=== PATIENT | female | born 1970 | race Caucasian/White ===

== ENCOUNTER → 2017-08-12 | Outpatient (CLI) | payer OTHER ==
--- NOTE | 2017-08-12 18:16 | REP ---
HISTORY: Bronchitis. COMPARISON: 12/22/2015 FINDINGS: The superior mediastinal structures are midline. The cardiac silhouette is unremarkable in size, shape and position. The diaphragmatic surfaces of the lungs are regular and the costophrenic angles are clear. The pulmonary [place] are clear. The imaged osseous structures are intact. IMPRESSION: There is no acute cardiopulmonary disease. Signed by Theodore Lr DO 08/15/2017 04:41 P
== END ==
LOC: M WUC 13:32
PROVIDERS: ATTEND Physician Assistant
DX: J20.9 Acute bronchitis, unspecified (principal)

== ENCOUNTER → 2018-09-29 | Outpatient (CLI) | payer OTHER | LOC: M WUC 12:40 | DX: J45.21 Mild intermittent asthma with (acute) exacerbation (principal) | CPT/HCPCS: 71046 ==

== ENCOUNTER → 2018-12-01 | Outpatient (REF) | payer OTHER ==
[2018-12-01 19:39] LABS: CHLAMYDIA DNA AMPLIFICATION NEGATIVE (NEGATIVE); GC DNA AMPLIFICATION NEGATIVE (NEGATIVE)
[2018-12-05 15:26] LABS: HPV HYBRID CAPTURE II Negative (Negative)
== END ==
LOC: M SFHCWAGY 15:42
PROVIDERS: ATTEND Nurse Practitioner Family
DX: Z12.4 Encounter for screening for malignant neoplasm of cervix (principal); Z11.3 Encounter for screening for infections with a predominantly sexual mode of transmission
CPT/HCPCS: 87491; 87591; 87624; G0123

== ENCOUNTER → 2019-03-06 | Outpatient (CLI) | payer OTHER ==
--- NOTE | 2019-03-06 16:57 | REPMRS ---
Patient History The patient states she had a clinical breast exam in 11/2018. Patient had first child at age 36. No known family history of cancer. Taking hormonal contraceptives for 11 years. 3D TOMOSYNTHESIS WAS PERFORMED. Digital Woman Screen Mammo: March 06, 2019 - Exam #: [id number] Bilateral CC and MLO view(s) were taken. Technologist: Julia Cummings, Technologist Prior study comparison: February 15, 2018, digital woman screen mammo performed at [facility]. 2017, bilateral digital mammo screening bilat, performed at [facility]. FINDINGS: There are scattered fibroglandular densities. There has been no change in the appearance of the mammogram from the prior studies. There is a mild amount of residual fibroglandular tissue which is fairly symmetric. There is no interval development of dominant mass, architectural distortion, or clustered microcalcification suggestive of malignancy. Assessment: BI-RADS/ACR category 1 mammogram. Negative Mammogram. Recommendation Routine screening mammogram in 1 year (for women over age 40). This mammogram was interpreted with the aid of an FDA-approved computer-aided dectection system. Electronically Signed By: Trino Dominguez MD 03/06/19 [id number]
== END ==
LOC: M WHC 15:35
PROVIDERS: ATTEND Nurse Practitioner Family
DX: Z12.31 Encounter for screening mammogram for malignant neoplasm of breast (principal); Z79.3 Long term (current) use of hormonal contraceptives

== ENCOUNTER → 2019-09-20 | Outpatient (REF) | payer OTHER | LOC: M LAB REF 12:20 | PROVIDERS: ATTEND Family Medicine | DX: R35.0 Frequency of micturition (principal) ==

== ENCOUNTER → 2019-11-12 | Outpatient (REF) | payer OTHER ==
[2019-11-12 18:08] LABS: HEMATOCRIT 42.8 % (36.0-47.0)
[2019-11-12 18:28] LABS: PERCENT SATURATION 29.8 % (13.2-45.0); PHOSPHORUS LEVEL 2.3 MG/DL (2.5-4.9)
== END ==
LOC: M LAB REF 16:55
PROVIDERS: ATTEND Family Medicine
DX: K91.2 Postsurgical malabsorption, not elsewhere classified (principal); Z98.84 Bariatric surgery status; E55.9 Vitamin D deficiency, unspecified

== ENCOUNTER → 2020-03-07 | Outpatient (CLI) | payer OTHER ==
--- NOTE | 2020-03-08 08:48 | REP ---
BILATERAL MAMMOGRAM WITH 3D TOMOSYNTHESIS: No family history of breast cancer. Tyrer-Cuzick lifetime risk of breast cancer 13.8% Volpara score is B. COMPARISON: 03/06/2019 as well as other prior exams. Mild scattered fibroglandular tissue is again seen bilaterally. There is no new mass. However, there are a few tiny calcifications behind the right nipple, approximately 2-3 cm from the nipple. Recommend magnification views to further evaluate. IMPRESSION: ACR 0 incomplete. Tiny calcifications a few centimeters behind the right nipple. These appear to be about 12-o'clock position. Recommend magnification views to further evaluate. This mammogram was interpreted with the aid of an FDA-approved computer-aided detection system. A. Negative x-ray reports should not delay biopsy if a dominant or clinically suspicious mass is present. B. Four to eight percent of cancers are not identified by x-ray. C. Adenosis and dense breasts may obscure an underlying neoplasm. The patient states she/he had a clinical breast exam in February 2020. The patient letter being requested is M0.
== END ==
LOC: M WHC 15:11
PROVIDERS: ATTEND Nurse Practitioner Family
DX: Z12.31 Encounter for screening mammogram for malignant neoplasm of breast (principal); R92.1 Mammographic calcification found on diagnostic imaging of breast

== ENCOUNTER → 2020-03-10 | Outpatient (CLI) | payer OTHER ==
--- NOTE | 2020-03-10 23:11 | REP ---
DIAGNOSTIC MAMMOGRAM RIGHT BREAST: Magnification views of right breast performed and correlated with the recent mammogram of 03/07/2020 and compared to other prior studies. There are tiny somewhat pleomorphic microcalcifications clustered in the 12-o'clock region of the right breast. These have been present on a prior study of 2017, but there are an increased number of calcifications. I would recommend stereotactic biopsy for further evaluation. IMPRESSION: Clustered pleomorphic microcalcifications at the 12-o'clock position of the right breast. Recommend stereotactic biopsy. ACR 4, suspicious. BIRADS 4: BI-RADS/ACR category 4 mammogram. Suspicious Abnormality - biopsy should be considered. The patient letter being requested is M4.
== END ==
LOC: M WHC 13:58
PROVIDERS: ATTEND Nurse Practitioner Family
DX: R92.0 Mammographic microcalcification found on diagnostic imaging of breast (principal)

== ENCOUNTER → 2020-03-17 | Outpatient (CLI) | payer OTHER ==
[~2020-03-17] MED LIST: BIOT1TAB PO; CALC1TAB9 PO; CITA20TA6 PO; CLON0.5T17 PO; CVS10CAP8 PO; INTRTAB PO; MIRE1IUD IU; MULTCAP PO; SYNT150T PO; SYNT175T2 PO; VALT500T PO; VENTAER INH; VITAD400CA FT
== END ==
LOC: M PLALAB 10:21
PROVIDERS: ATTEND Surgery
DX: Z13.79 Encounter for other screening for genetic and chromosomal anomalies (principal)

== ENCOUNTER → 2020-03-18 | Outpatient (CLI) | payer OTHER ==
--- NOTE | 2020-03-18 13:37 | REP ---
FOCUSED RIGHT BREAST SONOGRAPHY: HISTORY: Right breast mass, 12:30-o'clock position, 5.5 cm from the nipple and 12-o'clock position, 3.5 cm from the nipple. COMPARISON MAMMOGRAPHY: March 07, 2020 SONOGRAPHIC FINDINGS: The right breast is scanned at 12-o'clock position, 12:30-o'clock position , and in the right axillary region. At the 12-o'clock position, 3 cm from the nipple, there is a hypoechoic area casting acoustic shadowing. This measures 0.9 x 0.8 x 0.6 cm. Histologic sampling is recommended. At 12:30-o'clock position, normal heterogeneous fibroglandular background echotexture is seen sonographically. In the right axilla, sonography demonstrates two normal-appearing lymph nodes with hyperechoic fatty hilar architecture and normal-appearing peripheral cortical mantle. These measure 1.7 x 1.4 x 0.6 cm and 1.7 x 1.3 x 0.7 cm, respectively. No evidence of axillary adenopathy seen. IMPRESSION: There is a sonographically suspicious focus at 12-o'clock position measuring 0.9 x 0.8 x 0.6 cm. Ultrasound-guided needle biopsy and marker clip placement with post marker clip placement mammography recommended.
== END ==
LOC: M WHC 11:23
PROVIDERS: ATTEND Surgery
DX: N63.10 Unspecified lump in the right breast, unspecified quadrant (principal); R59.0 Localized enlarged lymph nodes

== ENCOUNTER → 2020-03-19 | Outpatient (CLI) | payer OTHER ==
[2020-03-19 09:28] VITALS: BP 122/70
--- NOTE | 2020-03-19 10:39 | REP ---
RADIOGRAPHY RIGHT BREAST: HISTORY: Right breast microcalcifications. Comparison mammography March 10, 2020 and March 07, 2020. FINDINGS: Microcalcifications are visible from the target cluster in two of the removed specimens. IMPRESSION: Microcalcifications are present on specimen radiography.
--- NOTE | 2020-03-19 10:41 | REP ---
STEREOTACTIC NEEDLE BIOPSY. HISTORY: Microcalcific grouping right breast. FINDINGS: Stereotactic guidance is provided to Dr. Narvaez who performed stereotactic needle biopsy procedure.
--- NOTE | 2020-03-19 10:50 | REP ---
DIGITAL DIAGNOSTIC UNILATERAL RIGHT BREAST MAMMOGRAPHY WITH CAD: Two views. HISTORY: Right breast calcifications. Post stereotactic needle biopsy. Marker clip placement views. Comparison mammography March 10, 2020. FINDINGS: The marker clip is in good position at the site where prior mammography showed the micro calcific grouping. The microcalcifications have been removed except for one remaining visible microcalcification adjacent to the clip. IMPRESSION: Marker clip in good position. This mammogram was interpreted with the aid of an FDA-approved computer-aided detection system.
--- NOTE | 2020-03-23 16:20 | ROOPDOC ---
[facility] Report Of Operation Report of Operation DATE OF PROCEDURE: 03/19/20 PREPROCEDURE DIAGNOSES: Right breast suspicious calcifications POSTPROCEDURE DIAGNOSES: Right breast suspicious calcifications. PROCEDURE: Right breast stereotactic biopsy with clip placement. SURGEON: Eliot Perry TOP LIFT COMPRESSER: ANESTHESIA: Local anesthetic was used. ESTIMATED BLOOD LOSS: Approximately 1 mL. COMPLICATIONS: None. REMARKS: Clip is seen in appropriate position on postbiopsy mammogram. Suspicious calcifications are seen in the specimen. DESCRIPTION OF PROCEDURE: Lidocaine 1% LOT [id number] Expiration 04/2023 Sodium Bicarbonate 8.4% LOT [id number] Expiration 04/2021 Hydromark clip LOT [id number] Expiration 08/2021 T1 titanium shaped 1 (closed Spring) Bx device: Stereotactic Mammotome Revolve Dual Vacuum- assisted Biopsy System 10 G LOT [id number] Expiration 10/2022 REF [id number] Informed consent was obtained in the preop area. The most common risk and possible complications including bleeding, hematoma, bruising, infection, injury to surrounding structures were explained to the patient and she expressed understanding. Patient was taken to the procedure room and placed prone on the [facility] Prone Breast Biopsy table with the right breast hanging through the table aperture. Right breast was placed into Cranio-Caudal compression and Orchestra Musician marnie images were taken. Suspicious calcifications were identified on the marnie images and target was set. CC approach from the top was chosen for this procedure. At this time, since we were able to confirm visibility of the suspicious calcifications and patient tolerated prone positioning allowing to proceed with the biopsy, appropriate time out was done stating patients name, date of , and the procedure to be performed. The right breast in CC compression was prepped in the usual fashion. Plain Lidocaine 1% and 8.4% sodium bicarbonate 10:1 mix was used to anesthetize the skin, the biopsy site and tissues along the anticipated biopsy tract. Small skin incision was made with blade number 11. Mammotome 10 G stereotactic breast biopsy device was inserted through the incision and advanced to the previously set coordinates marking the target lesion. Pre-fire imaging was taken to assure appropriate positioning. At this time, Mammotome 10 G breast biopsy device was fired and vacuum assisted biopsies were collected. The biopsy samples were investigated with [employer] Imaging system and calcifications were observed. Biopsy samples were then placed in the formaldehyde, marked with patients name and right breast biopsy site, and sent to pathology for evaluation. Hydromark clip was placed into the Mammotome biopsy device channel and deployed. Post-deployment imaging was done to assure appropriate clip deployment. Clip was noted in the right breast. At this point, paddle CC compression of the right breast was released and manual pressure was held to decrease harmonic effect and to assure hemostasis. No bleeding was noted upon removal of the pressure. Patient was slowly repositioned and placed into sitting position, and then assisted off the table. Post-biopsy mammogram of the right breast was obtained and showed clip in expected position. Postprocedural dressing was placed. Patient tolerated procedure well and was taken to the recovery unit in stable condition. Discharge instructions were discussed with the patient and she expressed understanding. ELIOT PERRY DO March 23, 2020 16:01
== END ==
LOC: M WHCPRO 07:53
PROVIDERS: ATTEND Surgery
DX: N60.11 Diffuse cystic mastopathy of right breast (principal)

== ENCOUNTER → 2020-03-26 | Outpatient (CLI) | payer OTHER ==
--- NOTE | 2020-03-26 11:13 | REP ---
FOCUSED RIGHT BREAST SONOGRAPHY: HISTORY: Right breast mass. Sonographic guidance. FINDINGS: Sonographic guidance is provided to Dr. Narvaez who performed ultrasound-guided needle biopsy procedure right breast with HydroMARK clip placement.
[2020-03-26 11:52] VITALS: BP 118/70
--- NOTE | 2020-03-26 14:04 | REP ---
DIGITAL DIAGNOSTIC UNILATERAL RIGHT BREAST MAMMOGRAPHY: Two views. HISTORY: Marker clip placement views. The patient is status post ultrasound-guided needle biopsy procedure. Comparison mammography March 19, 2020. FINDINGS: CC and true mediolateral views of the right breast demonstrate a second needle biopsy marker clip in place superior to the plane of the nipple and lateral to the plane of the nipple. No corresponding mammographic lesion. There are now two needle biopsy marker clips in the right breast anteriorly and superiorly. There is no evidence of hematoma. IMPRESSION: Marker clip placement views.
--- NOTE | 2020-04-01 11:44 | ROOPDOC ---
[facility] Report Of Operation Report of Operation DATE OF PROCEDURE: 03/26/20 PREPROCEDURE DIAGNOSES: Right breast mass. POSTPROCEDURE DIAGNOSES: Right breast mass. PROCEDURE: Right breast ultrasound-guided biopsy with clip placement. SURGEON: Eliot Perry GELATIN DYNAMITE PACKING OPERATOR: ANESTHESIA: Local anesthetic was used. ESTIMATED BLOOD LOSS: Approximately 1 mL. COMPLICATIONS: None. REMARKS: Postbiopsy clip seen on mammogram. DESCRIPTION OF PROCEDURE: Lidocaine 1% LOT [id number] Expiration 04/2023 Sodium Bicarbonate 8.4% LOT [id number] Expiration 04/2021 Hydromark clip LOT [id number] Expiration 11/2022 SHAPE 4 Bx device: BARD [id number] x10 cm LOT HUEP 3 1 0 2 Expiration 12/2022 Informed consent was obtained. The most common risk and possible complications including bleeding, hematoma, bruising, infection, injury to surrounding stru ctures were explained to the patient and she expressed understanding. Patient was placed on the bed in the supine position. Appropriate time out was done stating patients name, date of , and the procedure to be performed. The right breast was prepped and draped in the usual fashion. The ultrasound was used to confirm the location of the lesion in the right breast at 12:00 3 centimeters from the nipple. Plain Lidocaine 1% and 8.4% sodium bicarbonate 10:1 mix was used to anesthetize the skin, the biopsy site and tissues along the anticipated biopsy tract. Small skin incision was made with blade number 11. BARD Marquee 14G cannula with introducer ([id number]) was inserted through the incision and advanced under the ultrasound guidance to position immediately adjacent to the lesion. Next, the introducer was removed and BARD Marquee 14G biopsy device was places in the cannula. Pre-biopsy imaging, and post-biopsy imaging were captured. Five good core biopsies were taken at various levels of the lesion. Specimen was placed in formaldehyde, labeled with appropriate biopsy site and patients name, and sent to pathology for evaluation. Next, the biopsy device was withdrawn and a clip introducer was inserted into the biopsy site via the cannula. The Hydromark clip was deployed under sonographic guidance. Post-clip placement image was captured. Manual pressure over the biopsy cavity and tract was held after the clip introducer was withdrawn. No bleeding was noted upon removal of the pressure. Post-biopsy mammogram of the right breast was obtained and showed clip in expected position. Postprocedural dressing was placed. Patient tolerated procedure well. Discharge instructions were discussed with the patient and she expressed understanding. ELIOT PERRY DO April 01, 2020 11:38
== END ==
LOC: M WHCPRO 08:52
PROVIDERS: ATTEND Surgery
DX: D24.1 Benign neoplasm of right breast (principal)

== ENCOUNTER → 2020-04-17 | Outpatient (REF) | payer OTHER ==
[~2020-04-17] MED LIST changes: +MECL-86 PO
[2020-04-17 17:42] LABS: HEMATOCRIT 40.2 % (36.0-47.0)
[2020-04-17 18:16] LABS: PHOSPHORUS LEVEL 3.4 MG/DL (2.5-4.9)
== END ==
LOC: M LAB REF 16:50
PROVIDERS: ATTEND Family Medicine
DX: K91.2 Postsurgical malabsorption, not elsewhere classified (principal); Z98.84 Bariatric surgery status; Z86.39 Personal history of other endocrine, nutritional and metabolic disease

== ENCOUNTER 2020-04-18 07:52 | Emergency (ER) | payer OTHER ==
[~2020-04-18] VITALS: Ht 165.1 cm; Wt 94.1 kg
[~2020-04-18 07:52] MED LIST changes: -MECL-86 PO
[2020-04-18] MEDS ORDERED: NS 1,000 ML IV ONE (08:15)
[2020-04-18 08:30] LABS: BASO # 0.1 10^3/uL (0.0-0.2); HEMATOCRIT 44.1 % (36.0-47.0); HEMOGLOBIN 15.2 g/dl (12.0-15.5); LYMPH # 1.6 10^3/uL (1.5-5.0); LYMPH % 20.2 % (24.0-44.0); MEAN CORPUSCULAR HEMOGLOBIN 32.3 pg (27.0-33.0); MEAN CORPUSCULAR HGB CONC 34.5 g/dl (32.0-36.5); MEAN CORPUSCULAR VOLUME 93.6 fl (80.0-96.0); MONO # 0.7 10^3/uL (0.0-0.8); MONO % 8.7 % (0.0-5.0); NEUTROPHILS # 5.6 10^3/uL (1.5-8.5); NEUTROPHILS % 69.7 % (36.0-66.0); PLATELET COUNT, AUTOMATED 318 10^3/uL (150-450); RED BLOOD COUNT 4.71 10^6/uL (4.00-5.40); WHITE BLOOD COUNT 8.1 10^3/uL (4.0-10.0)
[2020-04-18 08:42] LABS: INR 0.97; PROTHROMBIN TIME 12.6 SECONDS (11.8-14.0)
[2020-04-18 09:07] LABS: BLOOD UREA NITROGEN 8 MG/DL (7-18); CALCIUM LEVEL 9.1 MG/DL (8.5-10.1); CARBON DIOXIDE LEVEL 28 MEQ/L (21-32); CHLORIDE LEVEL 105 MEQ/L (98-107); CK-MB VALUE MASS 1.3 NG/ML (<3.6); CPK CREATINE PHOSPHOKINASE 45 U/L (26-192); CREATININE FOR GFR 0.64 MG/DL (0.55-1.30); ETHYL ALCOHOL (ETHANOL) < 0.003 % (0.000-0.010); GLOMERULAR FILTRATION RATE > 60.0 (>58); GLUCOSE, FASTING 106 MG/DL (70-100); MB/CK RELATIVE INDEX 2.89 (< OR =4); POTASSIUM SERUM 3.5 MEQ/L (3.5-5.1); SODIUM LEVEL 141 MEQ/L (136-145); TROPONIN I < 0.02 NG/ML (< 0.10)
[2020-04-18 09:42] LABS: AMPHETAMINES LEVEL URINE NEGATIVE (NEGATIVE); BARBITURATES URINE NEGATIVE (NEGATIVE); BENZODIAZEPINES URINE NEGATIVE (NEGATIVE); CANNABINOIDS URINE NEGATIVE (NEGATIVE); COCAINE METABOLITE URINE NEGATIVE (NEGATIVE); METHADONE URINE NEGATIVE (NEGATIVE); OPIATES URINE NEGATIVE (NEGATIVE); PHENCYCLIDINE URINE NEGATIVE (NEGATIVE)
--- NOTE | 2020-04-18 09:52 | REP ---
CHEST: Single view. There is no evidence of acute infiltrate. No pleural effusion is seen. The heart is normal in size. The mediastinal silhouette is unremarkable. The visualized osseous structures are intact. IMPRESSION: No acute pulmonary disease. Electronically Signed by Trino Dominguez MD 04/21/2020 09:34 P
[2020-04-18] MEDS ORDERED: MECL-86 PO (10:04)
[2020-04-18 10:10] VITALS: BP 117/57
--- NOTE | 2020-04-18 21:07 | ECGEPIP ---
[facility] - ED Test Date: 2020-04-18 Pat Name: JOYCE KELLEY Department: Room: - Gender: Female Surgical Coordinator: adrian : 1970 Requested By: KACIE REAL Order Number: [id number] Reading MD: Kristin Saavedra Measurements Intervals [place] Rate: 98 P: 65 IA: 179 QRS: -34 QRSD: 90 T: 60 QT: 350 QTc: 447 Interpretive Statements SINUS RHYTHM MARKED LEFT AXIS DEVIATION INCREASED RATE 07/25/16 Electronically Signed on 04-18-2020 21:06:37 EDT by Kristin Saavedra
== END 2020-04-18 10:22 | disposition home or self-care (01) ==
LOC: M ED 07:52
DX: R00.2 Palpitations (principal); R42 Dizziness and giddiness; J45.909 Unspecified asthma, uncomplicated; Z79.51 Long term (current) use of inhaled steroids; Z79.899 Other long term (current) drug therapy; Z88.0 Allergy status to penicillin; Z98.84 Bariatric surgery status
CPT/HCPCS: 71045; 80048; 80307; 81001; 82550; 82553; 83735; 84443; 84484; 85025; 85610; 87086; 93005; 93041; 94760; 96360; 96361; 99285; G0480

== ENCOUNTER → 2020-09-18 | Outpatient (CLI) | payer OTHER ==
[~2020-09-18] MED LIST changes: +MECL-86 PO
--- NOTE | 2020-09-18 09:22 | REP ---
INDICATION: OSTEO LEFT HIP, PREOP LABS 1ST FILE RM COMPARISON: 04/18/2020 and 09/29/2018. TECHNIQUE: PA/Lateral FINDINGS: Lungs: Clear, no infiltrate. Heart: Normal in size. Mediastinum: Mediastinal silhouette unremarkable. Pleural angles: Unremarkable.. Bones and soft tissues: There are mild degenerative changes of the spine without compression deformity. IMPRESSION: No acute pulmonary disease. <Electronically signed by Trino Dominguez > 09/18/20 0919
[2020-09-18 09:40] LABS: HEMATOCRIT 43.8 % (36.0-47.0); HEMOGLOBIN 14.2 g/dl (12.0-15.5); MEAN CORPUSCULAR HEMOGLOBIN 30.5 pg (27.0-33.0); MEAN CORPUSCULAR HGB CONC 32.4 g/dl (32.0-36.5); PLATELET COUNT, AUTOMATED 302 10^3/uL (150-450); RED BLOOD COUNT 4.66 10^6/uL (4.00-5.40)
[2020-09-18 09:48] LABS: INR 1.01; PROTHROMBIN TIME 13.5 SECONDS (12.5-14.3)
[2020-09-18 10:06] LABS: ERYTHROCYTE SEDIMENTATION RATE 7 mm/hr (0-20)
--- NOTE | 2020-09-19 01:51 | ECGEPIP ---
[facility] Test Date: 2020-09-18 Pat Name: JOYCE KELLEY Department: Room: - Gender: Female Chief Engineer Research: LUCRECIA : 1970 Requested By: Jeronimo Hernandez Order Number: [id number] Reading MD: Carlo Henriquez Measurements Intervals [place] Rate: 58 P: 21 AR: 170 QRS: -30 QRSD: 82 T: 48 QT: 400 QTc: 393 Interpretive Statements SINUS BRADYCARDIA BORDERLINE LEFT AXIS DEVIATION Similar to tracing done 04-18-20 Electronically Signed on 09-19-2020 1:51:25 EST by Carlo Henriquez
== END ==
LOC: M LAB 08:21
PROVIDERS: ATTEND Orthopaedic Surgery
DX: Z01.818 Encounter for other preprocedural examination (principal); M16.12 Unilateral primary osteoarthritis, left hip; R00.1 Bradycardia, unspecified

== ENCOUNTER → 2020-09-26 | Outpatient (CLI) | payer OTHER ==
[~2020-09-26] MED LIST changes: +BENA25CA4 PO; +MUPI2OI; -VITAD400CA FT; +VITAD400CA PO
== END ==
LOC: M LABSMTC 10:01
PROVIDERS: ATTEND Anesthesiology
DX: Z01.812 Encounter for preprocedural laboratory examination (principal); Z20.828 Contact with and (suspected) exposure to other viral communicable diseases

== ENCOUNTER 2020-10-01 06:13 | Inpatient (IN) | payer OTHER ==
--- NOTE | 2020-09-30 13:30 | HPE ---
DATE OF ANTICIPATED ADMISSION: 10/01/2020 DICTATED FOR: Jeronimo Cohen M.D. CHIEF COMPLAINT: Left hip pain. HISTORY OF PRESENT ILLNESS: Marie is a pleasant, 50-year-old female with progressively worsening left hip pain and stiffness. She has failed to improve with conservative treatment. She has elected for surgery for her continued symptoms. She has pain with weightbearing activities and her activities of daily living. X-rays of her hip are notable for advanced osteoarthritis of the left hip joint. She has consented for a left total hip arthroplasty by Dr. David Cohen. Medical optimization was performed by Dr. Francesco Brush. ALLERGIES: PENICILLIN. CURRENT MEDICATIONS: - Synthroid 150-175 mcg a day - citalopram 40 mg a day - clonazepam - Ventolin inhaler - melatonin - Benadryl - B12 - biotin - calcium citrate - multivitamin - Mirena IUD - Valtrex. PAST MEDICAL HISTORY: Includes: 1. Hypothyroidism 2. Anxiety and depression PAST SURGICAL HISTORY: Includes: 1. Tonsillectomy 2. section 3. Cataracts 4. 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 Does not smoke; rarely drinks alcohol. FAMILY HISTORY: Noncontributory. REVIEW OF SYSTEMS: This patient denies chest pains, heart palpitations, cough, wheezing, difficulty breathing, and shortness of breath. She denies abdominal pain, nausea, vomiting, diarrhea, or constipation. She denies recent upper respiratory infection or urinary tract infection symptoms. She does complain of persistent pain in the left hip. PHYSICAL EXAMINATION: GENERAL: She is well-nourished, well-developed in no acute distress, alert female patient who walks with a moderate limp favoring her left lower extremity. She is not using assistive devices. VITAL SIGNS: She is 5 foot 5 inches tall, weighs 183.8 pounds. Temperature of 97.3, blood pressure 118/78, pulse 62, respirations 16. NECK: Supple without adenopathy or jugular venous distention. LUNGS: Clear to auscultation without rales or wheeze. HEART: Regular rate and rhythm. ABDOMEN: Bowel sounds were present. EXTREMITIES: Examination of the hip revealed intact skin. She had decreased range of motion with internal and external rotation due to pain and stiffness. The limb is neurovascularly intact. LABORATORY DATA: EKG showed sinus bradycardia at 56 beats per minute. Prothrombin time was 13.5, INR 1.01. CBC was within normal limits with a sed rate of 7. Chest x-ray was not available. IMPRESSION: Symptomatic osteoarthritis of the left hip joint. PLAN: Consented for a left total hip arthroplasty by Dr. Jeronimo Cohen. TABBY
[2020-10-01] VITALS (8 sets, daily range): BP systolic 101–123; BP diastolic 57–73
[~2020-10-01] VITALS: Ht 167.6 cm; Wt 85.3 kg
[~2020-10-01 06:13] MED LIST changes: +ACETAMINOPHEN 500 MG TAB PO ONE; +LR 1,000 ML IV ONE; -MUPI2OI; +ceFAZolin SOD 2 GM in IV 1 EA IV ONE
[2020-10-01] MEDS ORDERED: MUPI2OI (06:52)
[2020-10-01] MEDS ORDERED: propofoL 500 MG/50 ML VIAL As Ordered ONE (07:03)
[2020-10-01] MEDS ORDERED: MIDAZOLAM INJ 2MG/2ML VIAL (J2250 PER 1MG) As Ordered ONE ×2 (07:06→08:19)
[2020-10-01] MEDS ORDERED: fentaNYL 100 MCG/2 ML INJECTION (J3010) As Ordered ONE (07:08)
[2020-10-01] MEDS ORDERED: BUPIVACAINE HCL 0.25% 10ML VIAL As Ordered ONE (07:10)
[2020-10-01] MEDS ORDERED: CLINDAMYCIN INJ 900MG/6ML VIAL As Ordered ONE (07:10)
[2020-10-01] MEDS ORDERED: EPINEPHrine INJ 1 MG/ML 1ML AMP As Ordered ONE (07:10)
[2020-10-01] MEDS ORDERED: TRANEXAMIC ACID 100 MG/ML 10ML VIAL As Ordered ONE (07:10)
[2020-10-01] MEDS ORDERED: BUPIVACAINE LIPOSOME/PF 1.3% 20ML VIAL (13.3MG/ML)(EXPAREL)(C9290 PER1MG) As Ordered ONE (07:11)
[2020-10-01] MEDS ORDERED: dexameTHASONE 4 MG/ML 1ML VIAL (J1100 PER 1MG) As Ordered ONE (07:11)
[2020-10-01] MEDS ORDERED: ePHEDrine SULFATE 25 MG/5 ML(5MG/ML) SYRINGE As Ordered ONE (07:56)
[2020-10-01] MEDS ORDERED: METOCLOPRAMIDE INJ 10MG/2ML VIAL (J2765 PER 1) As Ordered ONE (08:04)
[2020-10-01] MEDS ORDERED: ONDANSETRON 4MG/2ML VIAL As Ordered ONE (08:04)
[2020-10-01] MEDS ORDERED: PHENYLephrine HCL 500 MCG/5 ML (100MCG/ML) SYRINGE (J2370) As Ordered ONE (08:09)
[2020-10-01] MEDS ORDERED: KETAMINE HCL 200 MG/20 ML VIAL As Ordered ONE (08:43)
[2020-10-01] MEDS ORDERED: ONDANSETRON 4MG/2ML VIAL IV PRN ×2 (10:00→10:15)
[2020-10-01] MEDS ORDERED: oxyCODONE 5MG TAB PO PRN (10:00)
[2020-10-01] MEDS ORDERED: LR 1,000 ML IV SCH ×2 (10:00→10:15)
[2020-10-01] MEDS ORDERED: HYDROMORPHONE HCL 0.5 MG/ 0.5 ML SYRINGE (J1170 PER 1) IV PRN (10:00)
[2020-10-01] MEDS ORDERED: fentaNYL 100 MCG/2 ML INJECTION (J3010) IV PRN (10:00)
--- NOTE | 2020-10-01 10:13 | REP ---
INDICATION: POST OP IN PACU. COMPARISON: None. TECHNIQUE: Three intraoperative views left hip performed in a portable fashion. FINDINGS: Total left hip prosthesis is in good position. The osseous structures are intact and well aligned. Metallic skin desi are seen laterally. IMPRESSION: Hip prosthesis in good position. <Electronically signed by Trino Dominguez > 10/01/20 1007
[2020-10-01] MEDS ORDERED: MORPHINE 4 MG/ML 1ML VIAL/SYRINGE (J2270) IV PRN (10:15)
[2020-10-01] MEDS ORDERED: ACETAMINOPHEN TAB 650MG DOSE (2X325MG) PO PRN (10:15)
[2020-10-01] MEDS ORDERED: PERCOCET 5MG/325MG TAB PO PRN ×2 (10:15)
[2020-10-01] MEDS ORDERED: MORPHINE 2 MG/ML 1ML VIAL (J2270) IV PRN (10:15)
[2020-10-01] MEDS ORDERED: ALBUTEROL 90 MCG/ACT 8GM HFA INHALER INH PRN (11:30)
--- NOTE | 2020-10-01 11:54 | HPEPDOC ---
General Date of Admission Oct 01, 2020 at 06:13 Date of Service: Oct 01, 2020 Chief Complaint The patient is a 50-year-old female admitted with a reason for visit of Left Hip Arthritis-Osteo. History of Present Illness Consultation Report. Consultation requested By Orthopedics Consultation for the management of medical comorbidities. HPI. This is a 50 year old women with h/o morbid obesity s/p gastric bypass surgery, hypothyroid, anxiety, depression with advanced left hip osteoarthritis admitted for elective left total hip replacement. I am seeing the patient after her surgery. She complains of sharp aching pain at the left hip joint about 4/10 with out any radiation at present but worsening as the anesthesia is wearing off. Home Medications Scheduled Biotin (Biotin) 10 Mg Tablet, 1 TAB PO DAILY, (Reported) Calcium Citrate (Calcitrate) 200 Mg Tablet, 1 TAB PO DAILY, (Reported) Citalopram Hydrobromide (Citalopram HBr) 20 Mg Tablet, 40 MG PO DAILY, (Reported) Diphenhydramine HCl (Benadryl) 25 Mg Capsule, 50 MG PO QHS, (Reported) Levothyroxine Sodium (Synthroid) 150 Mcg Tablet, 1 TAB PO Q2D, (Reported) Levothyroxine Sodium (Synthroid) 175 Mcg Tablet, 1 TAB PO Q2D, (Reported) Melatonin (Melatonin) 10 Mg Capsule, 1 CAP PO QPM for sleep, (Reported) Multivitamin (Multivitamins) 1 Each Capsule, 1 CAP PO DAILY, (Reported) Vit B12/Intrinsic Fact/Folate (Intrinsi D59-Mgiypr Tablet) 1 Each Tablet, 1 TAB PO DAILY, (Reported) Vitamin D (Vitamin D3) 10 Mcg Tablet, 50 MCG PO DAILY, (Reported) Scheduled PRN Albuterol Sulfate (Ventolin Hfa) 18 Gm Hfa.aer.ad, 2 PUFF INH Q4-6HP PRN for wheezing, (Reported) Clonazepam (Clonazepam) 0.5 Mg Tab.rapdis, 1 TAB PO DAILY PRN for ANXIETY/AGITATION, (Reported) Valacyclovir HCl (Valtrex) 500 Mg Tablet, 1 TAB PO DAILY PRN for SEE PROTOCOL, (Reported) Miscellaneous Medications Levonorgestrel (Mirena) 1 Each Iud, 20 MCG IU, (Reported) Mupirocin (Mupirocin) 2 % Oint...g., (Reported) Allergies Coded Allergies: Penicillins (Verified Adverse Reaction, Mild, sleepy, difficult to wake, 09/24/20) Past Medical History Medical History Hypothyroidism, Anxiety and depression, HSV 1 oral H/o Morbid obesity s/p gastric bypass in 10/2019 Asthma FX. RIGHT FOOT AND RIGHT TOE GERD POSITIVE CLOTTING FACTOR Surgical History Tonsillectomy section Bilateral Cataract surgery Gastric bypass 2018 Family History FATHER: , LEUKEMIA MOTHER: , PULMONARY EMBOLISM WITH VENA CAVA FILTER. FROM A BRAIN TUMOR PATERNAL GRAND MOTHER: MD MATERNAL GRANDFATHER STROKE Social History * Smoker: non-smoker Alcohol: rarely Drugs: denies A-FIB/CHADSVASC A-FIB History Current/History of A-Fib/PAF?: No Review of Systems Constitutional: Denies: Chills, Fever, Night Sweats Eyes: Denies: Pain, Vision change ENT: Denies: Head Aches, Ear Pain, Dysphagia Skin: Denies: Rash, Lesions, Breakdown Pulmonary: Denies: Dyspnea, Cough Cardiovascular: Denies: Chest Pain, Palpitations, Orthopnea, Paroxysmal Noc. Dyspnea, Lt Headedness Gastrointestinal: Denies: Nausea, Vomiting, Abdominal Pain, Diarrhea Genitourinary: Denies: Dysuria, Frequency, Incontinence, Retention Hematologic: Denies: Bruising, Bleeding Excessively Musculoskeletal: Reports: Joint Pain (left hip) Neurological: Denies: Weakness, Numbness, Change in speech, Confusion Physical Examination General Exam: Positive: Alert, Cooperative, No Acute Distress Eye Exam: Positive: PERRLA, Conjunctiva & lids normal, EOMI; Negative: Sclera icteric ENT Exam: Positive: Atraumatic, Mucous membr. moist/pink, Pharynx Normal Neck Exam: Positive: Supple; Negative: JVD, thyromegaly Chest Exam: Positive: Clear to auscultation, Normal air movement Heart Exam: Positive: Rate Normal, Regular Rhythm, Normal S1, Normal S2; Negative: Murmurs, Rubs Telemetry: Positive: No significant arrhythmia Abdomen Exam: Positive: Normal bowel sounds, Soft; Negative: Tenderness, Hepatospenomegaly Extremity Exam: Positive: Tenderness (left hip with surgical bandage. ); Negative: Clubbing, Cyanosis, Edema Skin Exam: Positive: Nl turgor and temperature; Negative: Breakdown, Lesion Neuro Exam: Positive: Normal Gait, Normal Speech, Cranial Nerves 3-12 NL, Reflexes 2+ Psych Exam: Positive: Mental status NL, Mood NL, Oriented x 3 Vital Signs Vital Signs Date Time Temp Pulse Resp B/P (MAP) Pulse Ox O2 Delivery O2 Flow Rate FiO2 10/01/20 10:15 97 81 18 115/60 (78) 98 Room Air 10/01/20 09:34 3 Assessment/Plan This is a 50 year old women with h/o morbid obesity s/p gastric bypass surgery, hypothyroid, anxiety, depression with advanced left hip osteoarthritis admitted for elective left total hip replacement. S/P Left Total Hip Replacement Pain control and DVT prophylaxis as per ortho PT/OT Hypothyroid continue Synthroid Asthma albuterol prn Anxiety and depression citalopram Morbid obesity s/p gastric bypass surgery lost 120 lbs this year will restart supplements on discharge. Plan / VTE VTE Prophylaxis Ordered?: Yes MARYCHUY NG MD Oct 01, 2020 11:37
[2020-10-01] MEDS: CitaloPRAM (CeleXA) 20 MG TAB PO SCH (13:17)
--- NOTE | 2020-10-01 14:26 | RO ---
DATE OF OPERATION: 10/01/2020 PREOPERATIVE DIAGNOSIS: Left hip degenerative arthritis. POSTOPERATIVE DIAGNOSIS: Left hip degenerative arthritis. PROCEDURE: Left total hip arthroplasty using a size 5 [place] uncemented stem with a 1.5 size femoral neck with a 36 mm ceramic head with a 52 mm Warren cup with a 36 mm ceramic liner. Prosthesis was made by [employer]. SURGEON: Jeronimo Cohen M.D. WOOD HEEL FITTER MACHINE: ROYAL Menjivar ANESTHESIA: Spinal. COMPLICATIONS: None. SPECIMENS: Femoral head. ESTIMATED BLOOD LOSS: 200 mL. PROCEDURE: Antibiotics were given intravenously preoperatively and a successful spinal anesthetic was induced. She was placed in the lateral decubitus position, the left hip upper most with the Balm hip positioner utilized, down leg well padded, especially peroneal nerve, and axillary roll was utilized. Left hip area was then carefully prepped and draped in the usual sterile fashion and after appropriate time out, a longitudinal incision was made for a direct lateral approach to the hip. Bovie cautery was used to coagulate the crossing vessels down to the tensor fascia. Hemostasis cured with a Bovie. Tensor fascia divided and we split the gluteus medius at the anterior one-third and posterior two-third junction, carefully then dissected distally and anteriorly off the proximal femur as we externally rotated the hip and then eventually dislocated the hip and placed her leg in the leg bag anteriorly. The piriformis fossa was identified, starter reamer placed followed by the canal finding reamer, then the lateralizing reamer, and then we reamed up to a size 5. Femoral neck osteotomy was then performed using the template as a guide, and then we began broaching the proximal femur up to a size 5. She had excellent fit and fill with a 5 broach. I felt this was likely the appropriate size femoral stem. We then turned our attention to the acetabulum. The acetabulum was exposed. There were large ring osteophytes especially anteriorly and inferiorly noted. Labral excision was performed 360 degrees and then we began sequentially reaming, starting at a 46 mm reamer. I deepened the cup to the teardrop and then advanced and expanded in 1 mm increments up to size 51. The 52 trial actually fit very nicely. I used the extramedullary alignment jig to make sure that the version and abduction seemed appropriate. I placed a trial polyethylene liner within the trial metal cup and then irrigated out the femoral canal, place a #5 broach with a 1.5 x 36 ball and reduced the hip to check our cup position. She had excellent stability of the flexion, internal rotation and extension and external rotation. There was no impingement noted of the neck onto the shell. Thus I felt the cup was in the appropriate position. Prior to removing the trial shell, I did remove the anterior and the inferior osteophyte using a 0.5 inch curved osteotome and Rongeurs. I then removed all the trial components at this point and then we copiously irrigated out the acetabulum. The real cup was then placed using extramedullary alignment jig once again to place it back into the same position we trialed and then the central hole eliminator placed, and then we copiously irrigated the cup and made sure it was nice and clean, then placed the ceramic liner being sure it fit symmetrically and impacted it into position. We then exposed the proximal femur once again, copiously irrigated out the femoral canal as I did several times throughout the operation, placed the real #5 [place] stem. It seated appropriately. Then we placed the trial 1.5 x 36 ball and reduced the hip once again and placed it through a trial reduction. She was very stable with flexion, internal rotation, and extension and external rotation and there was minimal soft tissue telescoping. Thus I felt the 1.5 neck was an appropriate neck length. We then dried the trunnion and placed the real ceramic head and then reduced the hip after irrigating it once again. Tranxemic acid was used in the depths of the wound to help control bleeding and then we began anatomically closing the first of the gluteus minimus layer with interrupted #1 PDS sutures, then gluteus medius layer with interrupted #1 PDS sutures. Then we closed tensor fascia with a combination of #1 PDS suture and a running #1 Stratafix, irrigating between layers and then we closed the deep subdermal tissues with interrupted 2-0 PDS suture and the skin was closed with desi, covered by an OptiFoam and dry sterile bulky dressing. She was then turned supine and transferred to the recovery room in stable condition. There were no intraoperative complications. Delilah Mariela Rodriguez was critical to the success of this difficult procedure by helping with appropriate soft tissue manipulation, helped to reduce and dislocate the hip several times throughout the operation, helped to prepare the patient for surgery, helped to close the wound amongst many other tasks to allow me to perform the operation smoothly, efficiently, and safely. TABBY
[2020-10-01] MEDS: ceFAZolin SOD 2 GM in IV 1 EA IV SCH ×2 (16:15→23:46)
[2020-10-01] MEDS: ASPIRIN 81 MG ENTERIC TAB PO SCH (20:16)
[2020-10-01] MEDS ORDERED: diphenhydrAMINE 25MG CAP PO SCH (21:00)
[2020-10-02 02:00] VITALS: BP 109/59
[2020-10-02] MEDS ORDERED: LEVOTHYROXINE 150MCG TABLET (0.15MG) PO SCH (06:00)
[2020-10-02 06:08] VITALS: BP 108/60
[2020-10-02 06:11] LABS: HEMATOCRIT 33.3 % (36.0-47.0); HEMOGLOBIN 11.1 g/dl (12.0-15.5); MEAN CORPUSCULAR HEMOGLOBIN 31.3 pg (27.0-33.0); MEAN CORPUSCULAR HGB CONC 33.3 g/dl (32.0-36.5); MEAN CORPUSCULAR VOLUME 93.8 fl (80.0-96.0); PLATELET COUNT, AUTOMATED 227 10^3/uL (150-450); RED BLOOD COUNT 3.55 10^6/uL (4.00-5.40); WHITE BLOOD COUNT 9.3 10^3/uL (4.0-10.0)
[2020-10-02] MEDS ORDERED: PERC5TAB12 PO (06:18)
[2020-10-02] MEDS ORDERED: ECOT81TA5 PO (06:18)
[2020-10-02 06:35] LABS: ALBUMIN 2.8 GM/DL (3.2-5.2); ALT/SGPT 16 U/L (12-78); BILIRUBIN,TOTAL 0.6 MG/DL (0.2-1.0); BLOOD UREA NITROGEN 7 MG/DL (7-18); CALCIUM LEVEL 8.1 MG/DL (8.5-10.1); CARBON DIOXIDE LEVEL 28 MEQ/L (21-32); CHLORIDE LEVEL 108 MEQ/L (98-107); CREATININE FOR GFR 0.54 MG/DL (0.55-1.30); GLOMERULAR FILTRATION RATE > 60.0 (>58); GLUCOSE, FASTING 102 MG/DL (70-100); SODIUM LEVEL 140 MEQ/L (136-145); TOTAL PROTEIN 5.9 GM/DL (6.4-8.2)
[2020-10-02] MEDS: ASPIRIN 81 MG ENTERIC TAB PO SCH (08:08)
[2020-10-02] MEDS: CitaloPRAM (CeleXA) 20 MG TAB PO SCH (08:08)
[2020-10-02] MEDS: ceFAZolin SOD 2 GM in IV 1 EA IV SCH (08:08)
[2020-10-02] MEDS ORDERED: NS 1,000 ML IV ONE (08:30)
[2020-10-02] MEDS ORDERED: MIRALAX *UNIT DOSE* 17GM PACKET PO SCH (09:00)
[2020-10-02] MEDS ORDERED: MOM 30ML SUSPENSION UDC PO SCH (09:00)
[2020-10-02] MEDS ORDERED: VITAMIN D (CHOLECALCIFEROL) 400 INTERNATIONAL UNITS TAB PO SCH (09:00)
[2020-10-02 10:00] VITALS: BP 104/64
== END 2020-10-02 14:15 | disposition home health service (06) | DRG 470 ==
LOC: M OR 06:13 → M MS5PR 10:51
PROVIDERS: ADMIT Orthopaedic Surgery; ATTEND Orthopaedic Surgery
PROC: 0SRB0JA Replacement of Left Hip Joint with Synthetic Substitute, Uncemented, Open Approach (ICD-10-PCS; principal; 2020-10-01 07:30)
DX: M16.12 Unilateral primary osteoarthritis, left hip (principal); Z79.899 Other long term (current) drug therapy; E03.9 Hypothyroidism, unspecified; F41.9 Anxiety disorder, unspecified; F32.9 Major depressive disorder, single episode, unspecified; Z88.0 Allergy status to penicillin; J45.909 Unspecified asthma, uncomplicated; K21.9 Gastro-esophageal reflux disease without esophagitis

== ENCOUNTER → 2020-12-08 | Outpatient (CLI) | payer OTHER ==
[~2020-12-08] MED LIST changes: -ACETAMINOPHEN 500 MG TAB PO ONE; +CITA40TA6 PO; +CLON0.5T2 PO; +ECOT81TA5 PO; -LR 1,000 ML IV ONE; +MUPI2OI; +PERC5TAB12 PO; +VITA200010 PO; +VITMTA PO; -ceFAZolin SOD 2 GM in IV 1 EA IV ONE
[2020-12-08 13:10] LABS: BASO # 0.1 10^3/uL (0.0-0.2); BASO % 0.8 % (0.0-1.0); HEMATOCRIT 41.7 % (36.0-47.0); HEMOGLOBIN 13.8 g/dl (12.0-15.5); LYMPH # 2.2 10^3/uL (1.5-5.0); LYMPH % 26.4 % (24.0-44.0); MEAN CORPUSCULAR HEMOGLOBIN 31.3 pg (27.0-33.0); MEAN CORPUSCULAR HGB CONC 33.1 g/dl (32.0-36.5); MEAN CORPUSCULAR VOLUME 94.6 fl (80.0-96.0); MONO # 0.9 10^3/uL (0.0-0.8); NEUTROPHILS # 5.1 10^3/uL (1.5-8.5); NEUTROPHILS % 61.6 % (36.0-66.0); PLATELET COUNT, AUTOMATED 291 10^3/uL (150-450); RED BLOOD COUNT 4.41 10^6/uL (4.00-5.40); WHITE BLOOD COUNT 8.4 10^3/uL (4.0-10.0)
[2020-12-08 13:36] LABS: ALBUMIN 3.5 GM/DL (3.2-5.2); ALT/SGPT 18 U/L (12-78); BILIRUBIN,TOTAL 0.2 MG/DL (0.2-1.0); BLOOD UREA NITROGEN 13 MG/DL (7-18); CALCIUM LEVEL 8.9 MG/DL (8.5-10.1); CARBON DIOXIDE LEVEL 32 MEQ/L (21-32); CHLORIDE LEVEL 103 MEQ/L (98-107); CREATININE FOR GFR 0.61 MG/DL (0.55-1.30); ERYTHROCYTE SEDIMENTATION RATE 13 mm/hr (0-20); GLOMERULAR FILTRATION RATE > 60.0 (>58); GLUCOSE, FASTING 84 MG/DL (70-100); POTASSIUM SERUM 4.3 MEQ/L (3.5-5.1); SODIUM LEVEL 138 MEQ/L (136-145); TOTAL PROTEIN 6.8 GM/DL (6.4-8.2)
--- NOTE | 2020-12-08 18:50 | REP ---
INDICATION: UNILAT PRIMARY OSTEOARTHRITIS, RIGHT HIP, LAB 1ST EKG 2ND XR. COMPARISON: Comparison chest x-ray September 18, 2020. TECHNIQUE: Two views.. FINDINGS: The lungs are well inflated and free of infiltrate. The pleural angles are sharp. The heart size is normal. Pulmonary vasculature is not increased. No significant bony abnormality is seen. IMPRESSION: Negative chest x-ray. <Electronically signed by Cecilio Martinez > 12/08/20 0709
--- NOTE | 2020-12-09 16:11 | ECGEPIP ---
[facility] Test Date: 2020-12-08 Pat Name: JOYCE KELLEY Department: Room: - Gender: Female Ferris Wheel Attendant: ANUJ : 1970 Requested By: Jeronimo Hernandez Order Number: [id number] Reading MD: Jimmie Oneill Measurements Intervals [place] Rate: 60 P: 24 WI: 153 QRS: -28 QRSD: 90 T: 30 QT: 404 QTc: 405 Interpretive Statements Normal sinus rhythm at 60 bpm. Left axis deviation Low voltages with slow precordial R wave progression and persistent S waves V5 a and V6; body habitus versus pulmonary disease No significant change from 09/18/20 Electronically Signed on 12-09-2020 16:11:10 EST by Jimmie Oneill
== END ==
LOC: M LAB 12:26
PROVIDERS: ATTEND Orthopaedic Surgery
DX: M16.11 Unilateral primary osteoarthritis, right hip (principal)

== ENCOUNTER → 2020-12-10 | Outpatient (CLI) | payer OTHER | LOC: M LABSMTC 12:52 | PROVIDERS: ATTEND Anesthesiology | DX: Z01.812 Encounter for preprocedural laboratory examination (principal); Z20.822 Contact with and (suspected) exposure to COVID-19 ==

== ENCOUNTER → 2020-12-11 | Outpatient (CLI) | payer OTHER ==
--- NOTE | 2020-12-11 16:12 | HPE ---
PRE-OP HISTORY AND PHYSICAL DATE OF ANTICIPATED ADMISSION: 12/15/2020 ADMITTING PHYSICIAN: David Cohen M.D. CHIEF COMPLAINT: Right hip pain. HISTORY OF PRESENT ILLNESS: Marie is a pleasant 50-year-old female with progressively worsening right hip pain and stiffness. She has failed to improve with conservative treatment. She has elected for surgery for her continued symptoms. She has pain with weightbearing activities and her activities of daily living. X-rays of her hip are notable for advanced osteoarthritis of the right hip joint. She has consented for a right total hip arthroplasty by Dr. David Cohen. Medical optimization was performed by Dr. Brush. ALLERGIES: Penicillin. CURRENT MEDICATIONS: 1. Citalopram 40 mg a day. 2. Synthroid 150 mcg a day. 3. Clonazepam 25 mg twice a day. 4. Mirena IUD. PAST MEDICAL HISTORY: Includes hypothyroidism and anxiety. PAST SURGICAL HISTORY: Includes cataracts, and tonsillectomy. SOCIAL HISTORY: This patient is still working. Does not smoke and rarely drinks alcohol. FAMILY HISTORY: Noncontributory. REVIEW OF SYSTEMS: This patient denies chest pain, heart palpitations, cough, wheezing, difficulty breathing and shortness of breath. She denies abdominal pain, nausea, vomiting, diarrhea or constipation. She denies recent upper respiratory infection or urinary tract infection symptoms. She does complain of persistent pain in her right hip. PHYSICAL EXAMINATION: GENERAL: She is well-nourished, well developed, in no acute distress, alert female. She ambulates with a moderate limp, favoring her right lower extremity. She is not using assistive devices. VITAL SIGNS: She is 65-3/4 inches tall, weighs 188.4 pounds, temperature 97.3, blood pressure 118/76, pulse 68 and respirations 14. NECK: Supple without adenopathy or jugular venous distention. LUNGS: Clear to auscultation, without rales or wheeze. HEART: Regular rate and rhythm. ABDOMEN: Bowel sounds were present. EXTREMITIES: Examination of the hip revealed intact skin. She had decreased range of motion due to pain and stiffness. The limb was neurovascularly intact. IMAGING STUDIES: Chest x-ray showed no acute cardiopulmonary disease processes. The EKG is still pending review. LABORATORY DATA: CBC was within normal limits. Sed rate 13. Glucose 84, BUN 13, creatinine 0.61, sodium 138, potassium 4.3. IMPRESSION: Symptomatic osteoarthritis of the right hip joint. PLAN: Consented for a right total hip arthroplasty by Dr. David Cohen pending EKG results.
[2020-12-11 16:32] LABS: INR 0.93; PROTHROMBIN TIME 12.7 SECONDS (12.5-14.3)
== END ==
LOC: M LAB 15:32
PROVIDERS: ATTEND Physician Assistant
DX: Z01.818 Encounter for other preprocedural examination (principal)

== ENCOUNTER 2020-12-15 06:13 | Inpatient (IN) | payer OTHER ==
[~2020-12-15] VITALS: Ht 167.6 cm; Wt 85.2 kg
[2020-12-15] VITALS (16 sets, daily range): BP systolic 85–126; BP diastolic 49–80; O2SAT 99
[~2020-12-15 06:13] MED LIST changes: -CITA40TA6 PO; -CLON0.5T2 PO; -VITA200010 PO
--- OUTSIDE RECORDS SUMMARY | 2020-12-15 06:18 | CCD | Continuity of Care Document ---
Author Author Marie ZAZUETA M.D. Organization Unknown Address [address] [facility] [address] [place] [address] Phone [phone] Care Team Providers Care Supervisor Microwave Name Role Phone Francesco Zazueta MD AUTM [phone] Problems Active Problems Provider Date Backache Onset: 01/01/2011 Hypertriglyceridemia Onset: 06/30/2009 Hypothyroidism Onset: Asthma Onset: Allergic rhinitis Onset: Anxiety Onset: Osteoarthritis Onset: Herpes simplex type 1 infection Onset: 0 Social History Type Date Description Comments Sex Unknown Tobacco Use Start: Unknown End: Unknown Quit ETOH Use Rarely consumes alcohol Tobacco Use Start: Unknown End: Unknown Patient is a former smoker 1 ppw x 10 yrs, quit 2002 Allergies, Adverse Reactions, Alerts Active Allergies Reaction Severity Comments Date Penicillins Mild lethargic 01/24/2012 Medications Active Medications SIG Qnty Indications Ordering Provide r Date Vitamin D 1000Unit Tablets 1/2 tab by mouth every day 30tabs Francesco Zazueta M.D. 09/25/2020 Multi Complete Capsules 1 by mouth every day Francesco Zazueta M.D. 03/26/2020 Calcitrate 950mg Tablets 1/2 by mouth twice a day Francesco Zazueta M.D. 03/26/2020 Vitamin B-12 1000mcg/15ML Liquid daily Francesco Zazueta M.D. 03/26/2020 Levothyroxine Sodium 150mcg Tablet s 1 by mouth every every day except sat and sun. 90tabs Francesco Zazueta M.D. 03/26/2020 Levothyroxine Sodium 175mcg Tablet s 1 by mouth taken 5 times a week (other 2 days at 150mg). 90tabs Francesco Zazueta M.D. 03/12/2019 Ventolin HFA 108(90Base) mcg/Act A erosol 2 puffs four times a day as needed 1units Francesco Zazueta M.D. 04/22/2017 Cpap Francesco Zazueta M.D. 09/14 Clonazepam 0.5mg Tablets 1 by mouth twice a day as needed 60tabs Francesco Zazueta M.D. 03/29/2016 Celexa 40mg Tablets 1 tablet by mouth daily 90tabs Francesco Zazueta M.D. 12/12/2014 Valtrex 500mg Tablets one pill twice daily x 3 days as needed for cold sores, 60tabs Francesco bryant M.D. Mirena 20mcg/24HR IUD placed 02/2016 Unknown Immunization Adminstration,1 Vaccine/Tox oid Injection Unknown Medications Administered in Office Medication SIG Qnty Indications Ordering Provider Date Therapeutic Injection Injection Unknown 02/17/2018 Immunizations CPT Code Status Date Vaccine Lot # [id number] Given 08/15/2017 Influenza Vaccin e Quadrivalent Preser/Antibiotic Free Im Use [id number] Given 02/04/2014 Adacel- Tetanus Diphtheria P ertussis (Age64 & Under) [id number] Given 09/04/2013 Influenza Virus Vaccine [id number] Given 10/18/2012 Influenza Virus Vaccine [id number] Given 09/28/2011 Influenza Virus Vaccine [id number] Given 10/22/2010 Influenza Virus Vaccine [id number] Refused 12/16/2008 Adacel- Tetanus Diphtheria P ertussis (Age64 & Under) Vital Signs Date Vital Result Comment 12/08/2020 11:19am BP Systolic 102 mmHg BP Diastolic 70 mmHg Heart Rate 78 /min Height 65 inches 5'5" Weight 195.00 lb O2 % BldC Oximetry 98 % BMI (Body Mass Index) 32.4 kg/m2 09/25/2020 11:07am BP Systolic 118 mmHg BP Diastolic 74 mmHg Heart Rate 70 /min Height 65 inches 5'5" Weight 188.00 lb BMI (Body Mass Index) 31.3 kg/m2 Results Test Acquired Date Facility Test Result H/L Range Note Comprehensive Metabolic Profil 12/08/[address] [address] [phone] Glucose, Fasting 84 mg/dL Normal 70-100 Blood Urea Nitrogen 13 mg/dL Normal 7-18 Creatinine For GFR 0.61 mg/dL Normal 0.55-1.30 Glomerular Filtration Rate > 60.0 Normal >58 1 Sodium Level 138 mEq/L Normal 136-145 Potassium Serum 4.3 mEq/L Normal 3.5-5.1 Chloride Level 103 mEq/L Normal 98-107 Carbon Dioxide Level 32 mEq/L Normal 21-32 Anion Gap 3 mEq/L Low 8-16 Calcium Level 8.9 mg/dL Normal 8.5-10.1 Ast/Sgot 13 U/L Normal 7-37 Alt/SGPT 18 U/L Normal 12-78 Alkaline Phosphatase 109 U/L Normal 45-117 Bilirubin,Total 0.2 mg/dL Normal 0.2-1.0 Total Protein 6.8 GM/DL Normal 6.4-8.2 Albumin 3.5 GM/DL Normal 3.2-5.2 Albumin/Globulin Ratio 1.1 Low 1.2-2.2 CBC With Differential 12/08/[address] [address] [phone] White Blood Count 8.4 10 Normal 4.0-10.0 Red Blood Count 4.41 10 Normal 4.00-5.40 Hemoglobin 13.8 g/dL Normal 12.0-15.5 Hematocrit 41.7 % Normal 36.0-47.0 Mean Corpuscular Volume 94.6 fl Normal 80.0-96.0 Mean Corpuscular Hemoglobin 31.3 pg Normal 27.0-33.0 Mean Corpuscular HGB Conc 33.1 g/dL Normal 32.0-36.5 Red Cell Distribution Width 11.8 % Normal 11.5-14.5 Platelet Count, Automated 291 10 Normal 150-450 Neutrophils % 61.6 % Normal 36.0-66.0 Lymph % 26.4 % Normal 24.0-44.0 Woods % 11.0 % High 0.0-5.0 Eos % 0.0 % Normal 0.0-3.0 Baso % 0.8 % Normal 0.0-1.0 Immature Granulocyte % 0.2 % Normal 0-3.0 Nucleated Red Blood Cell % 0.0 % Normal 0-0 Neutrophils # 5.1 10 Normal 1.5-8.5 Lymph # 2.2 10 Normal 1.5-5.0 Woods # 0.9 10 High 0.0-0.8 Eos # 0.0 10 Normal 0.0-0.5 Baso # 0.1 10 Normal 0.0-0.2 Laboratory test finding 12/08/2020 [facility] [address] [place] [address] [phone] Erythrocyte Sedimentation Rate 13 mm/hr Normal 0 -20 Prothrombin Time/Inr 09/18/2020 [facility] [address] [place] [address] [phone] Prothrombin Time 13.5 seconds Normal 12.5-14.3 Inr 1.01 Normal 2 Complete Blood Count 09/18/2020 [facility] [address] [place] [address] [phone] White Blood Count 6.0 10 Normal 4.0-10.0 Red Blood Count 4.66 10 Normal 4.00-5.40 Hemoglobin 14.2 g/dL Normal 12.0-15.5 Hematocrit 43.8 % Normal 36.0-47.0 Mean Corpuscular Volume 94.0 fl Normal 80.0-96.0 Mean Corpuscular Hemoglobin 30.5 pg Normal 27.0-33.0 Mean Corpuscular HGB Conc 32.4 g/dL Normal 32.0-36.5 Red Cell Distribution Width 12.3 % Normal 11.5-14.5 Platelet Count, Automated 302 10 Normal 150-450 Nucleated Red Blood Cell % 0.0 % Normal 0-0 Laboratory test finding 09/18/[address] [address] [phone] Erythrocyte Sedimentation Rate 7 mm/hr Normal 0 -20 1 Units are mL/min/1.73 m2 Chronic Kidney Disease Staging per NKF: Stage I & II GFR >=60 Normal to Mildly Decreased Stage III GFR 30-59 Moderately Decreased Stage IV GFR 15-29 Severely Decreased Stage V GFR <15 Very Little GFR Left ESRD GFR <15 on MAIL DISTRIBUTION SCHEME EXAMINER 2 THERAPUTIC HUMAN INR VALUES INDICATIONS NORMAL RANGES PROPHYLAXIS/TREATMENT OF: VENOUS THROMBOSIS 2.0-3.0 PULMONARY EMBOLISM 2.0-3.0 PREVENTION OF SYSTEMIC EMBOLISM FROM: TISSUE HEART VALVES 2.0-3.0 ACUTE MYOCARDIAL INFARCTION 2.0-3.0 VALVULAR HEART DISEASE 2.0-3.0 ATRIAL FIBRILLATION 2.0-3.0 MECHANICAL VALVES(HIGH RISK) 2.5-3.5 RECURRENT MYOCARDIAL INFARCTION 2.5-3.5 Procedures Date Code Description Status 02/12/2019 [id number] Mammogram Completed 02/03/2017 [id number] Mammogram Completed Medical Devices Description No Information Available Encounters Type Date Location Provider Dx Diagnosis 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 12/08/2020 M25.551 Pain in right hip Francesco Zazueta M.D. 12/08/2020 Z96.642 Presence of left artificial hip joint Francesco Zazueta M.D. 12/08/2020 M16.0 Bilateral primary osteoarthritis of hip Francesco Zazeuta M.D. 12/08/2020 G47.33 Obstructive sleep apnea (adult) (pediatric) Francesco Zazueta M.D. 12/08/2020 E03.9 Hypothyroidism, unspecified Gretel Zazueta M.D. 12/08/2020 E78.5 Hyperlipidemia, unspecified Gretel Zazueta M.D. 12/08/2020 F41.9 Anxiety disorder, unspecified Nazario Zazueta M.D. 12/08/2020 J45.20 Mild intermittent asthma, uncomp licated Francesco Zazueta M.D. 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 12/08/2020 Z98.84 Bariatric surgery status Francesco Zazueta M.D. 12/08/2020 Z97.5 Presence of (intrauterine) contr aceptive device Francesco Zazueta M.D. 09/25/2020 Z01.818 Encounter for other preprocedura l examination Francesco Zazueta M.D. 09/25/2020 M25.552 Pain in left hip Francesco Zazueta M.D. 09/25/2020 M16.0 Bilateral primary osteoarthritis of hip Francesco Zazueta M.D. 09/25/2020 G47.33 Obstructive sleep apnea (adult) (pediatric) Francesco Zazueta M.D. 09/25/2020 E03.9 Hypothyroidism, unspecified Gretel Zazueta M.D. 09/25/2020 G47.00 Insomnia, unspecified Francesco cormier M.D. 09/25/2020 E78.5 Hyperlipidemia, unspecified Gretel Zazueta M.D. 09/25/2020 F41.9 Anxiety disorder, unspecified Nazario Zazueta M.D. 09/25/2020 J45.20 Mild intermittent asthma, uncomp licated Francesco Zazueta M.D. 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 09/25/2020 Z98.84 Bariatric surgery status Francesco Zazueta M.D. 09/25/2020 Z13.89 Encounter for screening for othe r disorder Francesco Zazueta M.D. 09/25/2020 Z97.5 Presence of (intrauterine) contr aceptive device Francesco Zazueta M.D. Plan of Treatment Future Appointment(s):* 01/30/2021 2:30 pm - Francesco Zazueta M.D. at [facility] 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
--- OUTSIDE RECORDS SUMMARY | 2020-12-15 06:18 | CCD | Continuity of Care Document ---
Author Author Marie ZAZUETA M.D. Organization Unknown Address [address] [facility] [address] [place] [address] Phone [phone] Care Team Providers Care Automobile Accessories Installer Name Role Phone Francesco Zazueta MD [facility] [phone] Problems Active Problems Provider Date Backache Onset: [...] CPT Code Status Date Vaccine Lot # [id number] Given 08/15/2017 Influenza Vaccin e Quadrivalent Preser/Antibiotic Free Im Use [id number] Given 02/04/2014 Adacel- Tetanus Diphtheria P ertussis (Age64 & Under) 22757 Given 09/04/2013 Influenza Virus Vaccine 06581 Given 10/18/2012 Influenza Virus Vaccine 08111 Given 09/28/2011 Influenza Virus Vaccine 42012 Given 10/22/2010 Influenza Virus Vaccine [id number] Refused 12/16/2008 Adacel- Tetanus Diphtheria P ertussis (Age64 & Under) Vital Signs Date Vital Result Comment 09/25/2020 11:07am BP Systolic 118 mmHg BP Diastolic 74 mmHg Heart Rate 70 /min Height 65 inches 5'5" Weight 188.00 lb BMI (Body Mass Index) 31.3 kg/m2 03/26/2020 8:05am BP Systolic 126 mmHg BP Diastolic 80 mmHg Heart Rate 70 /min Height 65 inches 5'5" Weight 210.00 lb BMI (Body Mass Index) 34.9 kg/m2 Results Test Acquired Date Facility Test Result H/L Range Note Prothrombin Time/Inr 09/18/2020 [facility] enter [address] [place] [address] [phone] Prothrombin Time 13.5 seconds Normal 12.5-14.3 Inr 1.01 Normal 1 Complete Blood Count 09/18/2020 [facility] enter [address] [place] [id number] [phone] White Blood Count 6.0 10 Normal 4.0-10.0 [...] % Normal 0-0 Laboratory test finding 09/18/2020 [facility] [address] [place] [address] [phone] Erythrocyte Sedimentation Rate 7 mm/hr Normal 0 -20 Laboratory test finding 04/17/2020 [facility] General Accounting Clerk: [place] [address] [phone] Vitamin D 25-Hydroxy 37.1 24.0 - 80.0 2 Total Iron Binding Capacit 04/17/2020 [facility] [address] [place] [address] [phone] Iron (Fe) 74 g/dL Normal 50-170 Total Iron Binding Capacity 264 g/dL Normal 250-450 Percent Saturation 28.0 % Normal 13.2-45.0 Laboratory test finding 04/17/2020 [facility] [address] [place] [address] [phone] Vitamin B12 Level 1174 pg/mL High 247-911 3 Ferritin 86 NG/ML Normal 8-252 Phosphorus Level 3.4 mg/dL Normal 2.5-4.9 RBC Folate 04/17/2020 [facility] nter [address] [place] [address] [phone] Hematocrit 40.2 % Normal 36.0-47.0 RBC Folate 517 NG/ML Normal 280-791 Complete Blood Count 04/17/2020 [facility] General Accounting Clerk: Dr Saleem [place], [place] [id number] [phone] WBC 9.7 x10*3/UL 4.1 - 10.9 RBC 4.35 x10*6/UL 4.20 - 6.30 Hemoglobin 13.5 g/dL 12.0 - 18.0 Hematocrit 39.5 % 37.0 - 51.0 MCV 90.8 fL 80.0 - 97.0 MCH 31.2 pg 26.0 - 32.0 MCHC 34.3 g/dL 31.0 - 38.0 RDW 12.7 % 11.6 - 13.7 PLT 330 x10*3/UL 140 - 440 MPV 9.2 FL 7.8 - 11.0 Lymph % 21.1 % 10.0 - 58.5 Mid % 7.9 % 1.7 - 9.3 Neut % 71.0 % 37.0 - 92.0 Lymph # 2.0 x10*3/UL 0.6 - 4.1 Mid # 0.8 x10*3/UL High 0.1 - 0.6 Neut # 6.9 x10*3/UL 2.0 - 7.8 A1c 04/17/2020 [facility] General Accounting Clerk: [place] [address] [phone] Hba1c 5.1 g/dL 4.8 - 5.6 4 Est Avg Glucose 100 mg/dL 60 - 110 Laboratory test finding 04/17/2020 [facility] General Accounting Clerk: [place] [address] [phone] Magnesium 1.9 mg/dL 1.8 - 2.4 Comprehensive Chem Profile 04/17/2020 [facility] General Accounting Clerk: [place] [address] [phone] Glucose 90 mg/dL 74 - 99 5 BUN 14 mg/dL 7 - 18 Creatinine 0.7 mg/dL 0.6 - 1.3 Sodium 140 mEq/L 136 - 145 Potassium 4.0 mEq/L 3.5 - 5.1 Chloride 105 mEq/L 98 - 107 Carbon Dioxide 28 mEq/L 21 - 32 Calcium 8.5 mg/dL 8.5 - 10.1 Alk. Phosphatase 110 mg/dL 46 - 116 Total Bilirubin 0.3 mg/dL 0.2 - 1.0 Ast (Sgot) 15 U/L 15 - 37 Alt (SGPT) 19 U/L 12 - 78 Albumin 3.5 g/dL 3.4 - 5.0 Total Protein 7.1 g/dL 6.4 - 8.2 A/G Ratio 0.97 CALC Low 1.00 - 1.90 GFR >= 60 mL/min >60 GFR >= 60 mL/min >60 6 1 THERAPUTIC HUMAN INR VALUES INDICATIONS NORMAL RANGES PROPHYLAXIS/TREATMENT OF: VENOUS THROMBOSIS 2.0-3.0 PULMONARY EMBOLISM 2.0-3.0 PREVENTION OF SYSTEMIC EMBOLISM FROM: TISSUE HEART VALVES 2.0-3.0 ACUTE MYOCARDIAL INFARCTION 2.0-3.0 VALVULAR HEART DISEASE 2.0-3.0 ATRIAL FIBRILLATION 2.0-3.0 MECHANICAL VALVES(HIGH RISK) 2.5-3.5 RECURRENT MYOCARDIAL INFARCTION 2.5-3.5 2 This test was performed [employer] Vitamin D immunoassay kit. Values obtained with different assay methods should not be used interchangeably. 3 VITAMIN B12 NORMAL RANGE NORMAL 247 - 911 PG/ML INDETERMINATE 211 - 246 PG/ML DEFICIENT LESS THAN 211 PG/ML 4 Lab Result Notes: Pre-Diabetes 5.7 - 6.4 % Diabetes = or > 6.5% 5 100-125 mg/dL PRE-DIABET ES/FASTING >126 mg/dL DIABETES/FASTING 6 CHRONIC KIDNEY DISEASE STAGI NG PER NKF STAGE I & II GFR >= 60 NORMAL TO MILDLY DECREASED STAGE III GFR 30-59 MODERATELY DECREASED STAGE IV GFR 15-29 SEVERELY DECREASED STAGE V GFR <15 VERY LITTLE GFR LEFT ESRD GFR <15 ON SUPPORT STAFF Procedures Date Code Description Status 02/12/2019 [id number] Mammogram Completed 02/03/2017 [id number] Mammogram Completed Medical Devices Description No Information Available Encounters Type Date Location Provider Dx Diagnosis Office Visit 09/25/2020 11:00a [facility] Francesco Zazueta M.D. Z01.818 Encounter for other preprocedural examin [...] ontraceptive device Assessments Date Code Description Provider 09/25/2020 Z01.818 Encounter for other preprocedura l [...] Z97.5 Presence of (intrauterine) contr aceptive device Francseco Zazueta M.D. 04/17/2020 K91.2 Postsurgical malabsorption, not elsewhere classified Francesco Zazueta M.D. 04/17/2020 K91.2 Postsurgical malabsorption, not elsewhere classified Lab Schedule 04/17/2020 Z98.84 Bariatric surgery status Francesco Zazueta M.D. 04/17/2020 Z98.84 Bariatric surgery status Lab [facility] 04/17/2020 Z86.39 Personal history of other endocrine, nutritional and metabolic disease Francesco Zazueta M.D. 04/17/2020 Z86.39 Personal history of other endocrine, nutritional and metabolic disease Lab Schedule 04/17/2020 E55.9 Vitamin D deficiency, unspecifie d Francesco Zazueta M.D. 04/17/2020 E55.9 Vitamin D deficiency, unspecifie d Lab Schedule Plan of Treatment Future Appointment(s):* 01/30/2021 2:30 pm - Francesco Zazueta M.D. at [facility] 09/20/2019 - Francesco Zazueta M.D.* E03.9 [...]
--- OUTSIDE RECORDS SUMMARY | 2020-12-15 06:18 | CCD | Continuity of Care Document ---
Author Organization Unknown Address Unknown Phone Unavailable Care Team Providers Care Access Services Representative Name Role Phone Francesco Brush MD [facility] [phone] Problems Active Problems Provider Date Backache Onset: [...] tab by mouth every day 30tabs Francesco Brush M.D. 09/25/2020 Multi Complete Capsules 1 by mouth every day Francesco Brush M.D. 03/26/2020 Calcitrate 950mg Tablets 1/2 by mouth twice a day Francesco Brush M.D. 03/26/2020 Vitamin B-12 1000mcg/15ML Liquid daily Francesco Brush M.D. 03/26/2020 Levothyroxine Sodium 150mcg Tablet s 1 by mouth every every day except sat and sun. 90taerasmo Brush M.D. 03/26/2020 Levothyroxine Sodium 175mcg Tablet s 1 by mouth taken 5 times a week (other 2 days at 150mg). 90taerasmo Brush M.D. 03/12/2019 Ventolin HFA 108(90Base) mcg/Act A erosol 2 puffs four times a day as needed 1units Francesco Brush M.D. 04/22/2017 Cpap Francesco Bruhs M.D. 09/14 Clonazepam 0.5mg Tablets 1 by mouth twice a day as needed 60tabs Francesco Brush M.D. 03/29/2016 Celexa 40mg Tablets 1 tablet by mouth daily 90tabs Francesco Brush M.D. 12/12/2014 Valtrex 500mg Tablets one pill twice daily x 3 days as needed for cold sores, 60tabs Francesco bryant M.D. Mirena 20mcg/24HR IUD placed 02/2016 Unknown Immunization Adminstration,1 Vaccine/Tox oid Injection Unknown Medications Administered in Office Medication SIG Qnty Indications Ordering Provider Date Therapeutic Injection Injection Unknown 02/17/2018 Immunizations CPT Code Status Date Vaccine Lot # 26048 Given 08/15/2017 Influenza Vaccin e Quadrivalent Preser/Antibiotic Free Im Use [id number] 72452 Given 02/04/2014 Adacel- Tetanus Diphtheria P ertussis (Age64 & Under) 18232 Given 09/04/2013 Influenza Virus Vaccine 41522 Given 10/18/2012 Influenza Virus Vaccine 78200 Given 09/28/2011 Influenza Virus Vaccine 44997 Given 10/22/2010 Influenza Virus Vaccine 13196 Refused 12/16/2008 Adacel- Tetanus Diphtheria P ertussis [...] H/L Range Note Comprehensive Metabolic Profil 12/08/[address] [address] [phone] Glucose, Fasting 84 mg/dL Normal 70-100 Blood [...] 1.1 Low 1.2-2.2 CBC With Differential 12/08/2020 [place] [id number] [phone] White Blood Count 8.4 10 Normal 4.0-10.0 [...] 36.0-66.0 Lymph % 26.4 % Normal 24.0-44.0 Villalba % 11.0 % High 0.0-5.0 Eos % 0.0 % Normal 0.0-3.0 Baso % 0.8 % Normal 0.0-1.0 Immature Granulocyte % 0.2 % Normal 0-3.0 Nucleated Red Blood Cell % 0.0 % Normal 0-0 Neutrophils # 5.1 10 Normal 1.5-8.5 Lymph # 2.2 10 Normal 1.5-5.0 Villalba # 0.9 10 High 0.0-0.8 Eos # 0.0 10 Normal 0.0-0.5 Baso # 0.1 10 Normal 0.0-0.2 Laboratory test finding 12/08/2020 [facility] [address] [place] [address] [phone] Erythrocyte Sedimentation Rate 13 mm/hr Normal 0 -20 Prothrombin Time/Inr 09/18/2020 [facility] enter [address] [place] [address] [phone] Prothrombin Time 13.5 seconds Normal 12.5-14.3 Inr 1.01 Normal 2 Complete Blood Count 09/18/[address] [address] [phone] White Blood Count 6.0 10 Normal 4.0-10.0 [...] % Normal 0-0 Laboratory test finding 09/18/2020 [place] [place] [place] [address] [phone] Erythrocyte Sedimentation Rate 7 mm/hr Normal 0 -20 1 Units are mL/min/1.73 m2 Chronic Kidney Disease Staging per NKF: Stage I & II GFR >=60 Normal to Mildly Decreased Stage III GFR 30-59 Moderately Decreased Stage IV GFR 15-29 Severely Decreased Stage V GFR <15 Very Little GFR Left ESRD GFR <15 on INTERNAL COMBUSTION ENGINE ASSEMBLER 2 THERAPUTIC HUMAN INR VALUES INDICATIONS NORMAL RANGES PROPHYLAXIS/TREATMENT OF: VENOUS THROMBOSIS 2.0-3.0 PULMONARY EMBOLISM 2.0-3.0 PREVENTION OF SYSTEMIC EMBOLISM FROM: TISSUE HEART VALVES 2.0-3.0 ACUTE MYOCARDIAL INFARCTION 2.0-3.0 VALVULAR HEART DISEASE 2.0-3.0 ATRIAL FIBRILLATION 2.0-3.0 MECHANICAL VALVES(HIGH RISK) 2.5-3.5 RECURRENT MYOCARDIAL INFARCTION 2.5-3.5 Procedures Date Code Description Status 02/12/2019 [id number] Mammogram Completed 02/03/2017 [id number] Mammogram Completed Medical Devices Description No Information Available Encounters Type Date Location Provider Dx Diagnosis Office Visit 09/25/2020 11:00a [facility] Francesco Brush M.D. Z01.818 Encounter for other preprocedural examin [...] Encounter for other preprocedura l examination Francesco Brush M.D. 12/08/2020 M25.551 Pain in right hip Francesco Brush M.D. 12/08/2020 Z96.642 Presence of left artificial hip joint Francesco Brush M.D. 12/08/2020 M16.0 Bilateral primary osteoarthritis of hip Francesco Brush M.D. 12/08/2020 G47.33 Obstructive sleep apnea (adult) (pediatric) Francesco Brush M.D. 12/08/2020 E03.9 Hypothyroidism, unspecified Gretel Brush M.D. 12/08/2020 E78.5 Hyperlipidemia, unspecified Gretel Brush M.D. 12/08/2020 F41.9 Anxiety disorder, unspecified Nazario Brush M.D. 12/08/2020 J45.20 Mild intermittent asthma, uncomp licated Francesco Brush M.D. 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 12/08/2020 Z98.84 Bariatric surgery status Francesco Brush M.D. 12/08/2020 Z97.5 Presence of (intrauterine) contr aceptive device Francesco Brush M.D. 09/25/2020 Z01.818 Encounter for other preprocedura l examination Francesco Brush M.D. 09/25/2020 M25.552 Pain in left hip Francesco Brush M.D. 09/25/2020 M16.0 Bilateral primary osteoarthritis of hip Francesco Brush M.D. 09/25/2020 G47.33 Obstructive sleep apnea (adult) (pediatric) Francesco Brush M.D. 09/25/2020 E03.9 Hypothyroidism, unspecified Gretel Brush M.D. 09/25/2020 G47.00 Insomnia, unspecified Francesco cormier M.D. 09/25/2020 E78.5 Hyperlipidemia, unspecified Gretel Brush M.D. 09/25/2020 F41.9 Anxiety disorder, unspecified Nazario Brush M.D. 09/25/2020 J45.20 Mild intermittent asthma, uncomp licated Francesco Brush M.D. 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 09/25/2020 Z98.84 Bariatric surgery status Francesco Brush M.D. 09/25/2020 Z13.89 Encounter for screening for othe r disorder Francesco Brush M.D. 09/25/2020 Z97.5 Presence of (intrauterine) contr aceptive device Francesco Brush M.D. Plan of Treatment Future Appointment(s):* 01/30/2021 2:30 pm - Frances[facility] M[facility] at [facility] 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
--- OUTSIDE RECORDS SUMMARY | 2020-12-15 06:19 | CCD ---
Author Author [facility] Organization [facility] Address Unknown Phone Unavailable Care Team Providers Care Lead Infrastructure Architect Name Role Phone Hi, Renzo Husain MD Unavailable Unavailable Hi, Renzo Husain MD Unavailable Unavailable Hi, Renzo Husain MD Unavailable Unavailable Hi, Renzo Husain MD Unavailable Unavailable Hi, Renzo Husain MD Unavailable Unavailable Hi, Renzo Husain MD Unavailable Unavailable Hi, Renzo Husain MD Unavailable Unavailable Hi, Renzo Husain MD Unavailable Unavailable Hi, Renzo Husain MD Unavailable Unavailable Hi, Renzo Husain MD Unavailable Unavailable Hi, Renzo Husain MD Unavailable Unavailable Hi, Renzo Husain MD Unavailable Unavailable Hi, Renzo Husain MD Unavailable Unavailable Hi, Renzo Husain MD Unavailable Unavailable Hi, Renzo Husain MD Unavailable Unavailable Hi, Renzo Husain MD Unavailable Unavailable Hi, Renzo Husain MD Unavailable Unavailable Hi, Renzo Husain MD Unavailable Unavailable Hi, Renzo Husain MD Unavailable Unavailable Hi, Renzo Husain MD Unavailable Unavailable Hi, Renzo Husain MD Unavailable Unavailable Hi, Rnezo Husain MD Unavailable Unavailable Hi, Renzo Husain MD Unavailable Unavailable Hi, Renzo Husain MD Unavailable Unavailable Hi, Renzo Husain MD Unavailable Unavailable Hi, Renzo Husain MD Unavailable Unavailable Hi, Renzo Husain MD Unavailable Unavailable Hi, Renzo Husain MD Unavailable Unavailable Hi, Renzo Husain MD Unavailable Unavailable Hi, Renzo Husain MD Unavailable Unavailable Hi, Renzo Husain MD Unavailable Unavailable Hi, A Mirella THOMPSON Unavailable Unavailable Hi, A Mirella THOMPSON Unavailable Unavailable Hi, Renzo Huasin MD Unavailable Unavailable Hi, Renzo Husain MD Unavailable Unavailable Hi, Renzo Husain MD Unavailable Unavailable Hi, A Mirella THOMPSON Unavailable Unavailable Hi, A Mirella THOMPSON Unavailable Unavailable Hi, A Mirella THOMPSON Unavailable Unavailable Hi, A Mirella THOMPSON Unavailable Unavailable Hi, A Mirella THOMPSON Unavailable Unavailable Hi, A Mirella THOMPSON Unavailable Unavailable Hi, Renzo Husain MD Unavailable Unavailable Hi, Renzo Husain MD Unavailable Unavailable Hi, A Mirella THOMPSON Unavailable Unavailable Hi, A Mirella THOMPSON Unavailable Unavailable Hi, A Mirella THOMPSON Unavailable Unavailable Hi, A Mirella THOMPSON Unavailable Unavailable Hi, Renzo Husain MD Unavailable Unavailable Hi, Renzo Husain MD Unavailable Unavailable Hi, Renzo Husain MD Unavailable Unavailable Hi, Renzo Husain MD Unavailable Unavailable Hi, Renzo Husain MD Unavailable Unavailable Hi, Renzo Husain MD Unavailable Unavailable Hi, A Mirella THOMPSON Unavailable Unavailable Hi, Renzo Husain MD Unavailable Unavailable Hi, Renzo Husain MD Unavailable Unavailable Hi, Renzo Husain MD Unavailable Unavailable Hi, Renzo Husain MD Unavailable Unavailable Hi, Renzo Husain MD Unavailable Unavailable Hi, Renzo Husain MD Unavailable Unavailable Hi, Renzo Husain MD Unavailable Unavailable Hi, Renzo Husain MD Unavailable Unavailable Hi, Renzo Husain MD Unavailable Unavailable Hi, Renzo Husain MD Unavailable Unavailable Hi, Renzo Husain MD Unavailable Unavailable Hi, Renzo Husain MD Unavailable Unavailable Hi, Renzo Husain MD Unavailable Unavailable Hi, Renzo Husain MD Unavailable Unavailable Hi, Renzo Husain MD Unavailable Unavailable Hi, Renzo Husain MD Unavailable Unavailable Hi, Renzo Husain MD Unavailable Unavailable Hi, Renzo Husain MD Unavailable Unavailable Hi, Renzo Husain MD Unavailable Unavailable Hi, Renzo Husain MD Unavailable Unavailable Hi, Renzo Husain MD Unavailable Unavailable Hi, Renzo Husain MD Unavailable Unavailable Hi, Renzo Husain MD Unavailable Unavailable Hi, Renzo Husain MD Unavailable Unavailable Hi, Renzo Husain MD Unavailable Unavailable Hi, Renzo Husain MD Unavailable Unavailable Hi, Renzo Husain MD Unavailable Unavailable Hi, Renzo Husain MD Unavailable Unavailable Hi, Renzo Husain MD Unavailable Unavailable Hi, Renzo Husain MD Unavailable Unavailable Hi, Renzo Husain MD Unavailable Unavailable Hi, Renzo Husain MD Unavailable Unavailable Hi, Renzo Husain MD Unavailable Unavailable Hi, Renzo Husain MD Unavailable Unavailable Hi, Renzo Husain MD Unavailable Unavailable Hi, Renzo Husain MD Unavailable Unavailable Hi, Renzo Husain MD Unavailable Unavailable Hi, Renzo Husain MD Unavailable Unavailable Hi, Renzo Husain MD Unavailable Unavailable Hi, Renzo Husain MD Unavailable Unavailable Hi, Renzo Husain MD Unavailable Unavailable Hi, Renzo Husain MD Unavailable Unavailable Hi, Renzo Husain MD Unavailable Unavailable Hi, Renzo Husain MD Unavailable Unavailable Hi, Renzo Husain MD Unavailable Unavailable Hi, Renzo Husain MD Unavailable Unavailable Hi, Renzo Husain MD Unavailable Unavailable Ih, Renzo Husain MD Unavailable Unavailable Hi, Renzo Husain MD Unavailable Unavailable Vaneenenaam, Luzma Hernandez MD Unavailable Unavailable Vaneenenaam, Luzma Hernandez MD Unavailable Unavailable Vaneenenaam, Luzma Hernandez MD Unavailable Unavailable Vaneensaroj, Luzma Hernandez MD Unavailable Unavailable Vaneenenaam, Luzma Hernandez MD Unavailable Unavailable Vaneenenaam, Luzma Hernandez MD Unavailable Unavailable Vaneenenaam, Luzma Hernandez MD Unavailable Unavailable Vaneenenaam, Luzma Hernandez MD Unavailable Unavailable Vaneenenaam, Luzma Hernandez MD Unavailable Unavailable Vaneencoyam, Luzma Hernandez MD Unavailable Unavailable Vaneencoyam, Luzma Hernandez MD Unavailable Unavailable Vaneencoyam, Luzma Hernanedz MD Unavailable Unavailable Vaneenenaam, Luzma Hernandez MD Unavailable Unavailable Vaneenenaam, Luzma Hernandez MD Unavailable Unavailable Vaneencoyam, Luzma Hernandez MD Unavailable Unavailable Vaneencoyam, Luzma Hernandez MD Unavailable Unavailable Vaneencoyam, Luzma Hernandez MD Unavailable Unavailable Vaneencoyam, Luzma Hernandez MD Unavailable Unavailable Vaneencoyam, Luzma Hernandez MD Unavailable Unavailable Vaneenenaam, Luzma Hernandez MD Unavailable Unavailable Vaneencoyam, Luzma Hernandez MD Unavailable Unavailable Vaneencoyam, Luzma Hernandez MD Unavailable Unavailable Vanras, Luzma Hernandez MD Unavailable Unavailable Vanharoonam, Luzma Hernandez MD Unavailable Unavailable Vaneencoyam, Luzma Hernandez MD Unavailable Unavailable Vaneencoyam, Luzma Hernandez MD Unavailable Unavailable Vaneenenaam, Luzma Hernandez MD Unavailable Unavailable Vaneencoyam, Luzma Hernandez MD Unavailable Unavailable Vanras, Luzma Hernandez MD Unavailable Unavailable Vanras, Luzma Hernandez MD Unavailable Unavailable Vaneencoyam, Luzma Hernandez MD Unavailable Unavailable Vaneencoyam, Luzma Hernandez MD Unavailable Unavailable Vaneenenaam, Luzma Hernandez MD Unavailable Unavailable Vaneenenaam, Luzma Hernandez MD Unavailable Unavailable Vaneenenaam, D Peter MD Unavailable Unavailable Luzma Cota MD Unavailable Unavailable Luzma Cota MD Unavailable Unavailable Luzma Cota MD Unavailable Unavailable Luzma Cota MD Unavailable Unavailable Luzma Cota MD Unavailable Unavailable Luzma Cota MD Unavailable Unavailable Luzma Cota MD Unavailable Unavailable Ariadne Brush MD Unavailable Unavailable Ariadne Brush MD Unavailable Unavailable Ariadne Brush MD Unavailable Unavailable Ariadne Brush MD Unavailable Unavailable Ariadne Brush MD Unavailable Unavailable Ariadne Brush MD Unavailable Unavailable Ariadne Brush MD Unavailable Unavailable Ariadne Brush MD Unavailable Unavailable Ariadne Brush MD Unavailable Unavailable Ariadne Brush MD Unavailable Unavailable Ariadne Brush MD Unavailable Unavailable Ariadne Brush MD Unavailable Unavailable Ariadne Brush MD Unavailable Unavailable Ariadne Brush MD Unavailable Unavailable Ariadne Brush MD Unavailable Unavailable Ariadne Brush MD Unavailable Unavailable Ariadne Brush MD Unavailable Unavailable Ariadne Brush MD Unavailable Unavailable Ariadne Brush MD Unavailable Unavailable Ariadne Brush MD Unavailable Unavailable Ariadne Brush MD Unavailable Unavailable Ariadne Brush MD Unavailable Unavailable Ariadne Brush MD Unavailable Unavailable Ariadne Brush MD Unavailable Unavailable Ariadne Brush MD Unavailable Unavailable Ariadne Brush MD Unavailable Unavailable Ariadne Brush MD Unavailable Unavailable Ariadne Brush MD Unavailable Unavailable Ariadne Brush MD Unavailable Unavailable Ariadne Brush MD Unavailable Unavailable Ariadne Brush MD Unavailable Unavailable Ariadne Brush MD Unavailable Unavailable Ariadne Brush MD Unavailable Unavailable Ariadne Brush MD Unavailable Unavailable Ariadne Brush MD Unavailable Unavailable Ariadne Brush MD Unavailable Unavailable Ariadne Brush MD Unavailable Unavailable Ariadne Brush MD Unavailable Unavailable Ariadne Brush MD Unavailable Unavailable Ariadne Brush MD Unavailable Unavailable Ariadne Brush MD Unavailable Unavailable Ariadne Brush MD Unavailable Unavailable Ariadne Brush MD Unavailable Unavailable Ariadne Brush MD Unavailable Unavailable Ariadne Brush MD Unavailable Unavailable Ariadne Brush MD Unavailable Unavailable Ariadne Brush MD Unavailable Unavailable Ariadne Brush MD Unavailable Unavailable Ariadne Brush MD Unavailable Unavailable Ariadne Brush MD Unavailable Unavailable Ariadne Brush MD Unavailable Unavailable Ariadne Brush MD Unavailable Unavailable Ariadne Brush MD Unavailable Unavailable Ariadne Brush MD Unavailable Unavailable Ariadne Brush MD Unavailable Unavailable Ariadne Brush MD Unavailable Unavailable Ariadne Brush MD Unavailable Unavailable Ariadne Brush MD Unavailable Unavailable Ariadne Brush MD Unavailable Unavailable Ariadne Brush MD Unavailable Unavailable Ariadne Brush MD Unavailable Unavailable Ariadne Brush MD Unavailable Unavailable Ariadne Brush MD Unavailable Unavailable Ariadne Brush MD Unavailable Unavailable Ariadne Brush MD Unavailable Unavailable Ariadne Brush MD Unavailable Unavailable Ariadne Brush MD Unavailable Unavailable Ariadne Brush MD Unavailable Unavailable Ariadne Brush MD Unavailable Unavailable Ariadne Brush MD Unavailable Unavailable Ariadne Brush MD Unavailable Unavailable Ariadne Brush MD Unavailable Unavailable Ariadne Brush MD Unavailable Unavailable Ivand, Reet Unavailable Unavailable Ivand, Reet Unavailable Unavailable Jay CORONA MD Unavailable Unavailable aJy CORONA MD Unavailable Unavailable Jay CORONA MD Unavailable Unavailable Jay CORONA MD Unavailable Unavailable Jay CORONA MD Unavailable Unavailable Jay CORONA MD Unavailable Unavailable Jay CORONA MD Unavailable Unavailable Jay CORONA MD Unavailable Unavailable Jay CORONA MD Unavailable Unavailable Jay CORONA MD Unavailable Unavailable Jay CORONA MD Unavailable Unavailable Jay CORONA MD Unavailable Unavailable Jay CORONA MD Unavailable Unavailable Jay CORONA MD Unavailable Unavailable Jay CORONA MD Unavailable Unavailable Jay CORONA MD Unavailable Unavailable Jay CORONA MD Unavailable Unavailable Jay CORONA MD Unavailable Unavailable Jay CORONA MD Unavailable Unavailable Jay CORONA MD Unavailable Unavailable Jay CORONA MD Unavailable Unavailable Jay CORONA MD Unavailable Unavailable Jay CORONA MD Unavailable Unavailable Jay CORONA MD Unavailable Unavailable Jay CORONA MD Unavailable Unavailable Jay CORONA MD Unavailable Unavailable Jay CORONA MD Unavailable Unavailable Jay CORONA MD Unavailable Unavailable Jay CORONA MD Unavailable Unavailable Jay CORONA MD Unavailable Unavailable Jay CORONA MD Unavailable Unavailable Jay CORONA MD Unavailable Unavailable Jay CORONA MD Unavailable Unavailable Jay CORONA MD Unavailable Unavailable Jay CORONA MD Unavailable Unavailable Jay CORONA MD Unavailable Unavailable Jay CORONA MD Unavailable Unavailable Jay CORONA MD Unavailable Unavailable Jay CORONA MD Unavailable Unavailable CORONA, E ANGELA MD Unavailable Unavailable CORONA, E ANGELA MD Unavailable Unavailable CORONA, E ANGELA MD Unavailable Unavailable OCRONA, E ANGEAL MD Unavailable Unavailable CORONA, E ANGELA MD Unavailable Unavailable CORONA, E ANGELA MD Unavailable Unavailable CORONA, E ANGELA MD Unavailable Unavailable CORONA, E ANGELA MD Unavailable Unavailable CORONA, E ANGELA MD Unavailable Unavailable CORONA, E ANGELA MD Unavailable Unavailable CORONA, E ANGELA MD Unavailable Unavailable CORONA, E ANGELA MD Unavailable Unavailable CORONA, E ANGELA MD Unavailable Unavailable CORONA, E ANGELA MD Unavailable Unavailable CORONA, E ANGELA MD Unavailable Unavailable CORONA, E ANGELA MD Unavailable Unavailable CORONA, E ANGELA MD Unavailable Unavailable CORONA, E ANGELA MD Unavailable Unavailable Re-disclosure Warning The records that you are about to access may contain information from federally-assisted alcohol or drug abuse programs. If such information is present, then the following federally mandated warning applies: This information has been disclosed to you from records protected by federal confidentiality rules (42 CFR part 2). The federal rules prohibit you from making any further disclosure of this information unless further disclosure is expressly permitted by the written consent of the person to whom it pertains or as otherwise permitted by 42 CFR part 2. A general authorization for the release of medical or other information is NOT sufficient for this purpose. The Federal rules restrict any use of the information to criminally investigate or prosecute any alcohol or drug abuse patient.The records that you are about to access may contain highly sensitive health information, the redisclosure of which is protected by Article 27-F of the [facility] Public Health law. If you continue you may have access to information: Regarding HIV / AIDS; Provided by facilities licensed or operated by the [facility] Office of Mental Health; or Provided by the [facility] Office for People With Developmental Disabilities. If such information is present, then the following [facility] mandated warning applies: This information has been disclosed to you from confidential records which are protected by state law. State law prohibits you from making any further disclosure of this information without the specific written consent of the person to whom it pertains, or as otherwise permitted by law. Any unauthorized further disclosure in violation of state law may result in a fine or custodial sentence or both. A general authorization for the release of medical or other information is NOT sufficient authorization for further disc losure. Allergies and Adverse Reactions Type Description Substance Reaction Status Data Source(s ) Penicillin (For Allergies Use Only) Penicillin (For Allergie s Use Only) Penicillin (For Allergies Use Only) COMA LIKE STATE, DIFF. TO WAKE UP [facility] Family History Family Member Name Family Member Gender Family Member Status Date o f Status Description Data Source(s) Unknown Unknown Problem [facility] ([facility]) mother Unknown Male Problem [facility] Encounters Encounter Providers Location Date Indications Data Source(s ) Outpatient Attender: Francesco Stein 12/08 10:00:00 AM EST MED[facility] ([facility] ) Outpatient Attender: Francesco Stein 09/25 10:00:00 AM EST [facility] ([facility] ) Outpatient Attender: ANGELA CORONA MD Main Office 09/08/2020 11:15:00 AM EDT [facility] ([facility]) Outpatient Attender: ANGELA CORONA MD Main Office 06/13/2020 02:30:00 PM EDT [facility] ([facility]) [facility] [address] [place] [address] 04/04/2020 12:00:00 AM EDT eCW1 ([facility]) [facility] [address] [place] [phone] 03/28/2020 12:00:00 AM EDT eCW1 ([facility]) [facility] [address] [place] [phone] 03/27/2020 12:00:00 AM EDT eCW1 ([facility]) [facility] [address] [place] [phone] 03/27/2020 12:00:00 AM EDT eCW1 ([facility]) Outpatient Attender: Francesco Stein 03/26 08:00:00 AM EDT MEDENT ([facility] ) [facility] [address] [place] [phone] 03/26/2020 12:00:00 AM EDT eCW1 ([facility]) [facility] [address] [place] [address] 03/24/2020 12:00:00 AM EDT eCW1 ([facility]) [facility] [address] [place] [address] 03/20/2020 12:00:00 AM EDT eCW1 ([facility]) [facility] [address] [place] [phone] 03/19/2020 12:00:00 AM EDT eCW1 ([facility]) [facility] [address] [place] [phone] 03/17/2020 12:00:00 AM EDT eCW1 ([facility]) [facility] [address] [place] [address] 03/10/2020 12:00:00 AM EDT eCW1 ([facility]) [facility] [address] [place] [address] 03/07/2020 12:00:00 AM EDT eCW1 ([facility]) [facility] [address] [place] [phone] 12/03/2019 12:00:00 AM EST eCW1 ([facility]) Outpatient Referrer: Luzma Cota MD 11/28/2019 09: 10:00 AM EST [facility] Outpatient Referrer: Luzma Cota MD 11/28/2019 09: 06:00 AM EST [facility] 10/19/2019 06:16:42 AM [facility] INPATIENT Attender: Mirella Do MDAdmitter: Mirella hernandez MD [id number] 10/19/2019 06:16:00 AM EST - 10/20/2019 11:12:00 AM [facility] Patient discharged. SURG ADMIT Attender: Arabella Miller [id number] 10/18/2019 10:39:01 AM [facility] Medications Medication Brand Name Start Date Product Form Dose Route Admi nistrative Instructions Pharmacy Instructions Status Indications Reaction Description Data Source(s) Cholecalciferol 1000 UNT Oral Tablet Vitamin D 09/25/2020 12:00:00 A M EST ORAL active MEDENT ([facility]) Clonazepam 0.5 MG Oral Tablet Clonazepam 06/12/2020 12:00:00 AM EDT active [facility] ([facility]) Diphenhydramine Hydrochloride 25 MG Oral Capsule [Benadryl] Benadryl Allergy 06/12/2020 12:00:00 AM EDT active [facility] ([facility]) Levothyroxine Sodium 0.15 MG Oral Tablet Levothyroxine Sodiu m 06/12/2020 12:00:00 AM EDT active EDENT ([facility]) Citalopram 40 MG Oral Tablet Citalopram Hydrobromide 06/12/2020 12:00:00 AM EDT active [facility] ( [facility]) 200 ACTUAT Albuterol 0.09 MG/ACTUAT Metered Dose Inhal er [Ventolin] Ventolin HFA 06/12/2020 12:00:00 AM EDT active [facility] ([facility]) Melatonin Melatonin 06/12/2020 12:00:00 AM EDT act dru MEDENT ([facility]) Calcium Citrate 1500 MG / Cholecalciferol 250 UNT Oral Tablet Calcium Citrate + D 06/12/2020 12:00:00 AM EDT active [facility] ([facility]) Multi Vitamin Daily 06/12/2020 12:00:00 AM EDT active [facility] ([facility]) Biotin 5 MG Oral Capsule Biotin 06/12/2020 12:00:00 AM EDT active [facility] ([facility]) Vitamin B 12 0.1 MG Oral Tablet Vitamin B12 06/12/2020 12:00:00 AM EDT active [facility] ([facility]) Levothyroxine Sodium 0.15 MG Oral Tablet Levothyroxine Sodiu m 03/26/2020 12:00:00 AM EDT ORAL active M EDENT ([facility]) Calcium Citrate 950 MG Oral Tablet Calcitrate 03/26/2020 12:00:00 AM EDT ORAL active [facility]ENT ([facility]) Multi Complete 03/26/2020 12:00:00 AM EDT ORAL act dru MEDENT ([facility]) Vitamin B 12 0.0667 MG/ML Oral Solution Vitamin B-12 03/26/20 12:00:00 AM EDT active MEDENT ( [facility]) Acetaminophen 325 MG Oral Tablet acetaminophen (TYLENO L) tablet 975 mg acetaminophen (TYLENOL) tablet 975 mg 10/20/2019 08:00:00 AM EST 97 5 mg oral active 975 mg, oral, E very 6 hours scheduled, First dose on 10/20/19 at 0800, Phase II/On Unit
start 6 hours after final intravenous acetaminophen dose
[facility] Medication administered onsite levothyroxine (SYNTHROID, UNITHROID) tablet 175 mcg 10/20/2019 07:30:00 AM EST 175 ug oral active hypothyroidism 1 75 mcg, oral, Every morning before breakfast, First dose on 10/20/19 at 0730, Phase II/On Unit
Indications: hypothyroidism [facility] hypothyroidism Medication administered onsite Citalopram 40 MG Oral Tablet citalopram (CeleXA) table t 40 mg citalopram (CeleXA) tablet 40 mg 10/20/2019 07:00:00 AM EST 40 mg oral active 40 mg, oral, Every morning, First dose on 10/20/19 at 0700, Phase II/On Unit [facility] Medication administered onsite Calcium Chloride 0.0014 MEQ/ML / Potassi um Chloride 0.004 MEQ/ML / Sodium Chloride 0.103 MEQ/ML / Sodium Lactate 0.028 MEQ/ML Injectable Solution lactated Ringer's bolus 1,000 mL lactated Ringer's bolus 1,000 mL 10/20/2019 06:00:00 A M EST 1000 mL intravenous completed 1, 000 mL, intravenous, Once, 10/20/19 at 0600, 1 dose, Phase II/On Unit
BOLUS- Post-Op Day #1
[facility] Medication administered onsite 1 ML heparin sodium, porcine 5000 UNT/ML Injection heparin (porcine) injection 5,000 Units heparin (porcine) injection 5,000 Units 10/19/2019 04:30:00 PM EST 5000 U subcutaneous active 5,000 Units , subcutaneous, Every 8 hours, First dose on Tue10/19/19 at 1630, Phase II/On Unit
Adjust start time as needed
[facility] Medication administered onsite gabapentin 300 MG Oral Capsule gabapentin (NEURONTIN) capsule 300 mg gabapentin (NEURONTIN) capsule 300 mg 10/19/2019 04:00:00 PM EST 300 mg oral active 300 mg, oral, 3 times daily, First dose on Tue10/19/19 at 1600, 21 doses, Phase II/On Unit [facility] Medication administered onsite 3 ML Insulin, Aspart, Human 100 UNT/ML P en Injector insulin aspart (NovoLOG) inj pen 0-14 Units insulin aspart (NovoLOG) inj pen 0-14 Units 10/19/2019 04:00:00 PM EST subcutaneous aborted 0-1 4 Units, subcutaneous, Every 4 hours scheduled, First dose on Tue10/19/19 at 1600, Phase II/On Unit
Blood Sugar DoseLess than 140 No [id number] 8 [id number] 10 [id number] 12 [id number] 14 UnitsCall Provider if Blood Sugar is greater than 350.
[facility] Medication administered onsite Calcium Chloride 0.001 MEQ/ML / Glucose 50 MG/ML / Potassium Chloride 0.004 MEQ/ML / Sodium Chloride 0.103 MEQ/ML / Sodium Lactate 0.028 MEQ/ML Injectable Solution dextrose 5 % and lactated Ringer's infusion dextrose 5 % and lactated Ringer's infusion 10/19/2019 02:00:00 PM EST 150 mL/h intravenous active 150 mL/hr, intravenous, at 1 50 mL/hr, Continuous, Starting Tue10/19/19 at 1400, Phase II/On Unit
Discontinue when patient taking adequate PO fluids. If patient had urinary catheter discontinued, wait until after first voiding.
[facility] Medication administered onsite pantoprazole (PROTONIX) EC tablet 40 mg 10/19/2019 02:00:0 0 PM EST 40 mg oral active [Order 1 Start ] Name: pantoprazole (PROTONIX) EC tablet 40 mg Signed Summary: 40 mg, oral, Daily, First dose on Tue10/19/19 at 1400, Phase II/On Unit
Do not crush, chew, or split.
[Order 1 End] [Order 2 Start] Name: pantoprazole (PROTONIX) injection 40 mg Signed Summary: 40 mg, intravenous, Administer over 2 Minutes, Daily, First dose on Tue10/19/19 at 1400, Phase II/On Unit
Give IV if patient is unable to take orally.
[Order 2 End] [facility] Medication administered onsite Metoprolol Tartrate 25 MG Oral Tablet me toprolol tartrate (LOPRESSOR) tablet 25 mg metoprolol tartrate (LOPRESSOR) tablet 25 mg 10/19/2019 02:00:00 PM EST 25 mg oral active 25 mg, ora l, Every 12 hours, First dose on Tue10/19/19 at 1400, Phase II/On Unit
Hold for systolic BP less than 100 ; Give first dose on arrival to floor.
[facility] [facility] Medication administered onsite Simethicone 80 MG Chewable Tablet simethicone (MYLICON ) chewable tablet 80 mg simethicone (MYLICON) chewable tablet 80 mg 10/19/2019 02:00:00 PM EST 80 mg oral active 80 mg, oral, E very 6 hours scheduled, First dose on Tue10/19/19 at 1400, Phase II/On Unit [facility] Medication administered onsite Prochlorperazine 10 MG Oral Tablet prochlorperazine (C OMPAZINE) tablet 10 mg prochlorperazine (COMPAZINE) tablet 10 mg 10/19/2019 01:23:04 PM EST 10 mg oral active 10 mg, oral, E very 6 hours PRN, nausea, Starting Tue10/19/19 at 1323, Phase II/On Unit [facility] Medication administered onsite ondansetron (ZOFRAN-ODT) dispersible tablet 4 mg 10/19 01:23:04 PM EST 4 mg oral active [Order 1 S tart] Name: ondansetron (ZOFRAN-ODT) dispersible tablet 4 mg Signed Summary: 4 mg, oral, Every 6 hours PRN, nausea, vomiting, Starting Tue10/19/19 at 1323, Phase II/On Unit [Order 1 End] [Order 2 Start] Name: ondansetron (ZOFRAN) injection 4 mg Signed Summary: 4 mg, intravenous, Every 6 hours PRN, nausea, vomiting, Starting Tue10/19/19 at 1323, Phase II/On Unit
Give IV if patient is unable to take orally.
[Order 2 End] [facility] Medication administered onsite metoclopramide HCl (REGLAN) tablet 10 mg 10/19/2019 01:23: 04 PM EST 10 mg oral active [Order 1 Start ] Name: metoclopramide HCl (REGLAN) tablet 10 mg Signed Summary: 10 mg, oral, Every 6 hours PRN, nausea, Starting Tue10/19/19 at 1323, Phase II/On Unit [Order 1 End] [Order 2 Start] Name: metoclopramide (REGLAN) injection 10 mg Signed Summary: 10 mg, intravenous, Every 6 hours PRN, nausea, Starting Tue10/19/19 at 1323, Phase II/On Unit
Give IV if patient is unable to take orally.
[Order 2 End] [facility] Medication administered onsite 1 ML Ketorolac Tromethamine 30 MG/ML Inj ection ketorolac (TORADOL) injection 30 mg ketorolac (TORADOL) injection 30 mg 10/19/2019 01:23:03 PM EST 30 mg intravenous active 30 mg, intrav enous, Every 8 hours PRN, severe pain, moderate to severe pain, Starting Tue10/19/19 at 1323, Phase II/On Unit [facility] Medication administered onsite Clonidine Hydrochloride 0.1 MG Oral Tablet cloNIDine ( CATAPRES) tablet 0.1 mg cloNIDine (CATAPRES) tablet 0.1 mg 10/19/2019 01:23:03 PM EST 0.1 mg oral active 0.1 mg, oral, Every 6 hours PRN, high blood pressure, for systolic BP greater than 140 and/or diastolic BP greater than 90, Starting Tue10/19/19 at 1323, Phase II/On Unit [facility] Medication administered onsite Clonazepam 1 MG Oral Tablet clonazePAM (KlonoPIN) tabl et 0.5 mg clonazePAM (KlonoPIN) tablet 0.5 mg 10/19/2019 01:23:03 PM EST 0.5 mg oral active 0.5 mg, oral, 2 times daily PRN, anxiety , Starting Tue10/19/19 at 1323, Phase II/On Unit
[facility] - follow Safe Handling Precautions when administering ; Refer to Pharmacy Resources on hospital intranet page for additional info.
[facility] Medication administered onsite Albuterol 0.83 MG/ML Inhalant Solution a lbuterol 2.5 mg/3 mL (0.083%) nebulizer solution 2.5 mg albuterol 2.5 mg/3 mL (0.083%) nebulizer solution 2.5 mg 10/19/2019 01:23:03 PM EST 2.5 mg nebulization active 2.5 mg, nebulization, Every 6 hours PRN, wheezing, shortness of breath, Starting Tue10/19/19 at 1323, Phase II/On Unit [facility] Medication administered onsite 0.4 ML Enoxaparin sodium 100 MG/ML Prefi lled Syringe enoxaparin (LOVENOX) syringe 40 mg enoxaparin (LOVENOX) syringe 40 mg 10/19/2019 01:23:03 PM EST 40 mg subcutaneous completed 40 mg, subcutaneous, During hospitalization, Starting Tue10/19/19 at 1323, 1 dose, Phase II/On Unit
Give Once, ON DISCHARGE.
[facility] Medication administered onsite Calcium Chloride 0.0014 MEQ/ML / Potassi um Chloride 0.004 MEQ/ML / Sodium Chloride 0.103 MEQ/ML / Sodium Lactate 0.028 MEQ/ML Injectable Solution lactated Ringer's infusion lactated Ringer's infusion 10/19/2019 12:00:00 PM EST 100 mL/h intravenous aborted 100 mL/h r, intravenous, at 100 mL/hr, Continuous, Starting Tue10/19/19 at 1200, Recovery (only) [facility] Medication administered onsite Hydralazine Hydrochloride 20 MG/ML Injec table Solution hydrALAZINE (APRESOLINE) injection 5 mg hydrALAZINE (APRESOLINE) injection 5 mg 10/19/2019 11: 56:10 AM EST 5 mg intravenous aborted 5 mg , intravenous, Every 20 min PRN, Systolic BP >140 and/or Diastolic BP >90, Starting Tue10/19/19 at 1156, Recovery (only)
To be given in PACU Only.
[facility] Medication administered onsite Labetalol hydrochloride 5 MG/ML Injectab le Solution labetalol (NORMODYNE,TRANDATE) injection 10 mg labetalol (NORMODYNE,TRANDATE) injection 10 mg 10/19/2019 11:56:10 AM EST 10 mg intravenous aborte d 10 mg, intravenous, Every 5 min PRN, high blood pressure, Systolic BP >140, Starting Tue10/19/19 at 1156, Recovery (only)
To be given in PACU Only.
[facility] Medication administered onsite fentaNYL (SUBLIMAZE) injection 25 mcg [id number] 10/19/2019 11:40 :19 AM EST 25 ug intravenous aborted 25 mcg, intravenous, Every 5 min PRN, severe pain, Starting Tue10/19/19 at 1140, 8 doses, Recovery (only) [facility] Medication administered onsite Alprazolam 0.25 MG Oral Tablet ALPRAZolam (XANAX) tabl et 0.25 mg ALPRAZolam (XANAX) tablet 0.25 mg 10/19/2019 08:00:00 AM EST 0.25 mg oral completed 0.25 mg, oral, Once, 05/02 at 0800, 1 dose, Preprocedure
call manager to surgery
[facility] Medication administered onsite Calcium Chloride 0.0014 MEQ/ML / Potassi um Chloride 0.004 MEQ/ML / Sodium Chloride 0.103 MEQ/ML / Sodium Lactate 0.028 MEQ/ML Injectable Solution lactated Ringer's bolus 500 mL lactated Ringer's bolus 500 mL 10/19/2019 08:00:00 AM EST 500 mL intravenous completed 500 mL, in travenous, at 500 mL/hr, Administer over 1 Hours, Once, Tue10/19/19 at 0800, 1 dose, Preprocedure [facility] Medication administered onsite Acetaminophen 500 MG Oral Tablet acetaminophen (TYLENO L) tablet 1,000 mg acetaminophen (TYLENOL) tablet 1,000 mg 10/19/2019 08:00:00 AM EST 1000 mg oral completed 1,000 mg, oral , Once, Tue10/19/19 at 0800, 1 dose, Preprocedure
call manager to surgery
[facility] Medication administered onsite Calcium Chloride 0.0014 MEQ/ML / Potassi um Chloride 0.004 MEQ/ML / Sodium Chloride 0.103 MEQ/ML / Sodium Lactate 0.028 MEQ/ML Injectable Solution lactated Ringer's infusion lactated Ringer's infusion 10/19/2019 08:00:00 AM EST 100 mL/h intravenous active 100 mL/h r, intravenous, at 100 mL/hr, Continuous, Starting Tue10/19/19 at 0800 [facility] Medication administered onsite Calcium Chloride 0.0014 MEQ/ML / Potassi um Chloride 0.004 MEQ/ML / Sodium Chloride 0.103 MEQ/ML / Sodium Lactate 0.028 MEQ/ML Injectable Solution lactated Ringer's infusion lactated Ringer's infusion 10/19/2019 08:00:00 AM EST 100 mL/h intravenous active 100 mL/h r, intravenous, at 100 mL/hr, Continuous, Starting Tue10/19/19 at 0800 [facility] Medication administered onsite Famotidine 20 MG Oral Tablet famotidine (PEPCID) table t 20 mg famotidine (PEPCID) tablet 20 mg 10/19/2019 08:00:00 AM EST 20 mg oral completed 20 mg, oral, Once, Tue10/19/19 at 0800, 1 dose, Preprocedure
Administer with sip of water on arrival/personal lines advisor.
[facility] Medication administered onsite 1 ML heparin sodium, porcine 5000 UNT/ML Injection heparin (porcine) injection 5,000 Units heparin (porcine) injection 5,000 Units 10/19/2019 08:00:00 AM EST 5000 U subcutaneous completed 5,000 Uni ts, subcutaneous, Once, Tue10/19/19 at 0800, 1 dose, Preprocedure
call manager to surgery
[facility] Medication administered onsite gabapentin 300 MG Oral Capsule gabapentin (NEURONTIN) capsule 300 mg gabapentin (NEURONTIN) capsule 300 mg 10/19/2019 08:00:00 AM EST 300 mg oral completed 300 mg, oral, Once, Tue10/19/19 at 0800, 1 dose, Preprocedure
call manager to surgery
[facility] Medication administered onsite Tetrahydrocannabinol 2.5 MG Oral Capsule dronabinol (M ARINOL) capsule 5 mg dronabinol (MARINOL) capsule 5 mg 10/19/2019 08:00:00 AM EST 5 mg oral completed 5 mg, oral, Once, Fr i 10/19/19 at 0800, 1 dose, Preprocedure
call manager to surgery
[facility] Medication administered onsite Dexamethasone 4 MG Oral Tablet dexAMETHasone (DECADRON ) tablet 4 mg dexAMETHasone (DECADRON) tablet 4 mg 10/19/2019 08:00:00 AM EST 4 mg oral completed 4 mg, oral, Once, Fr i 10/19/19 at 0800, 1 dose, Preprocedure
call manager to surgery
[facility] Medication administered onsite Albuterol 0.83 MG/ML Inhalant Solution a lbuterol 2.5 mg/3 mL (0.083%) nebulizer solution 2.5 mg albuterol 2.5 mg/3 mL (0.083%) nebulizer solution 2.5 mg 10/19/2019 08:00:00 AM EST 2.5 mg nebulization active 2.5 mg, nebulization, Once, 10/19/19 at 0800, 1 dose, Preprocedure
To be started in holding area
[facility] Medication administered onsite Prochlorperazine 10 MG Oral Tablet prochlorperazine (C OMPAZINE) tablet 10 mg prochlorperazine (COMPAZINE) tablet 10 mg 10/19/2019 08:00:00 AM EST 10 mg oral completed 10 mg, oral, O nce, 10/19/19 at 0800, 1 dose, Preprocedure
call manager to surgery
[facility] Medication administered onsite celecoxib 200 MG Oral Capsule celecoxib (CeleBREX) cap roberto 200 mg celecoxib (CeleBREX) capsule 200 mg 10/19/2019 08:00:00 AM EST 200 mg oral completed 200 mg, oral, Once, Tue10/19/19 at 0800, 1 dose, Preprocedure
call manager to surgery
[facility] Medication administered onsite Clonidine Hydrochloride 0.1 MG Oral Tablet cloNIDine ( CATAPRES) tablet 0.1 mg cloNIDine (CATAPRES) tablet 0.1 mg 10/19/2019 08:00:00 AM EST 0.1 mg oral completed 0.1 mg, oral, Once, Tue10/19/19 at 0800, 1 dose, Preprocedure
call manager to surgery
[facility] Medication administered onsite Vitamin B 12 1 MG Oral Tablet cyanocobalamin (VITAMIN B-12) 1,000 mcg tablet cyanocobalamin (VITAMIN B-12) 1,000 mcg tablet 10/19/2019 12:00:00 AM EST 1000 ug oral active Take 1 tab let (1,000 mcg total) by mouth 1 (one) time each day. [facility] 0.4 ML Enoxaparin sodium 100 MG/ML Prefi lled Syringe enoxaparin (LOVENOX) 40 mg/0.4 mL syringe enoxaparin (LOVENOX) 40 mg/0.4 mL syringe 10/19/2019 1 2:00:00 AM EST 40 mg subcutaneous active Inj ect 0.4 mL (40 mg total) under the skin 1 (one) time each day for 20 days. [facility] Omeprazole 40 MG Delayed Release Oral Ca psule omeprazole (PriLOSEC) [address] capsule omeprazole (PriLOSEC) [address] capsule 10/19/2019 12:00:00 AM ES T 40 mg oral active Take 1 cap roberto (40 mg total) by mouth 1 (one) time each day. Do not crush or chew. [facility] multivitamin tablet,chewable [id number] 10/19/2019 12:00:00 AM EST 2 {tbl} oral active Chew 2 tablets 1 (one) time each day. [facility] Magnesium Hydroxide 80 MG/ML Oral Suspen gurmeet magnesium hydroxide (MILK OF MAGNESIA) 400 mg/5 mL suspension magnesium hydroxide (MILK OF MAGNESIA) 4 00 mg/5 mL suspension 10/19/2019 12:00:00 AM EST 15 mL oral acti ve Take 15 mL by mouth 1 (one) time each day if needed for constipation (Every hour for the maximum for 4 times a day.). [facility] 0.4 ML Enoxaparin sodium 100 MG/ML Prefi lled Syringe enoxaparin (LOVENOX) 40 mg/0.4 mL syringe enoxaparin (LOVENOX) 40 mg/0.4 mL syringe 10/19/2019 1 2:00:00 AM EST 40 mg subcutaneous aborted Inj ect 0.4 mL (40 mg total) under the skin 1 (one) time each day for 10 days. [facility] Simethicone 80 MG Chewable Tablet simethicone (MYLICON ) 80 mg chewable tablet simethicone (MYLICON) 80 mg chewable tablet 10/19/2019 12:00:00 AM EST 80 mg oral active Chew 1 tablet (80 mg total) every 6 (six) hours if needed for flatulence. [facility] Ondansetron 4 MG Oral Tablet ondansetron (ZOFRAN) 4 mg tablet ondansetron (ZOFRAN) 4 mg tablet 10/19/2019 12:00:00 AM EST 4 mg oral active Take 1 tablet (4 mg total) by mouth every 6 (six) hours if needed for nausea or vomiting. [facility] Acetaminophen 325 MG Oral Tablet acetaminophen (TYLENO L) 325 mg tablet acetaminophen (TYLENOL) 325 mg tablet 10/19/2019 12:00:00 AM EST 65 0 mg oral active Take 2 tablets (650 mg total) by mouth every 6 (six) hours if needed for mild pain, headaches or fever. [facility] Insurance Providers Payer name Policy type / Coverage type Policy ID Covered democrat ID Covered democrat's relationship to chinchilla Policy Chinchilla Plan Information [facility] SP [facility] O [id number] [facility] [id number] [facility] [id number] Self [id number] [facility] [id number] Self [id number] [facility] [id number] Lifetime Benefit ([employer]) Commercial [id number] Self [id number] Umr ([facility]) Commercial [id number] Self [id number] ANSI-Commercial [id number] LIFETIME BENEFIT SOLUTIONS [id number] SP [id number] Lifetime Benefit Solution Commercial [id number] Self [id number] Lifetime Benefit Solution Commercial [id number] Self [id number] LIFETIME BENEFIT SOLUTIO O [id number] O [id number] Lifetime Benefit ([employer]) Commercial [id number] Self [id number] Lifetime Benefit Solution Commercial [id number] Self [id number] Lifetime Benefit ([employer]) Commercial Self LIFETIME BENEFIT SOLUTIO O [id number] S [id number] Lifetime Benefit Solutions/EBS [employer] F [id number] SELF [id number] LIFETIME BENEFIT SOLUTIONS [id number] SP [id number] [employer] MEDICAL CLAIMS [id number] SP [id number] Lifetime Benefit Solutions/EBS [employer] F [id number] ALEX F [id number] LIFETIME BENEFIT SOLUTIO O [id number] S [id number] LIFETIME BENEFIT SOLUTIO O [id number] S [id number] Lifetime Benefit Solution Commercial Self [employer] P [id number] S [id number] Problems, Conditions, and Diagnoses Code Display Name Description Problem Type Effective Dates Data Source(s) 223485148 Preoperative cardiovascular examination Preoperative cardiovascular examination Problem 09/08/2020 12:00:00 AM EDT [facility] ([facility]) [id number] Cardiomyopathy Cardiomyopathy Problem 09/08/2020 12:00: 00 AM EDT [facility] ([facility]) [id number] Obstructive sleep apnea syndrome Obstructive sle ep apnea syndrome Problem 06/13/2020 12:00:00 AM EDT [facility]) [id number] Paroxysmal tachycardia Paroxysmal tachycardia Problem 06/13/2020 12:00:00 AM EDT [facility] ([facility]) [id number] Body mass index 30+ - obesity Body mass index 30+ - ob esity Problem 06/13/2020 12:00:00 AM EDT [facility] ([facility]) [id number] Electrocardiogram abnormal Electrocardiogram abnormal Problem 06/13/2020 12:00:00 AM EDT [facility] ([facility]) [id number] Dizziness and giddiness Dizziness and giddiness Proble m 06/13/2020 12:00:00 AM EDT [facility] ([facility]) [id number] Palpitations Palpitations Problem 06/13/2020 12:00:00 A M EDT [facility] ([facility]) Z68.43 Body mass index (BMI) 50-59.9 , adult Laureano dy mass index (BMI) 50.0-59.9, adult Diagnosis 10/19/2019 06:16:53 AM [facility] E66.01 Morbid (severe) obesity due to excess ca lories Morbid (severe) obesity due to excess calories Diagnosis 10/19/2019 06:16:53 AM [facility] Surgeries/Procedures Procedure Description Date Indications Data Source(s) ECG ROUTINE ECG W/LEAST 12 LDS W/I&R 09/08/2020 12:00: 00 AM EDT [facility] ([facility]) XTRNL PT ACTIVATED ECG RECORD MONITOR 30 DAYS 07/28/20 20 12:00:00 AM EDT [facility] ([facility]) XTRNL PT ACTIVTD ECG DWNLD 30 DAYS PHYS R&I 07/28/2020 12:00:00 AM EDT [facility] ([facility]) ECHO TTHRC R-T 2D W/WOM-MODE COMPL SPEC&COLR DOP 07/25 12:00:00 AM EDT [facility] ([facility]) ECG ROUTINE ECG W/LEAST 12 LDS W/I&R 06/13/2020 12:00: 00 AM EDT [facility] ([facility]) BX BREAST 1ST LESION US IMAG 03/26/2020 12:00:00 AM ED T [facility] BX BREAST 1ST LESION STRTCTC 03/19/2020 12:00:00 AM ED T [facility] ([facility]) POCT GLUCOSE METER UNSOLICITED RESULTS POCT GLUCOSE METER U NSOLICITED RESULTS Routine 10/20/2019 3:56 AM EST 10/20/2019 08:56:00 AM [facility] POCT GLUCOSE METER UNSOLICITED RESULTS POCT GLUCOSE METER U NSOLICITED RESULTS Routine 10/19/2019 11:39 PM EST 10/20/2019 04:39:00 AM [facility] POCT GLUCOSE METER UNSOLICITED RESULTS POCT GLUCOSE METER U NSOLICITED RESULTS Routine 10/19/2019 8:02 PM EST 10/20/2019 01:02:00 AM EST [facility] POCT GLUCOSE METER UNSOLICITED RESULTS POCT GLUCOSE METER U NSOLICITED RESULTS Routine 10/19/2019 4:40 PM EST 10/19/2019 09:40:00 PM EST [facility] POCT GLUCOSE METER UNSOLICITED RESULTS POCT GLUCOSE METER U NSOLICITED RESULTS Routine 10/19/2019 12:51 PM EST 10/19/2019 05:51:00 PM EST [facility] BIPAP/CPAP BIPAP/CPAP Routine 10/19/2019 11:56 AM EST 10/19/2019 04:56:18 PM EST [facility] BIPAP/CPAP BIPAP/CPAP Routine 10/19/2019 11:56 AM EST 10/19/2019 04:56:18 PM [facility] BIPAP/CPAP BIPAP/CPAP Routine 10/19/2019 11:56 AM EST 10/19/2019 04:56:18 PM [facility] INCENTIVE SPIROMETRY RT INCENTIVE SPIROMETRY RT Routine 10/19/2019 11:56 AM EST 10/19/2019 04:56:18 PM EST [facility] POCT GLUCOSE METER UNSOLICITED RESULTS POCT GLUCOSE METER U NSOLICITED RESULTS Routine 10/19/2019 11:53 AM EST 10/19/2019 04:53:00 PM [facility] LAPS GSTR RSTCV PX W/BYP DELILAH-EN-Y LIMB <150 CM BYPAS S GASTRIC / DELILAH-EN-Y LAPAROSCOPIC 10/19/2019 10:10 AM EST Morbid (severe) obesity due to excess calories (CMS/HCC) Body mass index (BMI) of 50-59.9 in adult (CMS/HCC) Fatty liver Abdominal adhesions 10/19/2019 03:10:00 PM EST - 10/19/2019 05:02:00 PM EST Abdominal adhesionsFatty liverBody mass index (BMI) of 50-59.9 in adult (CMS/HCC)Morbid (severe) obesity due to excess calories (CMS/HCC) [facility] Abdominal adhesions Fatty liver Body mass index (BMI) of 50-59.9 in adul t (CMS/HCC) Morbid (severe) obesity due to excess ca lories (CMS/HCC) POCT GLUCOSE METER UNSOLICITED RESULTS POCT GLUCOSE METER U NSOLICITED RESULTS Routine 10/19/2019 8:10 AM EST 10/19/2019 01:10:00 PM EST [facility] URINE TEST VISUAL COLOR CMPRSN METHS , URINE STAT 10/19/2019 6:19 AM EST 10/19/2019 11:19:00 AM EST [facility] Results ID Date Data Source [id number] 12/10/2020 12:00:00 PM EST [facility] Name Value Range Interpretation Code Description Data Georgette rce(s) Supporting Document(s) SARS coronavirus 2 RNA Not Detected [facility] [place] This lab was ordered by [facility] and reported by [facility]. ID Date Data Source [id number] 12/08/2020 12:40:00 PM EST [facility] ([facility]) Name Value Range Interpretation Code Description Data Georgette rce(s) Supporting Document(s) Erythrocyte sedimentation rate by Westergren method 13 mm/hr 0-20 [facility] ([facility]) ID Date Data Source [id number] 12/08/2020 12:40:00 PM EST [facility] ([facility]) Name Value Range Interpretation Code Description Data Georgette rce(s) Supporting Document(s) Red Blood Count 4.41 10 4.00-5.40 [facility] ([facility]) White Blood Count 8.4 10 4.0-10.0 [facility] ([facility]) Hematocrit 41.7 % 36.0-47.0 [facility] Hemoglobin 13.8 g/dL 12.0-15.5 [facility] ([facility]) Mean Corpuscular Hemoglobin 31.3 pg 27.0-33.0 [facility] ([facility]) Mean Corpuscular Volume 94.6 fl 80.0-96.0 [facility] ([facility]) Mean Corpuscular HGB Conc 33.1 g/dL 32.0-36.5 [facility] ([facility]) Platelet Count, Automated 291 10 150-450 [facility] ([facility]) Red Cell Distribution Width 11.8 % 11.5-14.5 [facility] ([facility]) Neutrophils % 61.6 % 36.0-66.0 [facility] ([facility]) Lymph % 26.4 % 24.0-44.0 [facility] Mccormick % 11.0 % 0.0-5.0 [facility] Eos % 0.0 % 0.0-3.0 [facility] ([facility]) Nucleated Red Blood Cell % 0.0 % 0-0 [facility] ([facility]) Baso % 0.8 % 0.0-1.0 [facility] ([facility]) Immature Granulocyte % 0.2 % 0-3.0 [facility] ([facility]) Neutrophils # 5.1 10 1.5-8.5 [facility] ([facility]) Lymph # 2.2 10 1.5-5.0 [facility] ([facility]) Mccormick # 0.9 10 0.0-0.8 [facility] ([facility]) Baso # 0.1 10 0.0-0.2 [facility] ([facility]) Eos # 0.0 10 0.0-0.5 [facility] ([facility]) ID Date Data Source [id number] 12/08/2020 12:40:00 PM EST [facility] ([facility]) Name Value Range Interpretation Code Description Data Georgette rce(s) Supporting Document(s) Glucose, Fasting 84 mg/dL 70-100 [facility] ([facility]) Blood Urea Nitrogen 13 mg/dL 7-18 [facility] Creatinine For GFR 0.61 mg/dL 0.55-1.30 [facility] ([facility]) Sodium Level 138 meq/L 136-145 [facility] ([facility]) Glomerular Filtration Rate Laboratory test result [facility] <content>Units are mL/min/1.73 m2</content>
<content></content>
<content>Chronic Kidney Disease Staging per NKF:</content>
<content></content>
<content>Stage I & II GFR >=60 Normal to Mildly Decreased</content>
<content>Stage III GFR 30-59 Moderately Decreased</content>
<content>Stage IV GFR 15-29 Severely Decreased</content>
<content>Stage V GFR <15 Very Little GFR Left</content>
<content>ESRD GFR <15 on [employer]</content>
<content></content> Potassium Serum 4.3 meq/L 3.5-5.1 [facility] ([facility]) Chloride Level 103 meq/L 98-107 [facility] ([facility]) Anion Gap 3 meq/L 8-16 [facility] ([facility]) Carbon Dioxide Level 32 meq/L 21-32 [facility] ([facility]) Calcium Level 8.9 mg/dL 8.5-10.1 [facility] ([facility]) Alt/SGPT 18 U/L 12-78 [facility] ([facility]) Ast/Sgot 13 U/L 7-37 [facility] ([facility]) Bilirubin,Total 0.2 mg/dL 0.2-1.0 [facility] ([facility]) Alkaline Phosphatase 109 U/L 45-117 [facility] ([facility]) Total Protein 6.8 GM/DL 6.4-8.2 [facility] ([facility]) Albumin 3.5 GM/DL 3.2-5.2 [facility] ([facility]) Albumin/Globulin Ratio 1.1 1.2-2.2 [facility] ([facility]) ID Date Data Source [id number] 09/26/2020 09:35:00 AM EST [facility] Name Value Range Interpretation Code Description Data Georgette rce(s) Supporting Document(s) SARS coronavirus 2 RNA [facility] This lab was ordered by [facility] and reported by [facility]. ID Date Data Source [id number] 09/18/2020 08:43:00 AM EST [facility] ([facility]) Name Value Range Interpretation Code Description Data Georgette rce(s) Supporting Document(s) Erythrocyte sedimentation rate by Westergren method 7 mm/hr 0-20 [facility] ([facility]) ID Date Data Source [id number] 09/18/2020 08:43:00 AM EST [facility] ([facility]) Name Value Range Interpretation Code Description Data Georgette rce(s) Supporting Document(s) Hemoglobin 14.2 g/dL 12.0-15.5 MEDENT ([facility]) Red Blood Count 4.66 10 4.00-5.40 MED[facility] ([facility]) White Blood Count 6.0 10 4.0-10.0 MED[facility] ([facility]) Hematocrit 43.8 % 36.0-47.0 [facility] ([facility]) Mean Corpuscular Volume 94.0 fl 80.0-96.0 [facility] ([facility]) Mean Corpuscular Hemoglobin 30.5 pg 27.0-33.0 ME DENT ([facility]) Red Cell Distribution Width 12.3 % 11.5-14.5 [place] DENT ([facility]) Platelet Count, Automated 302 10 150-450 MEDE NT ([facility]) Mean Corpuscular HGB Conc 32.4 g/dL 32.0-36.5 MEDE NT ([facility]) Nucleated Red Blood Cell % 0.0 % 0-0 MED ENT ([facility]) ID Date Data Source [id number] 09/18/2020 08:43:00 AM EST MEDENT ([facility]) Name Value Range Interpretation Code Description Data [facility] rce(s) Supporting Document(s) Inr 1.01 MEDENT ([facility]) THERAPUTIC HUMAN INR VALUES INDICATIONS NORMAL RANGES PROPHYLAXIS/TREATMENT OF: VENOUS THROMBOSIS 2.0-3.0 PULMONARY EMBOLISM 2.0-3.0 PREVENTION OF SYSTEMIC EMBOLISM FROM: TISSUE HEART VALVES 2.0-3.0 ACUTE MYOCARDIAL INFARCTION 2.0-3.0 VALVULAR HEART DISEASE 2.0-3.0 ATRIAL FIBRILLATION 2.0-3.0 MECHANICAL VALVES(HIGH RISK) 2.5-3.5 RECURRENT MYOCARDIAL INFARCTION 2.5-3.5 Prothrombin Time 13.5 s 12.5-14.3 MED[facility] ([facility]) ID Date Data Source [id number] 04/18/2020 03:19:00 PM EDT MED[facility] ([facility]) Name Value Range Interpretation Code Description Data Georgette rce(s) Supporting Document(s) White Blood Count 8.1 4.0-10.0 [facility] ([facility]) Red Blood Count 4.71 4.00-5.40 [facility] ([facility]) Platelets 318 172-450 MED[facility] ([facility]) Hemoglobin 15.2 [facility] ([facility]) Hematocrit 44.1 [facility] ([facility]) ID Date Data Source [id number] 04/18/2020 03:19:00 PM EDT [facility] Name Value Range Interpretation Code Description Data Georgette rce(s) Supporting Document(s) Magnesium Level 2.0 1.8-2.4 MED[facility] ([facility]) Troponin Laboratory test result [facility] ([facility]) Thyroid Stimulating Hormone 3.080 ME DENT ([facility]) ID Date Data Source [id number] 04/18/2020 03:19:00 PM EDT [facility] ([facility]) Name Value Range Interpretation Code Description Data Georgette rce(s) Supporting Document(s) Creatine kinase [Enzymatic activity/volume] in Serum or Plasma 45 [facility] ([facility]) CPK-MB 1.3 [facility] ([facility]) ID Date Data Source [id number] 04/18/2020 03:19:00 PM EDT [facility] ([facility]) Name Value Range Interpretation Code Description Data Georgette rce(s) Supporting Document(s) Blood Urea Nitrogen 8 7-18 [facility] ([facility]) Glucose 106 83-110 [facility] ([facility]) Sodium 141 136-145 MED[facility] ([facility]) Creatinine 0.64 0.6-1.0 [facility] ([facility]) Chloride 105 98-107 MED[facility] ([facility]) Carbon Dioxide 28 21-32 MED[facility] ([facility]) Potassium 3.5 3.5-5.1 MED[facility] ([facility]) Calcium 9.1 8.2-9.6 MED[facility] ([facility]) Glomerular filtration rate/1.73 sq M.pre dicted [Volume Rate/Area] in Serum or Plasma by Creatinine-based formula (MDRD) 0.64 [facility] ([facility]) ID Date Data Source [id number] 04/17/2020 02:27:00 PM EDT MED[facility] ([facility]) Name Value Range Interpretation Code Description Data Georgette rce(s) Supporting Document(s) Calcidiol [Mass/volume] in Serum or Plasma 37.1 24.0-80.0 MED[facility] ([facility]) This test was performed using [employer] I P Vitamin D immunoassay kit. Values obtained with different assay methods should not be used interchangeably. ID Date Data Source [id number] 04/17/2020 02:26:00 PM EDT MED[facility] ([facility]) Name Value Range Interpretation Code Description Data Georgette rce(s) Supporting Document(s) RBC Folate 517 ng/mL 280-791 MED[facility] ([facility]) Hematocrit 40.2 % 36.0-47.0 [facility] ([facility]) ID Date Data Source [id number] 04/17/2020 02:26:00 PM EDT MED[facility] ([facility]) Name Value Range Interpretation Code Description Data Georgette rce(s) Supporting Document(s) Cobalamin (Vitamin B12) [Mass/volume] in Serum or Plasma 1174 pg/mL 2 47-911 [facility] ([facility]) VITAMIN B12 NORMAL RANGE NORMAL 247 - 911 PG/ML INDETERMINATE 211 - 246 PG/ML DEFICIENT LESS THAN 211 PG/ML Phosphate [Moles/volume] in Serum or Plasma 3.4 mg/dL 2.5-4.9 [facility] ([facility]) Ferritin [Mass/volume] in Serum or Plasma 86 ng/mL 8-252 [facility] ([facility]) ID Date Data Source [id number] 04/17/2020 02:26:00 PM EDT [facility] ([facility]) Name Value Range Interpretation Code Description Data Georgette rce(s) Supporting Document(s) Iron (Fe) 74 ug/dL 50-170 [facility]) Total Iron Binding Capacity 264 ug/dL 250-450 ME DENT ([facility]) Percent Saturation 28.0 % 13.2-45.0 [facility] ([facility]) ID Date Data Source [id number] 04/17/2020 02:25:00 PM EDT [facility] ([facility]) Name Value Range Interpretation Code Description Data Georgette rce(s) Supporting Document(s) Sodium [Moles/volume] in Serum or Plasma 140 meq/L 136-145 [facility] ([facility]) Glucose [Mass/volume] in Serum or Plasma 90 mg/dL 74-99 [facility] ([facility]) 100-125 mg/dL PRE-DIABETES/FASTING >126 mg/dL DIABETES/FASTING Creatinine 0.7 mg/dL 0.6-1.3 [facility] ([facility]) Urea nitrogen [Mass/volume] in Serum or Plasma 14 mg/dL 7-18 [facility] ([facility]) Chloride [Moles/volume] in Serum or Plasma 105 meq/L 98-107 [facility] ([facility]) Potassium [Moles/volume] in Serum or Plasma 4.0 meq/L 3.5-5.1 [facility] ([facility]) Carbon dioxide, total [Moles/volume] in Serum or Plasma 28 meq/L 21 -32 [facility] ([facility]) Calcium [Mass/volume] in Serum or Plasma 8.5 mg/dL 8.5-10.1 [facility] ([facility]) Alkaline phosphatase isoenzyme [Units/volume] in Serum or Pl asma 110 mg/dL 46-116 [facility] ([facility]) Aspartate aminotransferase [Enzymatic activity/volume] in Serum or Plasma 15 U/L 15-37 [facility] ([facility] ) Total Bilirubin 0.3 mg/dL 0.2-1.0 [facility] ([facility]) Albumin [Mass/volume] in Serum or Plasma 3.5 g/dL 3.4-5.0 [facility] Alanine aminotransferase [Enzymatic activity/volume] in Seru m or Plasma 19 U/L 12-78 [facility] Proteinase 3 Ab [Units/volume] in Serum 7.1 g/dL 6.4-8.2 [facility] Glomerular filtration rate/1.73 sq M pre dicted among blacks [Volume Rate/Area] in Serum or Plasma by Creatinine-based formula (MDRD) Laboratory test result MEDENT ([facility]) <content>CHRONIC KIDNEY DISEASE STAGING PER NKF</content>
<content></content>
<content>STAGE I & II GFR >= 60 NORMAL TO MILDLY DECREASED</content>
<content>STAGE III GFR 30-59 MODERATELY DECREASED</content>
<content>STAGE IV GFR 15-29 SEVERELY DECREASED</content>
<content>STAGE V GFR <15 VERY LITTLE GFR LEFT</content>
<content>ESRD GFR <15 [employer]</content>
<content></content> Glomerular filtration rate/1.73 sq M pre dicted among non-blacks [Volume Rate/Area] in Serum or Plasma by Creatinine-based formula (MDRD) Laboratory test result [facility] ([facility] ) A/G Ratio 0.97 CALC 1.00-1.90 [facility] ([facility]) ID Date Data Source [id number] 04/17/2020 02:25:00 PM EDT [facility] Name Value Range Interpretation Code Description Data Georgette rce(s) Supporting Document(s) Magnesium 1.9 mg/dL 1.8-2.4 [facility] ([facility]) ID Date Data Source [id number] 04/17/2020 02:25:00 PM EDT [facility] Name Value Range Interpretation Code Description Data Georgette rce(s) Supporting Document(s) Hemoglobin A1c/Hemoglobin.total in Blood 5.1 g/dL 4.8-5.6 [facility] Lab Result Notes: Pre-Diabetes 5.7 - 6.4 % Diabetes = or > 6.5% Glucose mean value [Mass/volume] in Blood Estimated fr om glycated hemoglobin 100 mg/dL 60-110 [facility] ([facility] ) ID Date Data Source [id number] 04/17/2020 02:25:00 PM EDT MED[facility] ([facility]) Name Value Range Interpretation Code Description Data Georgette rce(s) Supporting Document(s) Leukocytes [#/volume] in Blood by Automated count 9.7 x10*3/UL 4.1-10 .9 [facility] ([facility]) Erythrocytes [#/volume] in Blood by Automated count 4.35 x10*6/UL 4.2 0-6.30 [facility] ([facility]) MCV 90.8 fL 80.0-97.0 [facility] ([facility]) Hematocrit [Volume Fraction] of Blood by Automated count 39.5 % 3 7.0-51.0 [facility] ([facility]) Hemoglobin [Mass/volume] in Blood 13.5 g/dL 12.0-18.0 [facility] ([facility]) Platelets [#/volume] in Blood by Automated count 330 x10*3/UL 140-440 [facility] ([facility]) MCH 31.2 pg 26.0-32.0 [facility] ([facility]) Erythrocyte distribution width [Ratio] by Automated count 12.7 % 11.6-13.7 [facility] ([facility]) MCHC 34.3 g/dL 31.0-38.0 [facility] ([facility]) Lymph % 21.1 % 10.0-58.5 [facility] MPV 9.2 FL 7.8-11.0 [facility] Mid % 7.9 % 1.7-9.3 [facility] Neut % 71.0 % 37.0-92.0 [facility] ([facility]) Mid # 0.8 x10*3/UL 0.1-0.6 [facility] ([facility]) Lymph # 2.0 x10*3/UL 0.6-4.1 [facility] ([facility]) Neut # 6.9 x10*3/UL 2.0-7.8 [facility] ([facility]) ID Date Data Source [id number] 03/25/2020 04:07:00 PM EDT [facility] ([facility]) Name Value Range Interpretation Code Description Data Georgette rce(s) Supporting Document(s) White Blood Count 7.8 4.3-10.9 [facility] ([facility]) Red Blood Count 4.68 4.70-6.20 [facility] ([facility]) Platelets 285 130-400 [facility] ([facility]) Hemoglobin 14.5 13.0-17.0 [facility] ([facility]) Hematocrit 41.9 39.0-50.0 [facility] ([facility]) ID Date Data Source [id number] 03/25/2020 04:07:00 PM EDT [facility] ([facility]) Name Value Range Interpretation Code Description Data Georgette rce(s) Supporting Document(s) Sodium 142 [facility] ([facility]) Calcium [Mass/volume] in Serum or Plasma 8.9 [facility] ([facility]) Chloride [Moles/volume] in Serum or Plasma 105 [facility] ([facility]) Carbon dioxide, total [Moles/volume] in Serum or Plasma 27 [facility] ([facility]) Potassium [Moles/volume] in Serum or Plasma 4.1 [facility] ([facility]) Glucose 92 70-100 [facility] ([facility]) Blood Urea Nitrogen 9 5-21 [facility] ([facility]) Creatinine 0.7 0.6-1.5 [facility] ([facility]) Glomerular filtration rate/1.73 sq M.pre dicted [Volume Rate/Area] in Serum or Plasma by Creatinine-based formula (MDRD) Laboratory test result [facility] ([facility]) ID Date Data Source [id number] 03/25/2020 04:07:00 PM EDT [facility] ([facility]) Name Value Range Interpretation Code Description Data Georgette rce(s) Supporting Document(s) Triglycerides 108 [facility] ([facility]) HDL 47 40-60 [facility] ([facility]) Cholesterol 176 120-200 [facility] ([facility]) Cholesterol in LDL [Mass/volume] in Serum or Plasma by calculation 10 7 [facility] ([facility]) Chol/HDL Ratio Laboratory test result [facility] ([facility]) ID Date Data Source [id number] 03/25/2020 04:07:00 PM EDT [facility] ([facility]) Name Value Range Interpretation Code Description Data Georgette rce(s) Supporting Document(s) Thyroid Stimulating Hormone 2.5 ME DENT ([facility]) ID Date Data Source [id number] 03/25/2020 08:46:00 AM EDT MED[facility] ([facility]) Name Value Range Interpretation Code Description Data Georgette rce(s) Supporting Document(s) Thyrotropin [Units/volume] in Serum or Plasma by Detec tion limit <= 0.05 mIU/L 2.50 uIU/mL 0.36-3.74 [facility] ([facility] ) Thyroxine (T4) free [Mass/volume] in Serum or Plasma 1.07 ng/dL 0.76- 1.46 [facility] ([facility]) ID Date Data Source [id number] 03/25/2020 08:46:00 AM EDT [facility] Name Value Range Interpretation Code Description Data Georgette rce(s) Supporting Document(s) Cholesterol [Mass/volume] in Serum or Plasma 176 mg/dL 131-200 [facility] ([facility]) Cholesterol in HDL [Mass/volume] in Serum or Plasma 47 mg/dL 35-60 [facility] ([facility]) Triglyceride [Mass/volume] in Serum or Plasma 108 mg/dL 30-150 [facility] ([facility]) Cholesterol in LDL [Mass/volume] in Serum or Plasma by calcu lation 107 CALC 50-159 [facility] ([facility]) ID Date Data Source [id number] 03/25/2020 08:46:00 AM EDT [facility] ([facility]) Name Value Range Interpretation Code Description Data Georgette rce(s) Supporting Document(s) Glucose [Mass/volume] in Serum or Plasma 92 mg/dL 74-99 [facility] ([facility]) 100-125 mg/dL PRE-DIABETES/FASTING >126 mg/dL DIABETES/FASTING Creatinine 0.7 mg/dL 0.6-1.3 [facility] ([facility]) Urea nitrogen [Mass/volume] in Serum or Plasma 9 mg/dL 7-18 [facility] ([facility]) Potassium [Moles/volume] in Serum or Plasma 4.1 meq/L 3.5-5.1 [facility] ([facility]) Sodium [Moles/volume] in Serum or Plasma 142 meq/L 136-145 [facility] ([facility]) Chloride [Moles/volume] in Serum or Plasma 105 meq/L 98-107 [facility] ([facility]) Calcium [Mass/volume] in Serum or Plasma 8.9 mg/dL 8.5-10.1 [facility] ([facility]) Carbon dioxide, total [Moles/volume] in Serum or Plasma 27 meq/L 21 -32 [facility] ([facility]) Alkaline phosphatase isoenzyme [Units/volume] in Serum or Pl asma 108 mg/dL 46-116 [facility] ([facility]) Aspartate aminotransferase [Enzymatic activity/volume] in Serum or Plasma 17 U/L 15-37 [facility] ([facility] ) Total Bilirubin 0.6 mg/dL 0.2-1.0 [facility] ([facility]) Albumin [Mass/volume] in Serum or Plasma 3.6 g/dL 3.4-5.0 [facility] ([facility]) Alanine aminotransferase [Enzymatic activity/volume] in Seru m or Plasma 19 U/L 12-78 [facility] ([facility]) Proteinase 3 Ab [Units/volume] in Serum 6.8 g/dL 6.4-8.2 [facility] ([facility]) A/G Ratio 1.13 CALC 1.00-1.90 [facility]) Glomerular filtration rate/1.73 sq M pre dicted among blacks [Volume Rate/Area] in Serum or Plasma by Creatinine-based formula (MDRD) Laboratory test result [facility] ([facility]) <content>CHRONIC KIDNEY DISEASE STAGING PER NKF</content>
<content></content>
<content>STAGE I & II GFR >= 60 NORMAL TO MILDLY DECREASED</content>
<content>STAGE III GFR 30-59 MODERATELY DECREASED</content>
<content>STAGE IV GFR 15-29 SEVERELY DECREASED</content>
<content>STAGE V GFR <15 VERY LITTLE GFR LEFT</content>
<content>ESRD GFR <15 ON [employer]</content>
<content></content> Glomerular filtration rate/1.73 sq M pre dicted among non-blacks [Volume Rate/Area] in Serum or Plasma by Creatinine-based formula (MDRD) Laboratory test result [facility] ID Date Data Source [id number] 03/25/2020 08:46:00 AM EDT [facility] Name Value Range Interpretation Code Description Data Georgette rce(s) Supporting Document(s) Hemoglobin [Mass/volume] in Blood 14.5 g/dL 12.0-18.0 [facility] ([facility]) Leukocytes [#/volume] in Blood by Automated count 7.8 x10*3/UL 4.1-10 .9 [facility] Erythrocytes [#/volume] in Blood by Automated count 4.68 x10*6/UL 4.2 0-6.30 [facility] ([facility]) MCV 89.5 fL 80.0-97.0 [facility]) MCH 31.0 pg 26.0-32.0 [facility] ([facility]) Hematocrit [Volume Fraction] of Blood by Automated count 41.9 % 3 7.0-51.0 [facility] ([facility]) MCHC 34.6 g/dL 31.0-38.0 [facility] ([facility]) Platelets [#/volume] in Blood by Automated count 285 x10*3/UL 140-440 [facility] Erythrocyte distribution width [Ratio] by Automated count 12.9 % 11.6-13.7 [facility] ([facility]) Mid % 7.2 % 1.7-9.3 [facility] ([facility] Lymph % 21.6 % 10.0-58.5 [facility] ([facility]) MPV 9.4 FL 7.8-11.0 [facility] Mid # 0.7 x10*3/UL 0.1-0.6 [facility] ([facility]) Lymph # 1.6 x10*3/UL 0.6-4.1 [facility] ([facility]) Neut % 71.2 % 37.0-92.0 [facility] ([facility]) Neut # 5.5 x10*3/UL 2.0-7.8 [facility] ([facility]) ID Date Data Source [id number] 12/27/2019 10:52:00 AM EST [facility] ([facility]) Name Value Range Interpretation Code Description Data Georgette rce(s) Supporting Document(s) Creatinine 0.6 mg/dL 0.6-1.3 [facility] ([facility]) Glucose [Mass/volume] in Serum or Plasma 90 mg/dL 74-99 [facility] ([facility]) 100-125 mg/dL PRE-DIABETES/FASTING >126 mg/dL DIABETES/FASTING Urea nitrogen [Mass/volume] in Serum or Plasma 9 mg/dL 7-18 [facility] ([facility]) Sodium [Moles/volume] in Serum or Plasma 141 meq/L 136-145 [facility] ([facility]) Chloride [Moles/volume] in Serum or Plasma 104 meq/L 98-107 [facility] ([facility]) Potassium [Moles/volume] in Serum or Plasma 4.1 meq/L 3.5-5.1 [facility] ([facility]) Carbon dioxide, total [Moles/volume] in Serum or Plasma 26 meq/L 21 -32 [facility] ([facility]) Glomerular filtration rate/1.73 sq M pre dicted among non-blacks [Volume Rate/Area] in Serum or Plasma by Creatinine-based formula (MDRD) Laboratory test result [facility] ([facility] ) Calcium [Mass/volume] in Serum or Plasma 9.0 mg/dL 8.5-10.1 [facility] ([facility]) Glomerular filtration rate/1.73 sq M pre dicted among blacks [Volume Rate/Area] in Serum or Plasma by Creatinine-based formula (MDRD) Laboratory test result [facility] ([facility]) <content>CHRONIC KIDNEY DISEASE STAGING PER NKF</content>
<content></content>
<content>STAGE I & II GFR >= 60 NORMAL TO MILDLY DECREASED</content>
<content>STAGE III GFR 30-59 MODERATELY DECREASED</content>
<content>STAGE IV GFR 15-29 SEVERELY DECREASED</content>
<content>STAGE V GFR <15 VERY LITTLE GFR LEFT</content>
<content>ESRD GFR <15 ON [employer]</content>
<content></content> ID Date Data Source [id number] 12/27/2019 12:00:00 AM EST [facility] Carlo Cota MD Patient Name: JOYCE KELLEY [facility] Date of : [facility] Date of Exam: 12/27/2019INDIGO Pearson [id number]#: Fax: [phone] EXAM: ARTHROCENTESIS OF LEFT LARGE JOINT W/O USCLINICAL INFORMATION: Bilateral hip osteoarthritis.The procedure was performed by [facility], under the directsupervision of Dr. Dominguez.The benefits and risks including but not limited to pain, infection,bleeding and anaphylaxis were explained to the patient as well as thepotential therapeutic benefits of the procedure and the possibility of anunsuccessful procedure, and an informed consent was obtained. Directlyprior to the start of the procedure, a formal time-out was completed.The left femoral neck joint space was localized using fluoroscopicguidance. The skin was prepped and draped in a sterile fashion.Approximately 5 cc of 1% Lidocaine 10 mg/ml was used as a local anesthetic. Using fluoroscopic guidance, a #22 gauge spinal needle was inserted andadvanced into the left femoral neck joint space. Approximately 1 cc ofOmnipaque 300 mg/ml was injected to verify placement. A 6 cc solutioncontaining 5 cc of 1% Lidocaine 10 mg/ml and 1 cc of Kenalog 40 mg/ml wasinjected into the joint space. The needle was then removed.The patient tolerated the procedure well and there were no immediatecomplications.Fluoroscopic images are performed with last image hold technology. Theseimages require no additional radiation to acquire.Fluoroscopy time was 13 seconds at 3 pulses/second. This is equal to 3.25seconds continuous fluoroscopy time which is a 75% reduction in radiation.Dictated by [facility], with Dr. Dominguez.Trino Dominguez, [email or web address]/[email or web address] you for referring JOYCE KELLEY to our office. Electronically Signed - TRINO DOMINGUEZ MD 12/27/19 15:08 Name Value Range Interpretation Code Description Data Georgette rce(s) Supporting Document(s) ID Date Data Source [id number] 12/27/2019 12:00:00 AM EST [facility] Carlo Cota MD Patient Name: JOYCE KELLEY [facility] Date of : [facility] Date of Exam: 12/27/2019INDIGO Pearson [id number]#: Fax: [phone] EXAM: ARTHROCENTESIS OF LEFT LARGE JOINT W/O USCLINICAL INFORMATION: Bilateral hip osteoarthritis.The procedure was performed by ALEXANDER Shultz, under the directsupervision of Dr. Dominguez.The benefits and risks including but not limited to pain, infection,bleeding and anaphylaxis were explained to the patient as well as thepotential therapeutic benefits of the procedure and the possibility of anunsuccessful procedure, and an informed consent was obtained. Directlyprior to the start of the procedure, a formal time-out was completed.The left femoral neck joint space was localized using fluoroscopicguidance. The skin was prepped and draped in a sterile fashion.Approximately 5 cc of 1% Lidocaine 10 mg/ml was used as a local anesthetic. Using fluoroscopic guidance, a #22 gauge spinal needle was inserted andadvanced into the left femoral neck joint space. Approximately 1 cc ofOmnipaque 300 mg/ml was injected to verify placement. A 6 cc solutioncontaining 5 cc of 1% Lidocaine 10 mg/ml and 1 cc of Kenalog 40 mg/ml wasinjected into the joint space. The needle was then removed.The patient tolerated the procedure well and there were no immediatecomplications.Fluoroscopic images are performed with last image hold technology. Theseimages require no additional radiation to acquire.Fluoroscopy time was 13 seconds at 3 pulses/second. This is equal to 3.25seconds continuous fluoroscopy time which is a 75% reduction in radiation.Dictated by ALEXANDER Shultz, with Dr. Dominguez.Trino Dominguez, [facility]/Felicia you for referring JOYCE KELLEY to our office. Electronically Signed - TRINO DOMINGUEZ MD 12/27/19 15:08 Name Value Range Interpretation Code Description Data Georgette rce(s) Supporting Document(s) ID Date Data Source [id number] 12/27/2019 12:00:00 AM EST [facility] Carlo Cota MD Patient Name: JOYCE KELLEY [facility] Date of : [facility]: [facility] [id number] Fax: [phone] EXAM: ARTHROCENTESIS OF RIGHT LARGE JOINT W/O USCLINICAL INFORMATION: Bilateral hip osteoarthritis.The procedure was performed by ALEXANDER Shultz, under the directsupervision of Dr. Dominguez.The benefits and risks including but not limited to pain, infection,bleeding and anaphylaxis were explained to the patient as well as thepotential therapeutic benefits of the procedure and the possibility of anunsuccessful procedure, and an informed consent was obtained. Directlyprior to the start of the procedure, a formal time-out was completed.The right femoral neck joint space was localized using fluoroscopicguidance. The skin was prepped and draped in a sterile fashion.Approximately 5 cc of 1% Lidocaine 10 mg/ml was used as a local anesthetic. Using fluoroscopic guidance, a #22 gauge spinal needle was inserted andadvanced into the right femoral neck joint space. Approximately 1 cc ofOmnipaque 300 mg/ml was injected to verify placement. A 6 cc solutioncontaining 5 cc of 1% Lidocaine 10 mg/ml and 1 cc of Kenalog 40 mg/ml wasinjected into the joint space. The needle was then removed.The patient tolerated the procedure well and there were no immediatecomplications.Fluoroscopic images are performed with last image hold technology. Theseimages require no additional radiation to acquire.Fluoroscopy time was 11 seconds at 3 pulses/second. This is equal to 2.75seconds continuous fluoroscopy time which is a 75% reduction in radiation.Dictated by ALEXANDER Shultz, with Dr. Dominguez.Trino Dominguez, [facility]/Felicia you for referring JOYCE KELLEY to our office. Electronically Signed - TRINO DOMINGUEZ MD 12/27/19 15:08 Name Value Range Interpretation Code Description Data Georgette rce(s) Supporting Document(s) ID Date Data Source [id number] 12/27/2019 12:00:00 AM [facility] Carlo Cota MD Patient Name: JOYCE KELLEY [facility] Date of : [facility] Date of Exam: 12/27/2019INDIGO Pearson [id number]#: Fax: [phone] EXAM: ARTHROCENTESIS OF RIGHT LARGE JOINT W/O USCLINICAL INFORMATION: Bilateral hip osteoarthritis.The procedure was performed by ALEXANDER Shultz, under the directsupervision of Dr. Dominguez.The benefits and risks including but not limited to pain, infection,bleeding and anaphylaxis were explained to the patient as well as thepotential therapeutic benefits of the procedure and the possibility of anunsuccessful procedure, and an informed consent was obtained. Directlyprior to the start of the procedure, a formal time-out was completed.The right femoral neck joint space was localized using fluoroscopicguidance. The skin was prepped and draped in a sterile fashion.Approximately 5 cc of 1% Lidocaine 10 mg/ml was used as a local anesthetic. Using fluoroscopic guidance, a #22 gauge spinal needle was inserted andadvanced into the right femoral neck joint space. Approximately 1 cc ofOmnipaque 300 mg/ml was injected to verify placement. A 6 cc solutioncontaining 5 cc of 1% Lidocaine 10 mg/ml and 1 cc of Kenalog 40 mg/ml wasinjected into the joint space. The needle was then removed.The patient tolerated the procedure well and there were no immediatecomplications.Fluoroscopic images are performed with last image hold technology. Theseimages require no additional radiation to acquire.Fluoroscopy time was 11 seconds at 3 pulses/second. This is equal to 2.75seconds continuous fluoroscopy time which is a 75% reduction in radiation.Dictated by Mercy Sargent, [facility], with Dr. Dominguez.Trino Dominguez, [facility]/milagroscTfrances you for referring JOYCE KELLEY to our office. Electronically Signed - TRINO DOMINGUEZ MD 12/27/19 15:08 Name Value Range Interpretation Code Description Data Georgette rce(s) Supporting Document(s) ID Date Data Source [id number] 11/12/2019 02:46:00 PM EST [facility] ([facility]) Name Value Range Interpretation Code Description Data Georgette rce(s) Supporting Document(s) Thiamine [Mass/volume] in Blood 129.7 nmol/L 66.5-200.0 [facility] ([facility]) Performed at: [address] [id number] Drawing Checker: Humble Graves MD, Phone: [phone] Cobalamin (Vitamin B12) [Mass/volume] in Serum or Plasma 1299 pg/mL 2 47-911 [facility] ([facility]) VITAMIN B12 NORMAL RANGE NORMAL 247 - 911 PG/ML INDETERMINATE 211 - 246 PG/ML DEFICIENT LESS THAN 211 PG/ML ID Date Data Source [id number] 11/12/2019 02:46:00 PM EST [facility] ([facility]) Name Value Range Interpretation Code Description Data Georgette rce(s) Supporting Document(s) Hematocrit 42.8 % 36.0-47.0 [facility] ([facility]) RBC Folate 559 ng/mL 280-791 [facility] ([facility]) ID Date Data Source [id number] 11/12/2019 02:46:00 PM EST [facility] ([facility]) Name Value Range Interpretation Code Description Data Georgette rce(s) Supporting Document(s) Phosphate [Moles/volume] in Serum or Plasma 2.3 mg/dL 2.5-4.9 [facility] ([facility]) ID Date Data Source [id number] 11/12/2019 02:46:00 PM EST [facility] ([facility]) Name Value Range Interpretation Code Description Data Georgette rce(s) Supporting Document(s) Iron (Fe) 75 ug/dL 50-170 [facility] Total Iron Binding Capacity 252 ug/dL 250-450 [facility] ([facility]) Percent Saturation 29.8 % 13.2-45.0 [facility] ([facility]) ID Date Data Source [id number] 11/12/2019 02:46:00 PM EST [facility] ([facility]) Name Value Range Interpretation Code Description Data Georgette rce(s) Supporting Document(s) Ferritin [Mass/volume] in Serum or Plasma 107 ng/mL 8-252 [facility] ([facility]) ID Date Data Source [id number] 11/12/2019 02:44:00 PM EST [facility] ([facility]) Name Value Range Interpretation Code Description Data Georgette rce(s) Supporting Document(s) Calcidiol [Mass/volume] in Serum or Plasma 27.4 24.0-80.0 [facility] ([facility]) This test was performed using FastPack I P Vitamin D immunoassay kit. Values obtained with different assay methods should not be used interchangeably. ID Date Data Source [id number] 11/12/2019 02:44:00 PM EST [facility] ([facility]) Name Value Range Interpretation Code Description Data Georgette rce(s) Supporting Document(s) Urea nitrogen [Mass/volume] in Serum or Plasma 5 mg/dL 7-18 [facility] ([facility]) Glucose [Mass/volume] in Serum or Plasma 89 mg/dL 74-99 [facility] ([facility]) 100-125 mg/dL PRE-DIABETES/FASTING >126 mg/dL DIABETES/FASTING Creatinine 0.7 mg/dL 0.6-1.3 [facility] Sodium [Moles/volume] in Serum or Plasma 140 meq/L 136-145 [facility] ([facility]) Chloride [Moles/volume] in Serum or Plasma 100 meq/L 98-107 [facility] ([facility]) Potassium [Moles/volume] in Serum or Plasma 3.0 meq/L 3.5-5.1 [facility] ([facility]) Calcium [Mass/volume] in Serum or Plasma 9.1 mg/dL 8.5-10.1 [facility] ([facility]) Alkaline phosphatase isoenzyme [Units/volume] in Serum or Pl asma 87 mg/dL 46-116 [facility] ([facility]) Carbon dioxide, total [Moles/volume] in Serum or Plasma 27 meq/L 21 -32 [facility] Total Bilirubin 0.6 mg/dL 0.2-1.0 [facility] Aspartate aminotransferase [Enzymatic activity/volume] in Serum or Plasma 25 U/L 15-37 [facility] ([facility] ) Proteinase 3 Ab [Units/volume] in Serum 7.4 g/dL 6.4-8.2 [facility] ([facility]) Alanine aminotransferase [Enzymatic activity/volume] in Seru m or Plasma 40 U/L 12-78 [facility] ([facility]) Albumin [Mass/volume] in Serum or Plasma 3.5 g/dL 3.4-5.0 [facility] ([facility]) A/G Ratio 0.90 CALC 1.00-1.90 [facility] ([facility]) Glomerular filtration rate/1.73 sq M pre dicted among blacks [Volume Rate/Area] in Serum or Plasma by Creatinine-based formula (MDRD) Laboratory test result [facility] <content>CHRONIC KIDNEY DISEASE STAGING PER NK[facility]</content>
<content></content>
<content>STAGE I & II GFR >= 60 NORMAL TO MILDLY DECREASED</content>
<content>STAGE III GFR 30-59 MODERATELY DECREASED</content>
<content>STAGE IV GFR 15-29 SEVERELY DECREASED</content>
<content>STAGE V GFR <15 VERY LITTLE GFR LEFT</content>
<content>ESRD GFR <15 [employer]</content>
<content></content> Glomerular filtration rate/1.73 sq M pre dicted among non-blacks [Volume Rate/Area] in Serum or Plasma by Creatinine-based formula (MDRD) Laboratory test result [facility] ID Date Data Source [id number] 11/12/2019 02:44:00 PM EST [facility] ([facility]) Name Value Range Interpretation Code Description Data Georgette rce(s) Supporting Document(s) Magnesium 1.7 mg/dL 1.8-2.4 [facility] ([facility]) ID Date Data Source [id number] 11/12/2019 02:44:00 PM EST [facility] Name Value Range Interpretation Code Description Data Georgette rce(s) Supporting Document(s) Glucose mean value [Mass/volume] in Blood Estimated fr om glycated hemoglobin 94 mg/dL 60-110 [facility] Hemoglobin A1c/Hemoglobin.total in Blood 4.9 g/dL 4.8-5.6 [facility] Lab Result Notes: Pre-Diabetes 5.7 - 6.4 % Diabetes = or > 6.5% ID Date Data Source [id number] 11/12/2019 02:44:00 PM EST [facility] Name Value Range Interpretation Code Description Data Georgette rce(s) Supporting Document(s) Leukocytes [#/volume] in Blood by Automated count 6.2 x10*3/UL 4.1-10 .9 [facility] ([facility]) Erythrocytes [#/volume] in Blood by Automated count 4.91 x10*6/UL 4.2 0-6.30 [facility] ([facility]) Hemoglobin [Mass/volume] in Blood 15.0 g/dL 12.0-18.0 [facility] ([facility]) Hematocrit [Volume Fraction] of Blood by Automated count 43.7 % 3 7.0-51.0 [facility] ([facility]) MCH 30.6 pg 26.0-32.0 [facility]) MCV 88.9 fL 80.0-97.0 [facility]) MCHC 34.4 g/dL 31.0-38.0 [facility]) Platelets [#/volume] in Blood by Automated count 276 x10*3/UL 140-440 [facility] ([facility]) Erythrocyte distribution width [Ratio] by Automated count 13.4 % 11.6-13.7 [facility] ([facility]) MPV 9.9 FL 7.8-11.0 [facility]) Lymph % 23.3 % 10.0-58.5 [facility]) Mid % 6.5 % 1.7-9.3 [facility]) Neut % 70.2 % 37.0-92.0 [facility]) Lymph # 1.4 x10*3/UL 0.6-4.1 [facility] ([facility]) Mid # 0.5 x10*3/UL 0.1-0.6 [facility] ([facility]) Neut # 4.3 x10*3/UL 2.0-7.8 [facility] ([facility]) ID Date Data Source [id number] 10/20/2019 02:40:55 PM EST [facility] Name Value Range Interpretation Code Description Data Georgette rce(s) Supporting Document(s) Progress Notes [facility] OJTXCx9jAbZPGdDc39/JDEezJEOlj1NwRXvuFBd7YHetTGGzL8IhHIZ8zA7gSYI8QSsKNiLjEAzgBxS2 lbm [file] FPEmBmQsPV1HVs5HDiA6XSP9kHJnCj9MNOjpTSrRCcQsUO8PJJh= ID Date Data Source [id number] 10/20/2019 02:40:50 PM EST [facility] Name Value Range Interpretation Code Description Data Georgette rce(s) Supporting Document(s) Progress Notes [facility] TKVVBl6xSsDRQfYk78/PBAdgYSFhz3WrNTsnPZv4TOrmKFDhC0KcJXF6kF1tSOT6RKlXVeRdPUweJlN4 lbm [file] AgICAgICAgICAgICAgICAgICAgICAgICAgICAgICAgICAgICAgICAgICAgICAgICAgICAgICAgICAgIC AgICAgICAgICAgICAgDQogICAgICAgICAgICAgICAg ICAgICAgICAgICAgICAgICAgICAgICAgICAgICAgICAgICAgICAgICAgICAgICAgICAgICAgICAgICAg ICAgICAgICAgICAgICAgICAgICAgICAgDQogICAgICAgICAgICAgICAgICAgICAgICAgICAgICAgICAg ICAgICAgICAgICAgICAgICAgICAgICAgICAgICAgIC AgICAgICAgICAgICAgICAgICAgICAgICAgICAgICAgICAgDQogICAgICAgICAgICAgICAgICAgICAgIC AgICAgICAgICAgICAgICAgICAgICAgICAgICAgICAgICAgICAgICAgICAgICAgICAgICAgICAgICAgIC AgICAgICAgICAgICAgICAgDQogICAgICAgICAgICAg ICAgICAgICAgICAgICAgICAgICAgICAgICAgICAgICAgICAgICAgICAgICAgICAgICAgICAgICAgICAg ICAgICAgICAgICAgICAgICAgICAgICAgICAgDQogICAgICAgICAgICAgICAgICAgICAgICAgICAgICAg ICAgICAgICAgICAgICAgICAgICAgICAgICAgICAgIC AgICAgICAgICAgICAgICAgICAgICAgICAgICAgICAgICAgICAgDQogICAgICAgICAgICAgICAgICAgIC AgICAgICAgICAgICAgICAgICAgICAgICAgICAgICAgICAgICAgICAgICAgICAgICAgICAgICAgICAgIC AgICAgICAgICAgICAgICAgICAgDQogICAgICAgICAg ICAgICAgICAgICAgICAgICAgICAgICAgICAgICAgICAgICAgICAgICAgICAgICAgICAgICAgICAgICAg ICAgICAgICAgICAgICAgICAgICAgICAgICAgICAgDQogICAgICAgICAgICAgICAgICAgICAgICAgICAg ICAgICAgICAgICAgICAgICAgICAgICAgICAgICAgIC AgICAgICAgICAgICAgICAgICAgICAgICAgICAgICAgICAgICAgICAgDQogICAgICAgICAgICAgICAgIC AgICAgICAgICAgICAgICAgICAgICAgICAgICAgICAgICAgICAgICAgICAgICAgICAgICAgICAgICAgIC ArVVCwZTCpTUXrOLAoRNHyPGVdOYGtUDp1N5abXQPy TEDoDI2sFAj3Gi1+EWaEViKwKKX2xmHyhN2OEU3sb2GvGPqvIRYbv3QwDWl2XT1UYAEjQNmzDH2YXMvn fd5ZGUEzHKLwmWWEx1axNcQeXMT0FYOuHcxyEI4FVNHpI0tgucDwYUOgUJJKANduJWSZID8CRdItQ8Fs cO52GHRITi5+HFfmryCaSycEVfJwRFXri6MaCLg5WB 3CXPStDccro3KkPuVuQATIMWpuSF8FLZC9QWDiJUQxKa8IDEHiN328qbNdCJ6JKb1KIpFlEP7fvn3MSa DaMBDfTqdUQlo2GQjlEK9DtIYnIIjJki3exyMchlEBs6AbzaGywJXCNEduavCqVLMJqVTaw0OpNHhqWS GpALKdRXYdSe2hSNV5ECOuJkYfWUNBMW0DTURfYNEl wBGlYEYoIZONZE4UFLldAEF4RgvowxUeyIRgVPdlMF2TNHKuzaQjTsOwNRWKDNw+Gh4BTO9cm4GsHCev HtRnNG3pvx8WDRvPUjPeX3C4dISeF5Y1HJohRb9TUUVqFMHjNxtrNRYHCOtaVB2PIO0klqN1WC4QkGIw YGOnLXZjmXJxFJk9J18kxDEyCDzmLR5EKIM+Nila+Pg 3DMZCpDMXpZZLrKaInAXRCNiEaK2BgU4RAi6HdK0BfAL11vMvvntKiCAtmLS3NOE1rBEBqECXTEN0VwT XufN0buuBhQFInARUPKqHpH02vpZWiWQMfJYX3LKUeVf6MWXOsT3BmcwYyoVozkjQaQUZeFMCYHU8MHE jextDyvTAujTdcCK58lJfeCC7YYc7SGuEsES5pad1E eXZtNz8UKDJnFb9OKZDpHKAeFHTcSHB6CIGpOvFwDOucYOUmGBQeZEQ3SZUuVOYyOT4QChObKNZmTUxp LRKhHKWwATTgzx0QBJOpBJIlJAybINPxADCgZHQaTRjbTKRjOTMjQSR7QAZlLQVuVD4RUnAkRDPiBGY9 NiZkBXTkWMGyhg0IEKNlNTEhZsE5HJScPILcTGJuAY noXFVfGMK7TtB8CCDjJOQfIF6OPmTjWBNaYFL6RtStIRLmLGWfru1COVAwXOMgMSG6TBKhJENwCTMwHZ fcQVZsYFI7JjxqVDBqQFSjIT9YPoAtUEHwYKF0TcArJGTvGEOhoh3EJIKjGYEsGqkuHxRnHHFoKLNdMD jtVPXyPBK9HYDaWCNbVUUnSK5KGiXpXBPoYXzyDXFz FCPgRIZcvq8CLVToZVKgXBY1VWUpILUqNQOhLWjiFJKeDXE8VtckWVHsVTDvFL6SStSgXCRtTWr1JlVi HQQvCIXoqn9SMFAvOQXdTSLkBOCpTMKyIDReZRevXDJrVVU3NtTzAPFsFNFiNX3BJtTmTJWbYPj1QRAt GHNbSONjtk6APOWySCHvWIv7LHOiSFEfWOInELesSK QkXNRbRRa7EKJsADPwTN2KNgZtFPQjDWTvZlOuIHFgYODfgz9WGGXgYFStYyJjVjLkMPTpJNFkYBviJG McRAM4FEIlHPHlENNtRP1TXpCmCPWlLCY6RLLpYIBoRGWrhc6EPWGqIDYcMxf5YAUqZPZtUIPuZHlfLX CyELV0ERHaFNTeXZYqMD7FZnGcQVDaCIf0WDEnXABc DJYqug4MHCKbOWFcWZhzCZWvWZPgNVUuBTndEYXqWYD8PGb9QPMfZNOgLF5JYfFfSNQaIFalAPywLKUx IOZtsz6GvNAeyLuoaj7MRGfTKy6KxImoTMPcCRrtMe9otFXfMfJsYACFAg7NqbMzIKWvDSRUBLdfXULx TZKmHwTbHZFoUiP1CXDxHDVtGcJ2WbEyX1OeXRQiAB D6PdV1TUJfMOPnAUL7FYI3EyM0CpZtQkCcBNZnWAK9AqUpBkm+BL7bVSq+Yl6Sg2TdujS2kvHwNHdoTH R4Rp5AWRANX0DUIc== ID Date Data Source [id number] 10/20/2019 02:40:40 PM EST [facility] Name Value Range Interpretation Code Description Data Georgette rce(s) Supporting Document(s) Discharge Summary [facility] FQEVFa2gBzODIlUf49/YXDuhXHXqq8SeKSypOVs2KMagNVPtK0RcZJS7rA9hYFN3BTsDHlRxBFfoEuV1 lbm [file] 6uZwe/ROUNDING AND BACKING MACHINE [file] AgICAgICAgICAgICAgICAgICAgICAgICAgICAgICAgICAgICAgICAgICAgICAgICAgICAgICAgICAgIA 0KICAgICAgICAgICAgICAgICAgICAgICAgICAgICAg ICAgICAgICAgICAgICAgICAgICAgICAgICAgICAgICAgICAgICAgICAgICAgICAgICAgICAgICAgICAg UTEfYQIoCFHcIW4XCVKqSWYvPFOsFLCbFYOsKSIzBUIpIEWvSZGlIQWoXHNjRCTpWHUrLRLkXKJaTEUq ICAgICAgICAgICAgICAgICAgICAgICAgICAgICAgIC CxKQYiWEOfQXAnPLAxDSSnSESaIR7TAVLiMRLzYUZqQYAdJXJdGDRvXNZbXSDrRIVeHIAiUZNfHHSqFE AgICAgICAgICAgICAgICAgICAgICAgICAgICAgICAgICAgICAgICAgICAgICAgICAgICAgICAgICAgIC XiWH3VPNQcNTVpVMXwWPWyLUJoXBWiDBCqEYYpLDRi ICAgICAgICAgICAgICAgICAgICAgICAgICAgICAgICAgICAgICAgICAgICAgICAgICAgICAgICAgICAg SKJpSJRgNMHlIDQkVA2XCWHnQLBpYELzZKPkLRJaJROrQYVwIPDwOWEhYTTeTOYuITTxHKNhFMZtOYDe ICAgICAgICAgICAgICAgICAgICAgICAgICAgICAgIC OtECTwSOQkGABvYDKwXHVaOMCjYQKmKK0BRTGvYJKbFLQyJVYlUATvIEWcQUQiYTDnSGVyYOVwZSDuYZ AgICAgICAgICAgICAgICAgICAgICAgICAgICAgICAgICAgICAgICAgICAgICAgICAgICAgICAgICAgIC BeZOQqOR8QGLTeOVIrUHQxUIJxHQLbQTRlSTPoPKRr ICAgICAgICAgICAgICAgICAgICAgICAgICAgICAgICAgICAgICAgICAgICAgICAgICAgICAgICAgICAg OLOgITBgKTJnVIXqOKVhGN1VQJMdFDWaEYDvKMHfCKFkHLRgCCMeZGQtOOJvKKWzMNLhGPEvRHUyETHn ICAgICAgICAgICAgICAgICAgICAgICAgICAgICAgIC RsRJYwHNXhRQKyIOHzNCPhWORfPFKiDVPjGA3OTUPjADMjEJQqFUSsYMVrBSJiHLLgADInDOTgUCEaZM AgICAgICAgICAgICAgICAgICAgICAgICAgICAgICAgICAgICAgICAgICAgICAgICAgICAgICAgICAgIC ZyVPKgSIEbCH4JES28sHHec3Z9ZQHaVD7xrym/Pg0K PHbbclHtcGQuZA4BPpHtNZ2zuw9KEaWfMD1pbq3WDCqAUmYxS5G4zZZrNXGxHKPPOwCfM02fBYpmUd66 IKnaKKSxMrLlZEh7Ch5FChTiS0yrFQQpEuD5TUEeIpG8JYRyUaY4BEDuTcXcIDMuOFTuKHDjEQQFUMP3 IQErIjSuBIpoKR0Us5GehZR0KWg+Mb7WTP2gg0LtBE f8FrErKA7lqv3JSXpFLrItE5GincO6YQC3WEJfAx7WWTKzYLLqsBP2PFNlXGSDSdCoW3TgfR68QPMYBn 4+GQkcdpAnKwkGOeR8VEPrm4TgRLo8AC6LHZEvNQv7vVJbVVgvV0ocontsIXX7nL9aoqmrJvokRW3pAF clUB0zH34hYGmyXl4NVBC6HBCwPfjdGpHrRQYzNAfw UITBEMrPIuWdF6Qql8QzOiK6FXIsSaPoMGijTOQjTnF4UE95qCetWV2YHWNvELLxIX56QYGrFDYoWg5B Zp7BRwFmNY7rcz3ZTEAlUQIjVukVFtk1NFocPP5UjLLtM0ZvfJYzd8hRMnErO0PMIJQmVFGjXp3OJTFc PfGuGKKyQHikJS1rUHYxKJRIxBzaroZ2OC8WES9waj ImBQ6TOzGfWa6dVg0KWtEdA8DvU0EySVQiRXXIZQtbMM5GYBskKQ0oLE9Dr5ORaBGtmB0vlf7JTDOcYQ UqUavxbt6GCbhfT9P1nUkwIFOeWNEiGHPADVstWO8NLBSvZPP9QOJ8XnHyQGYQCbXqG74zAJ1NX5Asc8 5xEkY3BCEaRuHkFBvtPS89qHyvcnWxlEJbxJlqAZ5L Cj4+AQuyskQrPebRXelhESSCPoGkDNPTDhNtFOSlLPPqASVeImM4AqOfOx2JZXWlDITgTFVrFpWmXRSe JJWlERniEVSkQMRtMCQiIQUtETNlYZ0FIpMoIVRxTIV9PGFdGPLfXTUvhe0IWMGmSAYtWKE7XkGsTBTv DSNbCNwbUHLeLSXjUyXkTJThKNVeCI1WEhQvSLDeHL L9GQfoTUZdPWUjod9VJNCtOBNzKQO7OZKeHWWiOVOmJSfmGAEkQDP8YMF0ZUErYLYjYA6SHwJlEKCbLM f4FLPjGIQwRYNxxk8XHDAhYKVhXNAtBSCxRQEkUPPtRPpbJWBfCCVwEVY2AUNjPYCtWA2GOgKiKTDoCX T4KtKuOCVkLGJdth6GAXSrTZOpOkp2TKFxSHJyRVTt KCnjXTRrDDPrYDe4YCLyBTKkWM8JZvGdCWMrOVRoLZIeNBErMZJecn7GUIWjEKBzLVMyHVQgSUNyGMTh IDlwILRdOYP6OCg5YHKcQZZeWO2FHgUlKGEkJFAvQNIrJPLmYXRqbs6BETTbIJHiPNU3VYQjSRHiXZTi DMfzDJAdLOD5EDB1ALVhDPPjKD5IIwUeRUPlXKA7Wc QaEBQzSWJnwy1NKBWlYKHoEnzaIOPzCHRyTYGuYIayIXBhZUD5YUI5HRHrGMXrWL6VJgKvDXMjYHyqKn RnCYPlLDVazx8ZLAEiSRHoEUJ1MMWuHKQaSZSyZBjvFANcCRW4NpOhDKJsLHOqCF7SRwEcNFKxRTw5Sj YaIPXeRNGlda9ZMXVoOTHsKYUrOIVrXUEtHSSzUJpf XQXlBMCeHDF5SMVjBSUcHP5KRbJvYZBzAnKzJWenHRJkTUBdob2VCFMkZEKnMrC2GyLlYULkGBYbQBfl HRRjMLHsZpZ6WIKwHHHeFO7OQvIaFUHnJhJ6TBZiFKYmGKRewr5IWVJtIUKeLXn2LWEmSSEeWNVcQGzz JJYfKYJ4FIo8XLMbCJNeDE9RFxRhYIPzQuKbRbLaEC MpSAWknt7THUTfYUO3KRImJuGbROVfNHFdKPmiWXZnLIJuYjRkTPZeJPFgNB9LQxYeVRElZAR3OVCxPD JdLYQsdv8MMLOdPUF2PTx2VyQvLIYqYXOfDRooUMUeTOZwSTZ8XQNuTWVkYH8MWvVbMWLmNZJ8JSUnGJ KsXFPoys1XCALrFXB1Ayt2TWYgCYWbKMSdYZpwVGRw RRLmNPW5IULtFKUpFW9MVfKlPFPwNTIpDLyiTHBgCDCkls5HaSVbgMakrp6MWRuZSe0SiWoeDUC2QLpe Ec8ulBN4DDJjNDFIXy4NjkJyKDRmSVAFVGziSJImZUPbGiWhTDGkEYOzSKMzOgreSKHaNGKfCuU3ZbTv GHE3XfV2QXRfDES6IOYxXHOjJLY9XhQ9KGZ7B7X7FW diNGVkZjk+DV8fWFi+Ak0Ao8PtnjX4epWrXCp1JwT7Sg7ESXDJP1YWMr== ID Date Data Source [id number] 10/20/2019 10:37:25 AM EST [facility] Name Value Range Interpretation Code Description Data Georgette rce(s) Supporting Document(s) Nursing Note [facility] OXUMBc4gUcJTZnYl43/JMLkqJUNld1SjKYhvXSl2IMkyLZFyC2MsOMG3wB4tBNT6SAxVUiIgNNrhHqI7 lbm ZoTxjRIwHlCNHlQxwPPnQyNFzxJiwyvDRtFY4EiSD2WSJqT90mMTQzECRyN3QmIWC9ATy+Wy6YFONonY TvNF5MVdvP6Qyif2pHNZ9dad+tD7b4XIf8zt0Bq6FEN4UyDGvyC7DXB7ALw9ffSeb730jHclF3Bc3Ltj ygQ/zKq9Sl37M9xAqVxOI770RfNvHsZYL3z/ExtUad 87uDO7SDMtWRDFd+pEWwwQRZkFYbio+kqesh38ikrzlB+NGeVtH0IhXfMewE5BfqyAeXQ+qoS/2ZNrV+ nmXoGfoedU6VTSDllP6NsRqen9M+8CW7nMlXM6g3eIq1sqtlWGIlDzmUlhDIYY9WsWXBs+jm9iY4cCjw Utc4cFEPYHMkxtdP689tLlYMZi1ZOuMA3syjbAP34v 3kGslwGj0HSv7WeMd2TRmqP/7uY+LwoHbDYOyKBRk5GViJL74EXFmMKJioxDv1UDJHy+GXfM6dd0PzGZ GQWYwscPjjZeNJxbXY0Q2g1tUmhl9ao2z6UtFRLzofCyLewUkkH6FxSTME8E2BTpHFruEs7lHIPcGkCh 3Oa0jrg2B85ml0deDqAn3jMh/7zj89g98y05+p48PN [file] KJDfFvE1RyWqTK2SNo2MIfP1EDT8cLUtZc7EJwY2WABCMpVwCH4FTKl= ID Date Data Source [id number] 10/20/2019 09:51:12 AM EST [facility] System Name Value Range Interpretation Code Description Data Georgette rce(s) Supporting Document(s) Progress Notes [facility] YDPVVr9bSqRXMnEn99/QLKlsNAMyn2AjFHxgWPn9FAoyBYBsN5FtVJP5rS8xYDV5ZZoWLgQiLIysHqA6 lbm [file] Cg== ID Date Data Source [id number] 10/20/2019 08:53:43 AM EST [facility] Name Value Range Interpretation Code Description Data Georgette rce(s) Supporting Document(s) Care Plan [facility] YMPOPn3zWhPCMlAk91/OMIgmPYSvh8SjWZqcZMz9FZddQBZsE1DuIZH2cB0rMUY3XGbTWoBnNNwqApO7 lbm [file] Z0EDYsGLYiI2K5U6A+AP1nGGe+Xr1Fp6BjngW2alAwQHgpWkfpVA5ESWNMN6FGZs== ID Date Data Source [id number] 10/20/2019 07:04:39 AM EST [facility] Name Value Range Interpretation Code Description Data Georgette rce(s) Supporting Document(s) Nursing Note [facility] JXCLXu2iNiOBVgLh36/MTBjdNDXxg6HePLccMEt2ICdgMRTmK3GcZGC6yQ5aBQO1ILhWXaSfFKdjKqP5 lbm [file] UxOTZiMWNkMDEzZWM+IS6oLGw+Mk6Gd9PljhK3smQkSKtrRDmuWN5RCBDNT2ONQo== ID Date Data Source [id number] 10/20/2019 03:56:00 AM EST [facility] Name Value Range Interpretation Code Description Data Georgette rce(s) Supporting Document(s) POCT- GLUCOSE 101 mg/dl 70-100 Above high normal [facility] ID Date Data Source [id number] 10/19/2019 11:39:00 PM EST [facility] Name Value Range Interpretation Code Description Data Georgette rce(s) Supporting Document(s) POCT- GLUCOSE 117 mg/dl 70-100 Above high normal [facility] ID Date Data Source [id number] 10/19/2019 08:02:00 PM EST [facility] Name Value Range Interpretation Code Description Data Georgette rce(s) Supporting Document(s) POCT- GLUCOSE 141 mg/dl 70-100 Above high normal [facility] ID Date Data Source [id number] 10/19/2019 07:32:01 PM EST [facility] Name Value Range Interpretation Code Description Data Georgette rce(s) Supporting Document(s) Nursing Note [facility] AVOBTw0sDiRUZmEi42/KQHnuFORxg0RvTGlpIXs8CVrfHQMcA0VxZMM0qM2mCUG2JVyFTvAeWEqaDuA6 lbm [file] Q+LM8dIHj+Uz2Kh5XnguV2xwDdCVibMSZpJA1SMCUEL0EYQf== ID Date Data Source [id number] 10/19/2019 05:12:52 PM EST [facility] Name Value Range Interpretation Code Description Data Georgette rce(s) Supporting Document(s) Nursing Note [facility] DDAGYa7fYqPRPxGy85/FLDjmRVXoz0VmDWytZZi2EVosWBRgX0GzDZY9jP1dEUU2UMoSVeUsZWlcQbB2 lbm [file] 7uFVJFMp8+YVbhbZKbhUxlTHHKVpWjOLVlDTxlNNYYPk4U ID Date Data Source [id number] 10/19/2019 04:40:00 PM EST [facility] Name Value Range Interpretation Code Description Data Georgette rce(s) Supporting Document(s) POCT- GLUCOSE 124 mg/dl 70-100 Above high normal [facility] ID Date Data Source [id number] 10/19/2019 03:01:52 PM EST [facility] Name Value Range Interpretation Code Description Data Georgette rce(s) Supporting Document(s) Nursing Note [facility] IVIPTv0gRqMTOuOi94/CZTopSIMld7RhLEanREw1EDcdBBUhP7HmAOK3tV3eMZH5EByIBhWxCHlnPdN4 m [file] 7D3jhp2G+z7CgpIs2CSd10RSRTLzKh68nt93B4+roofer applicator [file] EMBqQUI9OvO1CIdePXU+QU0rVCx+Zi3Ly7KvpkF0ymIwHSupUYo6Fj9MUWXHP3SZLu== ID Date Data Source [id number] 10/19/2019 01:27:30 PM EST [facility] Name Value Range Interpretation Code Description Data Georgette rce(s) Supporting Document(s) Nursing Note [facility] LJPSJr0jFlIPIxPg92/LLPtoOSEww3RvAYkpCGr1YYszRGWoP1ObCHJ6vP8lMHS9WDlCBtWkUMaqOoR0 lbm [file] V6ERSjGuHeBhqlWHS+QS2yBUx+Fv1Gf1YwmaF2fmTjPZchDZA6Gr6NZRHBI1NCUh== ID Date Data Source [id number] 10/19/2019 01:09:25 PM EST [facility] Name Value Range Interpretation Code Description Data Georgette rce(s) Supporting Document(s) Perioperative Nursing Note [facility] TRCRWy0rFkRAOwKv88/KBZkxIDZrb2CzMBsyFOr1JKgxFFDyG2UdYJR6gT7zVPB0WLzLMuGcYTvvQjN4 lbm [file] AgICAgICAgICAgICAgICAgICAgICAgICAgICAgICAgICAgICAgICAgICAgICAgICAgICAgICAgICAgIC AgICAgICAgICAgICAgICAgICANCiAgICAgICAgICAgICAgICAgICAgICAgICAgICAgICAgICAgICAgIC AgICAgICAgICAgICAgICAgICAgICAgICAgICAgICAg ICAgICAgICAgICAgICAgICAgICAgICAgICAgICANCiAgICAgICAgICAgICAgICAgICAgICAgICAgICAg ICAgICAgICAgICAgICAgICAgICAgICAgICAgICAgICAgICAgICAgICAgICAgICAgICAgICAgICAgICAg ICAgICAgICAgICANCiAgICAgICAgICAgICAgICAgIC AgICAgICAgICAgICAgICAgICAgICAgICAgICAgICAgICAgICAgICAgICAgICAgICAgICAgICAgICAgIC AgICAgICAgICAgICAgICAgICAgICANCiAgICAgICAgICAgICAgICAgICAgICAgICAgICAgICAgICAgIC AgICAgICAgICAgICAgICAgICAgICAgICAgICAgICAg ICAgICAgICAgICAgICAgICAgICAgICAgICAgICAgICANCiAgICAgICAgICAgICAgICAgICAgICAgICAg ICAgICAgICAgICAgICAgICAgICAgICAgICAgICAgICAgICAgICAgICAgICAgICAgICAgICAgICAgICAg ICAgICAgICAgICAgICANCiAgICAgICAgICAgICAgIC AgICAgICAgICAgICAgICAgICAgICAgICAgICAgICAgICAgICAgICAgICAgICAgICAgICAgICAgICAgIC AgICAgICAgICAgICAgICAgICAgICAgICANCiAgICAgICAgICAgICAgICAgICAgICAgICAgICAgICAgIC AgICAgICAgICAgICAgICAgICAgICAgICAgICAgICAg ICAgICAgICAgICAgICAgICAgICAgICAgICAgICAgICAgICANCiAgICAgICAgICAgICAgICAgICAgICAg ICAgICAgICAgICAgICAgICAgICAgICAgICAgICAgICAgICAgICAgICAgICAgICAgICAgICAgICAgICAg ICAgICAgICAgICAgICAgICANCiAgICAgICAgICAgIC AgICAgICAgICAgICAgICAgICAgICAgICAgICAgICAgICAgICAgICAgICAgICAgICAgICAgICAgICAgIC AgICAgICAgICAgICAgICAgICAgICAgICAgICANCjw/pRMvV2ducVIxjmU4U7lcRz1DCa9WSO3nk0SoTX PaNLylvyXhDttHTxDmEOXfSjmOPiq6SHflIM4RyGXj L8LjX7XeVZzvQU3VQVWxUYZxbAGrHOHrZYFuLfU2RYBfPTivGH9MtGSxIAvcUFIdCUZcLX4MGMWsD669 txGbCQ5LWv8KFgHfAH0nvc1QFqSoFXWtIhpJVhd9NVonYY6NhDTqxOQpQxTdXXPEVzRbH8mhi4VjJwKt KXTZJHbpRK8Pw0PiuQSxVBj+Ha6IAQ5xg5OyEAvnAa TnAB8cfo8ESLiOHvMrQ7VrwIqwIVSbiuppuBUgEEWqwfUdStVpg2seReQMd9SaSJM8YYYvrxCtMMWPWL D8LHXOBvPyrEGlAi45NqXpZRpjZCW8VVthLA0mMNxtGX1GHKY0PCcjKGRiUQGnL1qAZrAeUPutXBWqyN aoGD7KZwYaB1VpdpXymASrPcGyTQLTQj9+DQplbmRv MhwBLfC1BDDgz5FpACq1YC4NFIRbHJtfKG2UCYIanZ3vODjrMX9EAzSpRENuEHKQGvCiU48piRVlEIn6 H1NhOlIsXZUqKzpiPBZcYOovWcEtRLFaNnBaAWaxGG2+ID4+SAdpHN2DSQczjpTuZNUdVl5VGEYhTMHm PP5nPZWzWTGvA2M3uMxnLRRDOzXxT0fckeqwFF3eSD OdV515bXcrdxAxTFPzXACoAy1BHQUjLBC7WBLpeCCxRzAeSHWHDXwfMX8WzFIpHKC4cX8aVSegCEFbAX RyE2tVDbWpfMlfNM29eIulkrNtxBAsPGh+Rk7HBA4ge8HtZKq3dtAqUIyjBYY6BJjeLUMgYDYbEJTmLR K6VDH8WLUOMnYpNKJnBFHlSDpoDCQvICFndr5CSBZg NBIgZPP5SfDfFOBrZSEsRVaxLLIxBZZcTdojWPQkBKZqRV9LEsIbWOKyIWTnJIglUDKwWUBcsc5VHVGk NWXlCIA2EQRnZVEjZSDjBRqnVADfPEEqKnjbNEFhBWUkWY7CZcHvFGKeRIDmZLQjMZKmNCHqhg2KCVMf XHJsIhC7UdXlBHKgDWCvOMcgKNZvJPKsHaW8TYOlMC NlIR0IIiLtBEDvSEL0IAQzLCUbIHFjkd4JHLAvYKDdXjt6DhPwWUNsKMBwPAavWBMwUWFgVIL9UDUsEV PaHA6CBqQfTRFoKNHlSEPwUGEmMZXugg1TPBNbZNPeQtPyMUQwJQOfKQUaUFjuQBEvMSH1IOC6TVBhON GlHI2NYvTdOAOcVHriPwowGWCsTQQqlo8HBMMpFIBb TyUtXFIrAOQcJHArAAfgCOUiXVC5REC3USDnFJBvVO6FBgErACVnHDwpBSMqELYiQQRfkn9OHQLgQMCa JFDnNLRkRURyWNWmHDuwIIZySDI5BURlTDGsKVPgQQ4XIeZvTUWeJmGuFgdlUETvKOMnpr1SOASoMCEb GMW4ETJsGFIeEAVyPAtkJWMmQGZgCoS7IHHsRTFoEH 0SMyNcEQgtZELUCjp5REemY0b8UIRmMB3LD8Mcf3CkNsJfZOZXHBhvSC9hvdTwTXYrOv4YH8mVNgsyHK AnMiQ8K8FuXGRwMEPjOuWxIGctLBQ9MXu2KyXhRf6mTUN9D6DnNjI9BSZxLFYeJMLzEgQqBMJ0RREjPY nmWMKeBpCiEV9EZk6GAeQ0ZUD7qNJpCc6FBiI4DCZUVpArKX2MFRk= ID Date Data Source [id number] 10/19/2019 12:51:00 PM EST [facility] Name Value Range Interpretation Code Description Data Georgette rce(s) Supporting Document(s) POCT- GLUCOSE 140 mg/dl 70-100 Above high normal [facility] ID Date Data Source [id number] 10/19/2019 12:17:27 PM EST [facility] Name Value Range Interpretation Code Description Data Georgette rce(s) Supporting Document(s) Anesthesia Postprocedure Evaluation [facility] ROUNSf5fGfGUJcXz48/UCOqvAANic0MhWTbzYJs1JRhjCGIdW0OzXFO2sU3hQVJ8JNuHPkWtKAmmXcM8 lbm [file] AgICAgICAgICAgICAgICAgICAgICAgICAgICAgICAg ICAgICAgICAgICAgICANCiAgICAgICAgICAgICAgICAgICAgICAgICAgICAgICAgICAgICAgICAgICAg ICAgICAgICAgICAgICAgICAgICAgICAgICAgICAgICAgICAgICAgICAgICAgICAgICAgICAgICANCiAg ICAgICAgICAgICAgICAgICAgICAgICAgICAgICAgIC AgICAgICAgICAgICAgICAgICAgICAgICAgICAgICAgICAgICAgICAgICAgICAgICAgICAgICAgICAgIC AgICAgICANCiAgICAgICAgICAgICAgICAgICAgICAgICAgICAgICAgICAgICAgICAgICAgICAgICAgIC AgICAgICAgICAgICAgICAgICAgICAgICAgICAgICAg ICAgICAgICAgICAgICAgICANCiAgICAgICAgICAgICAgICAgICAgICAgICAgICAgICAgICAgICAgICAg ICAgICAgICAgICAgICAgICAgICAgICAgICAgICAgICAgICAgICAgICAgICAgICAgICAgICAgICAgICAN CiAgICAgICAgICAgICAgICAgICAgICAgICAgICAgIC AgICAgICAgICAgICAgICAgICAgICAgICAgICAgICAgICAgICAgICAgICAgICAgICAgICAgICAgICAgIC AgICAgICAgICANCiAgICAgICAgICAgICAgICAgICAgICAgICAgICAgICAgICAgICAgICAgICAgICAgIC AgICAgICAgICAgICAgICAgICAgICAgICAgICAgICAg ICAgICAgICAgICAgICAgICAgICANCiAgICAgICAgICAgICAgICAgICAgICAgICAgICAgICAgICAgICAg ICAgICAgICAgICAgICAgICAgICAgICAgICAgICAgICAgICAgICAgICAgICAgICAgICAgICAgICAgICAg ICANCiAgICAgICAgICAgICAgICAgICAgICAgICAgIC AgICAgICAgICAgICAgICAgICAgICAgICAgICAgICAgICAgICAgICAgICAgICAgICAgICAgICAgICAgIC AgICAgICAgICAgICANCiAgICAgICAgICAgICAgICAgICAgICAgICAgICAgICAgICAgICAgICAgICAgIC AgICAgICAgICAgICAgICAgICAgICAgICAgICAgICAg ICAgICAgICAgICAgICAgICAgICAgICANCjw/tUPjT4zmvFMlneM2R1wlTf7ORj9IDO4be7MfSKAaZZhi wrSeJpdCObBvNQEyUooPDwp2XLxoEP1SgDOgB6MpN1WnVEvcGP1DYOEiJYNwdCUxKARfGDXoCbP0UDLp VBrkOJ4AbXXbOKlaUZCtYYOoPwAiDCIzGY8JZSDqC9 98ylFuLc1VJa7BUzTlUM4xqq0OFokrNYIvFhzTHcf7UKorWT7AjRKxtNQeBIKzHHQLWwCoH7dmy4ZwYq tdJHDOLNhxQS0Gx4GzdDFdMDl+Om5BAP8ql9YgMYaxVUWyBL3iou5DRBfZMlTmD6YikJktWQVyUYI3jO FpkMFbVC3ohLWnb2FvSLAjOXLVekOjcVA6uR2tWKG3 SS7ejZHncEYLGHKno8hdcA9vjSkxDSKjIRGuLHGmNi3xUSK1BOMxEwY0ZDHRQF2DSWXuUXZhnPPxAOQc QTXDYK0AQLzxVRS8JirlquUkuVFwSFrpQI9XLBIqrbDhDisrUVUYNCm+Ts0RZH6ye3FbHWgoYKKcWW7x az0OHYfNKiHhT0L0rKXvA6P5PXkqZt0HOUScWEJbPg OxZBZKYDedGN4EAU8zvoA9QY5LiCNvKAWcVGNtfTIrUQo7H01nhWScIEajSW3NSNO+Nila+De1GOQLnKW JfNPAyUkHvEDCMGuOsX7YjO7NUn5YhR4CdGV74bAbmdeQmORoeUV2AUQ6hYHKeIZREVQ7SzXZcsU6zqp MdLfZzVNORVwYiZ00zwRVbHKLvNMJ8YSAiLt3ONQPr Z3UxgnQfkOynxkZwIVCeVLGOOW0OMWipxjItcFUvmHjvOW27pMuoGG6YXh5XEzUdNE4apt9IwDMnXz8Z WAFiEN9ROYTcINRmCXFzUCF3RFAvEjLcIApbKARoVRWaZSB8YAHgEWXvUC2CUbGgUOEmArIhHLPtLWJe KVUztd0RHOQbEPEhSOWcRLBzIXXtRVWiCPaxMIVxFB ReUHD2JSUhSEYmYC1RRiTlIALoVOR1DKVbMRUjCYSbeg1PVZPvCMBbCnu2TXQwPCHuOMMlNVqhEHMxUP YkQHomAOUuFAMiOZ5VCzQuUQKmIEB5BvPaWISmDWUgvn9HUTJfLQJhBIGuHjLvQQSfRLMbGXbxPEHzGP R0VKHkXRPqONQsBS1DGmLwHYOzKXVqXSdhODYfSCHc hd0JSVKnKAFwDHu2GGXxZBQmANEwHUqsJROaXVM5RDs9DJExMUHpNU1FOgDrDWAxKJQfCPmtIOUcISSt yf4ATDCbJQAiLPryOOQpRSTkLIWqRPlsCAKnBFC4ZKE6MIQaAPDnWP5EZtFnVKAxRLzxOnZsMXBgAHIr rk4BGMSuWTLjKCI0JqVaNOGjWHYnXLlvUMGzMZF2Az O5BXElUAMqSO5HMhBeZEKnLxF7BeNlFQWtCWZeoj8EAJSqFEUiGOs5OuXjXUGaACOlLIvhTBUqVZByBL R3MTNyQAAvAL8CMoYeSVTpWtX0PuFdLOGnSVXonf5QPOBhHGQnZvV3UmRiSWLyDSCgCFwuNBJkJMDfLm PmXRTaFRIuYM0HGmYdXYGcDaN0QgGkFUImXXLdfk3S TUYlUELlKESuJNXeSLAjZDGtZJzdALNoQAN2CWx2OCBnOSCdLU0NMiNvZJJdRoWuTGNmGDGaMRJqao1W aZKouRkecy9ZIIePDf6AuEoiUTHaXUhsGz4zzIGbOTJrUFEGUr7ZpvReCALtZSCIYQflSIAoXFRbGeUw NdN2IDLxG0ZrGaIdIzHoM0KwKAYzJNRsQIJrSgU2Np HfFTVwOQP1PNCcFAZ5CDSgGJV1RQChLxHaRSOmHeS+UQ3jWPi+Rr5En9ZbqrO5shVoUYgpSKY6Np0DJO DBY7EZFf== ID Date Data Source [id number] 10/19/2019 12:16:17 PM EST [facility] Name Value Range Interpretation Code Description Data Georgette rce(s) Supporting Document(s) Anesthesia Procedure Notes [facility] ERLUMv6wXsEFXdMe68/PRSzoPUCyy8CzKKxrHFg5TKxiWXKsC4HsBAD4rJ6pXQA4LJoAHuIvPBhzKfR1 lbm [file] ICAgICAgICAgICAgICAgICAgICAgICAgICAgICAgICAgICAgICAgICAgICAgICAgICAgICAgICAgICAg ICAgICAgICAgICAgICAgICAgICAgICAgICANCiAgICAgICAgICAgICAgICAgICAgICAgICAgICAgICAg ICAgICAgICAgICAgICAgICAgICAgICAgICAgICAgIC AgICAgICAgICAgICAgICAgICAgICAgICAgICAgICAgICAgICANCiAgICAgICAgICAgICAgICAgICAgIC AgICAgICAgICAgICAgICAgICAgICAgICAgICAgICAgICAgICAgICAgICAgICAgICAgICAgICAgICAgIC AgICAgICAgICAgICAgICAgICANCiAgICAgICAgICAg ICAgICAgICAgICAgICAgICAgICAgICAgICAgICAgICAgICAgICAgICAgICAgICAgICAgICAgICAgICAg ICAgICAgICAgICAgICAgICAgICAgICAgICAgICANCiAgICAgICAgICAgICAgICAgICAgICAgICAgICAg ICAgICAgICAgICAgICAgICAgICAgICAgICAgICAgIC AgICAgICAgICAgICAgICAgICAgICAgICAgICAgICAgICAgICAgICANCiAgICAgICAgICAgICAgICAgIC AgICAgICAgICAgICAgICAgICAgICAgICAgICAgICAgICAgICAgICAgICAgICAgICAgICAgICAgICAgIC AgICAgICAgICAgICAgICAgICAgICANCiAgICAgICAg ICAgICAgICAgICAgICAgICAgICAgICAgICAgICAgICAgICAgICAgICAgICAgICAgICAgICAgICAgICAg ICAgICAgICAgICAgICAgICAgICAgICAgICAgICAgICANCiAgICAgICAgICAgICAgICAgICAgICAgICAg ICAgICAgICAgICAgICAgICAgICAgICAgICAgICAgIC AgICAgICAgICAgICAgICAgICAgICAgICAgICAgICAgICAgICAgICAgICANCiAgICAgICAgICAgICAgIC AgICAgICAgICAgICAgICAgICAgICAgICAgICAgICAgICAgICAgICAgICAgICAgICAgICAgICAgICAgIC AgICAgICAgICAgICAgICAgICAgICAgICANCiAgICAg ICAgICAgICAgICAgICAgICAgICAgICAgICAgICAgICAgICAgICAgICAgICAgICAgICAgICAgICAgICAg ICAgICAgICAgICAgICAgICAgICAgICAgICAgICAgICAgICANCjw/cATwV0rrbMNxqbY4E5itMc0HVa3B DB4ny5VvMITvNQxcagPhGjuWWqTwIHMkAqvVFih6XO wfXN0AqOSoT0BoC8LaOHdaKT6NUUCgIFBmsQWoZOErAKUbTeO9THDiMSyjCT4VaSQxTQbuDYEgVDQpKy FsZFDhRT5SHIQqV315mtEpJg4HKe3MJqNdDO9jsw9CNwpvDHKkUohPSto5EKuzFS6OcIKapDBuMPWbBF XQIqVtG1hik7EjStunZAHFIMopEK7Uo8EzsGEmGCl+ Ex8PYR7dq4HwFPxnRYBxHC0aza7VRRpJTcNuK0NwqVrgXOQiZLF9hTDzaVNuKHVqZ9IvmBCvYR8txGBn VNN5NY0vcOBbhYEZGKXnw4rucD3luFliOVNfAVFxQQOkXv3zUVE3QEOsTaW5JOLEVL8ECHOsZHDjsLGa IFEeNRRSFF0RDNydCKD9OlvicsRvxLIeWQmeHA9NWC JlbnQgMjcgMCBSDQo+Sa6GYP9hv7QhLNehNPEfBF3cxp3KXHhUDqGkD6G8oSJpK1J4GUjwLx7ISABvCA LxXnTkQMITRXrsRW4IWF4ckdK4TJ7ZnWQoUUEoHFCddDRxJOk8Q39syLIqGTeaPW1XLYS+Nila+Pg0KIC CcOQNyCHOdItNmLGHCXaCiV8CwW0FZz9SfP4EoAU81 bGycbbIiHCxeJH1FAM4rIUBbTNPPEC8XrNUayW2klmWlAoBsUXCLFwUeL03dcXDuLQLtGBY2DQFyFx6Z BSGaP9NeaoMqnQoirqDoGWHqLUQEVP3ATRmydjHieAYugEgaIH74eAjsYL3OFd2TUnAkLP6ogo4XtDQw At5OKUUjBC6KHQHqWTRwIQPlHXE6AZZoUpWtXKykPF YtWITwVCF8RWPpNCVaJJ1XXkDzDIYcCcHiNtQiFBRfHUIagy9QOJMrIIBnMsx5UzBaSDQaYYNoTMrbHM BjJEXmJOS0ESEeWMMuAP1LXwNwLXAsBUV8XjJkUDDmIQIwsb1ZGUWtKDBiWcdxUTWoGVOvWHOkMNcmKH GoAFGzFtN6UHXoRHNsII6OXuFbMDHtUDD6VKRmUAEd RXHnhv9WNQAsEFUuPUIcKQRlEAMpYEFnYBxbUPTcESD4QvDgDGLcTTTcFL1DLwLsIZAuZNL1ENfyVLZm IZYkkv2QSXWaCHOrQCn1LVJnPKCcUGYlYNhdFVGqNFG0SDV6WPQsTOXvXI0ALiHbUZIiYKDpJmoeWWTc QIEnzt3XCNLbLFWlBSR8EaAgFAVeFLNsCFzsEFWrJA O7XksfYCHgXKDqGF3IUvOiWVVaCHpdNTHyMSXxPURnxo3POWRcDHOjWIM3EcZtEDWvHCYrNTjeABTqDZ U7Owf6PRJfREBgIY7FYpCvUVYkTqXvYbOuLPNsHUTunu2AWLJiNNIjCKIcIeGkCLCsACZpQBsqVZYzXL LvEmRgSWLgXHYxEP7ALeAmBJIpWbD2TRBwMCNbXCKv pd4KOMUpLYNeDEzpBpKqRGNqUNIkMVmmHNTwCWRmHBCtWONkWUZhPG2EJuMgQLPxJmY4KeQtDTWjNOVl vl0LGAIzXKHyQyd3TdWjUQXnHLZrQXfwFQWcCCJnDFH2GVRtNPNiBB5RKvXcCGFiEsYkDTHjSLRqRXIv xx4TlXDbjNjwhk9NAVgJTa3TaNjaGTClTOssHr7tkC IvTRCnAVAWNj3NgvQcWOKpLXHMNYlcWSXvQCUvPtviKNhpNGX5LvI1T8PcG0EtFRY7XfUnCKmqCVXsNt H9KfWwMWXmJWMoBFdtIRV4K3ZsECVnIBTnYAY7DBM9TaX+AA9uRRf+Jj0My8YtguZ4vdOpYJurMBX0Xa 1MRJMCK1TQVe== ID Date Data Source [id number] 10/19/2019 11:53:00 AM EST [facility] Name Value Range Interpretation Code Description Data Georgette rce(s) Supporting Document(s) POCT- GLUCOSE 140 mg/dl 70-100 Above high normal [facility] ID Date Data Source [id number] 10/19/2019 11:49:47 AM [facility] Name Value Range Interpretation Code Description Data Georgette rce(s) Supporting Document(s) Op Note [facility] YYJQYa0aPrPSTeTb75/OGDhaJXMaq7SzDBfzVLf6IQgxTUVkK5XcNIQ2lW1iJYD9YXqMKkNoQFmqQhA7 lbm [file] KSCK3SHBSaMI2If529HAn5MH1IFAAhLiHdCBCQMhVq DRFePV6OVLTtIEUdLAYFPtQcMHAkLE5CTrYwSSFqDNKSNlWeTXOrWM8KEkHyUGUiVSBCEyWcDVIiGR7F NCAyNCAwIFI+Yt0WZYYlIL7BC4MoQLS9DVs6BK2+MVhtUESbP5B0bMbGkXO6PQL3BZ0IYxOAYxVtPNw0 V0E4mZBgE6Q9gIqBoFA7WB0UHX6BHVSdPH8+PiAvU1 LAHJsKYFF2MV6BbCCdWW9PmQERP9VugEUkWy1jJHSroZjlcKx+CuZxY5GEKGHARAL3DQ1EqLUvWW3AtL TKW7KbxDPaTn5lWQztNqSkDU7qLW5+ZS6CIDRKKiDULiOeDCiuLKjcYBKaWHy6V9P5NGJcS4FHJ0X6W5 t0t9iscw3+FY1TYKFvZA9VLcPDVFbKSNY9ER9VsZNg XT2CfJOZR3YkbTByXh6sIDbtoBKvoq9+ZH8TLUSuBTI+Sc0QNKN+Yv0KBX4xz8FgMSpyEtDdLP8whx0R FYplGKOrM3BuPCDyVNzpJ5ProOanRV9GCShnOHtnJH6LXHAzLYG6SM5+FGnjbEDtIA1DMhm/gXEfQ7zd gUEfZAoogu3a84n/EuJpNQ4vVfUYUN4gA9FipDw0pc GYty6RK0ctTzryJl4+PQqfPEk6IechfO1zlQKleWv4wDC9jw2wLs3tYBolDEjsvM8ggiP1lR7vMGIkHk S1ecZ0dCB3ST5oXi2MHYVpEJfcLIA0EnKQDSqleQ2yXgTmFn3mxFA4jInmM8r8xj20Fb2bjiroFHg3QY 7aGc8jVj2kMJYoc3gpsBA4BU9kZhf+NDgeGFBmWJ9f GHI1BmAPBj1EZNB4M1q2sX3weTG6ZU0LGmXcDCCmJLBaVPZyCLSfRPIrXPJpGOEuJYGvRDRjSZYzISNy ICAgICAgICAgICAgICAgICAgICAgICAgICAgICAgICAgICAgICAgICAgICAgICAgICAgICAgICAgICAg ICAgICANCiAgICAgICAgICAgICAgICAgICAgICAgIC AgICAgICAgICAgICAgICAgICAgICAgICAgICAgICAgICAgICAgICAgICAgICAgICAgICAgICAgICAgIC AgICAgICAgICAgICAgICANCiAgICAgICAgICAgICAgICAgICAgICAgICAgICAgICAgICAgICAgICAgIC AgICAgICAgICAgICAgICAgICAgICAgICAgICAgICAg ICAgICAgICAgICAgICAgICAgICAgICAgICANCiAgICAgICAgICAgICAgICAgICAgICAgICAgICAgICAg ICAgICAgICAgICAgICAgICAgICAgICAgICAgICAgICAgICAgICAgICAgICAgICAgICAgICAgICAgICAg ICAgICAgICANCiAgICAgICAgICAgICAgICAgICAgIC AgICAgICAgICAgICAgICAgICAgICAgICAgICAgICAgICAgICAgICAgICAgICAgICAgICAgICAgICAgIC AgICAgICAgICAgICAgICAgICANCiAgICAgICAgICAgICAgICAgICAgICAgICAgICAgICAgICAgICAgIC AgICAgICAgICAgICAgICAgICAgICAgICAgICAgICAg ICAgICAgICAgICAgICAgICAgICAgICAgICAgICANCiAgICAgICAgICAgICAgICAgICAgICAgICAgICAg ICAgICAgICAgICAgICAgICAgICAgICAgICAgICAgICAgICAgICAgICAgICAgICAgICAgICAgICAgICAg ICAgICAgICAgICANCiAgICAgICAgICAgICAgICAgIC AgICAgICAgICAgICAgICAgICAgICAgICAgICAgICAgICAgICAgICAgICAgICAgICAgICAgICAgICAgIC AgICAgICAgICAgICAgICAgICAgICANCiAgICAgICAgICAgICAgICAgICAgICAgICAgICAgICAgICAgIC AgICAgICAgICAgICAgICAgICAgICAgICAgICAgICAg ICAgICAgICAgICAgICAgICAgICAgICAgICAgICAgICANCiAgICAgICAgICAgICAgICAgICAgICAgICAg ICAgICAgICAgICAgICAgICAgICAgICAgICAgICAgICAgICAgICAgICAgICAgICAgICAgICAgICAgICAg ICAgICAgICAgICAgICANCjw/dGHzC6escEDbvdV0T3 mtRa2ZFc0YLK6fm9XbTNAhTDmelmOoNlwUXyBwKBLwVtdKFoe1DRjyQP9LbHUcH2XwW8TjLNcdLN5SLI KhQBVlnYOyHGAmYAZaVnM7INXwVTgyHP5NiCGsNAmePUFkNMWzPnQeKJCoTXImWPSgFV5NBFHaA702jh UpZd3ENk3BDyYuOV1jta1GImurIUSuPspIRem4GTgt AO1MxAGfcYKaJJRxPXNYWyGoL1oel0JzLbztBPBBDBinQB8Go2MhiWHsEEd+Am0XQB4uw8NcVGawVWUy CZ8qps8TRCpHRfAtW8YjqXvgCW3eED5bjLSlYfrgC8xnwPpeyOUXZBnbCQQgxpidJOPvJRDoBGZnZj4d GDI4FHSrNqBpGHRZLA1LVNUhWCQwzCCuQJWzNSJMVE 6XUAjfNIZ4AqaqnaRgyERjGWgeIB8RHZBzckHkImbfSGQBWXl+Yn1RTV4to8RcICfcFRZfAG8vsz7WBK zPTkCbD5Z2dOAuE5X8ZBqxQn7ULFDzHESbVsUqMXQLKLkbGC5LMP1mffX2JC3FlHDcHTHiUEAedDKsUE d2L61eyALlKBlsWF4BHBI+Nila+Yt5HKEKlIBVdNNEh CnYdZQQLZlGsJ7QfZ6RDi9FeD9JkKX35yIadsuEkXCxuGQ1UQM4bSMHvWJYRMS7XaBWtlR2ehpPzRyCf CTWSCnWsJ60ilDPbRDZiZFZ0HARgQl6NTKEmY1SryrUjzNgqukVzPBJhHNQMEY8FYJzverUrmSWrcZzk XM89cWdkEY3CZb5UPyAcIO6lbt3SlCOiSu3BJUDiFM 9UAUHmJUXeLKOgUCK9SVKiJsCdJMqoLYNtAWGwFLY6DRLmYFBxVQ0DPrNwMGCxSNG9UfHsINJnEMIdlx 5KSSYiGQRnCgSsTgLwJDGlQGHfVHomBAUpBRQcYYZ8JYKmJOObAF6VKpCfYZNvSZE3GHwhZMIwJTDkqn 5DTGJgFJLzFxAnWaFwIOToSNKsWIynRBZcNDR2EWP5 UNNhJCObXW4CYyUzVRXhVLajYeVuQXYpXNLxnu4ESLPdRQRbHuCmGXOwOBDzLLGkNUkbWAQxOMZ6AjK1 MKSdIYSaVE9YQfDsURSmNKp4PmIsQDLpGLVnmz7PSJIyVYBsXNw0XmYhPDEvVXYmQKyfKSTtURE9ZQZ5 XDAcAXHqZC0ENiCfFINjYSDdOQXvXCJdBRIugs1JQB JfDNTySPPxPXCrEBJiAXEqETckGETaILMoJlr5BURiUUDwOJ7KPnUrEGSxXBSrOYChVCJfNIBsle4TJX FnBPMxHPF6XFJwJBEwJWIqDXqrNIRiPCTtLwYiNOJoAXWaJE8ETzRjLWLiVCG3RJpcRXYlJFYxlj4MRR QnWHTaJdfwOWJsJPIcBPHaLNvbHSVcYZFpEUy8ZDUn ETGcUI4QPnCtDECzGCFfYXLbRBDdHNBexf2MUDShTFAjBRO8QbNdYONmCCEhUQplWGYxFUE6DDD5VZPj PEQaLG5OUjSfYXBiAPK9UIheXFYdKGEhpz3UGONnKQClCqU9BhDlDXShFBFoEVvaIMPcDVF1FIO2VUHy QFTwOF7QPzRqMSVbLKR2IjPpNJZpQZZcww6EfVMxvN iwaa5BJEsPJm0AgRogUEDjBIrcTc4ylDInFXJxICMDNu5KexMsMRPeOGWAVKqpZWYxTNsxQAOoRkP5OO hpNhZ4OuU1IUEiOsE1QWB2LHZkXIQ2NbB8BIS9EsD0HARnPLO7EMYpLZT9ZuCwFgwkMBG2KZR4Ftg+IF 0gDQo+Fr9Zl3MaliS5roKdNKevEzxpJu4HEPKMO7OCJb== ID Date Data Source [id number] 10/28/2019 01:59:[address] [facility] [address] [place] [address] PATHOLOGY CLIA# [id number] Surgical Pathology ReportPATIENT: JOYCE KELLEY CASE NUMBER: [id number] #: * * * Date Collected:10/19/2019Account #: [id number] Date Received:10/22/2019DOB: 1970 Age: 49 y.o. Date Reported:10/28/2019Sex: F Location: [place] [id number] Attending Physician:MIRELLA DO Clinical Information: MORBID OBESITYSpecimen: LIVER WEDGE BIOPSY FINAL DIAGNOSISLIVER WEDGE BIOPSY: BENIGN LIVER TISSUE WITH NO SIGNIFICANT HISTOPATHOLOGIC CHANGES. MINIMAL FATTY CHANGE (5%).NO EVIDENCE OF SIGNIFICANT INFLAMMATION, BRIDGING FIBROSIS OR CIRRHOSIS.SEE COMMENT. CommentThe sections show normal lobular architecture with normal appearingportal areas and central veins. Minimal fatty change is focally noted which is macro-vesicular. No ballooningdegeneration is seen. Special stains (reticulin and trichrome) corroborate the above findings. An iron staindoes not reveal significant increase in iron staining in the hepatocytes. Correlation with clinical findings recommended. GrossThe specimen is labeled as liver biopsy consists of a wedge of livertissue that measures 1.4 x 1.3 x 1.2 cm. Serial sections show smith solid cut surface. Specimen is seriallysectioned and entirely submitted in two blocks. ELIN/barbara Electronically SignedBy: Carolina Fregoso, MDCPT: [id number] PathologistI ATTEST THAT THE ABOVE DIAGNOSIS IS BASED UPON MY PERSONAL MICROSCOPICEXAMINATION OF THE SLIDES (AND/OR OTHER MATERIAL), AND THAT I HAVE REVIEWED AND APPROVED THIS REPORT.PERFORMED AT: [facility] [address] [place] [address] [id number] MOORE Page 1 of 1 Name Value Range Interpretation Code Description Data Georgette rce(s) Supporting Document(s) ID Date Data Source [id number] 10/19/2019 08:58:40 AM EST [facility] Name Value Range Interpretation Code Description Data Georgette rce(s) Supporting Document(s) Perioperative Nursing Note [facility] RFBWKs4qAtELGvQd53/ZCFszJQLjd6OzODvkELq3UAcmIKUhW5FjNQD9eN8yUKK3NYaTOwOuNJosPnP9 lbm [file] ICAgICAgICAgICAgICAgICAgICAgICAgICAgICAgICAgICAgICAgICAgICAgICAgICAgICAgICAgICAg ICAgICAgICAgICAgICAgICAgICAgICAgICAgICAgIC AgICAgICANCiAgICAgICAgICAgICAgICAgICAgICAgICAgICAgICAgICAgICAgICAgICAgICAgICAgIC AgICAgICAgICAgICAgICAgICAgICAgICAgICAgICAgICAgICAgICAgICAgICAgICANCiAgICAgICAgIC AgICAgICAgICAgICAgICAgICAgICAgICAgICAgICAg ICAgICAgICAgICAgICAgICAgICAgICAgICAgICAgICAgICAgICAgICAgICAgICAgICAgICAgICAgICAN CiAgICAgICAgICAgICAgICAgICAgICAgICAgICAgICAgICAgICAgICAgICAgICAgICAgICAgICAgICAg ICAgICAgICAgICAgICAgICAgICAgICAgICAgICAgIC AgICAgICAgICANCiAgICAgICAgICAgICAgICAgICAgICAgICAgICAgICAgICAgICAgICAgICAgICAgIC AgICAgICAgICAgICAgICAgICAgICAgICAgICAgICAgICAgICAgICAgICAgICAgICAgICANCiAgICAgIC AgICAgICAgICAgICAgICAgICAgICAgICAgICAgICAg ICAgICAgICAgICAgICAgICAgICAgICAgICAgICAgICAgICAgICAgICAgICAgICAgICAgICAgICAgICAg ICANCiAgICAgICAgICAgICAgICAgICAgICAgICAgICAgICAgICAgICAgICAgICAgICAgICAgICAgICAg ICAgICAgICAgICAgICAgICAgICAgICAgICAgICAgIC AgICAgICAgICAgICANCiAgICAgICAgICAgICAgICAgICAgICAgICAgICAgICAgICAgICAgICAgICAgIC AgICAgICAgICAgICAgICAgICAgICAgICAgICAgICAgICAgICAgICAgICAgICAgICAgICAgICANCiAgIC AgICAgICAgICAgICAgICAgICAgICAgICAgICAgICAg ICAgICAgICAgICAgICAgICAgICAgICAgICAgICAgICAgICAgICAgICAgICAgICAgICAgICAgICAgICAg ICAgICANCiAgICAgICAgICAgICAgICAgICAgICAgICAgICAgICAgICAgICAgICAgICAgICAgICAgICAg ICAgICAgICAgICAgICAgICAgICAgICAgICAgICAgIC AgICAgICAgICAgICAgICANCjw/pJGoB1ycbBLhhuB9S5haSj9SRx5ULH9sd1EkVZCdUYjoufAbJadJMj SmLOBlUioFBrr6OMydHZ2KpZPcD4HmU6FmGCthBE8ANWJtIJKsvCHjOYGyVGJmIrB5OITiEStmAZ3IjM TaCGjmEUFzNLPeDT9ODEZeD352vuQsKW9AMb3AXtPi YX7rqg8VQtCuEANaNoaBMmc6GFvxWN7VzDWpjUJvJpOuCZMYUaLgP7zri6XcXwItWQTLDStwYC1Qn6Ag dCAxDQo+Ql8WSV4xb0JlLChlGxUoKJ6dhy3PEAzPTzBxI3YgsQwxFKBtfeiuaIXdRFZsneVcRrFve6aq KdYHr2WmDIX8BMqemp7pYdIyNP4cO6PsolhrKq6qBQ LtIUWgNr7cYII8XEP2VsK5FIUSPC2TJOIuEFDpzQWkOEOvAMYFLM5MWVikUTX6BocaikYvbYFhOIxsCV 9QYXJlbnQgMjIgMCBSDQo+Js1HIN8aq8NdEBmhFOFyTL3edk8QVBmBMwChK9D2rBVkI9H0HJypUq7MOP WzYICzClUyXRYLIYvqBI2CDQ3laqG1BY0LmDQlMLTs DLZguLHuZFm6B49wdVNtYHvtTU6SCZX+Nila+Px0RLIWoLUKiJSWxOpRjQMRZHiCrN1CiT7CEk4QdY8Sm HF27nNudomIyHErlSA0VIH7tLVBvBIIQDM6PsNTtjW6powTuQpUqHJJWMeDyP46gyVOtMZPrTRNnRLXp Nt9JONDsQ6OomoOygLyjznCoPQZqFKMUVD1LMLekzz JspIBpoAqfYN02sLiuYF1KZw0ONzTqNG0wby7KjYGgXf4GRTOhPJ9QMHQgYZNjSDAyOVA8DEYcDmHyLB fdXXRdMVFvKTF0MNEpDXQxAJ3XNbRxDIUdRPy9VaTeJOMeMVLhli4AXVZcHXSdAICmYWUmQELnETOqCE hxSIVcOWFbRGA0ZEXuBKSyVI9TZjLvVAJaYKXyMZee SLEgGHEsjh0SUBDsESKdQXTaWVPjPYWjJQUwVYcbMONhVMUwHXM4SDDqESNwFJ9SMiOvFMFyTYGfWfOe DPGbEYXehd2XFUItLNQdGuZ1IPPtZNVwUHAlOAtlTPFoMURoINU7BBGrBACnDI4OAkWeVCWtEPT7PHUx UZVcXCHecd7DOWIiNBGjWgo8TcHcEXPxETRxVFifRF CaBVT7ZuTqNABtYBHuSE7WVoEdLROvQZL2KVqvVQQzLWPywa9MCSKvGRSqBam4BaHlDKLtUDNrSCigLM QxNED2OQU7MKIhVLYvMK5ZKbCtFEEsBSdvKDMoQXNeNTRdlr6VAIEvLTWvYGX2XRVxOBIaGSSqMWnoTD XnKRH9DgbdLRCfEFVlGX0QUtGuXMTeATy4CIYvXIDo CHEazs8WXSNbXMUuVDb7VFHhOSPeDLAoYVcvOGBmQHSgTsK3OHGvKYZyBI0AVbHqSWQoCsBoYfciMMZc RHRdgw6PPMYvVOEaMZT6EQIaJPBmAAEqWBy4ynBumQNpZPf3IG2UQ2JgopTqMqKKGx1Nq150BZH3NLJu Vt4HN8qrXh7yOHHqFLQWIu7QWYn7POO4VXduEMzzMY frKtMcHaE7GhVaVGr7BhYeWIWjQAJ+FVk8UPueI1NwRCD9VYL9PNZkCUyrU0ZmJrvbEYC2OTO5MJ7hXW ANCj4+QXemvKSauTgrFYBLUvZpQoz5NGshDTORIn8J ID Date Data Source [id number] 10/19/2019 08:38:31 AM EST [facility] Name Value Range Interpretation Code Description Data Georgette rce(s) Supporting Document(s) Anesthesia Preprocedure Evaluation [facility] LBQRTb3dLgMRWwCi32/HQDqkHVSst3QeQPtfORt6FPljFOLbG6ZfNNY0gM0iQQQ8MOiNEwOmQLaeMpQ6 lbm [file] AgICAgICAgICAgICAgICAgICAgICAgICAgICAgICAg FNCtLYVaJTAdOBVfSMMtJMAzPBXfYALiJCAkHEUsBJXlFIWgDY7RMNPxDDCpQOVpYBYaINQbCJXaRLNc ICAgICAgICAgICAgICAgICAgICAgICAgICAgICAgICAgICAgICAgICAgICAgICAgICAgICAgICAgICAg VVMxOFXhUEAwFWGdMDWvEQHvJG2GVCZlICKwHOIwKE AgICAgICAgICAgICAgICAgICAgICAgICAgICAgICAgICAgICAgICAgICAgICAgICAgICAgICAgICAgIC TvWCByMLIdIUImTCDfIZDtZYIuDGIwIBAyPHYeSJ4LIRLkNYDbUFOcOCYjRZPqWDDgPONpFGXqAGIcYH AgICAgICAgICAgICAgICAgICAgICAgICAgICAgICAg KWHkIYWrELKcLJKtOIIfVKWdHEWzAOTbJCFiCZVmFSRvAXVyKSPhCQ4POYQvKIPvTBJrNHUjQXYfHRJf ICAgICAgICAgICAgICAgICAgICAgICAgICAgICAgICAgICAgICAgICAgICAgICAgICAgICAgICAgICAg QHOzHFVjEVKnJWFeWIKlOUAcSDDrMP0WFTWlKUPsIV AgICAgICAgICAgICAgICAgICAgICAgICAgICAgICAgICAgICAgICAgICAgICAgICAgICAgICAgICAgIC JcSXZdMFFiCBRwHNQoCOPuCRZpKLOgQPDuUABrPRWvSK7CWVSqVEPyHAWiIBXyEXQdPFJqBDPkMSDdMN AgICAgICAgICAgICAgICAgICAgICAgICAgICAgICAg EIJeTHQsOAQpXEZgCPHbCNKjMTHwKXQxHTWsUZDwNJDcJBRdQZElOQVnSM4JZGBiETBpRRCnKBOxPNZl ICAgICAgICAgICAgICAgICAgICAgICAgICAgICAgICAgICAgICAgICAgICAgICAgICAgICAgICAgICAg MVUoSSUjKWYjIJCeQCGcTEUoKYHpSKPoJE1MRLUqSC AgICAgICAgICAgICAgICAgICAgICAgICAgICAgICAgICAgICAgICAgICAgICAgICAgICAgICAgICAgIC ReHPEaYDQmZDHtMYUfQQCcUMLpFPCqGRRpBYZbIWIqSBTfWR9VKZKoXSXrBNXtAVFgVKQsEMXoICGkQL AgICAgICAgICAgICAgICAgICAgICAgICAgICAgICAg ZLPaGWDxCNXrZOGqGCUkCUWfJUJjUWWmMNIsBGWoTEBaHPGqWYKpRYMbTMHiUX7CKK40rUStb4K7ZVWv GW7ykup/Ia2JGJdgdoSgeTJlMQ1SOvIfIP0dgq0DLsEaQV5wch7AYJkKIvLlP8D2vGVqBLXzIXTTFrFb L33hGQwcMq28YTanLKNzNiTbCDc2Sv3QDqOfC3iyGX IdYtO1CLFnUsE6OUNsTnKyAZqaHB5Wv3EkpMNfDTl+Qg3BAT4xl8NeBCdcImJlOL6itw7MEFeOAmXvY7 BeqyN8CPA8IKZjBg9AXNLyQQXnpCVuFNAbVIKMDvCgD7VwsS77GDRNJy4+OLraakDgLkoIJwG3KLUzd4 ViVPs2QV3UQLZkFKy0cPApTW2lm9UzBXYdHPAIeoUl hl5gZEG4taSyECVyiSYkoVhvbwPtkQFYzR3vQOPpTUR5gYkhxoMZdQUnsjlwKMQzUJKnSVOqML1yLRC4 GEDkHsI4GNLBKU0HYQLiFBLwxYNoCNGpYAAAJU1CVWouNOW9KqiztaHmbKOrTIatLA9TVEYbnrVmGexp MCBSDQo+Sm0WCX5ts8IoSChrIEPnJA5fyo3JCZzNSm ZcW1X3lPFtF7L0RPdcQm1JUZJsLSZoRtSiRJNXQPdrCO8WAY3btgC3PM3FbLUsNKFaKONztNIlTKd4P4 0fgEMnNCagUF8OWSA+Nila+Sm6RSYIgTGFwHTYgQySvFFSSCfQcA3KpJ1VWy8SlO6IsYW37fDyrjqYyQJ ezZZ2MZW6xPCEjLOCPCI3AiMYxiF4mqeDrBoWkSAQP HdYxT58bxQCwAPDoTUC6PKRmQz3SLSSbM0UbhbPqkMgwzfUnZXIfUCIRIJ8NMIvrniVlxXDveZqeFF80 jEofXB6DRc0JOwGnSL6ird3YpKPbBh7QWLLuUV6CDADbLKCbIJNgGUQ4BQLzHoLaXOhzSYSaIEErYGC2 FXIuAXMxXH5ICsWfNSXcAyVlVxMlCKCyIZOntn0FHJ GkEXNwRTTtAfSuRDZyFWYrXJmsVGMePSYyBWV0YZXrXLMoHA9IYuHyPEGhLAIuXOhlNSHbINNvng5VZH CoMXPbBqWuKYQxCBAxQCSrYYyzGWFfRFHbQWstLKSgVZIkYF1DCaLnCBEqNWE8CShiOODvAEOodb1ZHB SwGIThEQU5NQCdHRCsFTHiFPzyPEHsOQV0ASN0MUVd RWPtIP0IPtGwFAVvAYNsFAXhBJRxMOEftt1SBQLwPUZwWeKeEgHoWHIzJYWsWOosQGGjYEO0CVf9VYTb ZSLrRW7VWfXtOSMlUZRsWXNsURDhAEHivp6UAJKkZOTpCLtkGKRhJZZbADVtVVesNFKeTWC9MRQ6VIWn FZSpNM7OHxRhIDUwHGsjXVSaVVHhKNSvhr3JOYRgYW OrFYM7EgAsCPRzPLDjOYjzGRYdEEF2AuYxPSOqJRGgRF1TEkIbJUGyIsU3RWXnREPaVWSvvo4VRSQaFT SeRRo8QWGtXYFfORMaVGhpAXZzUUMuAQUkFRVfXQHqOT6PUhFbWKYsGxF7CGRyNVVuGWGtmq0DTGUfAL WhYaF2LzSyMCIzZPXtAYlaLKTiAMClSxN7IYWzKDXt IJ4BHpVgKJBdKyF9JQriQOLsKWReyy5MNPRjHOEfSUSbCGOvKUBrRQUuJNdkMLAwYTN2ZbBcEJMeCDIj WS4MLoArWPMzFuUkPzcgCPOqANKvgg1QjPYjaGajxj0RMRbKGv7XkSyfJCAjXZtqMs6hhRWiVVRcFQYP Ye3UpvDxYFGlLRATGRxrHPAiMQV0IqU4CbRxRRU6QB jiEHBnLqRjY4X2LismVSItEbJ7KaT3WnizSeU4XEXpFuKaC0S1ToEwH9OyPFEbFTE8MbDxUAk+IF0gDQ o+Qe9Tb3KoqgE3kgGdHDdsDKPyXB3ETOLUQ3JQLf== ID Date Data Source [id number] 10/19/2019 08:10:00 AM EST [facility] Name Value Range Interpretation Code Description Data Georgette rce(s) Supporting Document(s) POCT- GLUCOSE 82 mg/dl 70-100 [facility] ID Date Data Source [id number] 10/19/2019 07:54:00 AM EST [facility] Name Value Range Interpretation Code Description Data Georgette rce(s) Supporting Document(s) , URINE NEGATIVE NEGATIVE [facility] Procedure Social History Code Duration Value Status Description Data Source(s ) Smoking 06/13/2020 12:00:00 AM EDT Patient is a former smoker completed Patient is a former smoker [facility] ([facility]) Smoking 10/19/2019 12:00:00 AM EST Former smoker completed Former smoker [facility] Vital Signs ID Date Data Source UNK Name Value Range Interpretation Code Description Data Source(s) Body mass index (BMI) [Ratio] 32.4 kg/m2 32.4 k g/m2 [facility] ([facility]) Oxygen saturation in Arterial blood by Pulse oximetry 98 % 98 % [facility] ([facility]) Body weight 195.00 [lb_av] 195.00 [lb_av] [facility] [place] Body height 65 [in_i] 65 [in_i] [facility] ([facility]) 5'5" Heart rate 78 /min 78 /min [facility] ([facility]) Diastolic blood pressure 70 mm[Hg] 70 mm[Hg] [facility] ([facility]) Systolic blood pressure 102 mm[Hg] 102 mm[Hg] [facility] Body mass index (BMI) [Ratio] 31.3 kg/m2 31.3 k g/m2 [facility] ([facility]) Body weight 188.00 [lb_av] 188.00 [lb_av] [facility] [place] Body height 65 [in_i] 65 [in_i] [facility] ([facility]) 5'5" Heart rate 70 /min 70 /min [facility] ([facility]) Diastolic blood pressure 74 mm[Hg] 74 mm[Hg] [facility] ([facility]) Systolic blood pressure 118 mm[Hg] 118 mm[Hg] [facility] ([facility]) Diastolic blood pressure--supine 76 mm[Hg] 76 mm[Hg] [facility] ([facility]) Systolic blood pressure--supine 112 mm[Hg] 112 mm[Hg] [facility] ([facility]) Diastolic blood pressure--sitting 72 mm[Hg] 72 mm[Hg] [facility] ([facility]) Systolic blood pressure--sitting 108 mm[Hg] 108 mm[Hg] [facility] ([facility]) Heart rate 64 /min 64 /min [facility] Body mass index (BMI) [Ratio] 31.1 kg/m2 31.1 k g/m2 [facility] ([facility]) Body height 65 [in_i] 65 [in_i] [facility] ([facility] 5'5" Body weight 187.00 [lb_av] 187.00 [lb_av] [facility] ([facility]) Diastolic blood pressure--supine 75 mm[Hg] 75 mm[Hg] [facility] ([facility]) Systolic blood pressure--supine 113 mm[Hg] 113 mm[Hg] [facility] ([facility]) Diastolic blood pressure--sitting 76 mm[Hg] 76 mm[Hg] [facility] ([facility]) large cuff, Ra; 114/78 LA Systolic blood pressure--sitting 113 mm[Hg] 113 mm[Hg] [facility] ([facility]) large cuff, Ra; 114/78 LA Respiratory rate 18 /min 18 /min [facility] ( [facility]) Heart rate 68 /min 68 /min [facility] regular Body mass index (BMI) [Ratio] 35.3 kg/m2 35.3 k g/m2 [facility] ([facility]) Body height 65 [in_i] 65 [in_i] [facility] 5'5" Body weight 212.00 [lb_av] 212.00 [lb_av] [facility] ([facility]) Body mass index (BMI) [Ratio] 34.9 kg/m2 34.9 k g/m2 [facility] ([facility]) Body weight 210.00 [lb_av] 210.00 [lb_av] [facility] ([facility]) Body height 65 [in_i] 65 [in_i] [facility] ([facility]) 5'5" Heart rate 70 /min 70 /min [facility] ([facility]) Diastolic blood pressure 80 mm[Hg] 80 mm[Hg] [facility] ([facility]) Systolic blood pressure 126 mm[Hg] 126 mm[Hg] M [facility] ([facility]) Diastolic blood pressure 84 mm[Hg] 84 mm[Hg] [facility] ([facility]) Systolic blood pressure 138 mm[Hg] 138 mm[Hg] e CW1 ([facility]) Body temperature 97.3 [degF] 97.3 [degF] [facility] ( [facility]) Respiratory rate 18 /min 18 /min eCW1 ([facility]) Heart rate 97 /min 97 /min eCW1 ([facility]) Body mass index (BMI) [Ratio] 35.27 kg/m2 35.27 kg/m2 [facility] ([facility]) Body height 65 [in_us] 65 [in_us] eCW1 ([facility]) Body weight Measured 212 [lb_av] 212 [lb_av] eC W1 ([facility]) Diastolic blood pressure 86 mm[Hg] 86 mm[Hg] eCW1 ([facility]) Systolic blood pressure 138 mm[Hg] 138 mm[Hg] e CW1 ([facility]) Body mass index (BMI) [Ratio] 35.37 kg/m2 35.37 kg/m2 eCW1 ([facility]) Body height 65 [in_us] 65 [in_us] eCW1 ([facility]) Body weight Measured 212.6 [lb_av] 212.6 [lb_av ] eCW1 ([facility]) Diastolic blood pressure 72 mm[Hg] 72 mm[Hg] eCW1 ([facility]) Systolic blood pressure 122 mm[Hg] 122 mm[Hg] e CW1 ([facility]) Body mass index (BMI) [Ratio] 36.27 kg/m2 36.27 kg/m2 eCW1 ([facility]) Body height 65 [in_us] 65 [in_us] eCW1 ([facility]) Body weight Measured 218 [lb_av] 218 [lb_av] eC W1 ([facility]) Respiratory rate 16 /min 16 /min [facility] Body temperature 36.06 Danielle 36.06 Danielle [facility] Heart rate 74 /min 74 /min [facility] Diastolic blood pressure 72 mm[Hg] 72 mm[Hg] [facility] Systolic blood pressure 122 mm[Hg] 122 mm[Hg] M [facility] Oxygen saturation in Arterial blood by Pulse oximetry 94 % 94 % [facility] Body mass index (BMI) [Ratio] 50.31 kg/m2 50.31 kg/m2 [facility] Body weight 128.822 kg 128.822 kg [facility] Body height 160 cm 160 cm [facility] Patient Treatment Plan of Care Planned Activity Planned Date Details Description Data Source (s) 0.4 ML Enoxaparin sodium 100 MG/ML Prefilled Syringe 019 12:00:00 AM [facility] Vitamin B 12 1 MG Oral Tablet 10/19/2019 12:00:00 AM [facility] Simethicone 80 MG Chewable Tablet 10/19/2019 12:00:00 AM [facility] Ondansetron 4 MG Oral Tablet 10/19/2019 12:00:00 AM [facility] Omeprazole 40 MG Delayed Release Oral Capsule 10/19/2019 12:00:00 A M [facility] multivitamin tablet,chewable 10/19/2019 12:00:00 AM [facility] Magnesium Hydroxide 80 MG/ML Oral Suspension 10/19/2019 12:00:00 AM [facility] 0.4 ML Enoxaparin sodium 100 MG/ML Prefilled Syringe 019 12:00:00 AM [facility] Acetaminophen 325 MG Oral Tablet 10/19/2019 12:00:00 AM [facility]
[2020-12-15] MEDS ORDERED: VANCOMYCIN 1000MG/20ML VIAL As Ordered ONE (06:52)
[2020-12-15] MEDS ORDERED: LR 1,000 ML IV ONE (07:00)
[2020-12-15] MEDS ORDERED: ACETAMINOPHEN 500 MG TAB PO ONE (07:00)
[2020-12-15] MEDS ORDERED: TRANEXAMIC ACID 100 MG/ML 10ML VIAL As Ordered ONE (07:11)
[2020-12-15] MEDS ORDERED: CLINDAMYCIN INJ 900MG/6ML VIAL As Ordered ONE (07:11)
[2020-12-15] MEDS ORDERED: MIDAZOLAM INJ 2MG/2ML VIAL (J2250 PER 1MG) As Ordered ONE ×2 (07:20→08:06)
[2020-12-15] MEDS ORDERED: propofoL 200 MG/20 ML VIAL As Ordered ONE ×3 (07:20→09:26)
[2020-12-15] MEDS ORDERED: LIDOCAINE 2% 100MG/5ML SDV (FOR ANES.) As Ordered ONE (07:20)
[2020-12-15] MEDS ORDERED: fentaNYL 100 MCG/2 ML INJECTION (J3010) As Ordered ONE (07:20)
[2020-12-15] MEDS ORDERED: VANCOMYCIN HCL 1,000 MG, VIAL MATE ADAPTER 1 EACH in D5W 250 ML IV ONE (07:30)
[2020-12-15] MEDS ORDERED: ACETAMINOPHEN 1000MG 100ML IV BTL (OFIRMEV) (J0131 PER 10MG) As Ordered ONE (08:25)
[2020-12-15] MEDS ORDERED: PHENYLephrine 500MCG 5ML (100MCG/ML) SYRINGE As Ordered ONE (08:25)
[2020-12-15] MEDS ORDERED: ONDANSETRON 4MG/2ML VIAL As Ordered ONE (08:25)
[2020-12-15] MEDS ORDERED: LACRILUBE (AKWA TEARS) OPHTH OINT 3.5 GM As Ordered ONE (08:37)
--- NOTE | 2020-12-15 10:40 | REP ---
INDICATION: POST OP IN PACU. COMPARISON: None. TECHNIQUE: AP and cross-table lateral views. FINDINGS: A right hip hemiarthroplasty is seen in place in good position. There is lateral skin desi. Periarticular soft tissue emphysema is noted. IMPRESSION: Status post right hip hemiarthroplasty. <Electronically signed by Cecilio Martinez > 12/15/20 1037
[2020-12-15] MEDS ORDERED: MORPHINE 2 MG/ML 1ML VIAL (J2270) IV PRN (10:45)
[2020-12-15] MEDS ORDERED: fentaNYL 100 MCG/2 ML INJECTION (J3010) IV PRN (10:45)
[2020-12-15] MEDS ORDERED: LR 1,000 ML IV SCH (10:45)
[2020-12-15] MEDS ORDERED: PERCOCET 5MG/325MG TAB PO PRN (10:45)
[2020-12-15] MEDS ORDERED: METOCLOPRAMIDE INJ 10MG/2ML VIAL (J2765 PER 1) IV PRN (10:45)
[2020-12-15] MEDS ORDERED: MORPHINE 4 MG/ML 1ML VIAL/SYRINGE (J2270) IV PRN (10:45)
[2020-12-15] MEDS ORDERED: ACETAMINOPHEN TAB 650MG DOSE (2X325MG) PO PRN (10:45)
[2020-12-15] MEDS ORDERED: oxyCODONE 5MG TAB PO PRN (10:45)
[2020-12-15] MEDS ORDERED: ONDANSETRON 4MG/2ML VIAL IV PRN ×2 (10:45)
--- NOTE | 2020-12-15 12:36 | RO ---
OPERATIVE NOTE DATE OF OPERATION: 12/15/2020 PREOPERATIVE DIAGNOSIS: Right hip degenerative arthritis. POSTOPERATIVE DIAGNOSIS: Right hip degenerative arthritis. PROCEDURE: Right total hip arthroplasty using size 52 Gription cup, 36 mm ceramic liner and 36 mm ball with +5 neck and #5 [place] standard offset stem, prosthesis made by [employer]. SURGEON: Jeronimo Cota MD [employer]KER LEVEL FIVE: ROYAL Menjivar ANESTHESIA: Spinal. COMPLICATIONS: None. ESTIMATED BLOOD LOSS: 200 mL. SPECIMEN: Femoral head. DESCRIPTION OF PROCEDURE: Antibiotics were given intravenously preoperatively. Successful spinal anesthetic was induced. She was placed in the lateral decubitus position, right hip uppermost, [place] hip positioner was utilized. The right hip area was carefully prepped and draped in usual sterile fashion. After appropriate time out a longitudinal lateral incision was made for direct lateral approach to the hip. Bovie cautery was used to coagulate crossing vessels down to the tensor fascia which was then divided in line with the skin incision. We split the gluteus medius anterior one-third, posterior two-third junction. We carefully divided down and divided more deeply to also divide the gluteus minimus and anterior hip capsule, carefully dissecting off the proximal femur as we externally rotated the hip and eventually dislocated it anteriorly. Piriformis fossa was identified, starter reamer was placed in the piriformis fossa followed by the canal-finding reamer and then the lateralizing reamer and then we reamed up to size 5. Femoral neck osteotomy was performed and we broached up to size 5. Calcar planer was utilized. We exposed the acetabulum. She had large circumferential osteophytes. We began reaming with 52 mm reamer after performing a labral excision 360 degrees and releasing the inferior capsule. We then advanced in1 mm increments to 51, 52 trial was placed followed by trial plastic cup and then we replaced the broach after irrigating the femur and then did trial reduction. There were some large inferior and posterior rim osteophytes which caused some anterior dislocation by levering. The extramedullary alignment jig was utilized to help guide placement of the cup. Otherwise, the cup fit well. She was very stable to flexion and internal rotation. Thus I felt that the posterior rim osteophytes needed debridement, otherwise the cup position was appropriate. I then removed the trial, copiously pulse lavaged irrigated out the canal. I did remove the osteophytes posteriorly and inferiorly with combination of curved osteotome and rongeur. The real 52 cup was then placed using the extramedullary alignment jig to estimate our version and abduction. The cup fit nicely. We irrigated, placed the central hole eliminator. We irrigated again and then placed the ceramic cup making sure it would seat flush and then used the impactor. We then exposed the proximal femur and our previous trial showed that a +5 neck gave the best soft tissue tension, 1.5 was a bit short we felt. Thus, I called for the real #5 [place] stem. After pulsatile lavage irrigating out the femoral canal the #5 stem was placed. We dried the trunnion and then placed real 36 ball x +5 neck and then reduced the hip. Again, she was brought through range of motion and found to be very stable with flexion internal rotation and extension external rotation with minimal soft tissue telescoping. We then repaired the anterior hip capsule back anatomically and irrigated between layers, closed the gluteus minimus and medius back anatomically to the trochanter with interrupted #1 PDS sutures, irrigated between layers, closed the tensor fascia with interrupted #1 PDS sutures and running #1 Stratafix. Hemostasis was secured at all times with Bovie cautery. Tranexamic acid was placed in the depths of the wound. We irrigated the deep subdermal tissues and closed them with interrupted 2-0 PDS suture, skin was closed with desi, covered by Optifoam dressing. She was then turned supine and transferred to the recovery room in stable condition. There were no intraoperative complications. Delilah Mariela Rodriguez was critical to the success of this difficult procedure by helping with appropriate soft tissue retraction, helped to dislocate and relocate the hip several times throughout the surgery to allow me to perform the operation smoothy, efficiently and safely. She also helped to close the wound, prepare the patient amongst many other tasks. cc: [facility]
[2020-12-15] MEDS: LR 1,000 ML IV SCH ×2 (13:46→16:02)
[2020-12-15] MEDS ORDERED: clonazePAM 0.5 MG TAB PO SCH (14:30)
[2020-12-15] MEDS ORDERED: ALBUTEROL 90 MCG/ACT 8GM HFA INHALER INH PRN (14:30)
--- NOTE | 2020-12-15 14:30 | HPEPDOC ---
[facility] Medical History & Physical Date of Admission Dec 15, 2020 Date of Service: Dec 15, 2020 Attending Physician: Dalia Caraballo MD History and Physical MEDICINE CONSULT HISTORY OF PRESENT ILLNESS: Patient is a 50-year-old female with past medical history of osteoarthritis of bilateral hips, anxiety, insomnia, ROSEMARIE uses CPAP occasionally, hypothyroidism, obesity and is post gastric bypass surgery who had elective right total hip replacement on 12/15/2020. According to notes the patient has failed conservative treatment as outpatient. Her right hip pain has affected her activities of daily living and weightbearing activities. On 12/15/2020 patient underwent elective right total hip replacement without any issues intraoperatively or postoperatively. Vital signs were stable. During her exam post-op, patient she had no acute complaints. Right hip XR showed right hip hemiarthroplasty is seen in good position. Pain was controlled. Medicine was consulted to follow while inpatient. REVIEW OF SYSTEMS: CONSTITUTIONAL: Denies lack of energy, unexplained weight gain or weight loss, loss of appetite, fever, night sweats EYES: Denies eye drainage, eye pain, visual changes, dry/irritated eye EARS, NOSE, MOUTH, THROAT: Denies difficulty hearing, ringing in ears, mouth sores, loose teeth, sore throat, facial numbness or pain NECK: Denies swollen glands CARDIOVASCULAR: Denies irregular heartbeat, racing heart, chest pains, swelling of feet or legs, pain in legs with walking RESPIRATORY: Denies shortness of breath, night sweats, wheezing, sputum prod uction, oxygen at home, coughing up blood, cough lasting > 1 month GASTROINTESTINAL: Denies abdominal pain, constipation, bloody stool, diarrhea, heartburn, nausea, vomiting GENITOURINARY: Denies painful urination, bloody urine, frequent urination, urgency, leaking urine, impotence MUSCULOSKELETAL: Denies leg swelling INTEGUMENTARY: Denies rash, itching, new skin lesion, change in existing skin lesion, hair loss or increase, breast changes. NEUROLOGICAL: Denies headaches, dizziness, numbness or tingling PSYCHIATRIC: Denies depression, anxiety, recurrent bad thoughts, mood swings, hallucinations PAST MEDICAL HISTORY: OA anxiety insomnia ROSEMARIE uses CPAP occasionally hypothyroidism, obesity and is post gastric bypass surgery HLD Hx of herpes simples Type I Asthma PAST SURGICAL HISTORY: Right hip arthroplasty 12/15/20 FAMILY HISTORY: father- due to aneurysm mother- due to uterine cancer SOCIAL HISTORY: Former smokerj 1 PPW x 10 years, quit 2001, rarely uses alcohol, denies drug use. Employed. Follows with Dr. Oneill, cardiology. PCP-Dr. Brush. full code. ALLERGIES: Please see below. HOME MEDICATIONS: Please see below. PHYSICAL EXAMINATION: VS: stable CONSTITUTIONAL: No acute distress, resting comfortably, AAO x 3 EYES: PERRLA, EOM intact HENT, MOUTH: Normocephalic, atraumatic, moist mucous membranes, NECK: SUPPLE, no JVD, no lymphadenopathy, no carotid bruit CV: Regular rate and rhythm, S1S2 normal, no murmurs/rubs/gallops RESPIRATORY: Clear to auscultation bilaterally, no rales/rhonchi/wheezes GI: BS positive in 4 quadrants, soft, nontender, nondistended, no rebound or guarding, no organomegaly : Deferred MUSCULOSKELETAL: ROM not tested in right hip, all other joints were wnl ROM. No cyanosis, clubbing, swelling, joint deformity, extremity edema INTEGUMENTARY: incisions of right hip covered in guaze, no extending erythema, pain or swelling noticed on right hip. Intact, no rashes, no lesions NEUROLOGIC: Cranial Nerves II-XII are intact, no focal deficits PSYCHIATRIC: Mood and affect are normal LABORATORY DATA: Please see below IMAGING: Right hip XR: right hip hemiarthroplasty is seen in good position ASSESSMENT: 50-year-old female with past medical history of osteoarthritis of bilateral hips, anxiety, insomnia, ROSEMARIE uses CPAP occasionally, hypothyroidism, obesity and is post gastric bypass surgery who had elective right total hip replacement on 12/15/2020. Medicine consulted to follow when inpatient PLAN: Right hip OA s/p right total hip replacement, POD 0 -XR post-op above -C/w pain control, PT/OT, resume all home medications -Ortho primary Hypothyroidism -When pharmacy confirms correct home dose, restart Anxiety/Depression -Stable -C/w home meds Insomnia -C/w home meds ROSEMARIE -patient she does not always use bipap -Can use home if needed Asthma -Stable. -Albuterol PRN DVT px -Per surgery DISPOSITION: Thank you kindly for this consult. will continue to follow while she is admitted. Vital Signs Vital Signs Date Time Temp Pulse Resp B/P (MAP) Pulse Ox O2 Delivery O2 Flow Rate FiO2 12/15/20 13:45 16 Room Air 12/15/20 12:30 98.4 75 92/64 (73) 100 Home Medications Scheduled Biotin (Biotin) 10 Mg Tablet, 1 TAB PO DAILY Calcium Citrate (Calcitrate) 200 Mg Tablet, 1 TAB PO DAILY Citalopram Hydrobromide (Citalopram HBr) 20 Mg Tablet, 40 MG PO DAILY Diphenhydramine HCl (Benadryl) 25 Mg Capsule, 50 MG PO QHS Levothyroxine Sodium (Synthroid) 150 Mcg Tablet, 1 TAB PO Q2D Levothyroxine Sodium (Synthroid) 175 Mcg Tablet, 1 TAB PO Q2D Melatonin (Melatonin) 10 Mg Capsule, 1 CAP PO QPM for sleep Multivitamins (Thera M Plus Tablet) 1 Each Tablet, 1 TAB PO DAILY Vitamin D (Vitamin D3) 10 Mcg Tablet, 50 MCG PO DAILY Scheduled PRN Albuterol Sulfate (Ventolin Hfa) 18 Gm Hfa.aer.ad, 2 PUFF INH Q4-6HP PRN for wheezing Clonazepam (Clonazepam) 0.5 Mg Tab.rapdis, 1 TAB PO DAILY PRN for A NXIETY/AGITATION Valacyclovir HCl (Valtrex) 500 Mg Tablet, 1 TAB PO DAILY PRN for SEE PROTOCOL Miscellaneous Medications Levonorgestrel (Mirena) 1 Each Iud, 20 MCG IU Allergies Coded Allergies: Penicillins (Verified Adverse Reaction, Mild, sleepy, difficult to wake, 12/15/20) A-FIB/CHADSVASC A-FIB History Current/History of A-Fib/PAF?: No Current PO Anticoag Therapy: No Age/Risk Factor Scoring CHADSVASC: CHADSVASC Response (Comments) Value Age Risk Factor Age < 65 years old 0 Gender Risk Factor Female 1 Hx of CHF No 0 Hx of HTN No 0 Hx of Stroke/TIA/or VTE No 0 Hx of Diabetes No 0 Hx of Vascular Disease No 0 Total 1 Treatment Other anticoagulant ordered: ASA bid Dalia Caraballo MD Dec 15, 2020 14:30
[2020-12-15] MEDS ORDERED: VITA200010 PO (14:39)
[2020-12-15] MEDS ORDERED: CITA40TA6 PO (14:39)
[2020-12-15] MEDS ORDERED: CLON0.5T2 PO (14:39)
[2020-12-15] MEDS: MORPHINE 2 MG/ML 1ML VIAL (J2270) IV PRN ×2 (16:02→18:18)
[2020-12-15] MEDS ORDERED: NS 1,000 ML IV ONE (17:00)
[2020-12-15] MEDS: VANCOMYCIN HCL 1,000 MG, VIAL MATE ADAPTER 1 EACH in D5W 250 ML IV SCH (18:11)
[2020-12-15] MEDS: ASPIRIN 81 MG ENTERIC TAB PO SCH (20:18)
[2020-12-15] MEDS: PERCOCET 5MG/325MG TAB PO PRN (20:19)
[2020-12-15] MEDS: diphenhydrAMINE 25MG CAP PO SCH ×2 (21:00→22:49)
[2020-12-16 02:00] VITALS: BP 110/62
[2020-12-16] MEDS: PERCOCET 5MG/325MG TAB PO PRN ×2 (04:36→11:46)
[2020-12-16 06:00] VITALS: BP 131/76
[2020-12-16 06:08] LABS: HEMATOCRIT 29.7 % (36.0-47.0); HEMOGLOBIN 10.2 g/dl (12.0-15.5); MEAN CORPUSCULAR HEMOGLOBIN 31.7 pg (27.0-33.0); MEAN CORPUSCULAR HGB CONC 34.3 g/dl (32.0-36.5); MEAN CORPUSCULAR VOLUME 92.2 fl (80.0-96.0); PLATELET COUNT, AUTOMATED 213 10^3/uL (150-450); RED BLOOD COUNT 3.22 10^6/uL (4.00-5.40); WHITE BLOOD COUNT 9.4 10^3/uL (4.0-10.0)
[2020-12-16 06:36] LABS: ALBUMIN 2.7 GM/DL (3.2-5.2); ALT/SGPT 20 U/L (12-78); BILIRUBIN,TOTAL 0.6 MG/DL (0.2-1.0); BLOOD UREA NITROGEN 8 MG/DL (7-18); CALCIUM LEVEL 8.2 MG/DL (8.5-10.1); CARBON DIOXIDE LEVEL 27 MEQ/L (21-32); CHLORIDE LEVEL 100 MEQ/L (98-107); CREATININE FOR GFR 0.39 MG/DL (0.55-1.30); GLOMERULAR FILTRATION RATE > 60.0 (>58); GLUCOSE, FASTING 109 MG/DL (70-100); POTASSIUM SERUM 3.8 MEQ/L (3.5-5.1); SODIUM LEVEL 134 MEQ/L (136-145); TOTAL PROTEIN 5.2 GM/DL (6.4-8.2)
[2020-12-16] MEDS ORDERED: ECOT81TA5 PO (06:39)
[2020-12-16] MEDS ORDERED: PERC5TAB12 PO (06:39)
[2020-12-16] MEDS: VANCOMYCIN HCL 1,000 MG, VIAL MATE ADAPTER 1 EACH in D5W 250 ML IV SCH (06:47)
[2020-12-16] MEDS: LR 1,000 ML IV SCH (06:48)
[2020-12-16] MEDS ORDERED: MIRALAX *UNIT DOSE* 17GM PACKET PO SCH (09:00)
[2020-12-16] MEDS ORDERED: CitaloPRAM (CeleXA) 20 MG TAB PO SCH (09:00)
[2020-12-16] MEDS ORDERED: MOM 30ML SUSPENSION UDC PO SCH (09:00)
--- NOTE | 2020-12-16 09:18 | IPN ---
PROGRESS NOTE DATE: 12/16/2020 SUBJECTIVE: Marie is seen on 5 [facility]. She is postop day #1. She had a vasovagal episode yesterday, she apparently has had these in the past. She denies any chest pain, shortness of breath or dizziness at this time. Pain control was only moderately successful. PHYSICAL EXAMINATION: VITAL SIGNS: Afebrile. Vital signs are stable. blood pressure is 131/76. GENERAL: Alert and conversant, in no distress. LUNGS: Clear. HEART: Heart is regular. ABDOMEN: Soft, nontender, no peripheral edema. EXTREMITIES: Normal strength in the arms and legs. LABORATORY DATA: CBC is unremarkable, hemoglobin is 10.2, sodium 134, potassium 3.8, BUN 8, creatinine 0.4, glucose is 109. IMPRESSION: 1. Status post right total hip arthroplasty postop day #1. The patient had a vasovagal episode yesterday. We discussed ways to try to reduce vasovagal events by lower body muscular tensing which might help. Blood pressure looks good today. 2. Hypothyroidism. Continue levothyroxine. 3. History of anxiety/depression. Continue her current home medications. 4. History of asthma. Lungs are clear. There is no sign of any problem with this currently.
[2020-12-16] MEDS: ASPIRIN 81 MG ENTERIC TAB PO SCH (09:41)
== END 2020-12-16 12:10 | disposition home or self-care (01) | DRG 470 ==
LOC: M OR 06:13 → M MS5PR 11:00
PROVIDERS: ADMIT Orthopaedic Surgery; ATTEND Orthopaedic Surgery
PROC: 0SR90JA Replacement of Right Hip Joint with Synthetic Substitute, Uncemented, Open Approach (ICD-10-PCS; principal; 2020-12-15 07:30)
DX: M16.11 Unilateral primary osteoarthritis, right hip (principal); Z87.891 Personal history of nicotine dependence; F41.9 Anxiety disorder, unspecified; F32.9 Major depressive disorder, single episode, unspecified; E03.9 Hypothyroidism, unspecified; G47.33 Obstructive sleep apnea (adult) (pediatric); J45.20 Mild intermittent asthma, uncomplicated; Z79.899 Other long term (current) drug therapy; Z88.0 Allergy status to penicillin

== ENCOUNTER 2020-12-17 16:41 | Emergency (ER) | payer OTHER ==
[~2020-12-17] VITALS: Ht 167.6 cm; Wt 84.1 kg
[~2020-12-17 16:41] MED LIST changes: +CITA40TA6 PO; +CLON0.5T2 PO; +VITA200010 PO
--- NOTE | 2020-12-17 17:48 | REP ---
INDICATION: pain after movement Nontraumatic hip pain. COMPARISON: None. TECHNIQUE: Frontal view of the pelvis with neutral and frog lateral views of the right hip. FINDINGS: Recent right hip replacement in satisfactory position and overlying postsurgical changes are noted. Pelvis intact. Prior left hip replacement appears stable. IUD identified. IMPRESSION: Normal recent right hip replacement. <Electronically signed by Tobi Davis > 12/17/20 [id number]
--- OUTSIDE RECORDS SUMMARY | 2020-12-17 17:57 | CCD ---
Author Author [facility] Organization [facility] Address Unknown Phone Unavailable Care Team Providers Care Music Education Adjunct Professor Name Role Phone Hi, Renzo Husain MD [...] Mirella THOMPSON Unavailable Unavailable Hi, A Mirella THOMPOSN Unavailable Unavailable Hi, A Mirella THOMPSON Unavailable [...] Hi, Renzo Husain MD Unavailable Unavailable Hi, Renoz Husain MD Unavailable Unavailable Hi, Renzo Husain [...] Vaneencoyam, Luzma Hernandez MD Unavailable Unavailable Vaneencoyam, uLzma Hernandez MD Unavailable Unavailable Vaneenenaam, Luzma Hernandez [...] Unavailable Unavailable Ariadne Brush MD Unavailable Unavailable Airadne Brush MD Unavailable Unavailable Ariadne Brush MD [...] is protected by Article 27-F of the [facility] [facility] [place] [facility] law. If you continue you may have access to information: Regarding HIV / AIDS; Provided by facilities licensed or operated by the [facility] Office of Mental Health; or Provided by the [facility] Office for People With Developmental Disabilities. If such information is present, then the following [facility] mandated warning applies: This information has been [...] law may result in a fine or mcc sentence or both. A general authorization for the release of medical or other information is NOT sufficient authorization for further disc losure. Allergies and Adverse Reactions Type Description Substance Reaction Status Data Source(s ) Penicillin (For Allergies Use Only) Penicillin (For Allergie s Use Only) Penicillin (For Allergies Use Only) COMA LIKE STATE, DIFF. TO WAKE UP Active eCW1 ([facility]) Family History Family Member Name Family Member Gender Family Member Status Date o f Status Description Data Source(s) Unknown Unknown Problem MED[facility] ([facility]) mother Unknown Male Problem [facility] ([facility]) Encounters Encounter Providers Location Date Indications Data Source(s ) Outpatient Attender: Francesco Stein 12/08 10:00:00 AM EST MEDENT ([facility] ) Outpatient Attender: Francesco Stein 09/25 10:00:00 AM EST MEDENT ([facility] ) Outpatient Attender: ANGELA CORONA MD Main Office 09/08/2020 11:15:00 AM EDT MED[facility] ([facility]) Outpatient Attender: ANGELA CORONA MD Main Office 06/13/2020 02:30:00 PM EDT MED[facility] ([facility]) [facility] [address] [place] [address] 04/04/2020 12:00:00 AM EDT eCW1 ([facility]) [facility] [address] [place] [phone] 03/28/2020 12:00:00 AM EDT eCW1 ([facility]) [facility] [address] [place] [phone] 03/27/2020 12:00:00 AM EDT eCW1 ([facility]) [facility] [address] [place] [phone] 03/27/2020 12:00:00 AM EDT eCW1 ([facility]) Outpatient Attender: Francesco Stein 03/26 08:00:00 AM EDT MEDENT ([facility] ) [facility] [address] [place] [phone] 03/26/2020 12:00:00 AM EDT eCW1 ([facility]) [facility] [address] [place] [address] 03/24/2020 12:00:00 AM EDT eCW1 ([facility]) [facility] [address] [place] [address] 03/20/2020 12:00:00 AM EDT eCW1 ([facility]) [facility] [address] [place] [phone] 03/19/2020 12:00:00 AM EDT eCW1 ([facility]) [facility] [address] [place] [phone] 03/17/2020 12:00:00 AM EDT eCW1 ([facility]) [facility] [address] [place] [address] 03/10/2020 12:00:00 AM EDT eCW1 ([facility]) [facility] [address] [place] [address] 03/07/2020 12:00:00 AM EDT eCW1 ([facility]) [facility] [address] [place] [phone] 12/03/2019 12:00:00 AM EST eCW1 ([facility]) Outpatient Referrer: Luzma Cota MD 11/28/2019 09: 10:00 AM EST [facility] Outpatient Referrer: Luzma Cota MD 11/28/2019 09: 06:00 AM EST [facility] 10/19/2019 06:16:42 AM [facility] INPATIENT Attender: Mirella Do MDAdmitter: Mirella hernandez MD [id number] 10/19/2019 06:16:00 AM EST - 10/20/2019 11:12:00 AM [facility] Patient discharged. SURG ADMIT Attender: Arabella Miller [id number] 10/18/2019 10:39:01 AM [facility] Medications Medication Brand Name Start Date Product Form Dose Route Admi nistrative Instructions Pharmacy Instructions Status Indications Reaction Description Data Source(s) Cholecalciferol 1000 UNT Oral Tablet Vitamin D 09/25/2020 12:00:00 A M EST ORAL active MEDENT ([facility]) Clonazepam 0.5 MG Oral Tablet Clonazepam 06/12/2020 12:00:00 AM EDT active [facility] ([facility]) Diphenhydramine Hydrochloride 25 MG Oral Capsule [Benadryl] Benadryl Allergy 06/12/2020 12:00:00 AM EDT active [facility] ([facility]) Levothyroxine Sodium 0.15 MG Oral Tablet Levothyroxine Sodiu m 06/12/2020 12:00:00 AM EDT active EDENT ([facility]) Citalopram 40 MG Oral Tablet Citalopram Hydrobromide 06/12/2020 12:00:00 AM EDT active [facility] ( [facility]) 200 ACTUAT Albuterol 0.09 MG/ACTUAT Metered Dose Inhal er [Ventolin] Ventolin HFA 06/12/2020 12:00:00 AM EDT active [facility] ([facility]) Melatonin Melatonin 06/12/2020 12:00:00 AM EDT act dru MED[facility] ([facility]) Calcium Citrate 1500 MG / Cholecalciferol 250 UNT Oral Tablet Calcium Citrate + D 06/12/2020 12:00:00 AM EDT active [facility] ([facility]) Multi Vitamin Daily 06/12/2020 12:00:00 AM EDT active [facility] ([facility]) Biotin 5 MG Oral Capsule Biotin 06/12/2020 12:00:00 AM EDT active [facility] ([facility]) Vitamin B 12 0.1 MG Oral Tablet Vitamin B12 06/12/2020 12:00:00 AM EDT active [facility] ([facility]) Levothyroxine Sodium 0.15 MG Oral Tablet Levothyroxine Sodiu m 03/26/2020 12:00:00 AM EDT ORAL active M EDENT ([facility]) Calcium Citrate 950 MG Oral Tablet Calcitrate 03/26/2020 12:00:00 AM EDT ORAL active [facility] ([facility]) Multi Complete 03/26/2020 12:00:00 AM EDT ORAL act dru MEDENT ([facility]) Vitamin B 12 0.0667 MG/ML Oral Solution Vitamin B-12 03/26/20 12:00:00 AM EDT active MEDENT ( [facility]) Acetaminophen 325 MG Oral Tablet acetaminophen (TYLENO L) tablet 975 mg acetaminophen (TYLENOL) tablet 975 mg 10/20/2019 08:00:00 AM EST 97 5 mg oral active 975 mg, oral, E very 6 hours scheduled, First dose on 10/20/19 at 0800, Phase II/On Unit
start 6 hours after final intravenous acetaminophen dose
[facility] Medication administered onsite levothyroxine (SYNTHROID, UNITHROID) tablet 175 mcg 10/20/2019 07:30:00 AM EST 175 ug oral active hypothyroidism 1 75 mcg, oral, Every morning before breakfast, First dose on 10/20/19 at 0730, Phase II/On Unit
Indications: hypothyroidism [facility] hypothyroidism Medication administered onsite Citalopram 40 MG Oral Tablet citalopram (CeleXA) table t 40 mg citalopram (CeleXA) tablet 40 mg 10/20/2019 07:00:00 AM EST 40 mg oral active 40 mg, oral, Every morning, First dose on 10/20/19 at 0700, Phase II/On Unit [facility] Medication administered onsite Calcium Chloride 0.0014 MEQ/ML / Potassi um Chloride 0.004 MEQ/ML / Sodium Chloride 0.103 MEQ/ML / Sodium Lactate 0.028 MEQ/ML Injectable Solution lactated Ringer's bolus 1,000 mL lactated Ringer's bolus 1,000 mL 10/20/2019 06:00:00 A M EST 1000 mL intravenous completed 1, 000 mL, intravenous, Once, 10/20/19 at 0600, 1 dose, Phase II/On Unit
BOLUS- Post-Op Day #[address]
[facility] Medication administered onsite 1 ML heparin sodium, porcine 5000 UNT/ML Injection heparin (porcine) injection 5,000 Units heparin (porcine) injection 5,000 Units 10/19/2019 04:30:00 PM EST 5000 U subcutaneous active 5,000 Units , subcutaneous, Every 8 hours, First dose on Tue10/19/19 at 1630, Phase II/On Unit
Adjust start time as needed
[facility] Medication administered onsite gabapentin 300 MG Oral Capsule gabapentin (NEURONTIN) capsule 300 mg gabapentin (NEURONTIN) capsule 300 mg 10/19/2019 04:00:00 PM EST 300 mg oral active 300 mg, oral, 3 times daily, First dose on Tue10/19/19 at 1600, 21 doses, Phase II/On Unit [facility] Medication administered onsite 3 ML Insulin, Aspart, Human 100 UNT/ML P en Injector insulin aspart (NovoLOG) inj pen 0-14 Units insulin aspart (NovoLOG) inj pen 0-14 Units 10/19/2019 04:00:00 PM EST subcutaneous aborted 0-1 4 Units, subcutaneous, Every 4 hours scheduled, First dose on Tue10/19/19 at 1600, Phase II/On Unit
Blood Sugar DoseLess than 140 No [id number] 6 [id number] 8 [id number] 10 [id number] 12 [id number] 14 UnitsCall Provider if Blood Sugar is greater than 350.
[facility] Medication administered onsite Calcium Chloride 0.001 MEQ/ML [...] catheter discontinued, wait until after first voiding.
[facility] Medication administered onsite pantoprazole (PROTONIX) EC tablet [...] unable to take orally.
[Order 2 End] [facility] Medication administered onsite Metoprolol Tartrate 25 MG Oral Tablet me toprolol tartrate (LOPRESSOR) tablet 25 mg metoprolol tartrate (LOPRESSOR) tablet 25 mg 10/19/2019 02:00:00 PM EST 25 mg oral active 25 mg, ora l, Every 12 hours, First dose on Tue10/19/19 at 1400, Phase II/On Unit
Hold for systolic BP less than 100 ; Give first dose on arrival to floor.
[facility] Medication administered onsite Simethicone 80 MG Chewable Tablet simethicone (MYLICON ) chewable tablet 80 mg simethicone (MYLICON) chewable tablet 80 mg 10/19/2019 02:00:00 PM EST 80 mg oral active 80 mg, oral, E very 6 hours scheduled, First dose on Tue10/19/19 at 1400, Phase II/On Unit [facility] Medication administered onsite Prochlorperazine 10 MG Oral Tablet prochlorperazine (C OMPAZINE) tablet 10 mg prochlorperazine (COMPAZINE) tablet 10 mg 10/19/2019 01:23:04 PM EST 10 mg oral active 10 mg, oral, E very 6 hours PRN, nausea, Starting Tue10/19/19 at 1323, Phase II/On Unit [facility] Medication administered onsite ondansetron (ZOFRAN-ODT) dispersible tablet [...] unable to take orally.
[Order 2 End] [facility] Medication administered onsite metoclopramide HCl (REGLAN) tablet [...] unable to take orally.
[Order 2 End] [facility] Medication administered onsite 1 ML Ketorolac Tromethamine 30 MG/ML Inj ection ketorolac (TORADOL) injection 30 mg ketorolac (TORADOL) injection 30 mg 10/19/2019 01:23:03 PM EST 30 mg intravenous active 30 mg, intrav enous, Every 8 hours PRN, severe pain, moderate to severe pain, Starting Tue10/19/19 at 1323, Phase II/On Unit [facility] Medication administered onsite Clonidine Hydrochloride 0.1 MG Oral Tablet cloNIDine ( CATAPRES) tablet 0.1 mg cloNIDine (CATAPRES) tablet 0.1 mg 10/19/2019 01:23:03 PM EST 0.1 mg oral active 0.1 mg, oral, Every 6 hours PRN, high blood pressure, for systolic BP greater than 140 and/or diastolic BP greater than 90, Starting Tue10/19/19 at 1323, Phase II/On Unit [facility] Medication administered onsite Clonazepam 1 MG Oral Tablet clonazePAM (KlonoPIN) tabl et 0.5 mg clonazePAM (KlonoPIN) tablet 0.5 mg 10/19/2019 01:23:03 PM EST 0.5 mg oral active 0.5 mg, oral, 2 times daily PRN, anxiety , Starting Tue10/19/19 at 1323, Phase II/On Unit
[employer] - follow Safe Handling Precautions when administering ; Refer to Pharmacy Resources on hospital intranet page for additional info.
[facility] Medication administered onsite Albuterol 0.83 MG/ML Inhalant Solution a lbuterol 2.5 mg/3 mL (0.083%) nebulizer solution 2.5 mg albuterol 2.5 mg/3 mL (0.083%) nebulizer solution 2.5 mg 10/19/2019 01:23:03 PM EST 2.5 mg nebulization active 2.5 mg, nebulization, Every 6 hours PRN, wheezing, shortness of breath, Starting Tue10/19/19 at 1323, Phase II/On Unit [facility] Medication administered onsite 0.4 ML Enoxaparin sodium 100 MG/ML Prefi lled Syringe enoxaparin (LOVENOX) syringe 40 mg enoxaparin (LOVENOX) syringe 40 mg 10/19/2019 01:23:03 PM EST 40 mg subcutaneous completed 40 mg, subcutaneous, During hospitalization, Starting Tue10/19/19 at 1323, 1 dose, Phase II/On Unit
Give Once, ON DISCHARGE.
[facility] Medication administered onsite Calcium Chloride 0.0014 MEQ/ML / Potassi um Chloride 0.004 MEQ/ML / Sodium Chloride 0.103 MEQ/ML / Sodium Lactate 0.028 MEQ/ML Injectable Solution lactated Ringer's infusion lactated Ringer's infusion 10/19/2019 12:00:00 PM EST 100 mL/h intravenous aborted 100 mL/h r, intravenous, at 100 mL/hr, Continuous, Starting Tue10/19/19 at 1200, Recovery (only) [facility] Medication administered onsite Hydralazine Hydrochloride 20 MG/ML Injec table Solution hydrALAZINE (APRESOLINE) injection 5 mg hydrALAZINE (APRESOLINE) injection 5 mg 10/19/2019 11: 56:10 AM EST 5 mg intravenous aborted 5 mg , intravenous, Every 20 min PRN, Systolic BP >140 and/or Diastolic BP >90, Starting Tue10/19/19 at 1156, Recovery (only)
To be given in PACU Only.
[facility] Medication administered onsite Labetalol hydrochloride 5 MG/ML Injectab le Solution labetalol (NORMODYNE,TRANDATE) injection 10 mg labetalol (NORMODYNE,TRANDATE) injection 10 mg 10/19/2019 11:56:10 AM EST 10 mg intravenous aborte d 10 mg, intravenous, Every 5 min PRN, high blood pressure, Systolic BP >140, Starting Tue10/19/19 at 1156, Recovery (only)
To be given in PACU Only.
[facility] Medication administered onsite fentaNYL (SUBLIMAZE) injection 25 mcg [id number] 10/19/2019 11:40 :19 AM EST 25 ug intravenous aborted 25 mcg, intravenous, Every 5 min PRN, severe pain, Starting Tue10/19/19 at 1140, 8 doses, Recovery (only) [facility] Medication administered onsite Alprazolam 0.25 MG Oral Tablet ALPRAZolam (XANAX) tabl et 0.25 mg ALPRAZolam (XANAX) tablet 0.25 mg 10/19/2019 08:00:00 AM EST 0.25 mg oral completed 0.25 mg, oral, Once, 05/02 at 0800, 1 dose, Preprocedure
call center coordinator to surgery
[facility] Medication administered onsite Calcium Chloride 0.0014 MEQ/ML / Potassi um Chloride 0.004 MEQ/ML / Sodium Chloride 0.103 MEQ/ML / Sodium Lactate 0.028 MEQ/ML Injectable Solution lactated Ringer's bolus 500 mL lactated Ringer's bolus 500 mL 10/19/2019 08:00:00 AM EST 500 mL intravenous completed 500 mL, in travenous, at 500 mL/hr, Administer over 1 Hours, Once, Tue10/19/19 at 0800, 1 dose, Preprocedure [facility] Medication administered onsite Acetaminophen 500 MG Oral Tablet acetaminophen (TYLENO L) tablet 1,000 mg acetaminophen (TYLENOL) tablet 1,000 mg 10/19/2019 08:00:00 AM EST 1000 mg oral completed 1,000 mg, oral , Once, Tue10/19/19 at 0800, 1 dose, Preprocedure
call center coordinator to surgery
[facility] Medication administered onsite Calcium Chloride 0.0014 MEQ/ML / Potassi um Chloride 0.004 MEQ/ML / Sodium Chloride 0.103 MEQ/ML / Sodium Lactate 0.028 MEQ/ML Injectable Solution lactated Ringer's infusion lactated Ringer's infusion 10/19/2019 08:00:00 AM EST 100 mL/h intravenous active 100 mL/h r, intravenous, at 100 mL/hr, Continuous, Starting Tue10/19/[address] [facility] Medication administered onsite Calcium Chloride 0.0014 MEQ/ML / Potassi um Chloride 0.004 MEQ/ML / Sodium Chloride 0.103 MEQ/ML / Sodium Lactate 0.028 MEQ/ML Injectable Solution lactated Ringer's infusion lactated Ringer's infusion 10/19/2019 08:00:00 AM EST 100 mL/h intravenous active 100 mL/h r, intravenous, at 100 mL/hr, Continuous, Starting Tue10/19/[address] [facility] Medication administered onsite Famotidine 20 MG Oral Tablet famotidine (PEPCID) table t 20 mg famotidine (PEPCID) tablet 20 mg 10/19/2019 08:00:00 AM EST 20 mg oral completed 20 mg, oral, Once, Tue10/19/19 at 0800, 1 dose, Preprocedure
Administer with sip of water on arrival/case resolution specialist.
[facility] Medication administered onsite 1 ML heparin sodium, porcine 5000 UNT/ML Injection heparin (porcine) injection 5,000 Units heparin (porcine) injection 5,000 Units 10/19/2019 08:00:00 AM EST 5000 U subcutaneous completed 5,000 Uni ts, subcutaneous, Once, Tue10/19/19 at 0800, 1 dose, Preprocedure
call center coordinator to surgery
[facility] Medication administered onsite gabapentin 300 MG Oral Capsule gabapentin (NEURONTIN) capsule 300 mg gabapentin (NEURONTIN) capsule 300 mg 10/19/2019 08:00:00 AM EST 300 mg oral completed 300 mg, oral, Once, Tue10/19/19 at 0800, 1 dose, Preprocedure
call center coordinator to surgery
[facility] Medication administered onsite Tetrahydrocannabinol 2.5 MG Oral Capsule dronabinol (M ARINOL) capsule 5 mg dronabinol (MARINOL) capsule 5 mg 10/19/2019 08:00:00 AM EST 5 mg oral completed 5 mg, oral, Once, Fr i 10/19/19 at 0800, 1 dose, Preprocedure
call center coordinator to surgery
[facility] Medication administered onsite Dexamethasone 4 MG Oral Tablet dexAMETHasone (DECADRON ) tablet 4 mg dexAMETHasone (DECADRON) tablet 4 mg 10/19/2019 08:00:00 AM EST 4 mg oral completed 4 mg, oral, Once, Fr i 10/19/19 at 0800, 1 dose, Preprocedure
call center coordinator to surgery
[facility] Medication administered onsite Albuterol 0.83 MG/ML Inhalant Solution a lbuterol 2.5 mg/3 mL (0.083%) nebulizer solution 2.5 mg albuterol 2.5 mg/3 mL (0.083%) nebulizer solution 2.5 mg 10/19/2019 08:00:00 AM EST 2.5 mg nebulization active 2.5 mg, nebulization, Once, 10/19/19 at 0800, 1 dose, Preprocedure
To be started in holding area
[facility] Medication administered onsite Prochlorperazine 10 MG Oral Tablet prochlorperazine (C OMPAZINE) tablet 10 mg prochlorperazine (COMPAZINE) tablet 10 mg 10/19/2019 08:00:00 AM EST 10 mg oral completed 10 mg, oral, O nce, 10/19/19 at 0800, 1 dose, Preprocedure
call center coordinator to surgery
[facility] Medication administered onsite celecoxib 200 MG Oral Capsule celecoxib (CeleBREX) cap roberto 200 mg celecoxib (CeleBREX) capsule 200 mg 10/19/2019 08:00:00 AM EST 200 mg oral completed 200 mg, oral, Once, Tue10/19/19 at 0800, 1 dose, Preprocedure
call center coordinator to surgery
[facility] Medication administered onsite Clonidine Hydrochloride 0.1 MG Oral Tablet cloNIDine ( CATAPRES) tablet 0.1 mg cloNIDine (CATAPRES) tablet 0.1 mg 10/19/2019 08:00:00 AM EST 0.1 mg oral completed 0.1 mg, oral, Once, Tue10/19/19 at 0800, 1 dose, Preprocedure
call center coordinator to surgery
[facility] Medication administered onsite Vitamin B 12 1 MG Oral Tablet cyanocobalamin (VITAMIN B-12) 1,000 mcg tablet cyanocobalamin (VITAMIN B-12) 1,000 mcg tablet 10/19/2019 12:00:00 AM EST 1000 ug oral active Take 1 tab let (1,000 mcg total) by mouth 1 (one) time each day. [facility] 0.4 ML Enoxaparin sodium 100 MG/ML Prefi lled Syringe enoxaparin (LOVENOX) 40 mg/0.4 mL syringe enoxaparin (LOVENOX) 40 mg/0.4 mL syringe 10/19/2019 1 2:00:00 AM EST 40 mg subcutaneous active Inj ect 0.4 mL (40 mg total) under the skin 1 (one) time each day for [address] [facility] Omeprazole 40 MG Delayed Release Oral Ca psule omeprazole (PriLOSEC) [address] capsule omeprazole (PriLOSEC) [address] capsule 10/19/2019 12:00:00 AM ES T 40 mg oral active Take 1 cap roberto (40 mg total) by mouth 1 (one) time each day. Do not crush or chew. [facility] multivitamin tablet,chewable [id number] 10/19/2019 12:00:00 AM EST 2 {tbl} oral active Chew 2 tablets 1 (one) time each day. [facility] Magnesium Hydroxide 80 MG/ML Oral Suspen gurmeet magnesium hydroxide (MILK OF MAGNESIA) 400 mg/5 mL suspension magnesium hydroxide (MILK OF MAGNESIA) 4 00 mg/5 mL suspension 10/19/2019 12:00:00 AM EST 15 mL oral acti ve Take 15 mL by mouth 1 (one) time each day if needed for constipation (Every hour for the maximum for 4 times a day.). [facility] 0.4 ML Enoxaparin sodium 100 MG/ML Prefi lled Syringe enoxaparin (LOVENOX) 40 mg/0.4 mL syringe enoxaparin (LOVENOX) 40 mg/0.4 mL syringe 10/19/2019 1 2:00:00 AM EST 40 mg subcutaneous aborted Inj ect 0.4 mL (40 mg total) under the skin 1 (one) time each day for [address] [facility] Simethicone 80 MG Chewable Tablet simethicone (MYLICON ) 80 mg chewable tablet simethicone (MYLICON) 80 mg chewable tablet 10/19/2019 12:00:00 AM EST 80 mg oral active Chew 1 tablet (80 mg total) every 6 (six) hours if needed for flatulence. [facility] Ondansetron 4 MG Oral Tablet ondansetron (ZOFRAN) 4 mg tablet ondansetron (ZOFRAN) 4 mg tablet 10/19/2019 12:00:00 AM EST 4 mg oral active Take 1 tablet (4 mg total) by mouth every 6 (six) hours if needed for nausea or vomiting. [facility] Acetaminophen 325 MG Oral Tablet acetaminophen (TYLENO L) 325 mg tablet acetaminophen (TYLENOL) 325 mg tablet 10/19/2019 12:00:00 AM EST 65 0 mg oral active Take 2 tablets (650 mg total) by mouth every 6 (six) hours if needed for mild pain, headaches or fever. [facility] Insurance Providers Payer name Policy type / Coverage type Policy ID Covered alliance party ID Covered alliance party's relationship to chinchilla Policy Chinchilla Plan Information [facility] SP [employer] O [id number] [facility] [id number] [facility] [id number] Self [id number] [facility] [id number] Self [id number] [facility] [id number] Lifetime Benefit ([employer]) Commercial [id number] Self [id number] Umr ([facility]) Commercial [id number] Self [id number] ANSI-Commercial [id number] [employer] [id number] SP [id number] Lifetime Benefit Solution Commercial [id number] Self [id number] Lifetime Benefit Solution Commercial [id number] Self [id number] [employer] O [id number] O [id number] Lifetime Benefit ([employer]) Commercial [id number] Self [id number] Lifetime Benefit Solution Commercial [id number] Self [id number] Lifetime Benefit ([employer]) Commercial Self LIFETIME BENEFIT [employer]IO O [id number] S [id number] Lifetime [employer]it Solutions/EBS [employer] F [id number] SELF [id number] [employer]IF[employer] [id number] SP [id number] [employer] CLAIMS [id number] SP [id number] Lifetime [employer]it [employer]/EBS [employer] F [id number] ALEX F [id number] [employer] BENEFIT [employer] O [id number] S [id number] [employer]IF[employer]IME BENEFIT [employer] O [id number] S [id number] Lifetime Benefit Solution Commercial Self [employer] P [id number] S [id number] Problems, Conditions, and Diagnoses Code Display Name Description Problem Type Effective Dates Data Source(s) 242275254 Preoperative cardiovascular examination Preoperative cardiovascular examination Problem 09/08/2020 12:00:00 AM EDT [facility] ([facility]) [id number] Cardiomyopathy Cardiomyopathy Problem 09/08/2020 12:00: 00 AM EDT [facility] ([facility]) [id number] Obstructive sleep apnea syndrome Obstructive sle ep apnea syndrome Problem 06/13/2020 12:00:00 AM EDT [facility] ([facility] [id number] Paroxysmal tachycardia Paroxysmal tachycardia Problem 06/13/2020 12:00:00 AM EDT [facility] ([facility]) [id number] Body mass index 30+ - obesity Body mass index 30+ - ob esity Problem 06/13/2020 12:00:00 AM EDT [facility] ([facility]) [id number] Electrocardiogram abnormal Electrocardiogram abnormal Problem 06/13/2020 12:00:00 AM EDT [facility] ([facility]) [id number] Dizziness and giddiness Dizziness and giddiness Proble m 06/13/2020 12:00:00 AM EDT [facility] ([facility]) [id number] Palpitations Palpitations Problem 06/13/2020 12:00:00 A M EDT [facility] ([facility]) Z68.43 Body mass index (BMI) 50-59.9 , adult Laure[place] dy mass index (BMI) 50.0-59.9, adult Diagnosis 10/19/2019 06:16:53 AM [facility] E66.01 Morbid (severe) obesity due to excess ca lories Morbid (severe) obesity due to excess calories Diagnosis 10/19/2019 06:16:53 AM [facility] Surgeries/Procedures Procedure Description Date Indications Data Source(s) ECG ROUTINE ECG W/LEAST 12 LDS W/I&R 09/08/2020 12:00: 00 AM EDT [facility] XTRNL PT ACTIVATED ECG RECORD MONITOR 30 DAYS 07/28/20 20 12:00:00 AM EDT [facility]) XTRNL PT ACTIVTD ECG DWNLD 30 DAYS PHYS R&I 07/28/2020 12:00:00 AM EDT [facility] ([facility]) ECHO TTHRC R-T 2D W/WOM-MODE COMPL SPEC&COLR DOP 07/25 12:00:00 AM EDT [facility] ([facility]) ECG ROUTINE ECG W/LEAST 12 LDS W/I&R 06/13/2020 12:00: 00 AM EDT [facility] ([facility]) BX BREAST 1ST LESION US IMAG 03/26/2020 12:00:00 AM ED T eCW1 ([facility]) BX BREAST 1ST LESION STRTCTC 03/19/2020 12:00:00 AM ED T eCW1 ([facility]) POCT GLUCOSE METER UNSOLICITED RESULTS POCT GLUCOSE METER U NSOLICITED RESULTS Routine 10/20/2019 3:56 AM EST 10/20/2019 08:56:00 AM [facility] POCT GLUCOSE METER UNSOLICITED RESULTS POCT GLUCOSE METER U NSOLICITED RESULTS Routine 10/19/2019 11:39 PM EST 10/20/2019 04:39:00 AM [facility] POCT GLUCOSE METER UNSOLICITED RESULTS POCT GLUCOSE METER U NSOLICITED RESULTS Routine 10/19/2019 8:02 PM EST 10/20/2019 01:02:[address] [facility] POCT GLUCOSE METER UNSOLICITED RESULTS POCT GLUCOSE METER U NSOLICITED RESULTS Routine 10/19/2019 4:40 PM EST 10/19/2019 09:40:[address] [facility] POCT GLUCOSE METER UNSOLICITED RESULTS POCT GLUCOSE METER U NSOLICITED RESULTS Routine 10/19/2019 12:51 PM EST 10/19/2019 05:51:[address] [facility] BIPAP/CPAP BIPAP/CPAP Routine 10/19/2019 11:56 AM EST 10/19/2019 04:56:[address] [facility] BIPAP/CPAP BIPAP/CPAP Routine 10/19/2019 11:56 AM EST 10/19/2019 04:56:18 PM [facility] BIPAP/CPAP BIPAP/CPAP Routine 10/19/2019 11:56 AM EST 10/19/2019 04:56:18 PM [facility] INCENTIVE SPIROMETRY RT INCENTIVE SPIROMETRY RT Routine 10/19/2019 11:56 AM EST 10/19/2019 04:56:18 PM EST [facility] POCT GLUCOSE METER UNSOLICITED RESULTS POCT GLUCOSE METER U NSOLICITED RESULTS Routine 10/19/2019 11:53 AM EST 10/19/2019 04:53:00 PM [facility] LAPS GSTR RSTCV PX W/BYP DELILAH-EN-Y [...] (severe) obesity due to excess calories (CMS/HCC) [facility] Abdominal adhesions Fatty liver Body mass index (BMI) of 50-59.9 in adul t (CMS/HCC) Morbid (severe) obesity due to excess ca lories (CMS/HCC) POCT GLUCOSE METER UNSOLICITED RESULTS POCT GLUCOSE METER U NSOLICITED RESULTS Routine 10/19/2019 8:10 AM EST 10/19/2019 01:10:[address] [facility] URINE TEST VISUAL COLOR CMPRSN METHS , URINE STAT 10/19/2019 6:19 AM EST 10/19/2019 11:19:00 AM EST [facility] Results ID Date Data Source [id number] 12/10/2020 12:00:00 PM EST [facility] Name Value Range Interpretation Code Description Data Georgette rce(s) Supporting Document(s) SARS coronavirus 2 RNA Not Detected [facility] [place] This lab was ordered by [facility] and reported by [facility]. ID Date Data Source [id number] 12/08/2020 12:40:00 PM EST [facility] ([facility]) Name Value Range Interpretation Code Description Data Georgette rce(s) Supporting Document(s) Erythrocyte sedimentation rate by Westergren method 13 mm/hr 0-20 [facility] ([facility]) ID Date Data Source [id number] 12/08/2020 12:40:00 PM EST [facility] ([facility]) Name Value Range Interpretation Code Description Data Georgette rce(s) Supporting Document(s) Red Blood Count 4.41 10 4.00-5.40 [facility] ([facility]) White Blood Count 8.4 10 4.0-10.0 [facility] ([facility]) Hematocrit 41.7 % 36.0-47.0 [facility]) Hemoglobin 13.8 g/dL 12.0-15.5 [facility] ([facility]) Mean Corpuscular Hemoglobin 31.3 pg 27.0-33.0 [place] [facility] ([facility]) Mean Corpuscular Volume 94.6 fl 80.0-96.0 [facility] ([facility]) Mean Corpuscular HGB Conc 33.1 g/dL 32.0-36.5 [facility] NT ([facility]) Platelet Count, Automated 291 10 150-450 [facility] NT ([facility]) Red Cell Distribution Width 11.8 % 11.5-14.5 [facility] ([facility]) Neutrophils % 61.6 % 36.0-66.0 [facility] ([facility]) Lymph % 26.4 % 24.0-44.0 [facility] Allen % 11.0 % 0.0-5.0 [facility] Eos % 0.0 % 0.0-3.0 [facility]) Nucleated Red Blood Cell % 0.0 % 0-0 [facility] ([facility]) Baso % 0.8 % 0.0-1.0 [facility]) Immature Granulocyte % 0.2 % 0-3.0 [facility] ([facility]) Neutrophils # 5.1 10 1.5-8.5 [facility] ([facility]) Lymph # 2.2 10 1.5-5.0 [facility] Allen # 0.9 10 0.0-0.8 [facility] Baso # 0.1 10 0.0-0.2 [facility] Eos # 0.0 10 0.0-0.5 [facility]) ID Date Data Source [id number] 12/08/2020 12:40:00 PM EST [facility] ([facility]) Name Value Range Interpretation Code Description Data Georgette rce(s) Supporting Document(s) Glucose, Fasting 84 mg/dL 70-100 [facility] ([facility]) Blood Urea Nitrogen 13 mg/dL 7-18 [facility] Creatinine For GFR 0.61 mg/dL 0.55-1.30 [facility] ([facility]) Sodium Level 138 meq/L 136-145 [facility] ([facility]) Glomerular Filtration Rate Laboratory test result [facility] <content>Units are mL/min/1.73 m2</content>
<content></content>
<content>Chronic Kidney Disease Staging per NKF:</content>
<content></content>
<content>Stage I & II GFR >=60 Normal to Mildly Decreased</content>
<content>Stage III GFR 30-59 Moderately Decreased</content>
<content>Stage IV GFR 15-29 Severely Decreased</content>
<content>Stage V GFR <15 Very Little GFR Left</content>
<content>ESRD GFR <15 on DELICATE FABRICS PRESSER</content>
<content></content> Potassium Serum 4.3 meq/L 3.5-5.1 [facility] ([facility]) Chloride Level 103 meq/L 98-107 [facility] ([facility]) Anion Gap 3 meq/L 8-16 [facility] Carbon Dioxide Level 32 meq/L 21-32 [facility] ([facility]) Calcium Level 8.9 mg/dL 8.5-10.1 [facility] ([facility]) Alt/SGPT 18 U/L 12-78 [facility] Ast/Sgot 13 U/L 7-37 [facility] ([facility]) Bilirubin,Total 0.2 mg/dL 0.2-1.0 [facility] ([facility]) Alkaline Phosphatase 109 U/L 45-117 [facility] ([facility]) Total Protein 6.8 GM/DL 6.4-8.2 [facility] ([facility]) Albumin 3.5 GM/DL 3.2-5.2 [facility] Albumin/Globulin Ratio 1.1 1.2-2.2 [facility] ([facility]) ID Date Data Source [id number] 09/26/2020 09:35:00 AM EST [facility] Name Value Range Interpretation Code Description Data Georgette rce(s) Supporting Document(s) SARS coronavirus 2 RNA [facility] This lab was ordered by [facility] and reported by [facility]. ID Date Data Source [id number] 09/18/2020 08:43:00 AM EST [facility] ([facility]) Name Value Range Interpretation Code Description Data Georgette rce(s) Supporting Document(s) Erythrocyte sedimentation rate by Westergren method 7 mm/hr 0-20 [facility] ([facility]) ID Date Data Source [id number] 09/18/2020 08:43:00 AM EST [facility] ([facility]) Name Value Range Interpretation Code Description Data Georgette rce(s) Supporting Document(s) Hemoglobin 14.2 g/dL 12.0-15.5 [facility] ([facility]) Red Blood Count 4.66 10 4.00-5.40 [facility] ([facility]) White Blood Count 6.0 10 4.0-10.0 [facility] ([facility]) Hematocrit 43.8 % 36.0-47.0 [facility] ([facility]) Mean Corpuscular Volume 94.0 fl 80.0-96.0 [facility] ([facility]) Mean Corpuscular Hemoglobin 30.5 pg 27.0-33.0 [facility] ([facility]) Red Cell Distribution Width 12.3 % 11.5-14.5 [place] [facility] ([facility]) Platelet Count, Automated 302 10 150-450 [facility] NT ([facility]) Mean Corpuscular HGB Conc 32.4 g/dL 32.0-36.5 [facility] ([facility]) Nucleated Red Blood Cell % 0.0 % 0-0 [facility] ([facility]) ID Date Data Source [id number] 09/18/2020 08:43:00 AM EST [facility] ([facility]) Name Value Range Interpretation Code Description Data [facility] rce(s) Supporting Document(s) Inr 1.01 [facility] ([facility]) THERAPUTIC HUMAN INR VALUES INDICATIONS NORMAL RANGES PROPHYLAXIS/TREATMENT OF: VENOUS THROMBOSIS 2.0-3.0 PULMONARY EMBOLISM 2.0-3.0 PREVENTION OF SYSTEMIC EMBOLISM FROM: TISSUE HEART VALVES 2.0-3.0 ACUTE MYOCARDIAL INFARCTION 2.0-3.0 VALVULAR HEART DISEASE 2.0-3.0 ATRIAL FIBRILLATION 2.0-3.0 MECHANICAL VALVES(HIGH RISK) 2.5-3.5 RECURRENT MYOCARDIAL INFARCTION 2.5-3.5 Prothrombin Time 13.5 s 12.5-14.3 [facility] ([facility]) ID Date Data Source [id number] 04/18/2020 03:19:00 PM EDT [facility] ([facility]) Name Value Range Interpretation Code Description Data Georgette rce(s) Supporting Document(s) White Blood Count 8.1 4.0-10.0 [facility] ([facility]) Red Blood Count 4.71 4.00-5.40 [facility] ([facility]) Platelets 318 172-450 [facility] ([facility]) Hemoglobin 15.2 [facility] ([facility]) Hematocrit 44.1 [facility] ([facility]) ID Date Data Source [id number] 04/18/2020 03:19:00 PM EDT [facility] Name Value Range Interpretation Code Description Data Georgette rce(s) Supporting Document(s) Magnesium Level 2.0 1.8-2.4 [facility] ([facility]) Troponin Laboratory test result [facility] ([facility]) Thyroid Stimulating Hormone 3.080 [facility] ([facility]) ID Date Data Source [id number] 04/18/2020 03:19:00 PM EDT [facility] ([facility]) Name Value Range Interpretation Code Description Data Georgette rce(s) Supporting Document(s) Creatine kinase [Enzymatic activity/volume] in Serum or Plasma 45 [facility] ([facility]) CPK-MB 1.3 [facility] ([facility]) ID Date Data Source [id number] 04/18/2020 03:19:00 PM EDT [facility] ([facility]) Name Value Range Interpretation Code Description Data Georgette rce(s) Supporting Document(s) Blood Urea Nitrogen 8 7-18 [facility] ([facility]) Glucose 106 83-110 [facility] ([facility] Sodium 141 136-145 [facility] ([facility]) Creatinine 0.64 0.6-1.0 [facility] ([facility]) Chloride 105 98-107 [facility] ([facility]) Carbon Dioxide 28 21-32 [facility] ([facility]) Potassium 3.5 3.5-5.1 [facility] ([facility]) Calcium 9.1 8.2-9.6 [facility] ([facility]) Glomerular filtration rate/1.73 sq M.pre dicted [Volume Rate/Area] in Serum or Plasma by Creatinine-based formula (MDRD) 0.64 [facility] ([facility]) ID Date Data Source [id number] 04/17/2020 02:27:00 PM EDT [facility] ([facility]) Name Value Range Interpretation Code Description Data Georgette rce(s) Supporting Document(s) Calcidiol [Mass/volume] in Serum or Plasma 37.1 24.0-80.0 [facility] ([facility]) This test was performed using [employer] I P Vitamin D immunoassay kit. Values obtained with different assay methods should not be used interchangeably. ID Date Data Source [id number] 04/17/2020 02:26:00 PM EDT [facility] ([facility]) Name Value Range Interpretation Code Description Data Georgette rce(s) Supporting Document(s) RBC Folate 517 ng/mL 280-791 [facility] ([facility]) Hematocrit 40.2 % 36.0-47.0 [facility] ([facility]) ID Date Data Source [id number] 04/17/2020 02:26:00 PM EDT [facility] ([facility]) Name Value Range Interpretation Code Description Data Georgette rce(s) Supporting Document(s) Cobalamin (Vitamin B12) [Mass/volume] in Serum or Plasma 1174 pg/mL 2 47-911 [facility] ([facility]) VITAMIN B12 NORMAL RANGE NORMAL 247 - 911 PG/ML INDETERMINATE 211 - 246 PG/ML DEFICIENT LESS THAN 211 PG/ML Phosphate [Moles/volume] in Serum or Plasma 3.4 mg/dL 2.5-4.9 [facility] ([facility]) Ferritin [Mass/volume] in Serum or Plasma 86 ng/mL 8-252 [facility] ([facility]) ID Date Data Source [id number] 04/17/2020 02:26:00 PM EDT [facility] ([facility]) Name Value Range Interpretation Code Description Data Georgette rce(s) Supporting Document(s) Iron (Fe) 74 ug/dL 50-170 [facility] Total Iron Binding Capacity 264 ug/dL 250-450 [facility] ([facility]) Percent Saturation 28.0 % 13.2-45.0 [facility] ([facility]) ID Date Data Source [id number] 04/17/2020 02:25:00 PM EDT [facility] ([facility]) Name Value Range Interpretation Code Description Data Georgette rce(s) Supporting Document(s) Sodium [Moles/volume] in Serum or Plasma 140 meq/L 136-145 [facility] ([facility]) Glucose [Mass/volume] in Serum or Plasma 90 mg/dL 74-99 [facility] ([facility]) 100-125 mg/dL PRE-DIABETES/FASTING >126 mg/dL DIABETES/FASTING Creatinine 0.7 mg/dL 0.6-1.3 [facility] ([facility]) Urea nitrogen [Mass/volume] in Serum or Plasma 14 mg/dL 7-18 [facility] ([facility]) Chloride [Moles/volume] in Serum or Plasma 105 meq/L 98-107 [facility] ([facility]) Potassium [Moles/volume] in Serum or Plasma 4.0 meq/L 3.5-5.1 [facility] ([facility]) Carbon dioxide, total [Moles/volume] in Serum or Plasma 28 meq/L 21 -32 [facility] ([facility]) Calcium [Mass/volume] in Serum or Plasma 8.5 mg/dL 8.5-10.1 [facility] ([facility]) Alkaline phosphatase isoenzyme [Units/volume] in Serum or Pl asma 110 mg/dL 46-116 [facility] ([facility]) Aspartate aminotransferase [Enzymatic activity/volume] in Serum or Plasma 15 U/L 15-37 [facility] ([facility] ) Total Bilirubin 0.3 mg/dL 0.2-1.0 [facility] ([facility]) Albumin [Mass/volume] in Serum or Plasma 3.5 g/dL 3.4-5.0 [facility] Alanine aminotransferase [Enzymatic activity/volume] in Seru m or Plasma 19 U/L 12-78 [facility] Proteinase 3 Ab [Units/volume] in Serum 7.1 g/dL 6.4-8.2 [facility] Glomerular filtration rate/1.73 sq M pre dicted among blacks [Volume Rate/Area] in Serum or Plasma by Creatinine-based formula (MDRD) Laboratory test result [facility] ([facility]) <content>CHRONIC KIDNEY DISEASE STAGING PER NKF</content>
<content></content>
<content>STAGE I & II GFR >= 60 NORMAL TO MILDLY DECREASED</content>
<content>STAGE III GFR 30-59 MODERATELY DECREASED</content>
<content>STAGE IV GFR 15-29 SEVERELY DECREASED</content>
<content>STAGE V GFR <15 VERY LITTLE GFR LEFT</content>
<content>ESRD GFR <15 ON DELICATE FABRICS PRESSER</content>
<content></content> Glomerular filtration rate/1.73 sq M pre dicted among non-blacks [Volume Rate/Area] in Serum or Plasma by Creatinine-based formula (MDRD) Laboratory test result [facility] ([facility] ) A/G Ratio 0.97 CALC 1.00-1.90 [facility] ([facility]) ID Date Data Source [id number] 04/17/2020 02:25:00 PM EDT [facility] Name Value Range Interpretation Code Description Data Georgette rce(s) Supporting Document(s) Magnesium 1.9 mg/dL 1.8-2.4 [facility] ([facility]) ID Date Data Source [id number] 04/17/2020 02:25:00 PM EDT [facility] Name Value Range Interpretation Code Description Data Georgette rce(s) Supporting Document(s) Hemoglobin A1c/Hemoglobin.total in Blood 5.1 g/dL 4.8-5.6 [facility] Lab Result Notes: Pre-Diabetes 5.7 - 6.4 % Diabetes = or > 6.5% Glucose mean value [Mass/volume] in Blood Estimated fr om glycated hemoglobin 100 mg/dL 60-110 [facility] ([facility] ) ID Date Data Source [id number] 04/17/2020 02:25:00 PM EDT [facility] ([facility]) Name Value Range Interpretation Code Description Data Goergette rce(s) Supporting Document(s) Leukocytes [#/volume] in Blood by Automated count 9.7 x10*3/UL 4.1-10 .9 [facility] ([facility]) Erythrocytes [#/volume] in Blood by Automated count 4.35 x10*6/UL 4.2 0-6.30 [facility] ([facility]) MCV 90.8 fL 80.0-97.0 [facility] Hematocrit [Volume Fraction] of Blood by Automated count 39.5 % 3 7.0-51.0 [facility] ([facility]) Hemoglobin [Mass/volume] in Blood 13.5 g/dL 12.0-18.0 [facility] ([facility]) Platelets [#/volume] in Blood by Automated count 330 x10*3/UL 140-440 [facility] ([facility]) MCH 31.2 pg 26.0-32.0 [facility] Erythrocyte distribution width [Ratio] by Automated count 12.7 % 11.6-13.7 [facility] ([facility]) MCHC 34.3 g/dL 31.0-38.0 [facility] Lymph % 21.1 % 10.0-58.5 [facility] MPV 9.2 FL 7.8-11.0 [facility] Mid % 7.9 % 1.7-9.3 [facility] Neut % 71.0 % 37.0-92.0 [facility] Mid # 0.8 x10*3/UL 0.1-0.6 [facility] ([facility]) Lymph # 2.0 x10*3/UL 0.6-4.1 [facility] ([facility]) Neut # 6.9 x10*3/UL 2.0-7.8 [facility] ([facility]) ID Date Data Source [id number] 03/25/2020 04:07:00 PM EDT [facility] ([facility]) Name Value Range Interpretation Code Description Data Georgette rce(s) Supporting Document(s) White Blood Count 7.8 4.3-10.9 [facility] ([facility]) Red Blood Count 4.68 4.70-6.20 [facility] ([facility]) Platelets 285 130-400 [facility] ([facility]) Hemoglobin 14.5 13.0-17.0 [facility] ([facility]) Hematocrit 41.9 39.0-50.0 [facility] ([facility]) ID Date Data Source [id number] 03/25/2020 04:07:00 PM EDT [facility] ([facility]) Name Value Range Interpretation Code Description Data Georgette rce(s) Supporting Document(s) Sodium 142 [facility] ([facility]) Calcium [Mass/volume] in Serum or Plasma 8.9 [facility] ([facility]) Chloride [Moles/volume] in Serum or Plasma 105 [facility] ([facility]) Carbon dioxide, total [Moles/volume] in Serum or Plasma 27 [facility] ([facility]) Potassium [Moles/volume] in Serum or Plasma 4.1 [facility] ([facility]) Glucose 92 70-100 [facility] ([facility]) Blood Urea Nitrogen 9 5-21 [facility] ([facility]) Creatinine 0.7 0.6-1.5 [facility] ([facility]) Glomerular filtration rate/1.73 sq M.pre dicted [Volume Rate/Area] in Serum or Plasma by Creatinine-based formula (MDRD) Laboratory test result [facility] ([facility]) ID Date Data Source [id number] 03/25/2020 04:07:00 PM EDT [facility] ([facility]) Name Value Range Interpretation Code Description Data Goergette rce(s) Supporting Document(s) Triglycerides 108 [facility] ([facility]) HDL 47 40-60 [facility] ([facility]) Cholesterol 176 120-200 [facility] ([facility]) Cholesterol in LDL [Mass/volume] in Serum or Plasma by calculation 10 7 [facility] ([facility]) Chol/HDL Ratio Laboratory test result [facility] ([facility]) ID Date Data Source [id number] 03/25/2020 04:07:00 PM EDT [facility] ([facility]) Name Value Range Interpretation Code Description Data Georgette rce(s) Supporting Document(s) Thyroid Stimulating Hormone 2.5 [facility] ([facility]) ID Date Data Source [id number] 03/25/2020 08:46:00 AM EDT [facility] ([facility]) Name Value Range Interpretation Code Description Data Georgette rce(s) Supporting Document(s) Thyrotropin [Units/volume] in Serum or Plasma by Detec tion limit <= 0.05 mIU/L 2.50 uIU/mL 0.36-3.74 [facility] ([facility] ) Thyroxine (T4) free [Mass/volume] in Serum or Plasma 1.07 ng/dL 0.76- 1.46 [facility] ([facility]) ID Date Data Source [id number] 03/25/2020 08:46:00 AM EDT [facility] ([facility] Name Value Range Interpretation Code Description Data Georgette rce(s) Supporting Document(s) Cholesterol [Mass/volume] in Serum or Plasma 176 mg/dL 131-200 [facility] ([facility]) Cholesterol in HDL [Mass/volume] in Serum or Plasma 47 mg/dL 35-60 [facility] ([facility]) Triglyceride [Mass/volume] in Serum or Plasma 108 mg/dL 30-150 [facility] ([facility]) Cholesterol in LDL [Mass/volume] in Serum or Plasma by calcu lation 107 CALC 50-159 [facility] ([facility]) ID Date Data Source [id number] 03/25/2020 08:46:00 AM EDT [facility] ([facility]) Name Value Range Interpretation Code Description Data Georgette rce(s) Supporting Document(s) Glucose [Mass/volume] in Serum or Plasma 92 mg/dL 74-99 [facility] ([facility]) 100-125 mg/dL PRE-DIABETES/FASTING >126 mg/dL DIABETES/FASTING Creatinine 0.7 mg/dL 0.6-1.3 [facility] ([facility]) Urea nitrogen [Mass/volume] in Serum or Plasma 9 mg/dL 7-18 [facility] ([facility]) Potassium [Moles/volume] in Serum or Plasma 4.1 meq/L 3.5-5.1 [facility] ([facility]) Sodium [Moles/volume] in Serum or Plasma 142 meq/L 136-145 [facility] ([facility]) Chloride [Moles/volume] in Serum or Plasma 105 meq/L 98-107 [facility] ([facility]) Calcium [Mass/volume] in Serum or Plasma 8.9 mg/dL 8.5-10.1 [facility] ([facility]) Carbon dioxide, total [Moles/volume] in Serum or Plasma 27 meq/L 21 -32 [facility] ([facility]) Alkaline phosphatase isoenzyme [Units/volume] in Serum or Pl asma 108 mg/dL 46-116 [facility] ([facility]) Aspartate aminotransferase [Enzymatic activity/volume] in Serum or Plasma 17 U/L 15-37 [facility] ([facility] ) Total Bilirubin 0.6 mg/dL 0.2-1.0 [facility] ([facility]) Albumin [Mass/volume] in Serum or Plasma 3.6 g/dL 3.4-5.0 [facility] ([facility]) Alanine aminotransferase [Enzymatic activity/volume] in Seru m or Plasma 19 U/L 12-78 [facility] ([facility]) Proteinase 3 Ab [Units/volume] in Serum 6.8 g/dL 6.4-8.2 [facility] ([facility]) A/G Ratio 1.13 CALC 1.00-1.90 [facility] Glomerular filtration rate/1.73 sq M pre dicted among blacks [Volume Rate/Area] in Serum or Plasma by Creatinine-based formula (MDRD) Laboratory test result [facility] ([facility]) <content>CHRONIC KIDNEY DISEASE STAGING PER NKF</content>
<content></content>
<content>STAGE I & II GFR >= 60 NORMAL TO MILDLY DECREASED</content>
<content>STAGE III GFR 30-59 MODERATELY DECREASED</content>
<content>STAGE IV GFR 15-29 SEVERELY DECREASED</content>
<content>STAGE V GFR <15 VERY LITTLE GFR LEFT</content>
<content>ESRD GFR <15 ON DELICATE FABRICS PRESSER</content>
<content></content> Glomerular filtration rate/1.73 sq M pre dicted among non-blacks [Volume Rate/Area] in Serum or Plasma by Creatinine-based formula (MDRD) Laboratory test result [facility] ID Date Data Source [id number] 03/25/2020 08:46:00 AM EDT [facility] Name Value Range Interpretation Code Description Data Georgette rce(s) Supporting Document(s) Hemoglobin [Mass/volume] in Blood 14.5 g/dL 12.0-18.0 [facility] ([facility]) Leukocytes [#/volume] in Blood by Automated count 7.8 x10*3/UL 4.1-10 .9 [facility] Erythrocytes [#/volume] in Blood by Automated count 4.68 x10*6/UL 4.2 0-6.30 [facility] ([facility]) MCV 89.5 fL 80.0-97.0 [facility] MCH 31.0 pg 26.0-32.0 [facility] Hematocrit [Volume Fraction] of Blood by Automated count 41.9 % 3 7.0-51.0 [facility] ([facility]) MCHC 34.6 g/dL 31.0-38.0 [facility] ([facility]) Platelets [#/volume] in Blood by Automated count 285 x10*3/UL 140-440 [facility] Erythrocyte distribution width [Ratio] by Automated count 12.9 % 11.6-13.7 [facility] ([facility]) Mid % 7.2 % 1.7-9.3 [facility] Lymph % 21.6 % 10.0-58.5 [facility]) MPV 9.4 FL 7.8-11.0 [facility] Mid # 0.7 x10*3/UL 0.1-0.6 [facility] ([facility]) Lymph # 1.6 x10*3/UL 0.6-4.1 [facility] ([facility]) Neut % 71.2 % 37.0-92.0 [facility] Neut # 5.5 x10*3/UL 2.0-7.8 [facility] ([facility]) ID Date Data Source [id number] 12/27/2019 10:52:00 AM EST [facility] ([facility]) Name Value Range Interpretation Code Description Data Georgette rce(s) Supporting Document(s) Creatinine 0.6 mg/dL 0.6-1.3 [facility] ([facility]) Glucose [Mass/volume] in Serum or Plasma 90 mg/dL 74-99 [facility] ([facility]) 100-125 mg/dL PRE-DIABETES/FASTING >126 mg/dL DIABETES/FASTING Urea nitrogen [Mass/volume] in Serum or Plasma 9 mg/dL 7-18 [facility] ([facility]) Sodium [Moles/volume] in Serum or Plasma 141 meq/L 136-145 [facility] ([facility]) Chloride [Moles/volume] in Serum or Plasma 104 meq/L 98-107 [facility] ([facility]) Potassium [Moles/volume] in Serum or Plasma 4.1 meq/L 3.5-5.1 [facility] ([facility]) Carbon dioxide, total [Moles/volume] in Serum or Plasma 26 meq/L 21 -32 [facility] ([facility]) Glomerular filtration rate/1.73 sq M pre dicted among non-blacks [Volume Rate/Area] in Serum or Plasma by Creatinine-based formula (MDRD) Laboratory test result [facility] ([facility] ) Calcium [Mass/volume] in Serum or Plasma 9.0 mg/dL 8.5-10.1 [facility] ([facility]) Glomerular filtration rate/1.73 sq M pre dicted among blacks [Volume Rate/Area] in Serum or Plasma by Creatinine-based formula (MDRD) Laboratory test result [facility] ([facility]) <content>CHRONIC KIDNEY DISEASE STAGING PER NKF</content>
<content></content>
<content>STAGE I & II GFR >= 60 NORMAL TO MILDLY DECREASED</content>
<content>STAGE III GFR 30-59 MODERATELY DECREASED</content>
<content>STAGE IV GFR 15-29 SEVERELY DECREASED</content>
<content>STAGE V GFR <15 VERY LITTLE GFR LEFT</content>
<content>ESRD GFR <15 ON DELICATE FABRICS PRESSER</content>
<content></content> ID Date Data Source [id number] 12/27/2019 12:00:00 AM EST [facility] Carlo Cota MD Patient Name: JOYCE KELLEY [facility] Date of : [facility] Date of Exam: 12/27/2019INDIGO Pearson [id number]#: Fax: [phone] EXAM: ARTHROCENTESIS OF LEFT LARGE JOINT W/O USCLINICAL INFORMATION: Bilateral hip osteoarthritis.The procedure was performed by [facility], under the directsupervision of Dr. Dominguez.The benefits [...] 75% reduction in radiation.Dictated by [facility], with Dr. Dominguez.Trino Dominguez, ERWINSG/jmcTnikak you for referring JOYCE KELLEY to our office. Electronically Signed - TRINO DOMINGUEZ MD 12/27/19 15:08 Name Value Range Interpretation Code Description Data Georgette rce(s) Supporting Document(s) ID Date Data Source [id number] 12/27/2019 12:00:00 AM EST [facility] Carlo Cota MD Patient Name: JOYCE KELLEY [facility] Date of : [facility] Date of Exam: 12/27/2019INDIGO Pearson [id number]#: Fax: [phone] EXAM: ARTHROCENTESIS OF LEFT LARGE [...] by ALEXANDER Shultz, with Dr. Dominguez.Trino Dominguez, [facility]/Felicia you for referring JOYCE KELLEY to our office. Electronically Signed - TRINO DOMINGUEZ MD 12/27/19 15:08 Name Value Range Interpretation Code Description Data Georgette rce(s) Supporting Document(s) ID Date Data Source [id number] 12/27/2019 12:00:00 AM EST [facility] Carlo Cota MD Patient Name: JOYCE KELLEY [facility] Date of : [facility] Date of Exam: [facility]/27/2019[facility] [id number]#: Fax: [phone] EXAM: ARTHROCENTESIS OF RIGHT LARGE [...] rce(s) Supporting Document(s) ID Date Data Source [id number] 12/27/2019 12:00:00 AM [facility] Carlo Cota MD Patient Name: JOYCE KELLEY [facility] Date of : [facility] Date of Exam: 12/27/2019INDIGO Pearson [id number]#: Fax: [phone] EXAM: ARTHROCENTESIS OF RIGHT LARGE [...] 75% reduction in radiation.Dictated by [facility], [facility], with Dr. Dominguez.Trino Dominguez, [facility]/milagroscTfrances you for referring JOYCE KELLEY to our office. Electronically Signed - TRINO DOMINGUEZ MD 12/27/19 15:08 Name Value Range Interpretation Code Description Data Georgette rce(s) Supporting Document(s) ID Date Data Source [id number] 11/12/2019 02:46:00 PM EST [facility] ([facility]) Name Value Range Interpretation Code Description Data Georgette rce(s) Supporting Document(s) Thiamine [Mass/volume] in Blood 129.7 nmol/L 66.5-200.0 [facility] ([facility]) Performed at: [address] [id number] [employer] Examiner: Humble Graves MD, Phone: [phone] Cobalamin (Vitamin B12) [Mass/volume] in Serum or Plasma 1299 pg/mL 2 47-911 [facility]) VITAMIN B12 NORMAL RANGE NORMAL 247 - 911 PG/ML INDETERMINATE 211 - 246 PG/ML DEFICIENT LESS THAN 211 PG/ML ID Date Data Source [id number] 11/12/2019 02:46:00 PM EST [facility] ([facility]) Name Value Range Interpretation Code Description Data Georgette rce(s) Supporting Document(s) Hematocrit 42.8 % 36.0-47.0 [facility] ([facility]) RBC Folate 559 ng/mL 280-791 [facility] ([facility]) ID Date Data Source [id number] 11/12/2019 02:46:00 PM EST [facility] ([facility]) Name Value Range Interpretation Code Description Data Georgette rce(s) Supporting Document(s) Phosphate [Moles/volume] in Serum or Plasma 2.3 mg/dL 2.5-4.9 [facility] ([facility]) ID Date Data Source [id number] 11/12/2019 02:46:00 PM EST [facility] ([facility]) Name Value Range Interpretation Code Description Data Georgette rce(s) Supporting Document(s) Iron (Fe) 75 ug/dL 50-170 [facility] Total Iron Binding Capacity 252 ug/dL 250-450 [facility] ([facility]) Percent Saturation 29.8 % 13.2-45.0 [facility] ([facility]) ID Date Data Source [id number] 11/12/2019 02:46:00 PM EST [facility] ([facility]) Name Value Range Interpretation Code Description Data Georgette rce(s) Supporting Document(s) Ferritin [Mass/volume] in Serum or Plasma 107 ng/mL 8-252 [facility] ([facility]) ID Date Data Source [id number] 11/12/2019 02:44:00 PM EST [facility] ([facility]) Name Value Range Interpretation Code Description Data Georgette rce(s) Supporting Document(s) Calcidiol [Mass/volume] in Serum or Plasma 27.4 24.0-80.0 [facility] ([facility]) This test was performed using FastPack I P Vitamin D immunoassay kit. Values obtained with different assay methods should not be used interchangeably. ID Date Data Source [id number] 11/12/2019 02:44:00 PM EST [facility] ([facility]) Name Value Range Interpretation Code Description Data Georgette rce(s) Supporting Document(s) Urea nitrogen [Mass/volume] in Serum or Plasma 5 mg/dL 7-18 [facility] ([facility]) Glucose [Mass/volume] in Serum or Plasma 89 mg/dL 74-99 [facility] ([facility]) 100-125 mg/dL PRE-DIABETES/FASTING >126 mg/dL DIABETES/FASTING Creatinine 0.7 mg/dL 0.6-1.3 [facility] ([facility]) Sodium [Moles/volume] in Serum or Plasma 140 meq/L 136-145 [facility] ([facility]) Chloride [Moles/volume] in Serum or Plasma 100 meq/L 98-107 [facility] ([facility]) Potassium [Moles/volume] in Serum or Plasma 3.0 meq/L 3.5-5.1 [facility] ([facility]) Calcium [Mass/volume] in Serum or Plasma 9.1 mg/dL 8.5-10.1 [facility] ([facility]) Alkaline phosphatase isoenzyme [Units/volume] in Serum or Pl asma 87 mg/dL 46-116 [facility] ([facility]) Carbon dioxide, total [Moles/volume] in Serum or Plasma 27 meq/L 21 -32 [facility] Total Bilirubin 0.6 mg/dL 0.2-1.0 [facility] ([facility] Aspartate aminotransferase [Enzymatic activity/volume] in Serum or Plasma 25 U/L 15-37 [facility] ([facility] ) Proteinase 3 Ab [Units/volume] in Serum 7.4 g/dL 6.4-8.2 [facility] ([facility]) Alanine aminotransferase [Enzymatic activity/volume] in Seru m or Plasma 40 U/L 12-78 [facility] ([facility]) Albumin [Mass/volume] in Serum or Plasma 3.5 g/dL 3.4-5.0 [facility] ([facility]) A/G Ratio 0.90 CALC 1.00-1.90 [facility] ([facility]) Glomerular filtration rate/1.73 sq M pre dicted among blacks [Volume Rate/Area] in Serum or Plasma by Creatinine-based formula (MDRD) Laboratory test result [facility] ([facility] <content>CHRONIC KIDNEY DISEASE STAGING PER NKF</content>
<content></content>
<content>STAGE I & II GFR >= 60 NORMAL TO MILDLY DECREASED</content>
<content>STAGE III GFR 30-59 MODERATELY DECREASED</content>
<content>STAGE IV GFR 15-29 SEVERELY DECREASED</content>
<content>STAGE V GFR <15 VERY LITTLE GFR LEFT</content>
<content>ESRD GFR <15 ON DELICATE FABRICS PRESSER</content>
<content></content> Glomerular filtration rate/1.73 sq M pre dicted among non-blacks [Volume Rate/Area] in Serum or Plasma by Creatinine-based formula (MDRD) Laboratory test result [facility] ID Date Data Source [id number] 11/12/2019 02:44:00 PM EST [facility] ([facility]) Name Value Range Interpretation Code Description Data Georgette rce(s) Supporting Document(s) Magnesium 1.7 mg/dL 1.8-2.4 [facility] ([facility]) ID Date Data Source [id number] 11/12/2019 02:44:00 PM EST [facility] ([facility] Name Value Range Interpretation Code Description Data Georgette rce(s) Supporting Document(s) Glucose mean value [Mass/volume] in Blood Estimated fr om glycated hemoglobin 94 mg/dL 60-110 [facility] Hemoglobin A1c/Hemoglobin.total in Blood 4.9 g/dL 4.8-5.6 [facility] Lab Result Notes: Pre-Diabetes 5.7 - 6.4 % Diabetes = or > 6.5% ID Date Data Source [id number] 11/12/2019 02:44:00 PM EST [facility] ([facility] Name Value Range Interpretation Code Description Data Georgette rce(s) Supporting Document(s) Leukocytes [#/volume] in Blood by Automated count 6.2 x10*3/UL 4.1-10 .9 [facility] ([facility]) Erythrocytes [#/volume] in Blood by Automated count 4.91 x10*6/UL 4.2 0-6.30 [facility] ([facility]) Hemoglobin [Mass/volume] in Blood 15.0 g/dL 12.0-18.0 [facility] ([facility]) Hematocrit [Volume Fraction] of Blood by Automated count 43.7 % 3 7.0-51.0 [facility] ([facility]) MCH 30.6 pg 26.0-32.0 [facility]) MCV 88.9 fL 80.0-97.0 [facility]) MCHC 34.4 g/dL 31.0-38.0 [facility]) Platelets [#/volume] in Blood by Automated count 276 x10*3/UL 140-440 [facility] ([facility]) Erythrocyte distribution width [Ratio] by Automated count 13.4 % 11.6-13.7 [facility] ([facility]) MPV 9.9 FL 7.8-11.0 [facility]) Lymph % 23.3 % 10.0-58.5 [facility]) Mid % 6.5 % 1.7-9.3 [facility]) Neut % 70.2 % 37.0-92.0 [facility]) Lymph # 1.4 x10*3/UL 0.6-4.1 [facility] ([facility]) Mid # 0.5 x10*3/UL 0.1-0.6 [facility] ([facility]) Neut # 4.3 x10*3/UL 2.0-7.8 [facility] ([facility]) ID Date Data Source [id number] 10/20/2019 02:40:[address] [facility] Name Value Range Interpretation Code Description Data Georgette rce(s) Supporting Document(s) Progress Notes [facility] EQIOLz6ySzXTDfDg95/UNGooWEPaa1YsQDndFGo8LOhmHVRmP0IkDND5hR2sQJW7QYeEEdDuWQkkDvG1 lbm [file] IHHqYnAvZG4USl5KEdY8WND5hDHvPy9CRVsuPCoVJpVcXX0EABr= ID Date Data Source [id number] 10/20/2019 02:40:[address] [facility] Name Value Range Interpretation Code Description Data Georgette rce(s) Supporting Document(s) Progress Notes [facility] IVESIp2tLeYEMfJx96/TLPdfGCYkw7DvCIghVTp3AGivVGQoP1RmEYD5pV9bKHJ1XJxPWcIyWRoaLyA4 lbm [file] AgICAgICAgICAgICAgICAgICAgICAgICAgICAgICAgICAgICAgICAgICAgICAgICAgICAgICAgICAgIC AgICAgICAgICAgICAgDQogICAgICAgICAgICAgICAg ICAgICAgICAgICAgICAgICAgICAgICAgICAgICAgICAgICAgICAgICAgICAgICAgICAgICAgICAgICAg ICAgICAgICAgICAgICAgICAgICAgICAgDQogICAgICAgICAgICAgICAgICAgICAgICAgICAgICAgICAg ICAgICAgICAgICAgICAgICAgICAgICAgICAgICAgIC AgICAgICAgICAgICAgICAgICAgICAgICAgICAgICAgICAgDQogICAgICAgICAgICAgICAgICAgICAgIC AgICAgICAgICAgICAgICAgICAgICAgICAgICAgICAgICAgICAgICAgICAgICAgICAgICAgICAgICAgIC AgICAgICAgICAgICAgICAgDQogICAgICAgICAgICAg ICAgICAgICAgICAgICAgICAgICAgICAgICAgICAgICAgICAgICAgICAgICAgICAgICAgICAgICAgICAg ICAgICAgICAgICAgICAgICAgICAgICAgICAgDQogICAgICAgICAgICAgICAgICAgICAgICAgICAgICAg ICAgICAgICAgICAgICAgICAgICAgICAgICAgICAgIC AgICAgICAgICAgICAgICAgICAgICAgICAgICAgICAgICAgICAgDQogICAgICAgICAgICAgICAgICAgIC AgICAgICAgICAgICAgICAgICAgICAgICAgICAgICAgICAgICAgICAgICAgICAgICAgICAgICAgICAgIC AgICAgICAgICAgICAgICAgICAgDQogICAgICAgICAg ICAgICAgICAgICAgICAgICAgICAgICAgICAgICAgICAgICAgICAgICAgICAgICAgICAgICAgICAgICAg ICAgICAgICAgICAgICAgICAgICAgICAgICAgICAgDQogICAgICAgICAgICAgICAgICAgICAgICAgICAg ICAgICAgICAgICAgICAgICAgICAgICAgICAgICAgIC AgICAgICAgICAgICAgICAgICAgICAgICAgICAgICAgICAgICAgICAgDQogICAgICAgICAgICAgICAgIC AgICAgICAgICAgICAgICAgICAgICAgICAgICAgICAgICAgICAgICAgICAgICAgICAgICAgICAgICAgIC BbPYAeHNHhOCDfTWRkOKCfHZXhUAUzPEz1H1kmIRBf UUOnIL0zPMu7Ec5+RFpZBbMvAMB3pmDviI7IKR6jp2DmSGqpEGIsf2ZkRMe9BJ4QZVHuTJegTJ3DKYxy ty4LSERxLTYvkECZi2exFoBnTOF9KWHjKoggIJ9EUPTlK8bmbjRlVUVcBBYMTLnlGYMFBR6EEoNaF9Od lB80JRHRBc2+ZIvkpsUxIrqJOxNrKXDno9MwVPf3YF 0MURFbEurev8HgNcLdKEZDLOxkCP5WFJF0XSFbTKQaFi8HNDKpY519viDlBS7PIe0AOnEvRB2klc4BCg GjZEGdPtzKEtg6ZIncKP7ShHMdVFfJny6qrpRgyjFMq6DbzbFbrILWUNahxoKdWGXUiEVed3DiKDqsNJ WoYLGzUHWsGg1pBGJ0ECDfZqRtODRSPD7ZFKUhOKWu sZMoSAFrBCTMSO9EOKofSWG7CxwkkxEpnXOoPLdhCP9TYGAfmzIgZqQnNTOGIWe+Az8CPJ7pl3CgNLvw QmZxQF6mnc0PDZxCWwUeT4F1lEScU1S4MZcrAb1XBMFmMYKjKcjnCGORHHxjWV0ACY6fvhZ9HG1VoYZw COQoNVBccJUdFBu5J21viWLfVTnwHZ8UPWD+Nila+Pg 7YEFLtHVEmXWCnEuVxQOYTTmNgK7DoW2IAu7XaT6WuYQ01dNjzimFeXQitOI7VCM1bIOUxEVVDNV5YmS GyfS8abnRmJMHoWSWEAoHkO34idUVhSMRuFRN0LNFcLk1IZCVgH8UjiuNaoIzwbkGcPHVwMHQVXU1LGV rajyXfvDOrsJgdWO83kMeqLG8YDc6XCjTzZS1axd1Y sSJxTk1RINVoEq1NVIWbLAEwWEZzXJV7KVWaQaGzGOvwBPKtMLCgBJQ4CMCjCVQxPJ5QZfJbQGLfQWoi NWFcSHIxIQOeiz4VEAHbORUcMHtfSWOjSVSuDPQpSYccJHPpHZWyAXA6GLHzEHQaQF8GAkJjDMXnTCS0 GmZwGGYrKJRqgy5VYNZmIDZeCoF2XZLjOBZoFBSfIU mmXIOsKPI6PdH8GXMvSAFhSY9NNcLvTCOyYQE6RxRrFYSvARFbtf0TPBLeJRBdJZT7YDTsFBRfXWXzJE tkCRCvLEC6UzegKLYtRPMbLA7FOmGvWQRaKDA6UuAuNVKcNFWlyk1VRTTqXPMgXltvWpHjLLFiAFAjDA foMSDeYVO1JKJeHRVrOKBmQK7LXcKoAQBiKDliRROf JZTqTXTxzl2HQMLwUIRoKUQ8FZGvYLDkSNUrVUmrNRQuWBF1ZcijSCSdOKJqDQ2BSeUnIAWfLWa3QkOu VZAfSZGyyk2WHINxRWIaWDAjWSOePJAnLJRdCWtdIBSkPEB9AeUhYUYlQTLsUW3CLuPiOKObEPb9EGLo KWLzJEHqqb7PYNFlEBOgUYk9ASHySIHpKABoYWizNI IzGWCpPIf6MTAyJHPyYS8IGnYlXMBsPMTeEuZsFECoGLSwqm2TGVXtEJMzJgAtAkNnVLCqYNGgPQfnFM CfKFK7NVUiBIApVWGwTE7QWpCsMLMeYAS9XHOeBQMnBEMciz2WBUXqEIWmIsl0IVMjPIHnBFLeAFgkCH HjYEO5RMFwUVMxSGNwFC6IQsHrBAYuGRv9HOBzYOYl JKVgyc7LCZUjGWJnMGhcWQPmZBNyDAEcOIuxYMVoKQZ9VKv6KZJzMENbHZ9VTiPdMPLcJCxnZHaoJVTx GFTrnc6OnKOpyQoqwa0RKCfYOb4NwJmbKBAdWVivRp5mjAWeXyXnAQGDDv4YiqQfSFJhULKPTJnuESJa FDPkStWyGMKgYgS5CYIkAUDdPaK2HlOxQ6VaWMYgNI J2SxV9SERmGWQsJCY2MPK9WgS7ItVwOrHpXKBwSOR6VjFhPav+DF5rXTq+Ni5Gw4MhvgB1zuZhNAidHL N9Vg9OBUMNJ5GRLr== ID Date Data Source [id number] 10/20/2019 02:40:[address] [facility] Name Value Range Interpretation Code Description Data Georgette rce(s) Supporting Document(s) Discharge Summary [facility] HSDHAb3uExMMThXi62/JCIsoZFYbe4KfZPumHGb6SVjiNBTrJ5HjDSJ7iO0xTFE6GUdAIwKkFVwcSqS1 lbm [file] 6uZwe/CEREAL MAKER/5FWiOH/CpJ1LHpzhZwZw/KbrAe2dTJTKJ [file] diNGVkZjk+HP4eKVj+Uc3Zh0VudnE2wxKkRIn3BcZ7Az1IZYNGE3QIXb== ID Date Data Source [id number] 10/20/2019 10:37:[address] [facility] Name Value Range Interpretation Code Description Data Georgette rce(s) Supporting Document(s) Nursing Note [facility] CGSPEa2oDzENFqVz15/SDNqhDJUdz3SiXBhyRRi5QRtsIUQbW5IuFAS3nZ3hKWU1WScHCgLuTOpgVnW5 lbm RwLpmXApFaVICyGkvUAgYtALpwPbeocCCpDH3VoSS0FZFqB77rYKCsHYOoH4AkOVG2IGy+Gc6RQCXsjH WhVD5BKikP2Dtro4qCDH2gnd+zO2l1WHc4mx7Oq3FZF5WqDYcfO4FZL4HIi0qkOar798vNgvU5Dk6Duv ygQ/lWd1Mx17A4tVxBkOK855BvUoKpAKM6c/ExtUad 50vVR6RJFmCPVGf+pEWwwQRZkFYbio+hqfgl40nqqbrH+TBuCqX9WaIeXpnI3OpevMgSM+qoS/2ZNrV+ uqIyAadfoK6HAQBhvA3EzWvex9S+7DI7hJePU8n0pXr7rmphTIGhMurEvgRYDT3KcRINa+us9lI9iXru Pwd7yUWOTGFqunvP873kTsEUHb3FZzVQ6wleyHC59u 4vYwcpJd9PPr6RnCx1ZIfnB/7uY+KryFvGAZhSDXa5QAgWP94JSGxWSYmayOi8ACUJp+RAkJ1oz3DrZI BAUKyueTexThLIqpSI1I2i9oPdvj8xe3a5RqFRSyhkJgEetHigP8TxXSMM8O8SDxGRgiGx8cZMGvDoHq 1Mr7fla4K54ym1tjZkZf3oJk/8yt00l39w87+p48PN [file] YRYrTrJ5XnFeTD8ZPl5CYgL5QYA9sQTrZk0XLvL8TQLGWpXgAM7MTDo= ID Date Data Source [id number] 10/20/2019 09:51:12 AM EST [facility] Name Value Range Interpretation Code Description Data Georgette rce(s) Supporting Document(s) Progress Notes [facility] WTGFDr8yGoZCLtIe61/CGTrbKZVpj8IdGFekYMy0FFvkJZMdD9LqCSS1mB3nMXQ1GElSJfFsYKfuTzN4 lbm [file] AgICAgICAgICAgICAgICAgICAgICAgICAgICAgICAg ICAgICAgICAgICAgICAgICAgICAgICAgICAgICAgICAgICAgICAgDQogICAgICAgICAgICAgICAgICAg ICAgICAgICAgICAgICAgICAgICAgICAgICAgICAgICAgICAgICAgICAgICAgICAgICAgICAgICAgICAg ICAgICAgICAgICAgICAgICAgICAgDQogICAgICAgIC AgICAgICAgICAgICAgICAgICAgICAgICAgICAgICAgICAgICAgICAgICAgICAgICAgICAgICAgICAgIC AgICAgICAgICAgICAgICAgICAgICAgICAgICAgICAgDQogICAgICAgICAgICAgICAgICAgICAgICAgIC AgICAgICAgICAgICAgICAgICAgICAgICAgICAgICAg ICAgICAgICAgICAgICAgICAgICAgICAgICAgICAgICAgICAgICAgICAgDQogICAgICAgICAgICAgICAg ICAgICAgICAgICAgICAgICAgICAgICAgICAgICAgICAgICAgICAgICAgICAgICAgICAgICAgICAgICAg ICAgICAgICAgICAgICAgICAgICAgICAgDQogICAgIC AgICAgICAgICAgICAgICAgICAgICAgICAgICAgICAgICAgICAgICAgICAgICAgICAgICAgICAgICAgIC AgICAgICAgICAgICAgICAgICAgICAgICAgICAgICAgICAgDQogICAgICAgICAgICAgICAgICAgICAgIC AgICAgICAgICAgICAgICAgICAgICAgICAgICAgICAg ICAgICAgICAgICAgICAgICAgICAgICAgICAgICAgICAgICAgICAgICAgICAgDQogICAgICAgICAgICAg ICAgICAgICAgICAgICAgICAgICAgICAgICAgICAgICAgICAgICAgICAgICAgICAgICAgICAgICAgICAg ICAgICAgICAgICAgICAgICAgICAgICAgICAgDQogIC AgICAgICAgICAgICAgICAgICAgICAgICAgICAgICAgICAgICAgICAgICAgICAgICAgICAgICAgICAgIC AgICAgICAgICAgICAgICAgICAgICAgICAgICAgICAgICAgICAgDQogICAgICAgICAgICAgICAgICAgIC AgICAgICAgICAgICAgICAgICAgICAgICAgICAgICAg TBGsZVGqANWwXPNvPSCxKMKzDYEcCWJdQSGpWTClCKEqUFRqGCTlARRaTTHtSLKpSVp0Q0sxPGYjZQHc PV4vMVp5Gw7+WJiCHuHaTDK7cjKzlQ0AUN1so6XgMYanQUTwd6OlVDz6XS2YIFWrNLauMO7YTUpyjv2B XYSaCJKdoZXSf2lnTpTeMPH6DVQxJomwIG6MJEYaQ2 hsjwIwJUDjDUNGMJqsUTSCBFldZVZTRZ9AZdZmD0InoU42APLJCx0+COvabiEsFgeQHkC2RLNwp3BoBK h6KR2GGDWpOnjjw4QaImvjPMXEXLwlZA4FGDT7ZJZ2ZHMeFq0LWSPrP246sbQfEQ3HIp4AKvWlZX2xpj 4PQjevDKCaOkvKZxb5NGahYZ0ObSMzDFpHpi4deiSa iaGFe8ValmBquKRAWGS1wCWxXCAwfMuchxVxWZXJKPD0JBJuOphbCsZzIFQbFRr9YMNPPSpFRuQgV5Wt n1WdXsM8GHHsMdVoVItjNIYeQgO0IZ34vZptEE3URPRaYHFmYP64CYK1LKHcEb2KGr3OUuPvII4mtq3T IgsqHQVvXfoYDrv4UUxbZO0JlPMhG1QzoSHkl4nSJi CwG1POQQP6ZLYnWs1MENMoImYxGKWkPXzhGM2eUBBwGGLEjAzckaQ9DZ7DEU4mwoJoGB5WNlHdYd3pSf 1FFoSfE6TdR6QwELSrOGHMTRnjCS4LYHeyQC0pFH5Wm4TFiQScbD9gku6XBOYxGQJwUnqbpu6MCyhmB3 W9qGbyCYGvOxraGJBGHLhjYF6SYPGqTAR9OKOyCpFc RLDMJiFqW04zCD9US5Nxk95rOgL1AKMsSlHzHNoePU83eIwsmhDxjQKbqQjpSV5SJg3+DQplbmRvYmoN AiqcWRWMNfGdXRRWHlJpAGAkVKAcPWAkVqS2QdOlBd3AXRCbNLGkAJMnZkWlJDAdQXSaCZomAXPmTKHr EbV7PYMaBAHzUC7EUbUrVNDnIFL5QUVvMXVlYHOyrj 6PEWNtNOJiAQV8IkVoUPSaFHWvAUbtULReHUOmKvR8ULUqVYQnVH2PEsSnCEHbLVM0ZowoVOJoZFTrat 0TQDNqJCFjEOL9JTByOYFlSZZjUUgtEPPaMXR9HNKlRZTjDRDwWM5BRuFzXUUyIQQnQPByLCEuVNElqm 4FTPFfWBAfNdC6KWZtIIOxDTTvWCwoKRGxDVQ5UOB7 NHKuHNDjHR7DYcEdCYWePOt9VHMlVULtANFtoc5CKHPyFLVdXzdmTHYtVYFoUBHmNMjaEMNbPXY7GQv0 CFVqHYMvAZ1NMaYxOVCtAVloGDLmZQXaJJSifh5GQOWuFHGxPLJ5WSMzNRLlPRUkHBsfURJgKITaCuL8 PZBiTKSrBG4SBjEeXHSlAmL0GPAgVFSjARVbph9MST IyCYIwWsO0IrPvUGSfMSNsNIxbKYBsRTGmCoyeEPKtTPQkMB0RMoZjVYJfViZ3IdroECKeGDUmrn7MQR IuHTGmItG6VCHhPKQwGIGwBMjeTQPtQUWxAtuaGPRrFFRdNA5DUqFbZFWrByJ5ACCfZFGaQLSyal2FFU BiJRSiOCe9HaKiDWGlQFMzRDzlQPCoSNM4VIv3HBCg DUHxLC5TObSfZJBqRhXhBTCbXDZnZMSfoi1IFBMkPYDqQBJ5GMHuAZGmGRWlUJanKVGnZPZ0ZzdiVKDg LYKuVL1SLqUsJPKbTbvgBAAbDGLvHTZylx3XTTCcVOVlBXK9VSYjPLQgJDCsSUusVZZfMTU7HguoBEQj OZQyYY5SVsMhXQItGWHhMdQxLYRmBRIxhj2DCPJbIW Q7HADsBeBbLNKnNAPwYLkcQPNuYYWlDjK9XXFaMXGlYG2YZrWsPVXuXGUxAhMlEBRyPBSejv8HUHRcNH V0UjJvMoUjSWMoDEGxJGbcEEJwERTjTohlYTNrGYNlHV1GJbSzVYImMTZ3VQWlAGCrKIQzmn5NsCZloV qvoi8OLJxEBm1PsTxiAWXiEGlpAk9ocMQlTOPyQUZL Hq2PxvMgSJCwBEZMMNjlPGBoQXefKmUmObN6AaZ7LFPaCpY8LhTsYXO3USLcNHVhLnMqLoS1HoWxW5Md MzYyZjRkZjBmYTdjNTFkMDlkYzFlYmZmZWI+EM0xYNu+Bv0Zp2RhlzG6waRbHMn5LjS2Ki3ZOUYCV2RV Cg== ID Date Data Source [id number] 10/20/2019 08:53:[address] [facility] Name Value Range Interpretation Code Description Data Georgette rce(s) Supporting Document(s) Care Plan [facility] OTPEMn4dBcMJNlCn35/EZOavUSHau0XuNDtvTHb9LLblXJEcJ2PdKES1sN4vNFN1ZMhGJsAaNKjwIuI0 lbm [file] N2OGDrEYKeJ6D6Y3H+LV1cSPo+Aw3Lk9XeidE3ldAaLSncGbqkBY8KLCYHC9KHIb== ID Date Data Source [id number] 10/20/2019 07:04:[address] [facility] Name Value Range Interpretation Code Description Data Georgette rce(s) Supporting Document(s) Nursing Note [facility] RFPWQu0nFjRNIaUx77/LDLynZMIna4HyLHyzVSu5FVnbAYDnS0ScDIT4lS9gIQL4FHeEYvSsTMvfUiM2 lbm [file] UxOTZiMWNkMDEzZWM+VS9gPYv+Dw9Jp0IwhvO0amPgVOwyYChlHI6MCEEOO2DRFw== ID Date Data Source [id number] 10/20/2019 03:56:[address] [facility] Name Value Range Interpretation Code Description Data Georgette rce(s) Supporting Document(s) POCT- GLUCOSE 101 mg/dl 70-100 Above high normal [facility] ID Date Data Source [id number] 10/19/2019 11:39:[address] [facility] Name Value Range Interpretation Code Description Data Georgette rce(s) Supporting Document(s) POCT- GLUCOSE 117 mg/dl 70-100 Above high normal [facility] ID Date Data Source [id number] 10/19/2019 08:02:[address] [facility] Name Value Range Interpretation Code Description Data Georgette rce(s) Supporting Document(s) POCT- GLUCOSE 141 mg/dl 70-100 Above high normal [facility] ID Date Data Source [id number] 10/19/2019 07:32:[address] [facility] Name Value Range Interpretation Code Description Data Georgette rce(s) Supporting Document(s) Nursing Note [facility] System QHJBRf5aZmGUInRj40/GDXmbULFsu7OdPMiwBNo1HOxnBADmY8InIPI6cK1zNZR3DGpJYoEmQVgdRgF3 lbm [file] Q+QK4oPKi+Aq6Pu7VhvmN5sgPkNMimWEBjVZ0EAWAEB5LXCk== ID Date Data Source [id number] 10/19/2019 05:12:[address] [facility] Name Value Range Interpretation Code Description Data Georgette rce(s) Supporting Document(s) Nursing Note [facility] EMETBo7vRjKITbMq06/XGGjbCJCdo8QiWGegOZl4LVfvZCQlH7YxXTX0qW1nBNS0XEbUBwDbNBjbOpI8 lbm [file] 4yGOIWDu0+BOsmbDRigQqmJVXSYxDpNKVtRKuyWFGQDe6E ID Date Data Source [id number] 10/19/2019 04:40:[address] [facility] Name Value Range Interpretation Code Description Data Georgette rce(s) Supporting Document(s) POCT- GLUCOSE 124 mg/dl 70-100 Above high normal [facility] System ID Date Data Source [id number] 10/19/2019 03:01:[address] [facility] Name Value Range Interpretation Code Description Data Georgette rce(s) Supporting Document(s) Nursing Note [facility] System FVFBHg8nVqYDHrZb99/BRCbmSLUiv3XgGMeaZCn3GDixSMHeC3PoLVT1yH7oYGI3JLeQXzHiBDowTgI3 m [file] 9P8ddp0Q+u0BzqCr0HVm11RWQBPeOc11hi20M5+choir accompanist [file] IAOxOHG3SaH0WPxmWZI+NW5qYCx+Wz8Rx9ZnepJ9adXeORulVXv9Yl0UJZRMN1BMRl== ID Date Data Source [id number] 10/19/2019 01:27:[address] [facility] Name Value Range Interpretation Code Description Data Georgette rce(s) Supporting Document(s) Nursing Note [facility] ADXGFi4xTuMUOfAl73/YUAmsYIXqj9RvTMwnGTa3QOwyTHAnB3IdJMQ1pJ9uSSK7FSwXHsRgIGylEqX9 lbm [file] Q5MVVgRfKwDjuwTFL+YJ8nDRt+Sj0Hl6HwlrO0tyAiHNoeAZC1Ft5NQFYHQ4PHDu== ID Date Data Source [id number] 10/19/2019 01:09:[address] [facility] Name Value Range Interpretation Code Description Data Georgette rce(s) Supporting Document(s) Perioperative Nursing Note [facility] OBBMMg0dTrPXMxBd78/KNKwjWMPmj5CnLBxcAIh8VTueQJZfB2UpAEB2lM0gLOQ8LOsOGbJyQQdxBoG8 lbm [file] AgICAgICAgICAgICAgICAgICAgICAgICAgICAgICAgICAgICAgICAgICAgICAgICAgICAgICAgICAgIC AgICAgICAgICAgICAgICAgICANCiAgICAgICAgICAgICAgICAgICAgICAgICAgICAgICAgICAgICAgIC AgICAgICAgICAgICAgICAgICAgICAgICAgICAgICAg ICAgICAgICAgICAgICAgICAgICAgICAgICAgICANCiAgICAgICAgICAgICAgICAgICAgICAgICAgICAg ICAgICAgICAgICAgICAgICAgICAgICAgICAgICAgICAgICAgICAgICAgICAgICAgICAgICAgICAgICAg ICAgICAgICAgICANCiAgICAgICAgICAgICAgICAgIC AgICAgICAgICAgICAgICAgICAgICAgICAgICAgICAgICAgICAgICAgICAgICAgICAgICAgICAgICAgIC AgICAgICAgICAgICAgICAgICAgICANCiAgICAgICAgICAgICAgICAgICAgICAgICAgICAgICAgICAgIC AgICAgICAgICAgICAgICAgICAgICAgICAgICAgICAg ICAgICAgICAgICAgICAgICAgICAgICAgICAgICAgICANCiAgICAgICAgICAgICAgICAgICAgICAgICAg ICAgICAgICAgICAgICAgICAgICAgICAgICAgICAgICAgICAgICAgICAgICAgICAgICAgICAgICAgICAg ICAgICAgICAgICAgICANCiAgICAgICAgICAgICAgIC AgICAgICAgICAgICAgICAgICAgICAgICAgICAgICAgICAgICAgICAgICAgICAgICAgICAgICAgICAgIC AgICAgICAgICAgICAgICAgICAgICAgICANCiAgICAgICAgICAgICAgICAgICAgICAgICAgICAgICAgIC AgICAgICAgICAgICAgICAgICAgICAgICAgICAgICAg ICAgICAgICAgICAgICAgICAgICAgICAgICAgICAgICAgICANCiAgICAgICAgICAgICAgICAgICAgICAg ICAgICAgICAgICAgICAgICAgICAgICAgICAgICAgICAgICAgICAgICAgICAgICAgICAgICAgICAgICAg ICAgICAgICAgICAgICAgICANCiAgICAgICAgICAgIC AgICAgICAgICAgICAgICAgICAgICAgICAgICAgICAgICAgICAgICAgICAgICAgICAgICAgICAgICAgIC AgICAgICAgICAgICAgICAgICAgICAgICAgICANCjw/aXZnE1ucfNLeicK7V3bwSy9JBn8WRA7rc4MrTM LoGCmfwbJsFmgRUoDhKFFoRomHDqw7UNzbKW4RgYKj A3EjK1NsZBuiQG0FQALvBJWzeROzAVXaXPBjVyS6INUuCCauWA1DfESgHGwmUAZhZLUaYZ3RRYNgZ132 ltSpCW1XWs9VOhBrET7rvy9LLhUeGBRnScnHRww4JWlpZZ9CqXScgNWgWiQdFAQNWmJjG4nvt0JsIzLo CMDAVYdvAP1Dn2SqtERdKXo+Ug2KZJ1mz4EoWIidGh UyGF5vak1OIDcGHgXjX2OhdCvhPLWzcdcrsJEsLWIgcfGfZiCny6jmYqBOo6YbWQN1YFWuajIsAKNKKK R6LBSLLfZhnMHhUu09JiQaBJlcTJI7FYztOS4cYAxiIU8MDFB7UTawLOKgGNKqU1xGSuVbPCkcFJBgvL qgMP8IVkWhI4KigoFsxGLvOiSxXXNZZb7+DQplbmRv PkyTJbC3EMGjh6TxTPq7QT5QTQCfOTaeWX9JBRHwsS7pGJhgIU3NViVsIAOsHOYQIcQzJ83reGHbNOl7 S5CfIeBiNCAoHiasEXChNLxzEsXiTIIcCdYoYUvpQN6+ID4+VSezUO5ODBwxxfMwIFAgKw2ZSMPmFPYs MJ2rQPHbFXFqS9K1ePouQZBURaAeR4qaqgmrJQ0mNP KtK545hXzufuTuLJAtXUFdSz7HNPFoIJX1QQAqgFHiHeLnKYPJNGyjBK2EyGDrAYA3xD3sLIetMSDlTZ ElD8tBKbNrvGoqLQ69vXbekgVveZOcGLt+Bl9OPC4za3KuYFl7qiQgDQeoAFY4BJvtGPSzAHXxWUHrBR O6ZGV6FHSUBjYzNCPiSEHbNPbtQNNxWGCiqk5BNWIy ZSGxIJL7QdNeYWBmIGMxBBfgNQGiOQXgQnppYXOeCYNhUZ9IVzSxGXCxGKBuIWllGPSoBBHjjq6DFRSy YDNjZAU6IRIpNBJaFCUnUFnyPEHzUUVuTsjtIURvRMZeOO4VBlEiOEZxUTZrSUZjFQKaZLOhmg9LESMn UTRgIxG1DgRyJCYkRGXqWWxoBYOjHBUdMcC0IVVaQK YsHW5LQxZgVAMhGGD4YAAcDDJmISQdea9LXZWqZVCqMya4SgBaHIKhWAKlHYulHJMcLUAaIXI7QOKvPX DeUV3DNsZvCKWhCSApNYWnKVJtHRZqup0UFSDlPIHeCoMpGDVlIKZjDOIhHPksVAWvMTS6GSM1HTWjFD VwXI9JCeUhAVPrADxvSdysPIWeSUQydj2CHVMtHPZx SgKuIPGgCLWqDWLxYFbjYGEaLXK2YYD7QAUlTNYcLP6HPpSlWNRoHRovSIOpGGYwQFEfwa6UCIJtIFCi XOSdGQKnNFOcBBEzACucNHBsEIG9EKUzWBSeJOUhAU3NIsXbQTCyZjDhNntaQLWmGULlzh7VMCUdICDm SGN8XXChHITkHYGpFXdhNKXdPCOtErB6HXDrSAMdRI 1YJpIwZNniIPOMEph9WQkuX0a7GWUyUW3MU9Kei4XuSyChLIHLXPvwRP2pxvNvRBFrHc3PV6qQDideJZ IwHdQ9H7AgIXJoHTEdBbYzUBxcMYZ5UWj1TdElYf1iPBO4J1UfKuX8XGGdABSyUGBoOqTyXBQ9ALLwDT mzNUSlYzHvVQ6EWz7PRtL0IHR0bCHpWn1TYkO9ZGNERuVmTQ8RBGr= ID Date Data Source [id number] 10/19/2019 12:51:[address] [facility] Name Value Range Interpretation Code Description Data Georgette rce(s) Supporting Document(s) POCT- GLUCOSE 140 mg/dl 70-100 Above high normal [facility] ID Date Data Source [id number] 10/19/2019 12:17:[address] [facility] Name Value Range Interpretation Code Description Data Georgette rce(s) Supporting Document(s) Anesthesia Postprocedure Evaluation [facility] KEDPJf8aHbWNNnOt90/XEMzzTOVql9DlERimDXd1IWgfHUMyY7LjAZA0nR5wHUE9KCqJEuFcTOspScZ6 lbm [file] AgICAgICAgICAgICAgICAgICAgICAgICAgICAgICAg ICAgICAgICAgICAgICANCiAgICAgICAgICAgICAgICAgICAgICAgICAgICAgICAgICAgICAgICAgICAg ICAgICAgICAgICAgICAgICAgICAgICAgICAgICAgICAgICAgICAgICAgICAgICAgICAgICAgICANCiAg ICAgICAgICAgICAgICAgICAgICAgICAgICAgICAgIC AgICAgICAgICAgICAgICAgICAgICAgICAgICAgICAgICAgICAgICAgICAgICAgICAgICAgICAgICAgIC AgICAgICANCiAgICAgICAgICAgICAgICAgICAgICAgICAgICAgICAgICAgICAgICAgICAgICAgICAgIC AgICAgICAgICAgICAgICAgICAgICAgICAgICAgICAg ICAgICAgICAgICAgICAgICANCiAgICAgICAgICAgICAgICAgICAgICAgICAgICAgICAgICAgICAgICAg ICAgICAgICAgICAgICAgICAgICAgICAgICAgICAgICAgICAgICAgICAgICAgICAgICAgICAgICAgICAN CiAgICAgICAgICAgICAgICAgICAgICAgICAgICAgIC AgICAgICAgICAgICAgICAgICAgICAgICAgICAgICAgICAgICAgICAgICAgICAgICAgICAgICAgICAgIC AgICAgICAgICANCiAgICAgICAgICAgICAgICAgICAgICAgICAgICAgICAgICAgICAgICAgICAgICAgIC AgICAgICAgICAgICAgICAgICAgICAgICAgICAgICAg ICAgICAgICAgICAgICAgICAgICANCiAgICAgICAgICAgICAgICAgICAgICAgICAgICAgICAgICAgICAg ICAgICAgICAgICAgICAgICAgICAgICAgICAgICAgICAgICAgICAgICAgICAgICAgICAgICAgICAgICAg ICANCiAgICAgICAgICAgICAgICAgICAgICAgICAgIC AgICAgICAgICAgICAgICAgICAgICAgICAgICAgICAgICAgICAgICAgICAgICAgICAgICAgICAgICAgIC AgICAgICAgICAgICANCiAgICAgICAgICAgICAgICAgICAgICAgICAgICAgICAgICAgICAgICAgICAgIC AgICAgICAgICAgICAgICAgICAgICAgICAgICAgICAg ICAgICAgICAgICAgICAgICAgICAgICANCjw/xHJyS3rlnEJzitA9G4mxEc8GTl8QKP7sj6YwEBMrHMcv siDnBqpIDfXiJZOnMetVAml3JSteXW0BwCSuG3FjT2GbEHiqDE4ADLIiTPZgzGEsXJAeDWPkDyM3UGNw RWlrWT3PeMZlOTdkTIHsPDOdKyFxCIWyDK9DIJVjE8 22rxWfXo0ZSt6AYsPtHW0rig9NBbqnHSLqDqhUHml3HUlxJJ8LaMVvkRGeGQSdNAGQUqJtZ6qjb2DaFz ahLGTSGPmmID2Ke9UjuYUtSYb+Qz7HOS9rx8VtEDcrZMElPK2xwq8TMOnUYoWzZ5UpkJewOHYfVHH9eJ FyhYOmMB5bjRHuf5IzSXFmRQXZhmBrmPC7uK1hQXC5 MI9ghPEiwPERYZSgg8qnaU2peVdgWWRoQSRgLRTdAv1fFEB2ODFdObZ0BROFLK3YNPDhSSHeuVFuOGTp LKPFOF4HKCsvDFB9NhplqiZxyJKbTFvhEU5UBGLjhvYcKedxLRVIJGj+Vh5MBZ6ce2VfGIomQPIqGK8f da7EXRoSFsRqY9U7iJXgW8A7JZbaTl5JSHHcSYHyHc FaDLSNKRkyEG8ETE4jxdZ9YL8GeFHbRXXoMKIuqQJvTXl8F34jxRRaIIgjCO3ONAJ+Nila+Ju3KZCTtBD HlQZYgYgEfXBCCQfPrA2AeQ6HVw8VnZ9AdNO99xEqtxaEyPBhjKF2LIK5nPBBpSXWGWM6ZpVAoyA9zvm WrGtAfKWATHcYfA10haTLnVNVsLYN3LBWcDl6RVZNe U9HsoySdaOnocwTrFZEkLHHDMV9DJMqxidTyxUHzxVpoJZ89bCibWQ5MHy2RUbSxSU1djy0OyXNjIh9H FHYcJN3REMWzBYErLUTnMGR1JXXeHhXmWTdlVFBfURUeNAK4DGFuZSZcAM6ZFnJvFVAcEwGkFLIaPNMb PQHbqm1JRRLiMVUrVDUhKUQpVUVhDEErVVhlJQYjKF GmVBU6PNZtQEJmUD8XDcPxAMRmUYP1MSNtZGFmSSFdfl5MRCUrUJJoIdx3ZJWgVXNxHVOtAZlsVSFhNP CxRKyeMVQqLRIxFJ7FOeYdOYCfKNX7ZeOyMRDiOMEzid5JVVJnRFJfIBPdFoUvMYKoUPMdWRbvLMSiFP L4KROkWMByBCKpCN8VGeMwOCMwATUcHGovMRFiYVEd cq9BNSNqDVUiLZl2UJTrVTWcFMSjRSjnYAFeVQJ2FLp5DCSvJLKpRF6YUvFzNZKnUOXaAAhnMDTlOXMr cn0TPSBcAGYlUOsqVKNjSIJpTETbHNoaWQHoIOT2GXQ1KRBfHRHeSB8TEuWaXSLqUChmDpGvYADtBJHr xo7BBERvIAYxRWG1NoVpHXDeQVGjIYitEPTgMNF9Ls P6BCXhIFKhTG1CHzKnGVJnEqX6MxNuNNFyZOVzkp6JGENhPEBpEDc8TxQgSLFeNJXfMKfjGPJnSCIxCG C1ZZBsYTFdKJ8YKhEeMGXfJoO2AeAjOEEvZICbbi2CEAPoFPIfYpK9GtUnEGAyQWUfFMtbZAOqAFVtIn LjEHIeIIGgFW5YZjOxDDQlSvV5XmPvXHDuIWLgpu6M OMHeHFNhQFUxALWpILHlYAYlMTgvKAOsAAS9KKh2ILHyXAIwNB2WPiKqHINfXhVeNNYdTTCzCMEfss0M wQYxbNkixl6XYJkVFw0RgYeqAUNaLQvbSb6xhLXrOCGgTZHGIt7DlyPpIIYpNAXLCUmhCKYnLONkQiXt NkW2AWVyQ8LfTeSjRfYrB9OgXHRsTRYrRAKiVyF9Ub XrFYUcRQD4QNLbYLN5PEMjUBL2BSIeCeOmTUYjNmS+QI4lDLh+Ps9Cw0NjebH0epYgSWiiMRJ4Nl3IIK ALI7QMRx== ID Date Data Source [id number] 10/19/2019 12:16:[address] [facility] Name Value Range Interpretation Code Description Data Georgette rce(s) Supporting Document(s) Anesthesia Procedure Notes [facility] AYWYVr4sFkJUVvLc01/WVXsgQXWzy8HeMYinTZb0JSfzAHJpN4TzOCK3kD7gCZU4DBnXPmQnZDayDrO6 lbm [file] ICAgICAgICAgICAgICAgICAgICAgICAgICAgICAgICAgICAgICAgICAgICAgICAgICAgICAgICAgICAg ICAgICAgICAgICAgICAgICAgICAgICAgICANCiAgICAgICAgICAgICAgICAgICAgICAgICAgICAgICAg ICAgICAgICAgICAgICAgICAgICAgICAgICAgICAgIC AgICAgICAgICAgICAgICAgICAgICAgICAgICAgICAgICAgICANCiAgICAgICAgICAgICAgICAgICAgIC AgICAgICAgICAgICAgICAgICAgICAgICAgICAgICAgICAgICAgICAgICAgICAgICAgICAgICAgICAgIC AgICAgICAgICAgICAgICAgICANCiAgICAgICAgICAg ICAgICAgICAgICAgICAgICAgICAgICAgICAgICAgICAgICAgICAgICAgICAgICAgICAgICAgICAgICAg ICAgICAgICAgICAgICAgICAgICAgICAgICAgICANCiAgICAgICAgICAgICAgICAgICAgICAgICAgICAg ICAgICAgICAgICAgICAgICAgICAgICAgICAgICAgIC AgICAgICAgICAgICAgICAgICAgICAgICAgICAgICAgICAgICAgICANCiAgICAgICAgICAgICAgICAgIC AgICAgICAgICAgICAgICAgICAgICAgICAgICAgICAgICAgICAgICAgICAgICAgICAgICAgICAgICAgIC AgICAgICAgICAgICAgICAgICAgICANCiAgICAgICAg ICAgICAgICAgICAgICAgICAgICAgICAgICAgICAgICAgICAgICAgICAgICAgICAgICAgICAgICAgICAg ICAgICAgICAgICAgICAgICAgICAgICAgICAgICAgICANCiAgICAgICAgICAgICAgICAgICAgICAgICAg ICAgICAgICAgICAgICAgICAgICAgICAgICAgICAgIC AgICAgICAgICAgICAgICAgICAgICAgICAgICAgICAgICAgICAgICAgICANCiAgICAgICAgICAgICAgIC AgICAgICAgICAgICAgICAgICAgICAgICAgICAgICAgICAgICAgICAgICAgICAgICAgICAgICAgICAgIC AgICAgICAgICAgICAgICAgICAgICAgICANCiAgICAg ICAgICAgICAgICAgICAgICAgICAgICAgICAgICAgICAgICAgICAgICAgICAgICAgICAgICAgICAgICAg ICAgICAgICAgICAgICAgICAgICAgICAgICAgICAgICAgICANCjw/hRSwU3igoEFovaW7T5fhOr3JBn9C ZQ5wz7DwLUQpDOemdsDxRdhDBdUdGFJsVhbDZdi9ID tyUI6CvEInG7MpT5HrGTskVO4DKCLlWGQmoSZqULFmDGJpInK0BOVhWDyjKC7AdXMfFRysKIFoRAFqNr XbZGIvVH1WBYGxR502jnYfVr0MQj8ORvVzEJ7bbp1ILyetCLLdSswTAih9DInlPO0TeVSiqQYnEZUmCT BCXfEsV7bdu6PoTyhdLZOGKGdsJB7Ol2AsiBPpIKr+ My7DBL7ig4ItMGmzHXMeAU1nrq3YEXvDCpSdM3XygDteDFElMXK0dAOjsXZxLVMpV3VnsTSgQJ2pnYDn BNS1EV6gkKJnuWFOGOCgr1ycfD7fuYwyJOWfGVQrDVNdKy1qMFO9BLXsTzZ9XDRWKY8JVTHbTGMltOSv NVIdVTWVHV5WWSyaPWT9CdfuoeGhgSRyMRsmHC7TBQ JlbnQgMjcgMCBSDQo+Tb5TND4ng3WeFPxfCUXoGG8jio7NGBvTKuWnA3Q8eHXsI0V0YNpsNb1QTELiNX AjJlNyZCRXHJmeQS8PBZ2uuxH4YH2ImYVcIIDyWTDdeHXoKVh4N74duHHlOLfoCE3HPVZ+Nila+Pg0KIC GvOLQdXFThAzQrDXFPPqPxQ1RcG8TOh9QzY2QoHX33 yCsbokAfWQlpSO6NTO4uZQBrCJJNIL6CdWZgbH7datQhMxJtWRFLQjWmO43tgEHjEXIuSXU8INBfHa0F RCKbS8MxyuRrkZqqcgNlFVIeNXBWTM3HXKwosnGwxAZxlQawVV02iBuxME4VQp3WLvPeRI7hep7ViGCr El5ABIKeIH3UOQYuGCSwJRDfTOB7DDWzEfVjEZfeUW PaMTOdRPL0CMRjVZMaWA9UTcSrOVCmAzSqWhKiODZlVNLyye4GGERqOAVfPir8ElDfJSIwYIWmSZlaBY XrCYTyRQU9IQAtIQQwIJ3AVnFlHWYgZBM9GhCmYHNgEIPkbr7RGBEuWCEgGvbdQFQvQPZrMOBlFApvGV NqWYNzIrF0NTFaFUHmBT7DYvAoBFYyRAU7ENJiKNCu BWIhvj4DOHHpGCGjPQKgTSShBDNfJUBcPWxeQTDjIAT4WoPsSCUpLGFmIG9ZHzCsSIEtDJH2LDyqDVRj JPFyyv5FPOHtCEEyRMh2GOEzDYJyZWLnFDnrSZGdIKV9AHZ5BFAgAZYpKZ0LOpFwJKUzBOZvIfdgBOZm IUAbeo1NXOLsLSWzYRQ7NlTqHQBhKRCkGXmaFIGgEZ Q7LawrJUItHMZsTT9XUxHeNMYnPLckHDOtWXKnXOOlho7HVFEaQFIjVHL4MjPzGNJdKYOnXOlwIRArLE T8Oqt8FRTlRNAxVG0RLkDfTGGkCfKgWrVrTNTfJHRcrk0RSWYpZJTgQKHhSfCrISGmHGGyGKheRWItXZ ZcVgKbJSTtJHUpWL5EMxVjYUFwCrN7XVPhGZItUTCe fn2ULEEmWAJaHFccEbCqYLRqDNPuGTloYOJyBNUrHGTgUBLrCITaKJ7NPpPcVQEeTpF5UaCbROPwJQTh ku6EKSMvAGIlHio5ShLgGJFsRZWhOUbrPMOpNEOdCPH0JBSgLTSmGA2AFcGaGHKmOnXpYDVtYKSuUMPf gh9QgTPpyZnach2OXDyAUb6CfTbcGYPuRZceNz3uiA GwMVGuIJJCKz4BhlYpKFPgJSZCWTinGCYrIXHtHqluFFweFOP2VtT3J4XsM4JcSEQ2SkZgRUuiGVGlZm K3DpQgLIOmMIWuROdhDYP0T1GrISPvFTFfXFT7GAT5LaC+CH1bHHt+Wq1Wb3ZxtfK8foKcHXnyNIY3Tn 5JYVAJR3RBWe== ID Date Data Source [id number] 10/19/2019 11:53:[address] [facility] Name Value Range Interpretation Code Description Data Georgette rce(s) Supporting Document(s) POCT- GLUCOSE 140 mg/dl 70-100 Above high normal [facility] ID Date Data Source [id number] 10/19/2019 11:49:47 AM [facility] Name Value Range Interpretation Code Description Data Georgette rce(s) Supporting Document(s) Op Note [facility] XCGYDe0zGfZQHaIt76/ZQGkkEKUvc0DkUKexWQh2QMdyNMQsU8BnANV0fU0gMXZ0VChLApBpVMyoKpS2 lbm [file] CZTD7GXTHyHB8Vn272GZr0BH9ZZCWhPhAeNJVMOjId VJPpJD0CLCJeZMYoMFIFJsUpBOIpVZ0SEuFaLQBnMKQKLgImTVLuXV2RUyBmGHWaCTVKLmFyWBKpSE5R NCAyNCAwIFI+Fu0WVHAwDX7TS3BzXTC2JEb7RS9+JYucXXRjM0R1eFjYtZI9LQM5AP1JMbEWZyFgQVx7 D5M4vTUiP3N0sXmJyRS3MG7GRQ9VRVDyPX6+PiAvU1 OVRSiLBOY6FK7AdJYkOR8DwEPGZ8ZvsPIzXz5sFWLfuPnjgVt+QrMdA8DQXHGJQWB8BP5DbGUcHH4DsG NHZ9AbvBYiDn6sYHalAkVuDY5oXY6+DR6XSJBLOqUSPqEiBAcuEDesQNHvMPg4K3A3TIVnJ6LYC3O0J9 g4l5yqol1+BL8PLGMyBT8DDaJNGJfRPAL0XS1UaZJf NS7HpIOMZ0MjtGLpYu4oUMqusBGisa0+EI6KPJRgUTJ+Rf1QVSP+Bc4IPF2gq0XmIJstTuJrMZ6dpw6K WJspNAHuK6JsJGWwVDsyE6CyiEonBJ4XJDexDDomFM3FBJPnKFL1OM8+NJprzBXlOX2FLhh/oNCuC7xw qHJuTFeywm2y04m/MtOoKW7hUeTDTF6qF6FmlWk2df NCer8OZ7azDfshCj7+HRfaNMd7UcnupM9zzXAvfZf0hEN2sl4bFf4pEXrrXTtjmP1tmyY7aE5tWMLbGk B5uzO4mAG2OM5rGx0VFIZkTAtaBQP0QlJDELihdD1iDlGrEg2qeLY9iIcjP6d9zy46Vk2xjqedTIv7KO 1qAr8gDg6xRSRzq5ismUC7YL4bRtk+YIhhGQBsPB8a SSU7RlIONo8EDVN4M1l5sC4amDP7DK4JPwVdLKXuRXVfIWBrBRPpRYQkDOVbHDYuRQHmOHEvIYWoSPLe ICAgICAgICAgICAgICAgICAgICAgICAgICAgICAgICAgICAgICAgICAgICAgICAgICAgICAgICAgICAg ICAgICANCiAgICAgICAgICAgICAgICAgICAgICAgIC AgICAgICAgICAgICAgICAgICAgICAgICAgICAgICAgICAgICAgICAgICAgICAgICAgICAgICAgICAgIC AgICAgICAgICAgICAgICANCiAgICAgICAgICAgICAgICAgICAgICAgICAgICAgICAgICAgICAgICAgIC AgICAgICAgICAgICAgICAgICAgICAgICAgICAgICAg ICAgICAgICAgICAgICAgICAgICAgICAgICANCiAgICAgICAgICAgICAgICAgICAgICAgICAgICAgICAg ICAgICAgICAgICAgICAgICAgICAgICAgICAgICAgICAgICAgICAgICAgICAgICAgICAgICAgICAgICAg ICAgICAgICANCiAgICAgICAgICAgICAgICAgICAgIC AgICAgICAgICAgICAgICAgICAgICAgICAgICAgICAgICAgICAgICAgICAgICAgICAgICAgICAgICAgIC AgICAgICAgICAgICAgICAgICANCiAgICAgICAgICAgICAgICAgICAgICAgICAgICAgICAgICAgICAgIC AgICAgICAgICAgICAgICAgICAgICAgICAgICAgICAg ICAgICAgICAgICAgICAgICAgICAgICAgICAgICANCiAgICAgICAgICAgICAgICAgICAgICAgICAgICAg ICAgICAgICAgICAgICAgICAgICAgICAgICAgICAgICAgICAgICAgICAgICAgICAgICAgICAgICAgICAg ICAgICAgICAgICANCiAgICAgICAgICAgICAgICAgIC AgICAgICAgICAgICAgICAgICAgICAgICAgICAgICAgICAgICAgICAgICAgICAgICAgICAgICAgICAgIC AgICAgICAgICAgICAgICAgICAgICANCiAgICAgICAgICAgICAgICAgICAgICAgICAgICAgICAgICAgIC AgICAgICAgICAgICAgICAgICAgICAgICAgICAgICAg ICAgICAgICAgICAgICAgICAgICAgICAgICAgICAgICANCiAgICAgICAgICAgICAgICAgICAgICAgICAg ICAgICAgICAgICAgICAgICAgICAgICAgICAgICAgICAgICAgICAgICAgICAgICAgICAgICAgICAgICAg ICAgICAgICAgICAgICANCjw/oNEhN5dxhYIcssA0W9 iiEl0OWs6BQD8tg9OhVGGkSQmxouFzHuyIRbXgYAWkLmlYKfb1XUtbXE4MfNMkI5YjA5AsSKuwAF2CEU UtCQJqbWLbBYSgDRBcBmS2ZUTuMFppCL8IzIQqECrpDHMwVSFnZwCbVFLbJLKcFDBrSQ4BMARmK029ee SkKz7ZEs2GRiHuGP7umf2BXuntGFGjQovOKop2JDng PI1QmGIunDTaNDLsCRJWAmMfW0kar3VlXfehJARVVUgjBF5Cx6LlpHBxYAd+Qc5CMP1qz7KpSDdpWWRi AA1nmd1FTBvVBwOxR7MxnUerAG0uKA9miEZtFndkV8uouNlkoGBSWYleVBGjpejjGBAqBSLeVVCdEe6n AQH7XYUuVoJiIQESJG0NPIYiQLVaoISoAXElBNXWKU 1QFErkJNC6IpmlfkJgbPRsWDkuHG6GGWLvlmMpWnrnYPYAADg+Ix5IFQ1zu4KlNHmkFTDaAN6wmf8DAJ sQAvIeY9L5pGVxE7D4CLkoRt4CVOEnDESrYiFlPTKHLGhlBV6WZH6vlkQ4LR5RwOTyLCLhWPZysHFmFA k9C67hfDXcLIsuLO5RHKQ+Nila+Ay8GPPThDZLeLKXp HcOlVZDZMsHvF0QjS7GWt3TxE1HqNK39vNhgqcFpNGycMY8GZQ2bAAIeXQGSHW8NiYKojU1igrDwHlDo PMSMEqHyN94ogRXlKBKjNFC4UFMdTs7WVQLuW0LjirBroZfpooVkRNArGVDRQK0DIQcubuOtnBFszPjh XI47rMqgTQ8XEn7IVoInMC7vxi2UiHLnPk8MWWVxLM 7YMPSyQRYqCUOfRPE9DAFrYbEgRKhfEKIlVJMmSBY8EUVgCRLyCZ7XRtKrCVLcBAL0WwUoJTDpDZAbve 6FVWYvZHTbJsDnGhYzADSjPAFkCFbqQTGmWQUwJZB6YWNdRYLxCW1BJfPkGIQkRVA4GNxoUURkXWXvcw 6TNDOoWKSjUvAiEhOyPZYlZWApFThlMMLfHZJ9RYA2 KLGxOPXsFH2EEoTeDBLuVZyeAhByFAIlQUAzkn5WEHDuAEGaCkGkGNTnHXQzFNKmFYgqHONuDLI3VrQ1 KUEnBZAzEY3GFxLmJDWeKTf0DqGmKGNfNJKfif8OVXSbKKTcAWb6QoMoQFAiOOSsRQxxOVSwPNC3BLP2 NNDvFODxFA3ANbToHGKwMCEhPVTnJJZmRFPnzi2SDE XkAUTeDMLdIVMcFCDhEDEwRPlhILIuDOZzOta3JOQoUFAwHD2KEwNmDQVtTAOjVRLdSBYmQVVrlm8POT BuVBIbVHS3NDJyTEGmHVCfAXvzLFTfGKUzDeBzIUYqXRVeQS0QLeBkFRVaMMS4SDvxFPGwIIHlah2GFD DzTGYhEtdrJIKuUMZdRCGmSOtuRPZnQZXtHQc9EZAo TTByTD5HHiUmEWEvZMWuMPElOYVsOPDzdc7NELUsFKXrUBJ5TbGqPHPjGEKoNGuxBTHoNXN4YUV2JXUu PYYcBC8PUxBmJEMpQDO2WMrlUUHqUHQyhn0WGTTnSBCiDeE4PsTwEWRaPGHcKImlGJXyBPP3IEA7HAVs OEObFC1NFuTlDBGwVMQ8DrWtQJLgMCMhpe3CoLFxsA osas0ZWSaIUc6ZaOxnMALmYBieUi1vtGBeJLXhLLVSAq3JzgKiHOAwICDVYQpnIMVeLGtrEMSnNvV8OZ omDiT1DyZ7NCWrOkP1HFM7BYWdQNK4JwD5YPB5FdX3BIYdYFG9PDHpSOX0YoZkLrrcYAI3EKH1Fkc+IF 0gDQo+Ri2Av8IqjeA7khHsXTfxZblpQj6TAIKHV1BLQl== ID Date Data Source [id number] 10/28/2019 01:59:00 PM [facility] [address] [place] [address] PATHOLOGY CLIA# [id number] Surgical Pathology ReportPATIENT: JOYCE KELLEY CASE NUMBER: [id number] #: * * * Date Collected:10/19/2019Account #: [id number] Date Received:10/22/2019DOB: 1970 Age: 49 y.o. Date Reported:10/28/2019Sex: F Location: [place] [address] Attending Physician:MIRELLA DO Clinical Information: MORBID OBESITYSpecimen: [...] blocks. ELIN/barbara Electronically SignedBy: Carolina Fregoso, MDCPT: [id number], [id number] PathologistI ATTEST THAT THE ABOVE DIAGNOSIS IS BASED UPON MY PERSONAL MICROSCOPICEXAMINATION OF THE SLIDES (AND/OR OTHER MATERIAL), AND THAT I HAVE REVIEWED AND APPROVED THIS REPORT.PERFORMED AT: [facility] [address] [place] [address] [id number] MOORE Page 1 of 1 Name Value Range Interpretation Code Description Data Georgette rce(s) Supporting Document(s) ID Date Data Source [id number] 10/19/2019 08:58:[address] [facility] Name Value Range Interpretation Code Description Data Georgette rce(s) Supporting Document(s) Perioperative Nursing Note [facility] DEQSKq3vDhWFDpCc45/WYHykXUXjn8WcJYheEHq1BFalONLiN4GjKUA0zC9dPMQ8VZlGPcEjHLrbQfI2 lbm [file] ICAgICAgICAgICAgICAgICAgICAgICAgICAgICAgICAgICAgICAgICAgICAgICAgICAgICAgICAgICAg ICAgICAgICAgICAgICAgICAgICAgICAgICAgICAgIC AgICAgICANCiAgICAgICAgICAgICAgICAgICAgICAgICAgICAgICAgICAgICAgICAgICAgICAgICAgIC AgICAgICAgICAgICAgICAgICAgICAgICAgICAgICAgICAgICAgICAgICAgICAgICANCiAgICAgICAgIC AgICAgICAgICAgICAgICAgICAgICAgICAgICAgICAg ICAgICAgICAgICAgICAgICAgICAgICAgICAgICAgICAgICAgICAgICAgICAgICAgICAgICAgICAgICAN CiAgICAgICAgICAgICAgICAgICAgICAgICAgICAgICAgICAgICAgICAgICAgICAgICAgICAgICAgICAg ICAgICAgICAgICAgICAgICAgICAgICAgICAgICAgIC AgICAgICAgICANCiAgICAgICAgICAgICAgICAgICAgICAgICAgICAgICAgICAgICAgICAgICAgICAgIC AgICAgICAgICAgICAgICAgICAgICAgICAgICAgICAgICAgICAgICAgICAgICAgICAgICANCiAgICAgIC AgICAgICAgICAgICAgICAgICAgICAgICAgICAgICAg ICAgICAgICAgICAgICAgICAgICAgICAgICAgICAgICAgICAgICAgICAgICAgICAgICAgICAgICAgICAg ICANCiAgICAgICAgICAgICAgICAgICAgICAgICAgICAgICAgICAgICAgICAgICAgICAgICAgICAgICAg ICAgICAgICAgICAgICAgICAgICAgICAgICAgICAgIC AgICAgICAgICAgICANCiAgICAgICAgICAgICAgICAgICAgICAgICAgICAgICAgICAgICAgICAgICAgIC AgICAgICAgICAgICAgICAgICAgICAgICAgICAgICAgICAgICAgICAgICAgICAgICAgICAgICANCiAgIC AgICAgICAgICAgICAgICAgICAgICAgICAgICAgICAg ICAgICAgICAgICAgICAgICAgICAgICAgICAgICAgICAgICAgICAgICAgICAgICAgICAgICAgICAgICAg ICAgICANCiAgICAgICAgICAgICAgICAgICAgICAgICAgICAgICAgICAgICAgICAgICAgICAgICAgICAg ICAgICAgICAgICAgICAgICAgICAgICAgICAgICAgIC AgICAgICAgICAgICAgICANCjw/sQMhF4utoEHjvnR7P1lcUy4PDs5PBN4eu9CbOIZaRCargjLqChoAYf DtNUUdTytFMia8HAzjML2RaKMjX1CuK3MvYDalQJ2ZNFPbNEGnhBItPCRdYAAkSaY3TODvOEknTU2GcH CvANncQPRsWBOlXM7TUEExT604lsBcFU1SNd2JZpXt IP4omx7CYjIqNVLaLpeVGfx6WPlxWR2AhLAbyMJzEoXuVCYREjEaV4nto7VcJgYlZUAXUTeoEU5Yk4Vi dCAxDQo+Lq7CHW7wn3DnRFkiFcRzFA3dem6IIYlCPzUjY3UhmPupNOQazqaioMLuEXNxaqVfWpCeq9ki UdZAz6HhEIM8MXxzww2zBwYjCI6lK4PsagcjIn5nRX QuEYKnSi9yBZI9CLD0TuH0NEJBLI5DBVDrDSJlbROdPDBgMPQHWZ5QOXqxFOJ7HdmwelXkfDFeTLfoEV 9QYXJlbnQgMjIgMCBSDQo+An6HSI9jp2QnFEowRKKkTH3xbv1BMSdDCkMdT3V0xIKbG7P1LUrdEl1WIR VuTKDnVkPuJRKJULayBG6CCR6qvfB7GL4ExTFmZTMs IXBxtZFuBEv6G17dcITvLTzxSC4ZVLD+Nila+Hy2APAWkDVPeDKAzQqIwVBHMTtJnB2FjD2GPj3CdQ8Dj VK82pCycaeIfLYlmDI7UTH6uOJOnOBLQIM4KpDWsrB6fchVuRzNgWWUVTfZpM06gkKTtDHYwEOMuSRFb Ew6RAITbJ6CgfxZscQpdkhFbWVAhRTPMJT8NJAozgj VklFPmgOhjBA93vQwqJI0XAr0PNmAeRG6nyg4PuUOoDk9YKNWkEI5CNSQnIDTvPVXhITG0EXIrThTjEX ymKNTdMGLyIHT1FAUjVXOiKC5CSgZuJMAtVUf9BrEpDLJpKPYvvb6QNDYhRPJjJWKxGQAgGIJjZHQmUJ vgGGIlSDXeQDK7NSNsWOGcPY5PWkXeWBYwSUYlHKof XDIsNJVuwl2RPHAgDBEpMCBdHJNoAIFdNJDjVMmmPZAkYDGrZBJ4ZJKsQDQqLR9PEsTeOEVvOUItFhHy LUTdRGXxed4DSJDiPNQfIgE6PEShQOUqKUFoXQtcSDRgVULiQGM6SXHnKQZdGP5YWwJwEBYaJSF2QAHz IAJnUAUvji7LQUMqXZKrBqt6ZwRuAHBjQLWuNTquNI CpIEG0GiLnNTZjGUMfUM8CNgWuWHXxSWX4CPtuRVLiAMTnzf1MSOWyNXPfMxc7FdDmQYTgBHMyQCabTD TbGZH0NZU8GAGnEQCxWZ9SQhKbBVNkNKsrNMFzXFAfDFKzey0OMIGdYOWtITD6XJGrQWRqCIYjCKkrKT WgJOO1YwjhYKOeDPCaKU5XBlAdIRVqMSa7SFQuEJWe HXHwoe9JFDVdFMRxAGv1KPUqAAYqQDQdQTtwOWDcUODjKnC2ZGUpYGIhCR6YUsDzNYDiUsTnSfvqLOTu MGTalx9PQJBsOHLxNLD6JIBxJFUuUFNcXCm8hvYoyGXbNCr4BO8RS1TmznEnHpTKPs8Er306BVB7ADEu Mw3CR8gsCt9bROCwPYDOGo0CONd2DIZ8PEsyZYpfKQ jzGeCwMyK3WpWbZJz5SwWiRJEkQMD+TNa7XQaeT9ZiHPG6WMY1ROBgXOopX9AqAcqzBMD9DME0WR7aMJ ANCj4+VQgsyXNclBddYPVZXmXzVdo5FYneXRSRXg8Y ID Date Data Source [id number] 10/19/2019 08:38:[address] [facility] Name Value Range Interpretation Code Description Data Georgette rce(s) Supporting Document(s) Anesthesia Preprocedure Evaluation [facility] AYRNFl8cRyYJVuKe95/COGhvWWXij6AhBAanMKh4BIfjISFmV2TiZYD6nC8eOTR9TDkBJeInFCyiUgX9 lbm [file] AgICAgICAgICAgICAgICAgICAgICAgICAgICAgICAg BEZrSPLhBGFxKZNrKSGuFIHqAUAvXGKxJDWuKPWqYPIkCKLtCQ3IQLTmCCOsDSVoCOEvTNCqNGJfFVVu ICAgICAgICAgICAgICAgICAgICAgICAgICAgICAgICAgICAgICAgICAgICAgICAgICAgICAgICAgICAg ZIOaPGYmEDHgTRWuWHHtBJAuKM9PWPYcPCIfYVJyRF AgICAgICAgICAgICAgICAgICAgICAgICAgICAgICAgICAgICAgICAgICAgICAgICAgICAgICAgICAgIC JaBYTqSCUgWJSyVIXgBMHcBPFdMXBcRXWaFBGqCV1PIUCiNROaRXYyRRHwPMTqZSRbITLwGNWbEKZlCH AgICAgICAgICAgICAgICAgICAgICAgICAgICAgICAg KLKoKEUqRFSbTJPlSEHwFZIeBXYsFBNlHIEzNSBnVOTbEETyIKShRS0IMGJlXPDzANEgDDHoZUMgCYBh ICAgICAgICAgICAgICAgICAgICAgICAgICAgICAgICAgICAgICAgICAgICAgICAgICAgICAgICAgICAg GUYoUAFvIPLuYCUwBEUgESPqDCLsCY2ITALgECHuAQ AgICAgICAgICAgICAgICAgICAgICAgICAgICAgICAgICAgICAgICAgICAgICAgICAgICAgICAgICAgIC DjHXDxVUYmOQPpJITqJNWnCWTiUAVnFBPyVRMlQTQoVM8TJVUnFAZoOWVqLEFxNPUqWABsGRTfHNQtUS AgICAgICAgICAgICAgICAgICAgICAgICAgICAgICAg ATLiGCFlRDIzYJXcEDBdUUYgBJDyNNHmZKHcALZfRYMkSZUcEEYlJHTnRV3VAQSpXJTiXFObQLMlINZq ICAgICAgICAgICAgICAgICAgICAgICAgICAgICAgICAgICAgICAgICAgICAgICAgICAgICAgICAgICAg PDNsMOQmZTIjPDOgDEYcTVJeIQGcVZAqOK2BTTWgYK AgICAgICAgICAgICAgICAgICAgICAgICAgICAgICAgICAgICAgICAgICAgICAgICAgICAgICAgICAgIC YnMCEoHKNjRDPhJYXqOMGhWNBeOWDpBFZoHGYeTUZeHWTmIO0ANTRpAOSvVLHtLJYnYVXaMRNjEABaXH AgICAgICAgICAgICAgICAgICAgICAgICAgICAgICAg CRDiITBfONAcNUYcVBMjKPMeKLJmMGFqHOCcCPUmQHTtSUNnXLVxYHYqAJMiRU4XYK67yQGsu8Y8IUZp RL6ufob/Qb5TDDlvhxSpkKTnMK2QEhPlUF6dyi9SAuKpCJ6doq7AEEbYRkBqQ9L1gSVqQXDaIQZLSnDl O69aUUduTe52PUuqFTQeAoFsRRf5Eq6ZYaKcK8ebPG GxVnN5WNDySkJ6QGGmAzUxLUtdWX7Cx3WcmDJeYSx+Gn1DKZ6pn6GvINdwFtMnIW5wxc0ORHiCHqMnQ0 EwqdN5VOD5PJBxGl9TOPGxIQPxsWVcUDLxIRUUPdRuN7TpgP44IEPIXv1+SJeaakLcZurNLqE5TRWdy1 YoMMz0ZC7NQLLgEXm2mXUlSV9on2HwCKCwLHLWkbAl gf2wCZP7ovPpCTZxrKMjrWljuvEldKDFiC4dTQElMBT9gOjgmoJFeVLwksvmYVSfCDAiCZQfWI2sBRV4 AAOiObV3NPSTIK0KHWTiLPLtaONkQTFfMRHAPR5WTPebXCL6GpmvfjYwgGTpBTrnLO5BYCHpaeApFzqd MCBSDQo+Bo3VSV4ye7FaRBevXDMeNM6bkj1TCTmJDy AlJ5A7vFStB9B8YSruKv5ASKOfHLDbAvMyULLNGOchGO4CTM2omkQ7ZH7IaWUfPYOkEAZgwJIvIVl3R4 4bjBNmGDsxSK2NRMQ+Nila+Sg4OCTByWGVlFBQoMxNhCVWUUyFzL6WmU3ZZm7LrM2IaGK48kInpzySzYX hxEA0WMK8uPPOiTDJIIR3IfXYwvJ0mclZcSzQdHKAC OdHnA03tuSMbGBCwXSX9OAYkGj0QVNMkF7ImprCpbIoosgViVJOrPRYSBT6LBDguzePeaURnnKuhPT40 tCqmAG5YVx3JVbAcRI1wkl8OlSRvMd2WNEAaQA7OYRDxACUxSQOgTXS9WROhZoSxQGyoZGBsBSUlKLF9 ZXJqVZWuVH9LOhHhVJEtRzVfPeUxTUEbAPLgou1CGD UxCXOcWBInRuYuFQXmKJDlHOmuLBPeGXCgDZA7ZGPmZJOuTJ5VGpZlHZAxZZAbXLyoSOJyYGTmsa2ZVY YlAACtGtRbPJErSHQtJCXsIWboZQYfDSSgQXmkLRSaOAEcWX3NZpAkYXZnFUR8VNrjPRPfQHWnzq4HJG OrPQLiJHG9ZKCdZNAiLVPlKSaqITXpXYZ6BEL3YSSu CCTsUO8ONaZxELUhVPPoTSOlFCWrGOKbma6QZVOqSVLaIsOnUfItIYVeQWXxRPqpHPQoSBG7JKd9ZNPb LYOvQU7MFxFuCVJoYVMfLFZrSEXnRCUvlk8NGVIoFWCgGEvtRPJxVSYyKOWnAHgcETHrLMD2AND2VZXy GNDqNH1VCvIrLFPrHLiiQZEhEMKjTBFmrj5JAPCwJA MvSDN1ByBrUBTuICKgIQawYLRwCBZ0LyTwAOOhORIjUN2CKxJrGSPwVeH3LYDjRBYrGTTnbf1GJVWfTK XhJIg4IGZdLNMiHSGnQXchHNWwNJXnQQDfPAYyTZAaWZ1WQyYhQUBbHvQ1PEHhKWDxHJJram7XZHUlHD IcEdP8FeWbPRBiMJKnVZauOBXkWWKaRiG7YQTsBKSe NH7MOyLuBVAfVvJ0KAcvRZLfCSFujj4VEFKjMQVyMUVmYDTaIBMbSLDxDMvuXOCzIEV0JiGcRJKxGYRa TQ0RHeEfRPNcMoJkPzegDHZjYFTwqo5WbZNejQlypu8SBRgYSk0EzRqgXGXhHXyxMk5piVBcXMWeVWNU Bo0KjbJyIJNeCLMDBEthJBBmNDX5ZbU4BvNmIDP0QW faVETdKvWkI9K9NnnsNGSoExT1JrB9ZiscZsA7VUVuCkKpK6L1BwNxZ5YvMEJzVQJ2BqDyGRe+IF0gDQ o+Gn3Bc4GorgN5wsQgLYbcAGJlTV1XIHBQC2YYAn== ID Date Data Source [id number] 10/19/2019 08:10:[address] [facility] Name Value Range Interpretation Code Description Data Georgette rce(s) Supporting Document(s) POCT- GLUCOSE 82 mg/dl 70-100 [facility] ID Date Data Source [id number] 10/19/2019 07:54:[address] [facility] Name Value Range Interpretation Code Description Data Georgette rce(s) Supporting Document(s) , URINE NEGATIVE NEGATIVE [facility] Procedure Social History Code Duration Value Status Description Data Source(s ) Smoking 06/13/2020 12:00:00 AM EDT Patient is a former smoker completed Patient is a former smoker [facility] ([facility]) Smoking 10/19/2019 12:00:00 AM EST Former smoker completed Former smoker [facility] Vital Signs ID Date Data Source UNK Name Value Range Interpretation Code Description Data Source(s) Body mass index (BMI) [Ratio] 32.4 kg/m2 32.4 k g/m2 [facility] Oxygen saturation in Arterial blood by Pulse oximetry 98 % 98 % [facility] ([facility]) Body weight 195.00 [lb_av] 195.00 [lb_av] [facility] ([facility]) Body height 65 [in_i] 65 [in_i] [facility] ([facility]) 5'5" Heart rate 78 /min 78 /min [facility] ([facility]) Diastolic blood pressure 70 mm[Hg] 70 mm[Hg] [facility] ([facility]) Systolic blood pressure 102 mm[Hg] 102 mm[Hg] [facility] Body mass index (BMI) [Ratio] 31.3 kg/m2 31.3 k g/m2 [facility] Body weight 188.00 [lb_av] 188.00 [lb_av] [facility] ([facility]) Body height 65 [in_i] 65 [in_i] [facility] ([facility]) 5'5" Heart rate 70 /min 70 /min [facility] ([facility]) Diastolic blood pressure 74 mm[Hg] 74 mm[Hg] [facility] ([facility]) Systolic blood pressure 118 mm[Hg] 118 mm[Hg] [facility] ([facility]) Diastolic blood pressure--supine 76 mm[Hg] 76 mm[Hg] [facility] ([facility]) Systolic blood pressure--supine 112 mm[Hg] 112 mm[Hg] [facility] ([facility]) Diastolic blood pressure--sitting 72 mm[Hg] 72 mm[Hg] [facility] ([facility]) Systolic blood pressure--sitting 108 mm[Hg] 108 mm[Hg] [facility] ([facility]) Heart rate 64 /min 64 /min [facility] ([facility] Body mass index (BMI) [Ratio] 31.1 kg/m2 31.1 k g/m2 [facility] ([facility]) Body height 65 [in_i] 65 [in_i] [facility] ([facility] 5'5" Body weight 187.00 [lb_av] 187.00 [lb_av] [facility] ([facility]) Diastolic blood pressure--supine 75 mm[Hg] 75 mm[Hg] [facility] ([facility]) Systolic blood pressure--supine 113 mm[Hg] 113 mm[Hg] [facility] ([facility]) Diastolic blood pressure--sitting 76 mm[Hg] 76 mm[Hg] [facility] ([facility]) large cuff, Ra; 114/78 LA Systolic blood pressure--sitting 113 mm[Hg] 113 mm[Hg] [facility] ([facility]) large cuff, Ra; 114/78 LA Respiratory rate 18 /min 18 /min [facility] ( [facility]) Heart rate 68 /min 68 /min [facility] ([facility] regular Body mass index (BMI) [Ratio] 35.3 kg/m2 35.3 k g/m2 [facility] ([facility]) Body height 65 [in_i] 65 [in_i] [facility] ([facility]) 5'5" Body weight 212.00 [lb_av] 212.00 [lb_av] [facility] ([facility]) Body mass index (BMI) [Ratio] 34.9 kg/m2 34.9 k g/m2 [facility] ([facility]) Body weight 210.00 [lb_av] 210.00 [lb_av] [facility] T ([facility]) Body height 65 [in_i] 65 [in_i] [facility] ([facility]) 5'5" Heart rate 70 /min 70 /min [facility] ([facility]) Diastolic blood pressure 80 mm[Hg] 80 mm[Hg] [facility] ([facility]) Systolic blood pressure 126 mm[Hg] 126 mm[Hg] M [facility] ([facility]) Diastolic blood pressure 84 mm[Hg] 84 mm[Hg] eCW1 ([facility]) Systolic blood pressure 138 mm[Hg] 138 mm[Hg] e CW1 ([facility]) Body temperature 97.3 [degF] 97.3 [degF] eCW1 ( [facility]) Respiratory rate 18 /min 18 /min eCW1 ([facility]) Heart rate 97 /min 97 /min eCW1 ([facility]) Body mass index (BMI) [Ratio] 35.27 kg/m2 35.27 kg/m2 eCW1 ([facility]) Body height 65 [in_us] 65 [in_us] eCW1 ([facility]) Body weight Measured 212 [lb_av] 212 [lb_av] eC W1 ([facility]) Diastolic blood pressure 86 mm[Hg] 86 mm[Hg] eCW1 ([facility]) Systolic blood pressure 138 mm[Hg] 138 mm[Hg] e CW1 ([facility]) Body mass index (BMI) [Ratio] 35.37 kg/m2 35.37 kg/m2 eCW1 ([facility]) Body height 65 [in_us] 65 [in_us] eCW1 ([facility]) Body weight Measured 212.6 [lb_av] 212.6 [lb_av ] eCW1 ([facility]) Diastolic blood pressure 72 mm[Hg] 72 mm[Hg] eCW1 ([facility]) Systolic blood pressure 122 mm[Hg] 122 mm[Hg] e CW1 ([facility]) Body mass index (BMI) [Ratio] 36.27 kg/m2 36.27 kg/m2 eCW1 ([facility]) Body height 65 [in_us] 65 [in_us] eCW1 ([facility]) Body weight Measured 218 [lb_av] 218 [lb_av] eC W1 ([facility]) Respiratory rate 16 /min 16 /min [facility] Body temperature 36.06 Danielle 36.06 Danielle [facility] Heart rate 74 /min 74 /min [facility] Diastolic blood pressure 72 mm[Hg] 72 mm[Hg] [facility] Systolic blood pressure 122 mm[Hg] 122 mm[Hg] M [facility] Oxygen saturation in Arterial blood by Pulse oximetry 94 % 94 % [facility] Body mass index (BMI) [Ratio] 50.31 kg/m2 50.31 kg/m2 [facility] Body weight 128.[address] [facility] Body height [address] [facility] Patient Treatment Plan of Care Planned Activity Planned Date Details Description Data Source (s) 0.4 ML Enoxaparin sodium 100 MG/ML Prefilled Syringe 019 12:00:00 AM [facility] Vitamin B 12 1 MG Oral Tablet 10/19/2019 12:00:00 AM [facility] Simethicone 80 MG Chewable Tablet 10/19/2019 12:00:00 AM [facility] Ondansetron 4 MG Oral Tablet 10/19/2019 12:00:00 AM [facility] Omeprazole 40 MG Delayed Release Oral Capsule 10/19/2019 12:00:00 A M [facility] multivitamin tablet,chewable 10/19/2019 12:00:00 AM [facility] Magnesium Hydroxide 80 MG/ML Oral Suspension 10/19/2019 12:00:00 AM [facility] 0.4 ML Enoxaparin sodium 100 MG/ML Prefilled Syringe 019 12:00:00 AM [facility] Acetaminophen 325 MG Oral Tablet 10/19/2019 12:00:00 AM [facility]
--- NOTE | 2020-12-17 18:28 | REPVR ---
PROCEDURE INFORMATION: Exam: US Duplex Right Lower Extremity Veins, Limited Exam date and time: 12/17/2020 6:19 PM Age: 50 years old Clinical indication: Other: S/P right hip replacement; Prior surgery; Surgery date: Post-operative (0-2 days); Additional info: Swelling post op TECHNIQUE: Imaging protocol: Real-time Duplex ultrasound of the Right Lower Extremity with 2-D niño scale, color Doppler flow and spectral waveform analysis with image documentation. Limited exam was focused on the right lower extremity veins. COMPARISON: No relevant prior studies available. FINDINGS: Right deep veins: Unremarkable. The common femoral, femoral, proximal profunda femoral and popliteal veins are patent without thrombus. Normal Doppler waveforms. Normal compressibility and/or augmentation response. Right superficial veins: Unremarkable. Saphenofemoral junction is patent without thrombus. Soft tissues: Unremarkable. IMPRESSION: No evidence of deep vein thrombosis. Electronically signed by: Josie Triplett On 12/17/2020 18:28:07 PM
[2020-12-17 19:54] VITALS: BP 138/88
== END 2020-12-17 19:55 | disposition home or self-care (01) ==
LOC: EDBD 16:41 → M ED 16:41
DX: S76.011A Strain of muscle, fascia and tendon of right hip, initial encounter (principal); X58.XXXA Exposure to other specified factors, initial encounter; Y92.099 Unspecified place in other non-institutional residence as the place of occurrence of the external cause; Y93.9 Activity, unspecified; Y99.9 Unspecified external cause status; I51.9 Heart disease, unspecified; Z87.891 Personal history of nicotine dependence; Z79.899 Other long term (current) drug therapy; Z88.0 Allergy status to penicillin

== ENCOUNTER → 2021-02-11 | Outpatient (REF) | payer OTHER ==
[2021-02-11 17:20] LABS: HEMATOCRIT 40.7 % (36.0-47.0)
[2021-02-11 17:40] LABS: PERCENT SATURATION 30.7 % (13.2-45.0); PHOSPHORUS LEVEL 3.6 MG/DL (2.5-4.9)
== END ==
LOC: M LAB REF 16:23
PROVIDERS: ATTEND Family Medicine
DX: Z98.84 Bariatric surgery status (principal); K91.2 Postsurgical malabsorption, not elsewhere classified; E55.9 Vitamin D deficiency, unspecified

== ENCOUNTER → 2021-02-23 | Outpatient (CLI) | payer OTHER ==
--- NOTE | 2021-02-23 16:02 | REP ---
INDICATION: S/P RT BREAST BENIGN BX CALCS, RT BREAST MASS. Negative ultrasound-guided biopsy right breast 03/26/2020 and negative stereotactic biopsy right breast 03/19/2020. COMPARISON: 03/26/2020 as well as other prior exams. TECHNIQUE: MLO and CC views right breast. FINDINGS: Mild scattered fibroglandular tissue is stable. No new mass or architectural distortion is seen. No new clusters of microcalcifications are seen. Two biopsy marking clips are again seen in the upper outer quadrant and 12 o'clock region right breast anteriorly, unchanged. The Volpara volumetric breast density pattern is B. IMPRESSION: BIRADS/ACR category 2, benign. Stable appearance right breast with no new mass or clustered microcalcifications, status post 2 negative right breast biopsies in 2019. Patient is due for screening mammography of the left breast 03/07/2021. This patient's Tyrer-Cuzick lifetime breast cancer risk assessment score is 13.5%. This mammogram was interpreted with the aid of an FDA-approved computer-aided detection system. The patient states she had a clinical breast exam in over 1 year ago. The patient letter being requested is M1. RECOMMENDATION: The patient is due for screening mammography of the left breast 03/07/2021. <Electronically signed by Trino Dominguez > 02/23/21 2220
== END ==
LOC: M WHC 14:53
PROVIDERS: ATTEND Surgery
DX: R92.1 Mammographic calcification found on diagnostic imaging of breast (principal); N63.10 Unspecified lump in the right breast, unspecified quadrant

== ENCOUNTER → 2021-03-19 | Outpatient (REF) | payer OTHER | LOC: M SFHCWAGY 12:35 | PROVIDERS: ATTEND Nurse Practitioner Women's Health | DX: Z12.4 Encounter for screening for malignant neoplasm of cervix (principal) ==

== ENCOUNTER → 2021-03-19 | Outpatient (CLI) | payer OTHER ==
--- NOTE | 2021-03-19 10:37 | REPMRS ---
Patient History The patient states she had a clinical breast exam in February 2021. Patient had first child at age 36. No known family history of cancer. Benign US guided breast biopsy. of the right breast, March 26, 2020. Benign stereotatic loc for ea lesion. of the right breast, March 19, 2020. Radio exam Breast Specimen. of the right breast, March 19, 2020. Took hormonal contraceptives for 12 years. No breast complaints today Patient signed the MRS sheet 01/11/21-left arm-[employer] 2nd 02/01/21-left arm Priors on PACS Patient Identification Verified Patient denied pregnanc Digital Woman Screen Mammo: March 19, 2021 - Exam #: [id number] Bilateral CC and MLO view(s) were taken. Technologist: Lis Koorma, Technologist Prior study comparison: February 23, 2021, right breast diagnostic unilateral mammo performed at [facility]. March 26, 2020, right breast diagnostic unilateral mammo performed at [facility]. FINDINGS: There are scattered fibroglandular densities. Screening. Digital screening (2D) mammography was performed bilaterally in the CC and MLO projections. Additionally, breast tomosynthesis (3D mammography) was performed bilaterally in the CC and MLO projections. Todays exam was compared to the prior exams(s). By history, the patient has no complaints of a palpable breast abnormality or other significant breast complaints. The breasts are unchanged in size and shape. There are no jack-soft tissue densities or spiculated masses. There is no internal architectural distortion. There are no suspicious jack-calcific clusters. Skin thickening or nipple retraction is not present. IMPRESSION: BI-RADS Category 2- Benign Findings(s). There is no evidence of malignant alteration of the breasts. Followup examination recommended in one year. This mammogram was read with the assistance of [employer],an FDA approved computer aided detection system for mammography. The Volpara volumetric breast density category is B, there are scattered areas of fibroglandular density. Negative x-ray reports should not delay surgical consultation if a dominant or clinically suspicious mass is present. The lifetime Tyrer-Cuzick score is 13.5% Not all breast cancers can be identified by mammography. Therefore, we recommend that you continue to perform regular breast self-examination and physical examination and then promptly contact your physician of any concerns or changes. Adenosis and dense breasts may obscure an underlying neoplasm. Assessment: BI-RADS/ACR category 2 mammogram. Benign Findings. Recommendation Routine screening mammogram of both breasts in 1 year. Electronically Signed By: Theodore Lr DO 03/19/21 1037
== END ==
LOC: M WHC 07:43
PROVIDERS: ATTEND Nurse Practitioner Women's Health
DX: Z12.31 Encounter for screening mammogram for malignant neoplasm of breast (principal)

== ENCOUNTER → 2022-01-26 | Outpatient (REF) | payer OTHER ==
[~2022-01-26] MED LIST changes: -CVS10CAP8 PO; +MELA10CA6 PO
[2022-01-26 11:39] LABS: FERRITIN 14 NG/ML (8-252); VITAMIN B12 LEVEL 1274 PG/ML (247-911)
== END ==
LOC: M LAB REF 09:52
PROVIDERS: ATTEND Family Medicine
DX: Z98.84 Bariatric surgery status (principal)

== ENCOUNTER → 2022-03-01 | Outpatient (CLI) | payer OTHER ==
[~2022-03-01] MED LIST changes: +B-12100010 PO; +CALC250T PO; +LEVO137T2 PO
== END ==
LOC: M LABSMTC 10:42
PROVIDERS: ATTEND Anesthesiology
DX: Z01.812 Encounter for preprocedural laboratory examination (principal); Z20.822 Contact with and (suspected) exposure to COVID-19

== ENCOUNTER 2022-03-03 10:38 | Day surgery (SDC) | payer OTHER ==
[~2022-03-03] VITALS: Ht 165.1 cm; Wt 94.8 kg
[~2022-03-03 10:38] MED LIST changes: +NS 1,000 ML IV ONE
[2022-03-03] MEDS ORDERED: LIDOCAINE 2% 100MG/5ML SDV (FOR ANES.) As Ordered ONE (11:55)
[2022-03-03] MEDS ORDERED: propofoL 200 MG/20 ML VIAL As Ordered ONE (11:55)
[2022-03-03 12:17] VITALS: BP 131/64
== END 2022-03-03 12:27 | disposition home or self-care (01) ==
LOC: M OPP 10:38
PROVIDERS: ATTEND Internal Medicine Gastroenterology
DX: Z12.11 Encounter for screening for malignant neoplasm of colon (principal); K57.30 Diverticulosis of large intestine without perforation or abscess without bleeding; K64.0 First degree hemorrhoids; G47.30 Sleep apnea, unspecified; E03.9 Hypothyroidism, unspecified; Z79.51 Long term (current) use of inhaled steroids; Z79.890 Hormone replacement therapy; Z79.899 Other long term (current) drug therapy; Z88.0 Allergy status to penicillin; Z98.84 Bariatric surgery status

== ENCOUNTER → 2023-02-07 | Outpatient (REF) | payer OTHER ==
[~2023-02-07] MED LIST changes: -NS 1,000 ML IV ONE
== END ==
LOC: M LAB REF 12:04
PROVIDERS: ATTEND Family Medicine
DX: E03.9 Hypothyroidism, unspecified (principal)

== ENCOUNTER 2023-03-25 12:28 | Emergency (ER) | payer OTHER ==
[~2023-03-25] VITALS: Ht 165.1 cm; Wt 100.6 kg
[2023-03-25 14:33] LABS: BASO # 0.1 10^3/uL (0.0-0.2); BASO % 0.5 % (0.0-1.0); EOS % 0.1 % (0.0-3.0); HEMATOCRIT 38.6 % (36.0-47.0); HEMOGLOBIN 12.8 g/dl (12.0-15.5); LYMPH # 1.5 10^3/uL (1.5-5.0); LYMPH % 13.3 % (24.0-44.0); MEAN CORPUSCULAR HEMOGLOBIN 29.2 pg (27.0-33.0); MEAN CORPUSCULAR HGB CONC 33.2 g/dl (32.0-36.5); MEAN CORPUSCULAR VOLUME 88.1 fl (80.0-96.0); MONO # 1.2 10^3/uL (0.0-0.8); MONO % 10.6 % (2.0-8.0); NEUTROPHILS # 8.3 10^3/uL (1.5-8.5); NEUTROPHILS % 75.1 % (36.0-66.0); PLATELET COUNT, AUTOMATED 323 10^3/uL (150-450); RED BLOOD COUNT 4.38 10^6/uL (4.00-5.40)
[2023-03-25] MEDS ORDERED: ISOVUE-370 76% 100ML VIAL As Ordered ONE (14:45)
[2023-03-25 14:59] LABS: ERYTHROCYTE SEDIMENTATION RATE 43 mm/hr (0-30)
[2023-03-25 15:52] VITALS: BP 150/90
== END 2023-03-25 15:53 | disposition home or self-care (01) ==
LOC: M ED 12:28
DX: S29.011A Strain of muscle and tendon of front wall of thorax, initial encounter (principal); R59.9 Enlarged lymph nodes, unspecified; J45.909 Unspecified asthma, uncomplicated; E03.9 Hypothyroidism, unspecified; Z98.84 Bariatric surgery status; Z79.899 Other long term (current) drug therapy; Z88.0 Allergy status to penicillin
CPT/HCPCS: 70491; 80047; 85025; 85652; 86140; 99284; Q9967

== ENCOUNTER → 2024-02-29 | Outpatient (REF) | payer OTHER ==
[2024-02-29 15:28] LABS: % LABILE ALKALINE PHOSPHATASE 47 %; LABILE ALKPHOS 62 U/L; STABLE ALKPHOS 69 U/L
== END ==
LOC: M LAB REF 12:25
PROVIDERS: ATTEND Family Medicine
DX: R74.8 Abnormal levels of other serum enzymes (principal)

== ENCOUNTER → 2024-02-29 | Outpatient (REF) | payer OTHER | LOC: M SFHCWAGY 12:45 | PROVIDERS: ATTEND Nurse Practitioner Family | DX: Z12.4 Encounter for screening for malignant neoplasm of cervix (principal) | CPT/HCPCS: 87624; G0123 ==

== ENCOUNTER → 2024-08-14 | Outpatient (REF) | payer OTHER ==
[2024-08-16 18:17] LABS: FERRITIN 6.7 NG/ML (7.3-270.7)
[2024-08-16 18:18] LABS: PERCENT SATURATION 9.3 % (13.2-45.0)
== END ==
LOC: M LAB REF 16:10
PROVIDERS: ATTEND Family Medicine
DX: E61.1 Iron deficiency (principal)

== ENCOUNTER → 2024-08-23 | Outpatient (CLI) | payer OTHER | LOC: M RAD 15:44 | PROVIDERS: ATTEND Family Medicine | DX: R41.82 Altered mental status, unspecified (principal) ==

== ENCOUNTER → 2024-12-06 | Outpatient (REF) | payer OTHER ==
[2024-12-06 14:49] LABS: FOLLICLE STIMULATING HORMONE 34.8 mIU/ML; LUTEINIZING HORMONE 27.9 mIU/ML
== END ==
LOC: M LAB REF 13:31
PROVIDERS: ATTEND Family Medicine
DX: N95.9 Unspecified menopausal and perimenopausal disorder (principal)

== ENCOUNTER → 2025-01-08 | Outpatient (CLI) | payer OTHER ==
[~2025-01-08] MED LIST changes: +E-Z-GAS II EFFERVESCENT PACKET (SODIUM BICARB./CITRIC ACID/SIMETHICONE) As Ordered ONE; +E-Z-HD 98% w/w 340GM SUSP BTL As Ordered ONE; +E-Z-PAQUE 96% w/w SUSP 176GM BTL As Ordered ONE
== END ==
LOC: M RAD 10:35
PROVIDERS: ATTEND Family Medicine
DX: D64.9 Anemia, unspecified (principal); Z98.84 Bariatric surgery status; K91.1 Postgastric surgery syndromes

== ENCOUNTER → 2025-01-23 | Outpatient (CLI) | payer OTHER ==
[~2025-01-23] MED LIST changes: -E-Z-GAS II EFFERVESCENT PACKET (SODIUM BICARB./CITRIC ACID/SIMETHICONE) As Ordered ONE; -E-Z-HD 98% w/w 340GM SUSP BTL As Ordered ONE; -E-Z-PAQUE 96% w/w SUSP 176GM BTL As Ordered ONE
== END ==
LOC: M RAD 06:41
PROVIDERS: ATTEND Student in an Organized Health Care Education/Training Program
DX: M71.21 Synovial cyst of popliteal space [Baker], right knee (principal); M25.561 Pain in right knee

== ENCOUNTER → 2025-01-24 | Outpatient (CLI) | payer OTHER | LOC: M SOG 07:55 | PROVIDERS: ATTEND Physician Assistant | DX: Z53.9 Procedure and treatment not carried out, unspecified reason (principal) ==

== ENCOUNTER → 2025-02-18 | Outpatient (REF) | payer OTHER | LOC: M LAB REF 17:43 | PROVIDERS: ATTEND Family Medicine | DX: D64.9 Anemia, unspecified (principal) ==

== ENCOUNTER → 2025-02-20 | Outpatient (CLI) | payer OTHER | LOC: M SOG 09:27 | PROVIDERS: ATTEND Orthopaedic Surgery | DX: M25.561 Pain in right knee (principal) ==

== ENCOUNTER → 2025-03-26 | Outpatient (CLI) | payer OTHER | LOC: M SOG 07:14 | PROVIDERS: ATTEND Orthopaedic Surgery | DX: S82.134A Nondisplaced fracture of medial condyle of right tibia, initial encounter for closed fracture (principal); Y92.9 Unspecified place or not applicable; Y93.9 Activity, unspecified ==